=== PATIENT | male | born 1965 | race Caucasian/White ===

== ENCOUNTER 2019-09-13 11:39 | Emergency (ER) | payer OTHER, SELFPAY ==
[2019-09-13 11:44] VITALS: BP 109/92; PULSE 103; RESP 16; TEMP 37.1; O2SAT 100
--- NOTE | 2019-09-13 11:48 | ED.SKABFB ---
HPI - Skin/Abscess/Foreign Bdy General Chief complaint: Skin/Abscess/Foreign Body Stated complaint: spots on arms Time Seen by Provider: 09/13/19 11:52 Source: patient and RN notes reviewed History of Present Illness HPI narrative: Patient is a 53-year-old male who presents the urgent care with complaints of a open rash to bilateral arms, lower legs and groin. Patient states he also has a small area on the top of his head. Patient states is been ongoing for a couple weeks and last week he saw his primary care and was prescribed mupirocin and triamcinolone cream. Patient states he also took Keflex. Patient states that neither creams are improving the rash and he was referred to a nurse midwife/clinical instructor at [place]. Patient states that he is unable to get into dermatology until November. Denies of any known fevers, nausea, vomiting. Patient states that he has been using new wash rags, towels and washing his clothing daily. Patient is also been bleaching his shower. States that his was diagnosed with staph approximately 2 months ago prior to her hip surgery but never broke out in open wounds or rash. No other acute complaints. No acute distress noted. Patient read the plan of care. Related Data Home Medications Medication Instructions Recorded Confirmed gabapentin 600 mg PO BID 09/13/19 09/13/19 insulin glargine [Basaglar KwikPen 38 unit SUBCUT DAILY 09/13/19 09/13/19 U-100 Insulin] insulin lispro [Admelog SoloStar 6 unit SUBCUT DAILY 09/13/19 09/13/19 U-100 Insulin] metformin 500 mg PO BID 09/13/19 09/13/19 prednisone 10 mg PO DAILY 09/13/19 09/13/19 prednisone 20 mg PO DAILY 09/13/19 09/13/19 Allergies Allergy/AdvReac Type Severity Reaction Status Date / Time No Known Allergies Allergy Verified 09/13/19 11:57 Review of Systems Review of Systems: Narrative: CONSTITUTIONAL: Denies fever, chills, or sweats. EYES: Denies visual changes, redness, or discharge. ENT: Denies rhinorrhea, congestion, sore throat, or otalgia. CARDIOVASCULAR: Denies chest pain, palpitations, or edema. RESPIRATORY: Denies cough or dyspnea. GASTROINTESTINAL: Denies abdominal pain, nausea, vomiting, or diarrhea. GENITOURINARY: Denies dysuria or hematuria. SKIN: Reports of open painful rash to bilateral arms, lower legs, top of the head and groin MUSCULOSKELETAL: Denies back pain, joint pain, or myalgia. NEUROLOGIC: Denies headache, numbness, or weakness. All other systems reviewed are negative, except as documented in HPI. PMFSH Comments At the time of my signature, I reviewed and agree with the nursing past medical, surgical, social, and family history. There is no relevant family history pertinent to the patient complaint. Exam Narrative: Exam Narrative: GENERAL: This is a well-nourished, well-developed patient, in no apparent distress. HEAD: normocephalic, atraumatic. EYES: PERRL. Sclera clear/white. Vision is grossly intact. EARS: External ears normal NOSE: External nose normal with no obvious nasal discharge, nares without redness, no rhinorrhea. THROAT: Mucous membranes moist NECK: Neck supple SKIN: open sores ranging from 0.25 cm to 1 cm noted to bilateral arms, lower medial ankles and top of the head. Also noted one area to the right and left upper thigh; multiple areas are draining serosanguineous yellow fluid and other areas appear to have yellow crusted centers. NEURO: awake, alert, and oriented to person, place and time. There were no obvious focal neurologic abnormalities. EXTREMITIES: No clubbing, cyanosis, or edema. Course Vital Signs Vital signs: Vital Signs Temperature 98.7 F 09/13/19 11:44 Pulse Rate 103 H 09/13/19 11:44 Respiratory Rate 16 09/13/19 11:44 Blood Pressure 109/92 H 09/13/19 11:44 Pulse Oximetry 100 09/13/19 11:44 Temperature 98.7 F 09/13/19 11:44 Pulse Rate 103 H 09/13/19 11:44 Respiratory Rate 16 09/13/19 11:44 Blood Pressure 109/92 H 09/13/19 11:44 Pulse Oximetry 100 09/13/19 1
== END 2019-09-13 12:15 | disposition home or self-care (01) ==
PROVIDERS: Emergency Provider Nurse Practitioner Family; PCP Emergency Medicine
DX: S41.102A Unspecified open wound of left upper arm, initial encounter (principal); S41.101A Unspecified open wound of right upper arm, initial encounter; S91.002A Unspecified open wound, left ankle, initial encounter; S91.001A Unspecified open wound, right ankle, initial encounter; S01.00XA Unspecified open wound of scalp, initial encounter; S71.102A Unspecified open wound, left thigh, initial encounter; S71.101A Unspecified open wound, right thigh, initial encounter; X58.XXXA Exposure to other specified factors, initial encounter
CPT/HCPCS: 87070; 87205; 99213; G0463

== ENCOUNTER 2021-10-07 17:37 | Emergency (ER) | payer MEDICARE, SELFPAY ==
--- NOTE | ~2021-10-07 | XR_ITS ---
EXAM: XR finger 2nd RT min 2V DATE: 10/07/2021 18:06 HISTORY: ? GLASS IN DISTAL END OF RT 2ND DIGIT SINCE 10/01/21. . COMPARISON: None available. FINDINGS: Normal mineralization. No fracture or dislocation. No lytic or blastic lesion. Joint space s are maintained. No erosion or periosteal change. Soft tissue swelling of the distal finger. No radi opaque foreign body. IMPRESSION: Distal finger soft tissue swelling, without acute osseous finding or radiopaque foreign b ambrose. Reviewed, dictated and finalized at location [facility]. IMPRESSION: Distal finger soft tissue swelling, without acute osseous finding o r radiopaque foreign body.
[2021-10-07 17:44] VITALS: BP 137/75; PULSE 109; RESP 20; TEMP 37; O2SAT 97
--- NOTE | 2021-10-07 18:17 | ED.UPPEXIN ---
HPI - Extremity Injury (Upper) General Chief Complaint: Extremity Injury, Upper Stated Complaint: right finger glass/poison sumac Time Seen by Provider: 10/07/21 18:18 Source: patient, RN notes reviewed and old records reviewed Mode of arrival: ambulatory Limitations: no limitations History of Present Illness HPI narrative: 56-year-old male who presents to [facility] with complaints of injury to his right index finger palmar aspect where he was cut by a piece of glass when he was picking up trash last Thursday, he states that he doesn't know if there could be something in it still but is very painful. Patient right index finger parson area is swollen and bruised in appearance with some swelling around to radial aspect of nail bed. Patient reports that his finger is throbbing in pain rates it a 6/10. Patient also reports that he has poison sumac to the anterior aspect of his arms and also to his lower legs but is clearing up. MD complaint: injury to: right and finger (index, rash) Onset (ago): day(s) (6) Handedness: right Severity scale (1-10): 6 Treatments prior to arrival: NSAIDS and other (washing with soap and water) Related Data Home Medications Medication Instructions Recorded Confirmed insulin glargine 100 unit/mL (3 38 unit subcut DAILY 09/13/19 10/07/21 mL) subcutaneous pen (Basaglar KwikPen U-100 Insulin) insulin lispro 100 unit/mL 6 unit subcut DAILY 09/13/19 10/07/21 subcutaneous pen (Admelog SoloStar U-100 Insulin lispro) Allergies Allergy/AdvReac Type Severity Reaction Status Date / Time No Known Allergies Allergy Verified 10/07/21 18:24 Review of Systems Review of Systems: CONSTITUTIONAL: Denies fever, chills, or sweats. EYES: Denies visual changes, redness, or discharge. ENT: Denies rhinorrhea, congestion, sore throat, or otalgia. CARDIOVASCULAR: Denies chest pain, palpitations, or edema. RESPIRATORY: Denies cough or dyspnea. GASTROINTESTINAL: Denies abdominal pain, nausea, vomiting, or diarrhea. GENITOURINARY: Denies dysuria or hematuria. SKIN: Positive for rash or itching to anterior arm and anterior lower legs states he thinks is poison sumac also had it. Positive for swelling bruising and pain to right distal index finger from injury from piece of glass. MUSCULOSKELETAL: Denies back pain, positive for throbbing pain to right index finger, or myalgia. NEUROLOGIC: Denies headache, numbness, or weakness. PSYCHIATRIC: Denies anxiety or depression. All systems reviewed & are unremarkable except as noted in HPI and below PMFSH Past Medical History Medical History (Updated 10/08/21 @ 10:29 by Ileana Carrillo NP) Chronic inflammatory demyelinating polyradiculoneuropathy Diabetes Surgical History Surgical History (Updated 10/07/21 @ 18:42 by Ileana Carrillo NP) History of cataract surgery bilateral Social History Social History (Updated 10/08/21 @ 10:29 by Ileana Carrillo NP) Smoking packs per day: 1 Smoking cigarettes per day: 20.0 Smoking status: Current every day smoker Tobacco type: cigarettes Alcohol intake: current Alcohol use details: rare social Substance use type: does not use Living arrangements: with family Gender identity (if verbalized by the patient): Male Comments At time of signature, agree with nursing past medical, surgical, social and family history. There is no relevant family history pertinent to the presenting complaint Exam Narrative: GENERAL: Well-appearing, well-nourished, and in some acute distress. HEAD: Normocephalic, atraumatic. EYES: PERRLA and EOMI. ENT: Nares clear, no rhinorrhea or epistaxis. Mucous membranes moist.TM's normal with good light reflex, throat pink no lesions or tonsil swelling. NECK: Supple.no lymphadenopathy CHEST: Clear to auscultation. No respiratory distress.SAO2 97% on room air HEART: Regular rate and rhythm. No murmur heard. Normal peripheral pulses. ABDOMEN: Soft, nontender, nondistended, elena
[2021-10-07] MEDS: TETANUS,DIPHTHERIA,AC PERTUSSIS ADULT (0.5 ML) BOOSTRIX IM (18:38)
== END 2021-10-07 19:08 | disposition home or self-care (01) ==
PROVIDERS: Emergency Provider Registered Nurse
DX: L02.511 Cutaneous abscess of right hand (principal); L23.7 Allergic contact dermatitis due to plants, except food; Z23 Encounter for immunization; E11.9 Type 2 diabetes mellitus without complications; F17.210 Nicotine dependence, cigarettes, uncomplicated
CPT/HCPCS: 26010; 73140; 90471; 90715; 99213; G0463

== ENCOUNTER 2024-04-17 09:36 | Inpatient (IN) | payer MEDICARE, MEDICAID, SELFPAY ==
[2024-04-17] VITALS (12 sets, daily range): BP systolic 109–144; BP diastolic 57–84; PULSE 105–118; RESP 12–41; TEMP 36.4–37.6; O2SAT 88–100; BMI 18.7
--- NOTE | ~2024-04-17 | XR_ITS ---
CHEST RADIOGRAPH CLINICAL HISTORY: Influenza A, fatigue . COMPARISON: None available TECHNIQUE: Single portable view of the chest. FINDINGS The cardiomediastinal silhouette is unremarkable. Acute infiltrate within the right lower lobe. The remainder of the lungs are clear. IMPRESSION: Right lower lobe infiltrate, as detailed above. Reviewed, dictated and finalized at location A. ODICALS LIBRARY ASSISTANT
--- NOTE | ~2024-04-17 | CT_ITS ---
Clinical Indication: Pneumonia, tachycardia CT Scan of the Chest with Contrast: Technique: Contiguous sections were acquired throughout the chest after intravenous administration of 100 cc of Omnipaque 350. Dose reduction technique was used on this scan by utilizing automated expos ure control and iterative reconstruction technique. The dose-length product (DLP) was 208.54 mGy-cm. Findings: There is no evidence of any significant mediastinal, hilar or axillary lymphadenopathy. There is no f illing defect in the pulmonary arterial tree to suggest pulmonary embolus. There is no evidence of ao rtic dissection or aneurysm. No pericardial effusion. Small to moderate right pleural effusion present. Small left pleural effusion present. There is exten sive dense right lower lobe consolidation, compatible with lobar pneumonia. Left lung otherwise essen tially clear. Images through the upper abdomen reveal no abnormalities. Impression: No evidence of pulmonary embolus, aortic dissection, or aortic aneurysm. Right lower lobar pneumonia. [id number] pleural effusion and small left pleural effusion. Reviewed, dictated and finalized at [facility]. AGE REINSPECTOR Impression: No evidence of pulmonary embolus, aortic dissection, or aortic aneurysm. Right lower lobar pneumonia. [id number] pleural effusion and small left pleural effusion.
--- NOTE | ~2024-04-17 | XR_ITS ---
XR chest 1V portable 04/18/2024 08:43 Indication: Pneumonia Procedure: AP portable chest Comparison: 04/17/2024 Findings: There is improving right basilar airspace disease, compatible with pneumonia. No significan t effusion. Heart size normal. No pneumothorax. No acute osseous abnormality. Impression: 1: Improving right basilar pneumonia. Reviewed, dictated and finalized at location [] MECHANICS INSTRUCTOR Impression: 1: Improving right basilar pneumonia.
--- NOTE | ~2024-04-17 | XR_ITS ---
Portable chest x-ray Comparison: 04/19/2024 Clinical History: Leukocytosis Findings: There is extensive right basilar/perihilar consolidation, unchanged. Left lung clear. Prob able minimal right pleural effusion. Cardiomediastinal silhouette is stable. Bones and soft tissues are unremarkable. Impression: Stable extensive right lower lobe pneumonia. Minimal right pleural effusion. Reviewed, dictated and finalized at location . UCTION COST ESTIMATOR Impression: Stable extensive right lower lobe pneumonia. Minimal right pleural effusion.
--- NOTE | ~2024-04-17 | US_ITS ---
EXAMINATION: US thoracentesis DATE: 04/21/2024 14:54 INDICATION: Pneumonia and right pleural effusion with persistent fever TECHNIQUE: The procedure and its risks and benefits were discussed with the patient. Potential risks discussed included bleeding, infection, and pneumothorax. The patient understood the risks and agreed to proceed. The skin was prepped and draped in sterile fashion. 1% lidocaine was used for local anes thesia. Under ultrasound guidance, a 5 Fr catheter with trochar was advanced into the small right ple ural effusion. Fluid was aspirated. The catheter was removed, and a dressing was applied. There were no immediate complications. FINDINGS: Ultrasound images demonstrate a small pleural effusion and the catheter within the fluid. IMPRESSION: 1. Successful ultrasound-guided thoracentesis yielding 200 mL of cloudy straw-colored fluid. Reviewed, dictated and finalized at location A. OR MARKET RESEARCH ANALYST IMPRESSION: 1. Successful ultrasound-guided thoracentesis yielding 200 mL of cloudy straw- colored fluid.
--- NOTE | ~2024-04-17 | US_ITS ---
EXAMINATION:US venous doppler LE BI INDICATION:Fevers TECHNIQUE: Multiple grayscale, color flow and Doppler images of the right and left lower extremity de ep venous systems were obtained and reviewed. COMPARISON:No prior studies for comparison. FINDINGS: The common femoral, superficial femoral and popliteal veins demonstrate normal respiratory variation, augmentation and compressibility. Color flow is also seen within the posterior tibial, pe roneal, greater saphenous and profunda veins. IMPRESSION: 1: No lower extremity deep venous thrombosis. Reviewed, dictated and finalized at location L.
--- NOTE | ~2024-04-17 | XR_ITS ---
Portable chest x-ray Comparison: 04/18/2024 Clinical History: Right lower lobe pneumonia Findings: There is extensive hazy right basilar and right perihilar airspace disease. Left lung esse ntially clear. Cardiomediastinal silhouette is stable. Bones and soft tissues are unremarkable. Impression: Hazy right basilar and right perihilar airspace disease. Correlate for pneumonia. Reviewed, dictated and finalized at [facility]. UETTING MACHINE OPERATOR Impression: Hazy right basilar and right perihilar airspace disease. Correlate for pneumoni a.
--- NOTE | ~2024-04-17 | XR_ITS ---
EXAMINATION: [id number] DATE: 04/21/2024 15:15 INDICATION: Right pleural effusion status post thoracentesis. TECHNIQUE: A single frontal view of the chest was obtained. COMPARISON: Chest single view 04/20/2024, chest CT 04/20/2024 FINDINGS: There are airspace opacities in right mid and lower lung zones and left lower lung zone. Th ere is a small right pleural effusion. No pneumothorax. The heart size is normal. IMPRESSION: 1. Stable airspace opacities in right mid and lower lung zones and left lower lung zone, consistent w ith pneumonia. 2. Small right pleural effusion. Reviewed, dictated and finalized at location A. DESIGN ENGINEER IMPRESSION: 1. Stable airspace opacities in right mid and lower lung zones and left lower l ana zone, consistent with pneumonia. 2. Small right pleural effusion.
[2024-04-17 09:45] LABS: Glucose Point of Care > 500 mg/dl (65-105)
--- OUTSIDE RECORDS SUMMARY | 2024-04-17 09:45 | XMS_ITS | Referral Summary ---
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 1 kit 06/12/19 24 Active blood glucose diagnostic (glucose blood) strip Use as directed up to four times a day. 100 each 1 06/12/19 24 Active lancets misc Use as directed up to 4 times a day. 100 each 06/12/19 24 Active gabapentin (NEURONTIN) 300 mg capsuleIndications :Diabetic Peripheral Neuropathy Take 1 capsule (300 mg total) by mouth 2 (two) times a day with meals 180 capsule 3 06/18/19 24 Active ondansetron ODT (ZOFRAN-ODT) 8 mg disintegrating tabletIndications: Uncontrolled type 2 diabetes mellitus with hyperglycemia (HCC) Take 1 tablet (8 mg total) by mouth every 8 (eight) hours as needed for nausea or vomiting 90 tablet 3 06/18/19 24 Active MiniMed 780G Insulin Pump misc 1 Device continuously Medtronic 780G Insulin pump with Guardian 4 transmittor and Guardian 4 sensors with 7 day extend insertion set. E11.65 1 each 1 06/18/19 24 Active pen needle, diabetic 32 gauge x 5/32 needle Used to inject insulin 4 times daily. 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 Personally reviewed A1c -14.% Not at goal less than 7% Personally reviewed blood sugar 250, not at goal 80-180 Medication- increase tresiba 16 units daily in pm. Humalog 5 units prior to meals. Monitor blood sugar continuously with Performance Indicatorstyle jass 2 Obtain labs to assess for insulin defiency Encouraged annual eye exam. Eye exam is due. Monofilament foot exam completed, loss of protective senses. Treated with Gabapentin/Lyrica Urine microalbumin/creatinine ratio - at goal <30 on JARED. Personally reviewed labs: BUN, creatinine, GFR Kidney function- abnormal - dehydration noted B/P today- at goal, on lisinopril. Goal blood pressure is <140/90 and as close to 120/80 as possible. Personally reviewed LDL - 48 at goal on atorvastatin- not taking it at present. No history of macrovascular disease - CVA, CA. Assessment & Plan (07/25/2021 8:29 PM CDT): Condition is not at/near goal Personally reviewed A1c 14.8% goal A1c 6.9% or less, as close to <6.5% Lab Results Component Value Date HGBA1C 14.8 07/25/2021 HGBA1C 12.3 08/10/2020 Maintenance Diabetic (Monofilament) foot exam - today-07/25/2021loss of protective senses. Will refer to podiatry Annual dilated eye exams, due now. Eye exam form given Annual Urine microalbumin/creatinine ratio - done today-abnormal 30-300 No results found for: ALBCREATRATU Immunizations: PCV20 given today in office BP management B/P today- 124/76 good Patient is currently not on an JARED/ARB Goal blood pressure is <140/90, long-term blood pressure goal is to be as close to 120/80 as possible. Dyslipidemia management Personally reviewed most recent LDL as shown below. Patient is not on a statin cholesterol lowering medication Goal of less than 70 Lab Results Component Value Date LDLCALC 48 08/17/2020 Diabetes Complications History of macrovascular disease (CVA, CA, PVD) is not Present. Complications secondary to Diabetes - microalbuminuria Taking baby aspirin daily: No Smoking status: 1ppd x 26 yrs Medications begin Aspirin 81mg daily for heart protection Atorvastatin 10mg daily for cholesterol and heart protection Lisinopril 2.5mg daily for kidney protection Metformin 500mg once daily x 2 wks, then increase to twice daily (this may cause GI upset) lantus insulin 10 units at bedtime [id number] given today tdap will be given at next office visit Recommend Shingrix vaccination. Please check with insurance company to check for coverage and if they prefer you get it at our office or at a local pharmacy. Refer to Julita Sampson NP endocrinology appointment made 08/01/[address] Harmon podiatry Please have labs drawn a few days before appointment with endocrinology Discussed labs/ordered labs that have been ordered if applicable. Discussed eating a healthy low carb diet, include fresh fruits and vegetables daily. Diabetic education and nutritional counseling available if you have not had this before or annually. Encouraged to try moving at least a total of 30 minutes/day. Just move more. Instructed to wash, dry, lotion and check feet daily. Instructed to notify office if blood sugars are less than 80 or greater than 250 for 3 days Type 2 diabetes mellitus with polyneuropathy 12/2020 Assessment & Plan (06/18/2023 3:28 PM CDT): This is a chronic condition which is worsening Restart gabapentin Explained that the most important thing is to get his blood sugars down Verbalized understanding Assessment & Plan (08/01/2021 4:00 PM CDT): This is a chronic condition which is uncontrolled with hyperglycemia, not at goal. Personally reviewed A1c -14.% Not at goal less than 7% Personally reviewed blood sugar 250, not at goal 80-180 Medication- increase tresiba 16 units daily in pm. Humalog 5 units prior to meals. Monitor blood sugar continuously with Freestyle jass 2 Obtain labs to assess for insulin defiency Encouraged annual eye exam. Eye exam is due. Monofilament foot exam completed, loss of protective senses. Treated with Gabapentin/Lyrica Urine microalbumin/creatinine ratio - at goal <30 on JARED. Personally reviewed labs: BUN, creatinine, GFR Kidney function- abnormal - dehydration noted B/P today- at goal, on lisinopril. Goal blood pressure is <140/90 and as close to 120/80 as possible. Personally reviewed LDL - 48 at goal on atorvastatin- not taking it at present. No history of macrovascular disease - CVA, CA. Assessment & Plan (07/25/2021 8:29 PM CDT): Condition is not at/near goal Personally reviewed A1c 14.8% goal A1c 6.9% or less, as close to <6.5% Lab Results Component Value Date HGBA1C 14.8 07/25/2021 HGBA1C 12.3 08/10/2020 Maintenance Diabetic (Monofilament) foot exam - today-07/25/2021loss of protective senses. Will refer to podiatry Annual dilated eye exams, due now. Eye exam form given Annual Urine microalbumin/creatinine ratio - done today-abnormal 30-300 No results found for: ALBCREATRATU Immunizations: PCV20 given today in office BP management B/P today- 124/76 good Patient is currently not on an JARED/ARB Goal blood pressure is <140/90, long-term blood pressure goal is to be as close to 120/80 as possible. Dyslipidemia management Personally reviewed most recent LDL as shown below. Patient is not on a statin cholesterol lowering medication Goal of less than 70 Lab Results Component Value Date LDLCALC 48 08/17/2020 Diabetes Complications History of macrovascular disease (CVA, CA, PVD) is not Present. Complications secondary to Diabetes - microalbuminuria Taking baby aspirin daily: No Smoking status: 1ppd x 26 yrs Medications begin Aspirin 81mg daily for heart protection Atorvastatin 10mg daily for cholesterol and heart protection Lisinopril 2.5mg daily for kidney protection Metformin 500mg once daily x 2 wks, then increase to twice daily (this may cause GI upset) lantus insulin 10 units at bedtime [id number] given today tdap will be given at next office visit Recommend Shingrix vaccination. Please check with insurance company to check for coverage and if they prefer you get it at our office or at a local pharmacy. Refer to Julita Sampson NP endocrinology appointment made 08/01/[address] Harmon podiatry Please have labs drawn a few days before appointment with endocrinology Discussed labs/ordered labs that have been ordered if applicable. Discussed eating a healthy low carb diet, include fresh fruits and vegetables daily. Diabetic education and nutritional counseling available if you have not had this before or annually. Encouraged to try moving at least a total of 30 minutes/day. Just move more. Instructed to wash, dry, lotion and check feet daily. Instructed to notify office if blood sugars are less than 80 or greater than 250 for 3 days Assessment & Plan (08/10/2020 2:05 PM CDT): Condition is improving, but not at goal Discussed labs/ordered labs Personally reviewed A1c done today 12.3% was 13.1 % from [facility] on 11/03/2019 goal A1c 6.9% or less, as close to <6.5% Encouraged annual diabetic eye exam, done 03/16/2019, due now Urine for microalbumin done 11/03/2019 normal of less than 30 done at [facility], goal less than 30 BP today 128/70 , goal blood pressure is< 140/90 and is close to 120/80 is possible Personally reviewed lipid panel done 11/03/2019 from [facility], start patient on statin therapy-atorvastatin 10mg daily Patient not on JARED inhibitor or ARB Monofilament foot exam done today, 08/10/2020 Immunizations recommend , Shingrix and Tdap, recommend seasonal flu vaccinations Start taking baby aspirin 81mg daily: Smoking status: smoker (1ppd x 25 yrs) Will need to see endocrinology-will refer to Julita Sampson NP Has been off of meds x 3 mo Start back on lantus 30units at bedtime, humalog 8 units with meals, metformin 500mg twice daily Discussed eating a healthy low carb diet, include fresh fruits and vegetables daily. Encouraged to try moving at least a total of 30 minutes/day. Just move more. Instructed to wash, dry, lotion and check feet daily. Instructed to notify office if blood sugars are less than 80 or greater than 250 for 3 days Vitamin D deficiency 11/03/2019 Assessment & Plan (07/25/2021 12:28 AM CDT): HPI: Condition is unknown, no data to review at this time to make an evaluation A&P: Discussed/ordered labs, encouraged healthy, low carbohydrate lifestyle and at least 150min/week of exercise, Take over the counter vit d3 capsules 7650-7184 units daily-this will be a nursing home medication Assessment & Plan (08/10/2020 2:13 PM CDT): HPI: Condition is unknown, no data to review at this time to make an evaluation A&P: Discussed/ordered labs, encouraged healthy, low carbohydrate lifestyle and at least 150min/week of exercise, Take over the counter vit d3 capsules 8606-8287 units daily-this will be a nursing home medication Major depressive disorder, recurrent, mild 11/02 Assessment & Plan (07/25/2021 2:35 PM CDT): Pt having suicidal thoughts, but not any actively. No plan. Encouraged patient to see a counselor HPI: Condition worsen. Pt does not want to be on meds for this A&P: Discussed/ordered labs, encouraged healthy, low carbohydrate lifestyle and at least 150min/week of exercise We will give pt handout for [facility]. Assessment & Plan (08/10/2020 2:08 PM CDT): Patient reiterated no suicidal thoughts at this time; take medication as directed; contact 911 and go to the ER if becomes suicidal; discussed side effects of medication with patient; encouraged healthy diet and exericise; encouraged patient to see a counselor HPI: Condition is stable symptoms wax and wane. Pt does not want to be on meds for this. A&P: Discussed/ordered labs, encouraged healthy, low carbohydrate lifestyle and at least 150min/week of exercise. Uncontrolled type 2 diabetes mellitus with hyper glycemia 09/15/2018 Overview (08/10/2020): Last Assessment & Plan: Patient to continue current insulin regimen. Met with clinical pharmacist after our visit and she will follow with him more closely the next 2 weeks. He does only check his fingerstick glucoses once daily typically. Encouraged him to check if feeling ill. He verbalized checking one day when he felt poorly and measured a 61. Review eye exam with next visit. Otherwise up-to-date for routine diabetic health maintenance. Assessment & Plan (06/18/2023 3:26 PM CDT): This is a chronic condition which is uncontrolled, not at goal . Goal is less than 7%. Personally reviewed most recent A1c - Lab Results Component Value Date HGBA1C 16.9 (H) 06/09/2023 Personally reviewed POC blood sugar- not at goal of 80-180 Lab Results Component Value Date POCGLU 332 06/18/2023 Medication- Increase Lantus 30 unit daily, increase Humalog 10 units 15 minutes prior to meals. Call blood sugars on Thursday for further adjustments. . Hold mealtime insulin if blood sugar is less than 80. Will proceed with zandatronic 70 G insulin pump Monitor blood sugar 4 times a day. Continuously with cgm. Encouraged annual eye exam. Monofilament foot exam completed. Loss of protective senses Has been on gabapentin in the past. We will restart it Personally reviewed CMP eGFR->90 Kidney function-nor Urine microalbumin/creatinine ratio - needed. Goal is <30 not treated with JARED/ARB B/P today- at goal . Goal is <140/90. Personally reviewed lipid panel. Not at goal. Goal is less than 70. Not on statin therapy Assessment & Plan (08/01/2021 4:00 PM CDT): This is a chronic condition which is uncontrolled with hyperglycemia, not at goal. Personally reviewed A1c -14.% Not at goal less than 7% Personally reviewed blood sugar 250, not at goal 80-180 Medication- increase tresiba 16 units daily in pm. Humalog 5 units prior to meals. Monitor blood sugar continuously with Freestyle jass 2 Obtain labs to assess for insulin defiency Encouraged annual eye exam. Eye exam is due. Monofilament foot exam completed, loss of protective senses. Treated with Gabapentin/Lyrica Urine microalbumin/creatinine ratio - at goal <30 on JARED. Personally reviewed labs: BUN, creatinine, GFR Kidney function- abnormal - dehydration noted B/P today- at goal, on lisinopril. Goal blood pressure is <140/90 and as close to 120/80 as possible. Personally reviewed LDL - 48 at goal on atorvastatin- not taking it at present. No history of macrovascular disease - CVA, CA. Assessment & Plan (07/25/2021 8:30 PM CDT): Condition is not at/near goal Personally reviewed A1c 14.8% goal A1c 6.9% or less, as close to <6.5% Lab Results Component Value Date HGBA1C 14.8 07/25/2021 HGBA1C 12.3 08/10/2020 Maintenance Diabetic (Monofilament) foot exam - today-07/25/2021loss of protective senses. Will refer to podiatry Annual dilated eye exams, due now. Eye exam form given Annual Urine microalbumin/creatinine ratio - done today-abnormal 30-300 No results found for: ALBCREATRATU Immunizations: PCV20 given today in office BP management B/P today- 124/76 good Patient is currently not on an JARED/ARB Goal blood pressure is <140/90, long-term blood pressure goal is to be as close to 120/80 as possible. Dyslipidemia management Personally reviewed most recent LDL as shown below. Patient is not on a statin cholesterol lowering medication Goal of less than 70 Lab Results Component Value Date LDLCALC 48 08/17/2020 Diabetes Complications History of macrovascular disease (CVA, CA, PVD) is not Present. Complications secondary to Diabetes - microalbuminuria Taking baby aspirin daily: No Smoking status: 1ppd x 26 yrs Medications begin Aspirin 81mg daily for heart protection Atorvastatin 10mg daily for cholesterol and heart protection Lisinopril 2.5mg daily for kidney protection Metformin 500mg once daily x 2 wks, then increase to twice daily (this may cause GI upset) lantus insulin 10 units at bedtime [id number] given today tdap will be given at next office visit Recommend Shingrix vaccination. Please check with insurance company to check for coverage and if they prefer you get it at our office or at a local pharmacy. Refer to Julita Sampson NP endocrinology appointment made 08/01/[address] Harmon podiatry Please have labs drawn a few days before appointment with endocrinology Discussed labs/ordered labs that have been ordered if applicable. Discussed eating a healthy low carb diet, include fresh fruits and vegetables daily. Diabetic education and nutritional counseling available if you have not had this before or annually. Encouraged to try moving at least a total of 30 minutes/day. Just move more. Instructed to wash, dry, lotion and check feet daily. Instructed to notify office if blood sugars are less than 80 or greater than 250 for 3 days Assessment & Plan (08/17/2020 4:38 PM CDT): This is a chronic condition which is uncontrolled with hyperglycemia, not at goal. Personally reviewed A1c -12.3% Not at goal less than 7% Personally reviewed blood sugar 262 goal 80-180 Medication- Continue Lantus 30 units daily in pm. Humalog 8-12 units prior to meals. Monitor blood sugar 4 times a day. Encouraged annual eye exam. Eye exam is due. Monofilament foot exam completed, loss of protective senses. Treated with Gabapentin/Lyrica Urine microalbumin/creatinine ratio - currently 30 , at goal <30 Personally reviewed labs: (11/03/19 [facility]) BUN- 10, creatinine- 0.91 GFR- 109 Kidney function- abnormal B/P today- 110/60 , currently on JARED/ARB Goal blood pressure is <140/90 and as close to 120/80 as possible. Personally reviewed LDL - 104 (11/03/19), currently on atorvastatin. Not at goal of less than 70 No history of macrovascular disease - CVA, CA. Patient has been on 3 or more insulin injections over the last 6 months and has been testing blood sugars 4 times a day for the last 90 days. Patient has been adjusting insulin doses based on blood sugar. Assessment & Plan (08/10/2020 3:02 PM CDT): Condition is improving, but not at goal Discussed labs/ordered labs Personally reviewed A1c done today 12.3% was 13.1 % from [facility] on 11/03/2019 goal A1c 6.9% or less, as close to <6.5% Encouraged annual diabetic eye exam, done 03/16/2019, due now Urine for microalbumin done 11/03/2019 normal of less than 30 done at [facility], goal less than 30 BP today 128/70 , goal blood pressure is< 140/90 and is close to 120/80 is possible Personally reviewed lipid panel done 11/03/2019 from [facility], start patient on statin therapy-atorvastatin 10mg daily Patient not on JARED inhibitor or ARB Monofilament foot exam done today, 08/10/2020 Immunizations recommend [id number], Shingrix and Tdap, recommend seasonal flu vaccinations Start taking baby aspirin 81mg daily: Smoking status: smoker (1ppd x 25 yrs) Will need to see endocrinology-will refer to Jluita Sampson, AGRICULTURAL EQUIPMENT OPERATOR Has been off of meds x 3 mo Start back on lantus 30units at bedtime, humalog 8 units with meals, metformin 500mg twice daily Discussed eating a healthy low carb diet, include fresh fruits and vegetables daily. Encouraged to try moving at least a total of 30 minutes/day. Just move more. Instructed to wash, dry, lotion and check feet daily. Instructed to notify office if blood sugars are less than 80 or greater than 250 for 3 days Chronic inflammatory demyelinating polyradiculon europathy 10/16/2017 Overview (08/10/2020): Transitioned From: Idiopathic polyneuropathy; Description: Dr. Juan A Jensen, [facility] Neurology. Transitioned From: Sensorimotor neuropathy; Description: Dr. Juan A Jensen, [facility] Neurology. Last Assessment & Plan: Stable. Continues on infusions about every 3 to 4 weeks, with follow-up with neurology in 90 days. Assessment & Plan (07/25/2021 12:26 AM CDT): HPI: Condition is stable A&P: Discussed/ordered labs, encouraged healthy, low carbohydrate lifestyle and at least 150min/week of exercise, continue to see Dr. Juan A Jensen, [facility] neurology Currently at every 6 wks of Gamunex C Pt has epipen for when he receives Gamunex, has to take benadryl prior to infusions Assessment & Plan (08/10/2020 2:21 PM CDT): HPI: Condition is stable A&P: Discussed/ordered labs, encouraged healthy, low carbohydrate lifestyle and at least 150min/week of exercise, pt sees Dr. Juan A Jensen, [facility] neurology Currently at every 6 wk infusions of Gamunex C Continue current treatment plan Pt has epipen for when he receives Gamunex, has to take benadryl prior to infusions Generalized anxiety disorder 04/23/2017 Assessment & Plan (07/25/2021 2:35 PM CDT): Pt having suicidal thoughts, but not any actively. No plan. Encouraged patient to see a counselor HPI: Condition worsen. Pt does not want to be on meds for this A&P: Discussed/ordered labs, encouraged healthy, low carbohydrate lifestyle and at least 150min/week of exercise We will give pt handout for [facility]. Assessment & Plan (08/10/2020 2:08 PM CDT): Patient reiterated no suicidal thoughts at this time; take medication as directed; contact 911 and go to the ER if becomes suicidal; discussed side effects of medication with patient; encouraged healthy diet and exericise; encouraged patient to see a counselor HPI: Condition is stable symptoms wax and wane. Pt does not want to be on meds for this. A&P: Discussed/ordered labs, encouraged healthy, low carbohydrate lifestyle and at least 150min/week of exercise. Type 2 diabetes mellitus with hyperlipidemia Assessment & Plan (06/18/2023 3:27 PM CDT): This is a chronic condition which is not at goal . Goal is LDL less than 70 not on statin therapy Encouraged to eat healthy, include fresh fruits and vegetables daily and avoid eating fried foods more than once per week. Encouraged to take medications as prescribed. Assessment & Plan (07/25/2021 12:29 AM CDT): HPI: Condition is unknown, no data to review at this time to make an evaluation A&P: Discussed/ordered labs, encouraged healthy, low carbohydrate lifestyle and at least 150min/week of exercise, recommend starting back on atorvastatin 10mg daily Assessment & Plan (08/17/2020 4:32 PM CDT): This is a chronic condition which is not at goal. Goal is less than 70. Personally reviewed lipid panel. LDL - 104 (11/03/19), currently on atorvastatin. Encouraged to eat healthy, include fresh fruits and vegetables daily and avoid eating fried foods more than once per week. Please take medications as prescribed. Assessment & Plan (08/10/2020 2:14 PM CDT): HPI: Condition is stable A&P: Discussed/ordered labs, encouraged healthy, low carbohydrate lifestyle and at least 150min/week of exercise, start on atorvastatin 10mg daily, push water Tobacco abuse 10/21/2011 Overview (08/10/2020): Last Assessment & Plan: Pre-contemplative. 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 Assessment & Plan (07/25/2021 12:24 AM CDT): Patient aware of risks of tobacco use up to and including Patient does not have interest in quitting at this time Smokes 1ppd x 26 yrs Assessment & Plan (08/10/2020 2:07 PM CDT): Patient aware of risks of tobacco use up to and including Patient does not have interest in quitting at this time Smokes 1ppd x 25 yrs Resolved Problems Problem Noted Date Diagnosed Date Resolved Date Hyperosmolar hyperglycemic state (HHS) 06/09/2023 06/18/2023 Moderate protein-calorie mal nutrition ([facility]/HCC) 07/25/2021 07/25/2021 Assessment & Plan (07/25/2021 12:23 AM CDT): HPI: Condition is not at/near goal bmi 20-24 A&P: increase protein in diet. Examples: protein supplement shakes, protein bars, protein:ratio yogurt, increased meat intake Sixth nerve palsy of left eye 10/15/2018 07/25/2021 Overview (08/10/2020): Last Assessment & Plan: Patient's vision was assessed by eye technical healthcare consultant in [place], diagnosed with 6th cranial nerve palsy on the left. 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 Monitor at this time. Assessment & Plan (07/25/2021 12:28 AM CDT): HPI: Condition is Resolved A&P: this was thought to be a result of the demyelinating peripheral neuropathy and it is just being monitored. Assessment & Plan (08/10/2020 2:12 PM CDT): HPI: Condition is resolved x 9 mo. Likely a results of his demyelinating peripheral neuropathy A&P: Discussed/ordered labs, encouraged healthy, low carbohydrate lifestyle and at least 150min/week of exercise, continue on current infusion therapy Insomnia due to medical condition 06/30/2017 08/10/2020 Overview (08/10/2020): Last Assessment & Plan: Continues on zolpidem for sleep, with reasonable control of insomnia. [place] Prescription Monitoring Program website reviewed, no indication of misuse or abuse. Continue current treatment. Pes cavus 04/22/2017 08/10/2020 Immunizations Immunization Administration Dates Next Due Influenza, Quadrivalent, Spl it, Preservative Free, Intramuscular 01/05/2019 Influenza, Trivalent, Preser vative Free, Intramuscular 02/03/2013 Influenza, Unspecified 03/21/2019(Deferr ed: Patient Refused),03/02/2019(Deferred: Patient Refused),03/02/2019(Deferred: Patient Refused) Pfizer SARS-CoV-2 Monovalent Vaccination (12+ Yrs) PURPLE 07/06/2020,06/08/2020 Pneumococcal Conjugate Pcv20 07/25/2021 Social History Tobacco Use Types Packs/Day Years Used Date Smoking Tobacco: Every Day Smokeless Tobacco: Never Tobacco Cessation:Ready to Q uit: Not Asked; Counseling Given: Not Answered [facility] Utilities Answer Date Recorded In the past 12 months has [employer], gas, oil, or water [employer] threatened to shut off services in your home? Yes 06/11/2023 Social Connection and Isolation Panel [NHANES] A nswer Date Recorded In a typical week, how many times do you talk on the phone with family, friends, or neighbors? Never 06/11/2023 How often do you get together with friends or re latives? Once a week 06/11/2023 How often do you attend bahai or oriental orthodox serv ices? Never 06/11/2023 Do you belong to any clubs o r organizations such as bahai groups, unions, fraternal or athletic groups, or school groups? No 06/11/2023 How often do you attend meet ings of the clubs or organizations you belong to? Never 06/11/2023 Are you , , di vorced, , never , or living with a partner? 06/11/2023 AUDIT-C Answer Date Recorded Q1: How often do you have a drink containing alcohol? Never 06/09/2023 Q2: How many drinks containi ng alcohol do you have on a typical day when you are drinking? Patient does not drink Q3: How often do you have si x or more drinks on one occasion? Never 06/09/2023 Overall Financial Resource Strain (CARDIA) Answe r Date Recorded How hard is it for you to pa y for the very basics like food, housing, medical care, and heating? Very hard 06/12/2023 PHQ-2 Answer Date Recorded PHQ-2 Total Score (If total score is 3 or more points, staff should administer the PHQ-9) 2 08/10/2020 Hunger Vital Sign Answer Date Recorded Within the past 12 months, y ou worried that your food would run out before you got the money to buy more. Never true 06/11/19 24 Within the past 12 months, t he food you bought just didn't last and you didn't have money to get more. Never true 06/11/2023 PRAPARE - Transportation Answer Date Re corded In the past 12 months, has l ack of transportation kept you from medical appointments or from getting medications? Yes 05/31 In the past 12 months, has l ack of transportation kept you from meetings, work, or from getting things needed for daily living? Yes 06/11/2023 Housing Stability Vital Sign Answer Roe e Recorded In the last 12 months, was t here a time when you were not able to pay the mortgage or rent on time? No 06/11/2023 In the last 12 months, how many places have you lived? 1 06/11/2023 In the last 12 months, was t here a time when you did not have a steady place to sleep or slept in a senior care (including now)? No 06/11/2023 Personal Safety Answer Date Recorded Have you ever been in or are you currently in a harmful physical or emotional relationship or is someone making you feel afraid or unsafe? Denies 06/09/2023 Education Answer Date Recorded What is the highest level of school you have completed or the highest degree you have received? Associate degree: occupational, technical, or vocational program 06/11/2023 Sex and Gender Information Value Date Recorded Sex Assigned at Not on file Legal Sex Male 1:03 PM CDT Gender Identity Male 07/02/2023 11:58 AM CDT Sexual Orientation Straight 07/02/2023 11 :58 AM CDT Last Filed Vital Signs Vital Sign Reading Time Taken Comments Blood Pressure 140/84 06/12/2023 11:15 AM CDT Pulse 108 06/12/2023 11:15 AM CDT Temperature 36.7 C (98.1 F) 06/12/2023 11:15 AM CDT Respiratory Rate 20 06/12/2023 11:15 AM CDT Oxygen Saturation 99% 06/12/2023 11:15 AM CDT Inhaled Oxygen Concentration - - Weight 62.2 kg (137 lb 3.2 oz) 06/18/2023 1:19 P M CDT Height 177.8 cm (5' 10 ) 06/18/2023 1:19 PM CDT Body Mass Index 19.69 06/18/2023 1:19 PM CDT Plan of Treatment Not on file Procedures Procedure Name Priority Date/Time Associated Diagnosis Comments EGFR Routine 06/12/2023 2:30 AM CDT HEMOGLOBIN A1C Add-On 06/09/2023 5:49 PM CDT LIPID PANEL Routine 08/01/2021 4:13 PM CDT Uncontrolled type 2 diabetes mellitus with hyperglycemia (HCC) HEPATITIS C ANTIBODY Routine 08/17/2020 2:47 PM CDT Encounter for hepatitis C screening test for low risk patient PSA SCREEN Routine 08/17/2020 2:47 PM CDT Prostate cancer screening from Last 3 Months or Most Recently Relevant to Health Maintenance Results * eGFR (06/12/2023 2:30 AM CDT) eGFR >90 >=60 mL/min/1. 73 m2 Comment: Interpretive Data Reference Interval Normal >/= 90 mL/min/1.73m2 Mildly decreased* 60 - 89 mL/min/1.73m2 Mildly to moderately decreased 45 - 59 mL/min/1.73m2 Moderately to severely decreased 30 - 44 mL/min/1.73m2 Severely decreased 15 - 29 mL/min/1.73m2 Kidney Failure < 15 mL/min/1.73m2 *Relative to young adult level Estimated glomerular filtration rate is determined by the 2020 CKD-EPI equation recommended by the National Kidney Foundation (A Unifying Approach to GFR Estimation: Recommendations of the NKF-ASK Task Force on Reassessing the Inclusion of Race in Diagnosing Kidney Disease, JASN 2020). The CKD-EPI equation should not be used for patients with unstable renal function and has not been validated in children and those over 70. Current interpretive data was last reviewed 2020. Blood 06/12/2023 2:30 AM CDT 06/12/2023 3:01 AM CDT us Shawn Correia MD LAB BLOOD ORDERABLES Final Resu lt [facility] ([place]) 1 [facility] [place] [address] * (ABNORMAL) Hemoglobin A1c (06/09/2023 5:49 PM CDT) Hgb A1C 16.9(H) 4.0 - 5.6 % Estimated Average Glucose 438 mg/dL [facility] ([place]) Comment: The ADA recommends reporting an estimated Average Glucose (eAG) with all Hemoglobin A1c results using the equation derived from a study of 507 normal and diabetic adults. Minority populations were underrepresented and children were not included. (Diabetes Care 31:9512-1604, 2008). The eAG is not equivalent to a fasting glucose. Blood 06/09/2023 5:49 PM CDT 06/09/2023 5:52 PM CDT us Shawn Correia MD LAB BLOOD ORDERABLES Final Resu lt [facility] ([place]) 1 [facility] [place] [address] * Lipid panel (08/01/2021 4:13 PM CDT) Cholesterol 157 30 - 199 mg/dL [facility] ([place]) Comment: Interpretive Data Ages < or = 19 years Acceptable: <170 mg/dL Borderline high: 170-199 mg/dL High: >or= 200 mg/dL Ages > or = 20 years Desirable: <200 mg/dL Borderline high: 200-239 mg/dL High: >or= 240 mg/dL Literature References: 1. Expert Panel on Integrated Guidelines for Cardiovascular Health and Risk Reduction in Children and Adolescents. Pediatrics 2011;128:S213 2. NCEP Expert Panel. Circulation 2004;110:227 Current Interpretive Data was last revised on 2017. Triglycerides 61 <=149 mg/dL [facility] ([place]) Comment: Interpretive Data Ages < or = 9 years Acceptable: <75 mg/dL Borderline high: 75-99 mg/dL High: >or= 100 mg/dL Ages 10 to 20 years Acceptable: <90 mg/dL Borderline high: 90-129 mg/dL High: >or= 130 mg/dL Ages > or = 20 years Desirable: <150 mg/dL Borderline high: 150-199 mg/dL High: 200-499 mg/dL Very high: >or= 499 mg/dL Literature References: 1. Expert Panel on Integrated Guidelines for Cardiovascular Health and Risk Reduction in Children and Adolescents. Pediatrics 2011;128:S213 2. NCEP Expert Panel. Circulation 2004;110:227 Current Interpretive Data was last revised on 2017. HDL 42 >=40 mg/dL [facility] [place] ([place]) Comment: Interpretive Data Ages < or = 19 years Acceptable: >45 mg/dL Borderline low: 40-45 mg/dL Low: <40 mg/dL Ages > or = 20 years Desirable: >or= 60 mg/dL Low: <40 mg/dL Literature References: 1. Expert Panel on Integrated Guidelines for Cardiovascular Health and Risk Reduction in Children and Adolescents. Pediatrics 2011;128:S213 2. NCEP Expert Panel. Circulation 2004;110:227 Current Interpretive Data was last revised on 2017. LDL, calculated 103 <=129 mg/dL [facility] ([place]) Comment: Interpretive Data Ages < or = 19 years Acceptable: <110 mg/dL Borderline high: 110-129 mg/dL High: >or= 130 mg/dL Ages > or = 20 years Optimal: <100 mg/dL Near optimal: 100-129 mg/dL Borderline high: 130-159 mg/dL High: >160 mg/dL Literature References: 1. Expert Panel on Integrated Guidelines for Cardiovascular Health and Risk Reduction in Children and Adolescents. Pediatrics 2011;128:S213 2. NCEP Expert Panel. Circulation 2004;110:227 Current Interpretive Data was last revised on 2017. Non-HDL Cholesterol 115 mg/dL [facility] ([place]) Comment: Interpretive Data Ages < or = 19 years Acceptable: <120 mg/dL Borderline high: 120-144 mg/dL High: >145 mg/dL Ages > or = 20 years When triglycerides are >200 mg/dL, Non-HDL cholesterol is a secondary target of therapy with treatment goals that are 30 mg/dL greater than the LDL cholesterol target. Literature References: 1. Expert Panel on Integrated Guidelines for Cardiovascular Health and Risk Reduction in Children and Adolescents. Pediatrics 2011;128:S213 2. NCEP Expert Panel. Circulation 2004;110:227 Current Interpretive Data was last revised on 2017. Chol/HDL ratio 4 [facility] ([place]) Blood 08/01/2021 4:13 PM CDT 08/01/2021 4:51 PM CDT Narrative [facility] ([place]) - 08/01/2021 5:30 PM CDT These lab test should be done fasting. This means do not eat or drink for at least 12 hours prior to getting your blood drawn. us Julita Sampson AGRICULTURAL EQUIPMENT OPERATOR LAB BLOOD ORDERABLES Final Resu lt [facility] ([place]) 1 [facility] [employer] [address] * PSA screen (08/17/2020 2:47 PM CDT) PSA-Total 0.32 <=3.90 ng/mL [facility] ([place]) Comment: Interpretive Data AGE SEX REFERENCE INTERVAL 0 minutes-150 years Female None 0 minutes-49 years Male None 50-59 years Male 0-3.90 60-69 years Male 0-5.40 70-79 years Male 0-6.20 80-150 years Male 0-6.20 Current interpretive data last revised 2018. Testing performed by: [address] [address] Blood specimen (specimen) 08/17/2020 2:47 PM CDT 08/18/2020 1:50 PM CDT Jelena Aguilera AGRICULTURAL EQUIPMENT OPERATOR LAB BLOOD ORDERABLES Final Result [facility] ([place]) 1 [facility] [place] [address] * Hepatitis C antibody (08/17/2020 2:47 PM CDT) Hep C Ab Nonreactive Nonreactive [facility] ([place]) Comment: Interpretive Data Nonreactive: Antibodies to HCV not detected. Does NOT exclude the possibility of recent exposure to HCV. Equivocal: Equivocal for HCV antibodies. Supplemental molecular testing will be automatically performed to determine infection status in accordance with current CDC screening recommendations. Reactive: Positive for HCV antibodies. This may represent current or past HCV infection. Supplemental molecular testing will be automatically performed to determine current infection status in accordance with current CDC screening recommendations. Interpretive data was last revised on 2019. Testing performed by: [address] [address] Blood specimen (specimen) 08/17/2020 2:47 PM CDT 08/18/2020 1:48 PM CDT us Jelena Aguilera NP LAB MICROBIOLOGY - GENERAL ORDERABLES Final Result [facility] ([place]) 1 [facility] [place] [address] from Last 3 Months or Most Recently Relevant to Health Maintenance Insurance [employer] MEDICARE [employer] Advance Directives For more information, please contact: [phone] * Full Code (Latest Code Status on File) Date Activated Date Inactivated Comments 06/09/2023 3:51 PM 06/12/2023 5:24 PM Care Teams Rear Load Truck Driver Relationship Specialty Start Date End Date No, Physician PCP - General 06/12/23 Juan A Jensen MD Referring Physician Neurology 08/10/20 Julita Sampson, AGRICULTURAL EQUIPMENT OPERATOR Nurse Practitioner Endocrinology Diabetes & Metabolism 08/10/20
--- OUTSIDE RECORDS SUMMARY | 2024-04-17 09:45 | XMS_ITS | Continuity of Care Document ---
Author Name [facility] Organization [facility] Care Team Providers Care Sketcher Name Role Phone [facility] Unavailable Unavailable Problems Combined list of problems from [facility] and [facility] facilities. It does not include entries that were removed or entered in error. 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 [facility] Diabetes mellitus with neuropathy Active Condition [facility] Headaches * (ICD-9-CM 784.0) Active Condition [facility] Hyperlipidemia Active Condition [facility] Major depression Active Condition [facility] Personal History of Tobacco Use Active Condition [facility] Tobacco user Active Condition [facility] Encounters Combined list of: 1) Encounters [facility] facilities going backup to the last 18 months, not all [place] inpatient encounters are included; 2) Encounters from the [facility] facilities going backup to 280 months. Location Location Details Encounter Type Encounter Number Reason For Visit Attending Provider ADM Date DC Date Status Disposition Source [facility] Outpatient Encounter [id number] 08/23 [facility] Outpatient Encounter [id number] 01/06 [facility] Social History Combined list of available smoking, tobacco, and other social history from [facility] and [facility] facilities. Social History Type Response Date Comment Sourc e Tobacco smoking status NHIS VA-TOBACCO USER EVERY DAY 02/05/2021 [facility] History of tobacco use VA-TOBACCO USE WI 30 MIN OF WAKEUP 02/05/2021 [facility] History of tobacco use CURRENT TOBACCO USER 09/20/2010 [facility]
--- OUTSIDE RECORDS SUMMARY | 2024-04-17 09:45 | XMS_ITS | Encounter Summary ---
Author Organization [facility] Address [address] [place] [address] Phone Care Team Providers Care Acid Conditioner Name Role Phone Jelena Aguilera NP Primary Care Provi kristin Rashi Fonseca MD Unavailable Abraham Sahu DPM Unavailable [phone] Encounter Details Date Type Department Care Team (Late st Contact Info) Description 07/07/2022 Lab Requisition [facility] [address] [place] [address] [place] [address] [place] [address] Osteomyelitis, unspecified (HCC) Social History Tobacco Use Types Packs/Day Years Used Date Smoking Tobacco: Every Day Cigarettes Alcohol Use Standard Drinks/Week Comments Not Currently 0 (1 standard drink = 0.6 oz pur e alcohol) Sex and Gender Information Value Date Recorded Sex Assigned at Not on file Legal Sex Male 12:41 PM CDT Gender Identity Not on file Sexual Orientation Not on file COVID-19 Exposure Response Date Recorded In the last 10 days, have yo u been in contact with someone who was confirmed or suspected to have Coronavirus/COVID-19? No / Unsure 07/08/2022 2:14 PM CDT documented as of this encounter Plan of Treatment Not on file documented as of this encounter Procedures Procedure Name Priority Date/Time Associated Diagnosis Comments CBC WITH AUTO DIFFERENTIAL Routine 07/07/2022 10:00 AM CDT Osteomyelitis, unspecified (HCC) CMP (COMPREHENSIVE METABOLIC PANEL) Routine 07/07/2022 10:00 AM CDT Osteomyelitis, unspecified (HCC) COMPLETE BLOOD COUNT (CBC) WITH DIFF Routine 07/07/2022 10:00 AM CDT Osteomyelitis, unspecified (HCC) documented in this encounter Results * (ABNORMAL) CBC WITH AUTO DIFFERENTIAL (07/07/2022 10:00 AM CDT) WBC 4.31 4.00 - 12.00 10(3)/mcL 07/07/2022 12:12 PM CDT [facility] RBC 4.63 4.40 - 5.80 10(6)/mcL 07/07/2022 12:12 PM CDT [facility] HEMOGLOBIN (HGB) 12.7(L) 13.0 - 16.5 g/dL 07/07/2022 12:12 PM CDT [facility] HEMATOCRIT (HCT) 40.9 38.0 - 50.0 % 07/07/2022 12:12 PM CDT [facility] MCV 88.3 82.0 - 96.0 fL 07/07/2022 12:12 PM CDT [facility] MCH 27.4 26.0 - 32.0 pg 07/07/2022 12:12 PM CDT [facility] MCHC 31.1 31.0 - 36.0 g/dL 07/07/2022 12:12 PM CDT [facility] PLATELET COUNT 381 140 - 440 10(3)/mcL 07/07/2022 12:12 PM CDT [facility] RDW 16.3(H) 11.8 - 15.5 % 07/07/2022 12:12 PM CDT [facility] MPV 9.5 8.0 - 12.6 fL 07/07/2022 12:12 PM CDT [facility] NEUTROPHILS 58.6 40.0 - 68.0 % 07/07/2022 12:12 PM CDT [facility] LYMPHOCYTES 28.8 19.0 - 49.0 % 07/07/2022 12:12 PM CDT [facility] MONOCYTES 8.4 3.0 - 13.0 % 07/07/2022 12:12 PM CDT [facility] EOSINOPHILS 3.0 0.0 - 8.0 % 07/07/2022 12:12 PM CDT [facility] BASOPHILS 1.2(H) 0.0 - 1.0 % 07/07/2022 12:12 PM CDT [facility] ABSOLUTE NEUTROPHILS 2.53 1.40 - 5.30 10(3)/mcL 07/07/2022 12:12 PM CDT [facility] ABSOLUTE LYMPHOCYTES 1.24 0.90 - 3.30 10(3)/mcL 07/07/2022 12:12 PM CDT [facility] ABSOLUTE MONOCYTES 0.36 0.10 - 0.90 10(3)/[facility] 07/07/2022 12:12 PM CDT [facility] ABSOLUTE EOSINOPHIL 0.13 0.00 - 0.50 10(3)/[facility] 07/07/2022 12:12 PM CDT [facility] ABSOLUTE BASOPHILS 0.05 0.00 - 0.10 10(3)/[facility] 07/07/2022 12:12 PM CDT [facility] NRBC PER 100 WBC 0 07/08/19 23 12:12 PM CDT [facility] Blood No Phlebotomy Charged / Unknown 07/07/2022 10:00 AM CDT 07/07/2022 12:05 PM CDT us Kylee Nelson MD HEMATOLOGY ORDERABLES Fi nal Result [facility] [address] [place] [address] * (ABNORMAL) CMP (COMPREHENSIVE METABOLIC PANEL) (07/07/2022 10:00 AM CDT) SODIUM 134(L) 136 - 144 mmol/L 07/07/2022 12:59 PM CDT [facility] POTASSIUM 3.7 3.5 - 5.1 mmol/L 07/07/2022 12:59 PM CDT [facility] CHLORIDE 99(L) 100 - 110 mmol/L 07/07/2022 12:59 PM T [facility] CO2, VENOUS 29 22 - 32 mmol/L 07/07/2022 12:59 PM T [facility] ANION GAP 9.7 8.0 - 20.0 mmol/L 07/07/2022 12:59 PM T [facility] GLUCOSE 341(H) 70 - 99 mg/dL 07/07/2022 12:59 PM T [facility] BUN 12 6 - 20 mg/dL 07/07/2022 12:59 PM [facility] CREATININE, BLOOD 0.69(L) 0.80 - 1.30 mg/dL 07/07/2022 12:59 PM [facility] BUN/CREATININE RATIO 17 12 - 20 ratio 07/07/2022 12:59 PM [facility] TOTAL PROTEIN 7.1 6.0 - 8.3 g/dL 07/07/2022 12:59 PM [facility] ALBUMIN 3.8 3.5 - 5.2 g/dL 07/07/2022 12:59 PM [facility] Comment: The colormetric methods used for the determination of Albumin may lead to falsely elevated test results in patients suffering from renal failure or insufficiency due to interference with other proteins. A/G RATIO 1.2 1.0 - 2.0 07/07/2022 12:59 PM [facility] CALCIUM 9.3 8.9 - 10.3 mg/dL 07/07/2022 12:59 PM [facility] T BILI <0.3 <=1.2 mg/dL 07/07/2022 12:59 PM T [facility] SGOT (AST) 25 <=40 U/L 07/07/2022 12:59 PM CDT [facility] SGPT (ALT) 33 <=41 U/L 07/07/2022 12:59 PM CDT [facility] ALKALINE PHOSPHATASE 140(H) 40 - 130 U/L 07/07/2022 12:59 PM CDT [facility] GFR, ESTIMATED >60 >=60 07/07/2022 12:59 PM CDT [facility] Comment: Creatinine Clearance is the preferred criteria for selecting drug dose adjustments in renally impaired patients. The GFR is provided as additional pertinent clinical information. GFR is reported in mL/min/1.73 sq m. Calculation based on the Chronic Kidney Disease Epidemiology Collaboration (CKD- EPI) equation refit without adjustment for race. GFR, EST. >60 >=60 023 12:59 PM CDT [facility] GFR, EST. NONAFRICAN >60 >=60 07/07/2022 12:59 PM CDT [facility] Blood No Phlebotomy Charged / Unknown 07/07/2022 10:00 AM CDT 07/07/2022 12:05 PM CDT Kylee Nelson MD CHEMISTRY ORDERABLES Fin al Result [facility] [address] [place] [address] documented in this encounter Visit Diagnoses Diagnosis Osteomyelitis, unspecified (HCC) documented in this encounter Care Teams Acid Conditioner Relationship Specialty Start Date End Date Jelena Aguilera NP [address] [place] [address] PCP - General Advanced Practice Nurse 05/27/22 Rashi Fonseca MD [address] [place] [address] Consulting Physician Endocrinology 07/01/22 01/06/24 Abraham Sahu DPM [address] [place] [address] Consulting Physician Podiatry 06/04/22 documented as of this encounter
--- OUTSIDE RECORDS SUMMARY | 2024-04-17 09:45 | XMS_ITS | Clinical Summary ---
Author Organization [facility] Address [address] [place] [address] Care Team Providers Care Half Section Ironer Name Role Phone Yaya Cadleron MD Primary Care Provider [phone] Source Comments [facility] [employer],non-owned Affiliates and Associated Physician Practices is amultiple site organization consisting of ambulatory clinics and hospital sitesin [place], [place], [place] and [place]. This disclosure is being madepursuant to the Care Everywhere program and may not contain all information available regarding this patient. Last updated 17.Trover [facility] Allergies No known active allergies Medications * Be aware that medications may not be up to date on this document. Alwaysverify current medications with the patient. Medication Sig Dispensed Refills Start Date End Date Status metFORMIN (GLUCOPHAGE) 500 MG tablet Take 1 tablet by mouth 2 times daily with morning and evening meal 08/18/2017 Active Additional Information Patient not taking.Reported on 08/06/2021 TRUE METRIX BLOOD GLUCOSE TEST test strip 03/15/2018 Active TRUEPLUS LANCETS 33G MISC 03/15/2018 Active Blood Glucose Monitoring Suppl (TRUE METRIX METER) W/DEVICE KIT UTD 3 TIMES DAILY. 0 03/15/2018 Active BASAGLAR KWIKPEN (BASAGLAR) pen 28 Units once daily 03/17/2018 Active B-D ULTRAFINE III SHORT PEN 31G X 8 MM needle 03/18/2018 Active Insulin Lispro (ADMELOG SOLOSTAR) 100 UNIT/ML INJECT 4 UNITS UNDER THE SKIN TID BEFORE MEALS 2 09/16/2018 Active EPINEPHrine (EPIPEN) 0.3 MG/0.3ML auto-injector pen Use as directed 08/23/2018 Ac tive immune globulin, human, (GAMUNEX-C) infusion Inject 20 units a day 08/23/2018 Active mupirocin (BACTROBAN) 2 % ointment APPLY TO OPEN SORES ON BODY 3 TIMES A DAY 05/17/2020 Active ketoconazole (NIZORAL) 2 % cream APPLY CREAM TO RASH ON FEET TWICE A DAY 05/17/2020 Active Immune Globulin, Human, (IMMUNE GLOBULIN, GAMUNEX-C,) 06/18/2020 Active gabapentin (NEURONTIN) 100 MG capsule Take 5 (five) capsules by mouth 2 times daily 300 capsule 5 08/06/2021 Active Active Problems Problem Noted Date Diagnosed Date Encounter for screening for malignant neoplasm of respiratory organs 08/06/2021 Headache 08/06/2021 Major depression 08/06/2021 Personal history of tobacco use, presenting hazards to health 08/06/2021 Other cataract 08/06/2021 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 Major depressive disorder, recurrent, mild 11/02 Overview (08/06/2021): Last Assessment & Plan: Pt having suicidal thoughts, but not any actively. No plan. Encouraged patient to see a counselor HPI: Condition worsen. Pt does not want to be on meds for this A&P: Discussed/ordered labs, encouraged healthy, low carbohydrate lifestyle and at least 150min/week of exercise We will give pt handout for [facility]. Vitamin D deficiency 11/03/2019 Overview (08/06/2021): Last Assessment & Plan: HPI: Condition is unknown, no data to review at this time to make an evaluation A&P: Discussed/ordered labs, encouraged healthy, low carbohydrate lifestyle and at least 150min/week of exercise, Take over the counter vit d3 capsules 9279-0346 units daily-this will be a continuous churn buttermaker medication Sixth nerve palsy of left eye 10/15/2018 Overview (08/06/2021): Last Assessment & Plan: Patient's vision was assessed by eye lead care manager in [place], diagnosed with 6th cranial nerve palsy on the left. 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 Monitor at this time. Uncontrolled type 2 diabetes mellitus with hyper glycemia 09/15/2018 Overview (08/06/2021): Last Assessment & Plan: Patient to continue [...] Otherwise up-to-date for routine diabetic health maintenance. Last Assessment & Plan: Patient to continue [...] Otherwise up-to-date for routine diabetic health maintenance. Last Assessment & Plan: This is a chronic condition which is [...] No history of macrovascular disease - CVA, MS. Weakness 03/09/2018 CIDP (chronic inflammatory demyelinating polyneu ropathy) 10/29/2017 Numbness and tingling 09/30/2017 Insomnia due to medical condition 06/30/2017 Overview (08/06/2021): Last Assessment & Plan: Continues on zolpidem for sleep, with reasonable control of insomnia. [place] Prescription Monitoring Program website reviewed, no indication of misuse or abuse. Continue current treatment. Lesion of tonsil 04/28/2017 Abnormal findings on imaging test 04/22/2017 Pes cavus 04/22/2017 BMI 21.0-21.9, adult 02/15/2016 Overview (08/06/2021): Transitioned From: Body mass index (BMI) 23.0-23.9, adult Cigarette nicotine dependence without complicati on 10/21/2011 Overview (08/06/2021): Last Assessment & Plan: Pre-contemplative. 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 Pure hypercholesterolemia 10/21/2011 Immunizations Name Administration Dates Next Due FLU VACCINE TRI IIV3 SPLIT PF IM (FLUVIRIN) 06/2012 INFLUENZA VACCINE, QUADR. (F LUZONE; FLULAVAL; FLUARIX; AFLURIA QUADRIVALENT; 6MO+), 0.5 ML (IIV4) 01/05/2019 Family History Medical History Relation Name Comments Depression Neg Hx Seizures Neg Hx Relation Name Status Comments Father Mother Social History Tobacco Use Types Packs/Day Years Used Date Smoking Tobacco: Every Day Cigarettes Smokeless Tobacco: Current Comments:1 PPD Alcohol Use Standard Drinks/Week Comments No 0 (1 standard drink = 0.6 oz pur e alcohol) Sex and Gender Information Value Date Recorded Sex Assigned at Male 05/15/2020 9:27 PM CDT Gender Identity Male 05/15/2020 9:27 PM CDT Sexual Orientation Not on file Last Filed Vital Signs Vital Sign Reading Time Taken Comments Blood Pressure 130/77 08/06/2021 12:57 PM CDT Pulse 90 08/06/2021 12:57 PM CDT Temperature 36.2 C (97.1 F) 08/06/2021 12:57 PM CDT Respiratory Rate 18 07/28/2018 9:40 AM CDT Oxygen Saturation 96% 08/06/2021 12:57 PM CDT Inhaled Oxygen Concentration - - Weight 67.1 kg (148 lb) 08/06/2021 12:57 PM CDT Height 177.8 cm (5' 10 ) 08/06/2021 12:57 PM CDT Body Mass Index 21.24 08/06/2021 12:57 PM CDT Plan of Treatment Health Maintenance Due Date Last Done Comments COLOGUARD (AGES 45-75) - COLON CA SCREENING 1963 COLON MONITORING 1963 COLONOSCOPY - COLON CA SCREENING 1963 CT COLONOGRAPHY - COLON CA SCREENING 1963 Colorectal Cancer Screening 1963 FIT - COLON CA SCREENING 1963 FLEX SIG - COLON CA SCREENING 1963 DTAP/TDAP/TD VACCINES (1 - Tdap) 10/06/1982 PNEUMOCOCCAL VACCINE 50+ (1 of 2 - PCV) 10/06/1982 PNEUMOCOCCAL VACCINE (1 of 2 - PCV) 10/06/1982 DIABETES-STATIN 2003 ZOSTER VACCINE (1 of 2) 10/06/2013 DIABETES RETINOPATHY SCREENING 08/06/2021 03/16/2019, 05/31/2018 DIABETES-FOOT EXAM WITH MONOFILAMENT 08/06/2021 DIABETES-HGB A1C 02/10/2023 08/11/2022, , 07/25/2021, Additional history exists DIABETES-SERUM CREATININE 09/17/20232022, 09/16/2022, 09/08/2022, Additional history exists Respiratory Syncytial Virus (RSV) Vaccine Pt: or over 60 yrs (1 - Risk 60-74 years 1-dose series) 2023 COVID-19 VACCINE ( season) 2023 07/06/2020, 06/08/2020 INFLUENZA VACCINE (#1) 2023 01/05/2019, 2012 DEPRESSION SCREENING 03/02/2024 DIABETES - URINE PROTEIN SCREENING 03/02/2024 07/25/2021, 11/03/2019, 09/15/2018 HEPATITIS C SCREENING Completed 09/30/2017 HIV SCREENING Completed 09/30/2017 HEPATITIS B VACCINE Aged Out No longe r eligible based on patient's age to complete this topic HIB VACCINE Aged Out No longer eligi ble based on patient's age to complete this topic HPV VACCINE Aged Out No longer eligi ble based on patient's age to complete this topic MENINGOCOCCAL (Group B) VACCINE Aged Out No longer eligible based on patient's age to complete this topic MENINGOCOCCAL VACCINE Aged Out No yasemin haritha eligible based on patient's age to complete this topic Procedures Procedure Name Priority Date/Time Associated Diagnosis Comments EYE EXAM 03/16/2019 9:23 AM [facility] BASIC METABOLIC PANEL (CALCIUM TOTAL) STAT 03/11/2018 7:18 AM [facility] Urinary retention HEMOGLOBIN A1C Routine 10/01/2017 3:25 AM CDT HEPATITIS C AB SCREEN RFLX NAAT QUANT STAT 09/30/2017 6:52 PM CDT HIV-1 HIV-2 ANTIGEN/ANTIBODY STAT 09/30/2017 6:52 PM CDT from Last 3 Months or Most Recently Relevant to Health Maintenance Results * EYE EXAM (03/16/2019 9:23 AM [facility]) Anatomical Region Laterality Modality Other Narrative 03/16/2019 9:23 AM [facility] Ordered by an unspecified provider. Scanned Document SCANNING ONLY * (ABNORMAL) BASIC METABOLIC PANEL (CALCIUM TOTAL) (03/11/2018 7:18 AM [facility]) BUN 14 7 - 26 mg/dL 03/11/2018 7:43 AM [facility] Creatinine 0.7 0.6 - 1.2 mg/dL 03/11/2018 7:43 AM [facility] Sodium 133(L) 136 - 145 mmol/L 03/11/2018 7:43 AM [facility] Potassium 4.2 3.5 - 4.5 mmol/L 03/11/2018 7:43 AM [facility] Chloride 102 98 - 107 mmol/L 03/11/2018 7:43 AM [facility] CO2 25 22 - 29 mmol/L 03/11/2018 7:43 AM [facility] Glucose 316(H) 70 - 115 mg/dL 03/11/2018 7:43 AM [facility] Calcium 8.7 8.4 - 10.2 mg/dL 03/11/2018 7:43 AM [facility] Anion Gap 10 8 - 18 03/11/2018 7:43 AM [facility] BUN/Creatinine Ratio 20 7 - 23 03/11/2018 7:43 AM [facility] Osmolality Calculated 289 270 - 300 mOsm/kg 03/11/2018 7:43 AM [facility] eGFR >60 >60 mL/min/1.7 3 m2 03/11/2018 7:43 AM [facility] Blood BLOOD SPECIMEN / Unknown Venipuncture / Unknown 03/11/2018 7:18 AM [facility] 03/11/2018 7:21 AM [facility] Yuriy Romano MD LAB - CHEMISTRY JANES CHAVIR[facility] [address] [phone] * (ABNORMAL) HEMOGLOBIN A1C (10/01/2017 3:25 AM CDT) Hemoglobin A1c 7.0(H) 4.4 - 6.3 % 10/01/2017 9:29 AM CDT [facility] Estimated Average Glucose 154 mg/dL 10/01/2017 9:29 AM CDT [facility] Comment: HbA1c Interpretation: Treatment target values recommended by ADA and other clinical organizations should be used to evaluate metabolic control in patients. Treatment Target Values: Normal : < 5.7% Pre-diabetes: 5.7-6.4% Diabetes: Equal to or greater than 6.5% Reference: English Diabetes Association Standards of Care in Diabetes -2014 In patients 70 years and older consider HbA1c target range of 7.0-7.5% Reference: Diabetes Mellitus in Older People: Position Statement on behalf of the International Association of Gerontology and Geriatrics (IAGG), the Diabetes Working Republican for Older People (EDWPOP), and the International Task Force of Experts in Diabetes. Barber Ash, et al. J English Medical Directors Association. 2012 Test results diagnostic of diabetes should be repeated for confirmation. The Tosoh G8 assay for the measurement of HbA1c is a National Glycohemoglobin Standardization Program (NGSP)certified method. Results for patients with HbE disease should be interpreted with caution as this hemoglobinopathy has been shown to interfere with the Tosoh G8 assay. Whole Blood BLOOD SPECIMEN WITH EDTA / Unknown Lab Venipuncture / Unknown 10/01/2017 3:25 AM CDT 10/01/2017 3:29 AM CDT Yudi Tarango MD LAB - CHEMISTRY JANES CHAV[facility] Organization Address City/State/ZIP [place] [address], [facility] [phone] * HIV-1 HIV-2 ANTIGEN/ANTIBODY (09/30/2017 6:52 PM CDT) HIV Antigen/Antibod y 1 & 2 Non-reacti ve Non-react ranjan 09/30/2017 9:13 PM CDT [facility] Comment: Neither HIV-1 p24 Antigen nor HIV-1/HIV-2 Antibodies are detected. Blood BLOOD SPECIMEN / Unknown Venipuncture / Unknown 09/30/2017 6:52 PM CDT 09/30/2017 6:52 PM CDT Alex Connell MD LAB - HEMATOLOGY ORD LETY [address] [phone] * HEPATITIS C AB SCREEN RFLX PCR QUANT (09/30/2017 6:52 PM CDT) Hepatitis C Antibody Non-react ranjan Non-reac tive 09/30/2017 9:19 PM CDT [facility] Comment: Hepatitis C Antibody screen indicates no serologic evidence of past or current infection with Hepatitis C Virus. Patients with unexplained liver disease who are immunocompromised or suspected of having acute Hepatitis C infection may benefit from Nucleic Acid Test (DINA) for Hepatitis C Viral RNA to confirm Hepatitis C status. Blood BLOOD SPECIMEN / Unknown Venipuncture / Unknown 09/30/2017 6:52 PM CDT 09/30/2017 6:52 PM CDT Alex Connell MD LAB - CHEMISTRY JANES CHAVIRA Performing Organization Address [facility]/State/ZIP Co de Phone Number [address] [phone] from Last 3 Months or Most Recently Relevant to Health Maintenance Advance Directives * Full Code (Latest Code Status on File) Date Activated Date Inactivated Comments 03/09/2018 11:43 PM 03/11/2018 4:21 PM * Full Code Date Activated Date Inactivated Comments 09/30/2017 8:45 PM 10/05/2017 5:42 PM * Full Code Date Activated Date Inactivated Comments 09/30/2017 6:23 PM 09/30/2017 8:45 PM Care Teams Half Section Ironer Relationship Specialty Start Date End Date Yaya Calderon MD [address] [place] [address] PCP - General 07/01/17
--- OUTSIDE RECORDS SUMMARY | 2024-04-17 09:45 | XMS_ITS | Encounter Summary ---
Author Organization [facility] Address [address] [place] [address] Phone Care Team Providers Care Hat Trimmer Name Role Phone Jelena Aguilera NP Primary Care Provi kristin Rashi Fonseca MD Unavailable Abraham Sahu DPM Unavailable [phone] Encounter Details Date Type Department Care Team (Late st Contact Info) Description 06/24/2022 Lab [facility] [address] [place] [address] [place] [address] [place] [address] Osteomyelitis, unspecified (HCC) Social History Tobacco Use [...] suspected to have Coronavirus/COVID-19? No / Unsure 06/24/2022 8:54 AM CDT documented as of this encounter Plan of Treatment Not on file documented as of this encounter Procedures Procedure Name Priority Date/Time Associated Diagnosis Comments CBC WITH AUTO DIFFERENTIAL Routine 06/24/2022 10:00 AM CDT Osteomyelitis, unspecified (HCC) CMP (COMPREHENSIVE METABOLIC PANEL) Routine 06/24/2022 10:00 AM CDT Osteomyelitis, unspecified (HCC) COMPLETE BLOOD COUNT (CBC) WITH DIFF Routine 06/24/2022 10:00 AM CDT Osteomyelitis, unspecified (HCC) documented in this encounter Results * (ABNORMAL) CBC WITH AUTO DIFFERENTIAL (06/24/2022 10:00 AM CDT) WBC 5.50 4.00 - 12.00 10(3)/mcL 06/24/2022 11:11 AM CDT [facility] RBC 4.32(L) 4.40 - 5.80 10(6)/mcL 06/24/2022 11:11 AM CDT [facility] HEMOGLOBIN (HGB) 11.9(L) 13.0 - 16.5 g/dL 06/24/2022 11:11 AM CDT [facility] HEMATOCRIT (HCT) 38.0 38.0 - 50.0 % 06/24/2022 11:11 AM CDT [facility] MCV 88.0 82.0 - 96.0 fL 06/24/2022 11:11 AM CDT [facility] MCH 27.5 26.0 - 32.0 pg 06/24/2022 11:11 AM CDT [facility] MCHC 31.3 31.0 - 36.0 g/dL 06/24/2022 11:11 AM CDT [facility] PLATELET COUNT 354 140 - 440 10(3)/mcL 06/24/2022 11:11 AM CDT [facility] RDW 16.4(H) 11.8 - 15.5 % 06/24/2022 11:11 AM CDT [facility] MPV 9.5 8.0 - 12.6 fL 06/24/2022 11:11 AM CDT [facility] NEUTROPHILS 58.4 40.0 - 68.0 % 06/24/2022 11:11 AM CDT [facility] LYMPHOCYTES 27.3 19.0 - 49.0 % 06/24/2022 11:11 AM CDT [facility] MONOCYTES 8.2 3.0 - 13.0 % 06/24/2022 11:11 AM CDT [facility] EOSINOPHILS 4.5 0.0 - 8.0 % 06/24/2022 11:11 AM CDT [facility] BASOPHILS 1.6(H) 0.0 - 1.0 % 06/24/2022 11:11 AM CDT [facility] ABSOLUTE NEUTROPHILS 3.21 1.40 - 5.30 10(3)/[facility] 06/24/2022 11:11 AM CDT [facility] ABSOLUTE LYMPHOCYTES 1.50 0.90 - 3.30 10(3)/[facility] 06/24/2022 11:11 AM CDT [facility] ABSOLUTE MONOCYTES 0.45 0.10 - 0.90 10(3)/[facility] 06/24/2022 11:11 AM CDT [facility] ABSOLUTE EOSINOPHIL 0.25 0.00 - 0.50 10(3)/[facility] 06/24/2022 11:11 AM CDT [facility] ABSOLUTE BASOPHILS 0.09 0.00 - 0.10 10(3)/[facility] 06/24/2022 11:11 AM CDT [facility] NRBC PER 100 WBC 0 06/25/19 11:11 AM CDT [facility] Blood No Phlebotomy Charged / Unknown 06/24/2022 10:00 AM CDT 06/24/2022 11:07 AM CDT us Kylee Nelson MD HEMATOLOGY ORDERABLES Fi nal Result [facility] [address] [place] [address] * (ABNORMAL) CMP (COMPREHENSIVE METABOLIC PANEL) (06/24/2022 10:00 AM CDT) SODIUM 137 136 - 144 mmol/L 06/24/2022 11:35 AM [facility] POTASSIUM 4.1 3.5 - 5.1 mmol/L 06/24/2022 11:35 AM [facility] CHLORIDE 101 100 - 110 mmol/L 06/24/2022 11:35 AM [facility] CO2, VENOUS 27 22 - 32 mmol/L 06/24/2022 11:35 AM [facility] ANION GAP 13.1 8.0 - 20.0 mmol/L 06/24/2022 11:35 AM [facility] GLUCOSE 291(H) 70 - 99 mg/dL 06/24/2022 11:35 AM [facility] BUN 15 6 - 20 mg/dL 06/24/2022 11:35 AM [facility] CREATININE, BLOOD 0.72(L) 0.80 - 1.30 mg/dL 06/24/2022 11:35 AM [facility] BUN/CREATININE RATIO 21(H) 12 - 20 ratio 06/24/2022 11:35 AM [facility] TOTAL PROTEIN 7.3 6.0 - 8.3 g/dL 06/24/2022 11:35 AM [facility] ALBUMIN 4.1 3.5 - 5.2 g/dL 06/24/2022 11:35 AM [facility] Comment: The colormetric methods used for the determination of Albumin may lead to falsely elevated test results in patients suffering from renal failure or insufficiency due to interference with other proteins. A/G RATIO 1.3 1.0 - 2.0 06/24/2022 11:35 AM [facility] CALCIUM 9.4 8.9 - 10.3 mg/dL 06/24/2022 11:35 AM [facility] T BILI <0.3 <=1.2 mg/dL 06/24/2022 11:35 AM [facility] SGOT (AST) 17 <=40 U/L 06/24/2022 11:35 AM CDT [facility] SGPT (ALT) 21 <=41 U/L 06/24/2022 11:35 AM CDT [facility] ALKALINE PHOSPHATASE 131(H) 40 - 130 U/L 06/24/2022 11:35 AM CDT [facility] GFR, ESTIMATED >60 >=60 06/24/2022 11:35 AM CDT [facility] Comment: Creatinine Clearance is the preferred criteria for selecting drug dose adjustments in renally impaired patients. The GFR is provided as additional pertinent clinical information. GFR is reported in mL/min/1.73 sq m. Calculation based on the Chronic Kidney Disease Epidemiology Collaboration (CKD- EPI) equation refit without adjustment for race. GFR, EST. >60 >=60 023 11:35 AM CDT [facility] GFR, EST. NONAFRICAN >60 >=60 06/24/2022 11:35 AM CDT [facility] Blood No Phlebotomy Charged / Unknown 06/24/2022 10:00 AM CDT 06/24/2022 11:07 AM CDT Kylee Nelson MD CHEMISTRY ORDERABLES Fin al Result [facility] [address] [place] [address] documented in this encounter Visit Diagnoses Diagnosis Osteomyelitis, unspecified (HCC) documented in this encounter Care Teams Hat Trimmer Relationship Specialty Start Date End Date Jelena Aguilera NP [address] [place] [address] PCP - General Advanced Practice Nurse 05/27/22 Rashi Fonseca MD [address] [place] [address] Consulting Physician Endocrinology 07/01/22 01/06/24 Abraham Sahu DPM [address] [place] [address] Consulting Physician Podiatry 06/04/22 documented as of this encounter
--- OUTSIDE RECORDS SUMMARY | 2024-04-17 09:45 | XMS_ITS | Encounter Summary ---
Author Organization [facility] Address [address] [place] [address] Phone Care Team Providers Care Staff Antisubmarine Officer Name Role Phone Jelena Aguilera NP Primary Care Provi kristin Rashi Fonseca MD Unavailable Abraham Sahu DPM Unavailable [phone] Encounter Details Date Type Department Care Team (Late st Contact Info) Description 06/11/2022 Lab [facility] [address] [place] [address] [place] [address] [place] [address] Osteomyelitis, unspecified (HCC) Social History Tobacco Use [...] suspected to have Coronavirus/COVID-19? No / Unsure 06/10/2022 3:00 PM CDT documented as of this encounter Plan of Treatment Not on file documented as of this encounter Procedures Procedure Name Priority Date/Time Associated Diagnosis Comments CBC WITH AUTO DIFFERENTIAL Routine 06/11/2022 10:00 AM CDT Osteomyelitis, unspecified (HCC) CMP (COMPREHENSIVE METABOLIC PANEL) Routine 06/11/2022 10:00 AM CDT Osteomyelitis, unspecified (HCC) COMPLETE BLOOD COUNT (CBC) WITH DIFF Routine 06/11/2022 10:00 AM CDT Osteomyelitis, unspecified (HCC) documented in this encounter Results * (ABNORMAL) CBC WITH AUTO DIFFERENTIAL (06/11/2022 10:00 AM CDT) WBC 5.72 4.00 - 12.00 10(3)/mcL 06/11/2022 11:12 AM CDT [facility] RBC 3.67(L) 4.40 - 5.80 10(6)/mcL 06/11/2022 11:12 AM CDT [facility] HEMOGLOBIN (HGB) 10.1(L) 13.0 - 16.5 g/dL 06/11/2022 11:12 AM CDT [facility] HEMATOCRIT (HCT) 32.5(L) 38.0 - 50.0 % 06/11/2022 11:12 AM CDT [facility] MCV 88.6 82.0 - 96.0 fL 06/11/2022 11:12 AM CDT [facility] MCH 27.5 26.0 - 32.0 pg 06/11/2022 11:12 AM CDT [facility] MCHC 31.1 31.0 - 36.0 g/dL 06/11/2022 11:12 AM CDT [facility] PLATELET COUNT 425 140 - 440 10(3)/mcL 06/11/2022 11:12 AM CDT [facility] RDW 15.5 11.8 - 15.5 % 06/11/2022 11:12 AM CDT [facility] MPV 9.1 8.0 - 12.6 fL 06/11/2022 11:12 AM CDT [facility] NEUTROPHILS 53.2 40.0 - 68.0 % 06/11/2022 11:12 AM CDT [facility] LYMPHOCYTES 31.8 19.0 - 49.0 % 06/11/2022 11:12 AM CDT [facility] MONOCYTES 9.4 3.0 - 13.0 % 06/11/2022 11:12 AM CDT [facility] EOSINOPHILS 4.2 0.0 - 8.0 % 06/11/2022 11:12 AM CDT [facility] BASOPHILS 1.4(H) 0.0 - 1.0 % 06/11/2022 11:12 AM CDT [facility] ABSOLUTE NEUTROPHILS 3.04 1.40 - 5.30 10(3)/mcL 06/11/2022 11:12 AM CDT [facility] ABSOLUTE LYMPHOCYTES 1.82 0.90 - 3.30 10(3)/mcL 06/11/2022 11:12 AM CDT [facility] ABSOLUTE MONOCYTES 0.54 0.10 - 0.90 10(3)/[facility] 06/11/2022 11:12 AM CDT [facility] ABSOLUTE EOSINOPHIL 0.24 0.00 - 0.50 10(3)/[facility] 06/11/2022 11:12 AM CDT [facility] ABSOLUTE BASOPHILS 0.08 0.00 - 0.10 10(3)/[facility] 06/11/2022 11:12 AM CDT [facility] NRBC PER 100 WBC 0 06/12/19 23 11:12 AM CDT [facility] Blood No Phlebotomy Charged / Unknown 06/11/2022 10:00 AM CDT 06/11/2022 10:55 AM CDT us Kylee Nelson MD HEMATOLOGY ORDERABLES Fi nal Result [facility] #[address] [place] [address] * (ABNORMAL) CMP (COMPREHENSIVE METABOLIC PANEL) (06/11/2022 10:00 AM CDT) SODIUM 139 136 - 144 mmol/L 06/11/2022 11:22 AM [facility] POTASSIUM 3.9 3.5 - 5.1 mmol/L 06/11/2022 11:22 AM [facility] CHLORIDE 105 100 - 110 mmol/L 06/11/2022 11:22 AM [facility] CO2, VENOUS 29 22 - 32 mmol/L 06/11/2022 11:22 AM [facility] ANION GAP 8.9 8.0 - 20.0 mmol/L 06/11/2022 11:22 AM [facility] GLUCOSE 97 70 - 99 mg/dL 06/11/2022 11:22 AM [facility] BUN 9 6 - 20 mg/dL 06/11/2022 11:22 AM [facility] CREATININE, BLOOD 0.62(L) 0.80 - 1.30 mg/dL 06/11/2022 11:22 AM [facility] BUN/CREATININE RATIO 15 12 - 20 ratio 06/11/2022 11:22 AM [facility] TOTAL PROTEIN 6.2 6.0 - 8.3 g/dL 06/11/2022 11:22 AM [facility] ALBUMIN 3.3(L) 3.5 - 5.2 g/dL 06/11/2022 11:22 AM [facility] Comment: The colormetric methods used for the determination of Albumin may lead to falsely elevated test results in patients suffering from renal failure or insufficiency due to interference with other proteins. A/G RATIO 1.1 1.0 - 2.0 06/11/2022 11:22 AM [facility] CALCIUM 8.5(L) 8.9 - 10.3 mg/dL 06/11/2022 11:22 AM [facility] T BILI <0.3 <=1.2 mg/dL 06/11/2022 11:22 AM [facility] SGOT (AST) 12 <=40 U/L 06/11/2022 11:22 AM CDT [facility] SGPT (ALT) 10 <=41 U/L 06/11/2022 11:22 AM CDT [facility] ALKALINE PHOSPHATASE 96 40 - 130 U/L 06/11/2022 11:22 AM CDT [facility] GFR, ESTIMATED >60 >=60 06/11/2022 11:22 AM CDT [facility] Comment: Creatinine Clearance is the preferred criteria for selecting drug dose adjustments in renally impaired patients. The GFR is provided as additional pertinent clinical information. GFR is reported in mL/min/1.73 sq m. Calculation based on the Chronic Kidney Disease Epidemiology Collaboration (CKD- EPI) equation refit without adjustment for race. GFR, EST. >60 >=60 023 11:22 AM CDT [facility] GFR, EST. NONAFRICAN >60 >=60 06/11/2022 11:22 AM CDT [facility] Blood No Phlebotomy Charged / Unknown 06/11/2022 10:00 AM CDT 06/11/2022 10:55 AM CDT Kylee Nelson MD CHEMISTRY ORDERABLES Fin al Result [facility] [address] [place] [address] documented in this encounter Visit Diagnoses Diagnosis Osteomyelitis, unspecified (HCC) documented in this encounter Care Teams Staff Antisubmarine Officer Relationship Specialty Start Date End Date Jelena Aguilera NP [address] [place] [address] PCP - General Advanced Practice Nurse 05/27/22 Rashi Fonseca MD [address] [place] [address] Consulting Physician Endocrinology 07/01/22 01/06/24 Abraham Sahu DPM [address] [place] [phone] Consulting Physician Podiatry 06/04/22 documented as of this encounter
--- OUTSIDE RECORDS SUMMARY | 2024-04-17 09:45 | XMS_ITS | Encounter Summary ---
Author Organization [facility] Address [address] [place] [address] Phone Care Team Providers Care Sanitary Engineer Name Role Phone Jelena Aguilera NP Primary Care Provi kristin Rashi Fonseca MD Unavailable Abraham Sahu DPM Unavailable [phone] Encounter Details Date Type Department Care Team (Late st Contact Info) Description 06/16/2022 [facility] [address] [place] [address] [place] [address] [place] [address] Social History Tobacco Use Types Packs/Day Years [...] suspected to have Coronavirus/COVID-19? No / Unsure 06/18/2022 8:43 AM CDT documented as of this encounter Plan of Treatment Not on file documented as of this encounter Procedures Procedure Name Priority Date/Time Associated Diagnosis Comments CBC WITH AUTO DIFFERENTIAL Routine 06/16/2022 10:30 AM CDT CMP (COMPREHENSIVE METABOLIC PANEL) Routine 06/16/2022 10:30 AM CDT COMPLETE BLOOD COUNT (CBC) WITH DIFF Routine 06/16/2022 10:30 AM CDT documented in this encounter Results * (ABNORMAL) CBC WITH AUTO DIFFERENTIAL (06/16/2022 10:30 AM CDT) WBC 4.30 4.00 - 12.00 10(3)/mcL 06/16/2022 11:19 AM CDT [facility] RBC 2.65(L) 4.40 - 5.80 10(6)/mcL 06/16/2022 11:19 AM CDT [facility] HEMOGLOBIN (HGB) 7.4(L) 13.0 - 16.5 g/dL 06/16/2022 11:19 AM CDT [facility] HEMATOCRIT (HCT) 23.8(L) 38.0 - 50.0 % 06/16/2022 11:19 AM CDT [facility] MCV 89.8 82.0 - 96.0 fL 06/16/2022 11:19 AM CDT [facility] MCH 27.9 26.0 - 32.0 pg 06/16/2022 11:19 AM CDT [facility] MCHC 31.1 31.0 - 36.0 g/dL 06/16/2022 11:19 AM CDT [facility] PLATELET COUNT 221 140 - 440 10(3)/mcL 06/16/2022 11:19 AM CDT [facility] RDW 15.8(H) 11.8 - 15.5 % 06/16/2022 11:19 AM CDT [facility] MPV 9.2 8.0 - 12.6 fL 06/16/2022 11:19 AM CDT [facility] NEUTROPHILS 62.9 40.0 - 68.0 % 06/16/2022 11:19 AM CDT [facility] LYMPHOCYTES 24.0 19.0 - 49.0 % 06/16/2022 11:19 AM CDT [facility] MONOCYTES 7.9 3.0 - 13.0 % 06/16/2022 11:19 AM CDT [facility] EOSINOPHILS 4.0 0.0 - 8.0 % 06/16/2022 11:19 AM CDT [facility] BASOPHILS 1.2(H) 0.0 - 1.0 % 06/16/2022 11:19 AM CDT [facility] ABSOLUTE NEUTROPHILS 2.71 1.40 - 5.30 10(3)/[facility] 06/16/2022 11:19 AM CDT [facility] ABSOLUTE LYMPHOCYTES 1.03 0.90 - 3.30 10(3)/[facility] 06/16/2022 11:19 AM CDT [facility] ABSOLUTE MONOCYTES 0.34 0.10 - 0.90 10(3)/[facility] 06/16/2022 11:19 AM CDT [facility] ABSOLUTE EOSINOPHIL 0.17 0.00 - 0.50 10(3)/[facility] 06/16/2022 11:19 AM CDT [facility] ABSOLUTE BASOPHILS 0.05 0.00 - 0.10 10(3)/[facility] 06/16/2022 11:19 AM CDT [facility] NRBC PER 100 WBC 0 06/17/19 11:19 AM CDT [facility] Blood No Phlebotomy Charged / Unknown 06/16/2022 10:30 AM CDT 06/16/2022 11:17 AM CDT us Kylee Nelson MD HEMATOLOGY ORDERABLES Fi nal Result [facility] #[address] [place] [address] * (ABNORMAL) CMP (COMPREHENSIVE METABOLIC PANEL) (06/16/2022 10:30 AM CDT) SODIUM 135(L) 136 - 144 mmol/L 06/16/2022 11:[address] [facility] POTASSIUM 3.6 3.5 - 5.1 mmol/L 06/16/2022 11:[address] [facility] CHLORIDE 102 100 - 110 mmol/L 06/16/2022 11:[address] [facility] CO2, VENOUS 28 22 - 32 mmol/L 06/16/2022 11:[address] [facility] ANION GAP 8.6 8.0 - 20.0 mmol/L 06/16/2022 11:41 AM T [facility] GLUCOSE 91 70 - 99 mg/dL 06/16/2022 11:[address] [facility] BUN 11 6 - 20 mg/dL 06/16/2022 11:[address] [facility] CREATININE, BLOOD 0.73(L) 0.80 - 1.30 mg/dL 06/16/2022 11:[address] [facility] BUN/CREATININE RATIO 15 12 - 20 ratio 06/16/2022 11:[address] [facility] TOTAL PROTEIN 7.3 6.0 - 8.3 g/dL 06/16/2022 11:[address] [facility] ALBUMIN 3.9 3.5 - 5.2 g/dL 06/16/2022 11:[address] [facility] Comment: The colormetric methods used for the determination of Albumin may lead to falsely elevated test results in patients suffering from renal failure or insufficiency due to interference with other proteins. A/G RATIO 1.1 1.0 - 2.0 06/16/2022 11:[address] [facility] CALCIUM 9.1 8.9 - 10.3 mg/dL 06/16/2022 11:[address] [facility] T BILI <0.3 <=1.2 mg/dL 06/16/2022 11:[address] [facility] SGOT (AST) 13 <=40 U/L 06/16/2022 11:[address] [facility] SGPT (ALT) 15 <=41 U/L 06/16/2022 11:41 AM CDT [facility] ALKALINE PHOSPHATASE 107 40 - 130 U/L 06/16/2022 11:41 AM CDT [facility] GFR, ESTIMATED >60 >=60 06/16/2022 11:41 AM CDT [facility] Comment: Creatinine Clearance is the preferred criteria for selecting drug dose adjustments in renally impaired patients. The GFR is provided as additional pertinent clinical information. GFR is reported in mL/min/1.73 sq m. Calculation based on the Chronic Kidney Disease Epidemiology Collaboration (CKD- EPI) equation refit without adjustment for race. GFR, EST. >60 >=60 023 11:41 AM CDT [facility] GFR, EST. NONAFRICAN >60 >=60 06/16/2022 11:41 AM CDT [facility] Blood No Phlebotomy Charged / Unknown 06/16/2022 10:30 AM CDT 06/16/2022 11:17 AM CDT us Kylee Nelson MD CHEMISTRY ORDERABLES Fin al Result [facility] [address] [place] [address] documented in this encounter Visit Diagnoses Not on filedocumented in this encounter Care Teams Sanitary Engineer Relationship Specialty Start Date End Date Jelena Aguilera NP [address] [place] [address] PCP - General Advanced Practice Nurse 05/27/22 Rashi Fonseca MD #[address] [facility] [address] [place] [address] Consulting Physician Endocrinology 07/01/22 01/06/24 Abraham Sahu DPAlisha [address] [place] [address] Consulting Physician Podiatry 06/04/22 documented as of this encounter
--- OUTSIDE RECORDS SUMMARY | 2024-04-17 09:45 | XMS_ITS | Encounter Summary ---
Author Organization [facility] Address [address] [place] [address] Phone Care Team Providers Care Set Designer Name Role Phone Jelena Aguilera NP Primary Care Provi kristin Rashi Fonseca MD Unavailable Abraham Sahu DPM Unavailable [phone] Encounter Details Date Type Department Care Team (Late st Contact Info) Description 07/01/2022 [facility] [address] [place] [address] [place] [address] [place] [address] Osteomyelitis, unspecified (HCC) Social History Tobacco Use [...] Diagnosis Comments CBC WITH AUTO DIFFERENTIAL Routine 07/01/2022 9:15 AM CDT Osteomyelitis, unspecified (HCC) CMP (COMPREHENSIVE METABOLIC PANEL) Routine 07/01/2022 9:15 AM CDT Osteomyelitis, unspecified (HCC) COMPLETE BLOOD COUNT (CBC) WITH DIFF Routine 07/01/2022 9:15 AM CDT Osteomyelitis, unspecified (HCC) documented in this encounter Results * (ABNORMAL) CBC WITH AUTO DIFFERENTIAL (07/01/2022 9:15 AM CDT) WBC 6.37 4.00 - 12.00 10(3)/mcL 07/01/2022 10:11 AM CDT [facility] RBC 4.49 4.40 - 5.80 10(6)/mcL 07/01/2022 10:11 AM CDT [facility] HEMOGLOBIN (HGB) 12.5(L) 13.0 - 16.5 g/dL 07/01/2022 10:11 AM CDT [facility] HEMATOCRIT (HCT) 39.4 38.0 - 50.0 % 07/01/2022 10:11 AM CDT [facility] MCV 87.8 82.0 - 96.0 fL 07/01/2022 10:11 AM CDT [facility] MCH 27.8 26.0 - 32.0 pg 07/01/2022 10:11 AM CDT [facility] MCHC 31.7 31.0 - 36.0 g/dL 07/01/2022 10:11 AM CDT [facility] PLATELET COUNT 407 140 - 440 10(3)/mcL 07/01/2022 10:11 AM CDT [facility] RDW 16.4(H) 11.8 - 15.5 % 07/01/2022 10:11 AM CDT [facility] MPV 9.7 8.0 - 12.6 fL 07/01/2022 10:11 AM CDT [facility] NEUTROPHILS 67.8 40.0 - 68.0 % 07/01/2022 10:11 AM CDT [facility] LYMPHOCYTES 20.9 19.0 - 49.0 % 07/01/2022 10:11 AM CDT [facility] MONOCYTES 7.5 3.0 - 13.0 % 07/01/2022 10:11 AM CDT [facility] EOSINOPHILS 2.5 0.0 - 8.0 % 07/01/2022 10:11 AM CDT [facility] BASOPHILS 1.3(H) 0.0 - 1.0 % 07/01/2022 10:11 AM CDT [facility] ABSOLUTE NEUTROPHILS 4.32 1.40 - 5.30 10(3)/[facility] 07/01/2022 10:11 AM CDT [facility] ABSOLUTE LYMPHOCYTES 1.33 0.90 - 3.30 10(3)/[facility] 07/01/2022 10:11 AM CDT [facility] ABSOLUTE MONOCYTES 0.48 0.10 - 0.90 10(3)/[facility] 07/01/2022 10:11 AM CDT [facility] ABSOLUTE EOSINOPHIL 0.16 0.00 - 0.50 10(3)/[facility] 07/01/2022 10:11 AM CDT [facility] ABSOLUTE BASOPHILS 0.08 0.00 - 0.10 10(3)/[facility] 07/01/2022 10:11 AM CDT [facility] NRBC PER 100 WBC 0 07/02/19 23 10:11 AM CDT [facility] Blood No Phlebotomy Charged / Unknown 07/01/2022 9:15 AM CDT 07/01/2022 10:07 AM CDT us Kylee Nelson MD HEMATOLOGY ORDERABLES Fi nal Result [facility] [address] [place] [address] * (ABNORMAL) CMP (COMPREHENSIVE METABOLIC PANEL) (07/01/2022 9:15 AM CDT) SODIUM 135(L) 136 - 144 mmol/L 07/01/2022 10:29 AM [facility] POTASSIUM 4.0 3.5 - 5.1 mmol/L 07/01/2022 10:29 AM [facility] CHLORIDE 100 100 - 110 mmol/L 07/01/2022 10:29 AM [facility] CO2, VENOUS 26 22 - 32 mmol/L 07/01/2022 10:29 AM [facility] ANION GAP 13.0 8.0 - 20.0 mmol/L 07/01/2022 10:29 AM [facility] GLUCOSE 252(H) 70 - 99 mg/dL 07/01/2022 10:29 AM [facility] BUN 14 6 - 20 mg/dL 07/01/2022 10:29 AM [facility] CREATININE, BLOOD 0.79(L) 0.80 - 1.30 mg/dL 07/01/2022 10:29 AM [facility] BUN/CREATININE RATIO 18 12 - 20 ratio 07/01/2022 10:29 AM [facility] TOTAL PROTEIN 7.2 6.0 - 8.3 g/dL 07/01/2022 10:29 AM [facility] ALBUMIN 4.1 3.5 - 5.2 g/dL 07/01/2022 10:29 AM [facility] Comment: The colormetric methods used for the determination of Albumin may lead to falsely elevated test results in patients suffering from renal failure or insufficiency due to interference with other proteins. A/G RATIO 1.3 1.0 - 2.0 07/01/2022 10:29 AM [facility] CALCIUM 8.5(L) 8.9 - 10.3 mg/dL 07/01/2022 10:29 AM [facility] T BILI <0.3 <=1.2 mg/dL 07/01/2022 10:29 AM [facility] SGOT (AST) 20 <=40 U/L 07/01/2022 10:29 AM CDT [facility] SGPT (ALT) 26 <=41 U/L 07/01/2022 10:29 AM CDT [facility] ALKALINE PHOSPHATASE 127 40 - 130 U/L 07/01/2022 10:29 AM CDT [facility] GFR, ESTIMATED >60 >=60 07/01/2022 10:29 AM CDT [facility] Comment: Creatinine Clearance is the preferred criteria for selecting drug dose adjustments in renally impaired patients. The GFR is provided as additional pertinent clinical information. GFR is reported in mL/min/1.73 sq m. Calculation based on the Chronic Kidney Disease Epidemiology Collaboration (CKD- EPI) equation refit without adjustment for race. GFR, EST. >60 >=60 023 10:29 AM CDT [facility] GFR, EST. NONAFRICAN >60 >=60 07/01/2022 10:29 AM CDT [facility] Blood No Phlebotomy Charged / Unknown 07/01/2022 9:15 AM CDT 07/01/2022 10:07 AM CDT Kylee Nelson MD CHEMISTRY ORDERABLES Fin al Result [facility] [address] [place] [address] documented in this encounter Visit Diagnoses Diagnosis Osteomyelitis, unspecified (HCC) documented in this encounter Care Teams Set Designer Relationship Specialty Start Date End Date Jelena Aguilera NP [address] [facility] [address] [place] [address] PCP - General Advanced Practice Nurse 05/27/22 Rashi Fonseca MD [address] [place] [address] Consulting Physician Endocrinology 07/01/22 01/06/24 Abraham Sahu DPM [address] [place] [id number] Consulting Physician Podiatry 06/04/22 documented as of this encounter
--- OUTSIDE RECORDS SUMMARY | 2024-04-17 09:45 | XMS_ITS | Clinical Summary ---
Author Organization [facility] Address [address] [place] [address] Care Team Providers Care Heavy Threader Name Role Phone Juan A Jensen MD Unavailable Julita Sampson NP Unavailable [phone] No, Physician Primary Care Provider [phone] Allergies No known active allergies Medications insulin [...] to meals. Monitor blood sugar continuously with QuantHousestyle jass 2 Obtain labs to assess for [...] No history of macrovascular disease - CVA, [place]. Assessment & Plan (07/25/2021 8:29 PM CDT): [...] Diabetes Complications History of macrovascular disease (CVA, [place], PVD) is not Present. Complications secondary to [...] upset) lantus insulin 10 units at bedtime given today tdap will be given at [...] No history of macrovascular disease - CVA, [place]. Assessment & Plan (07/25/2021 8:29 PM CDT): [...] Diabetes Complications History of macrovascular disease (CVA, [place], PVD) is not Present. Complications secondary to [...] upset) lantus insulin 10 units at bedtime [id number] given today tdap will be given at [...] done today 12.3% was 13.1 % from [facility] on 11/03/2019 goal A1c 6.9% or less, as close to <6.5% Encouraged annual diabetic eye exam, done 03/16/2019, due now Urine for microalbumin done 11/03/2019 normal of less than 30 done at [facility], goal less than 30 BP today 128/70 , goal blood pressure is< 140/90 and is close to 120/80 is possible Personally reviewed lipid panel done 11/03/2019 from [facility], start patient on statin therapy-atorvastatin 10mg [...] Take over the counter vit d3 capsules 4831-9365 units daily-this will be a half-way medication Assessment & Plan (08/10/2020 2:13 PM CDT): HPI: Condition is unknown, no data to review at this time to make an evaluation A&P: Discussed/ordered labs, encouraged healthy, low carbohydrate lifestyle and at least 150min/week of exercise, Take over the counter vit d3 capsules 7325-2545 units daily-this will be a half-way medication Major depressive disorder, recurrent, mild 11/02 Assessment & Plan (07/25/2021 2:35 PM CDT): Pt having suicidal thoughts, but not any actively. No plan. Encouraged patient to see a counselor HPI: Condition worsen. Pt does not want to be on meds for this A&P: Discussed/ordered labs, encouraged healthy, low carbohydrate lifestyle and at least 150min/week of exercise We will give pt handout for [facility]. Assessment & Plan (08/10/2020 2:08 PM [...] is less than 80. Will proceed with Jazzdesktronic 70 G insulin pump Monitor blood sugar [...] No history of macrovascular disease - CVA, [place]. Assessment & Plan (07/25/2021 8:30 PM CDT): [...] Diabetes Complications History of macrovascular disease (CVA, [place], PVD) is not Present. Complications secondary to [...] upset) lantus insulin 10 units at bedtime [id number] given today tdap will be given at [...] No history of macrovascular disease - CVA, [place]. Patient has been on 3 or more [...] done today 12.3% was 13.1 % from [facility] on 11/03/2019 goal A1c 6.9% or less, as close to <6.5% Encouraged annual diabetic eye exam, done 03/16/2019, due now Urine for microalbumin done 11/03/2019 normal of less than 30 done at [facility], goal less than 30 BP today 128/70 , goal blood pressure is< 140/90 and is close to 120/80 is possible Personally reviewed lipid panel done 11/03/2019 from [facility], start patient on statin therapy-atorvastatin 10mg daily Patient not on JARED inhibitor or ARB Monofilament foot exam done today, 08/10/2020 Immunizations recommend [id number], Shingrix and Tdap, recommend seasonal flu vaccinations Start taking baby aspirin 81mg daily: Smoking status: smoker (1ppd x 25 yrs) Will need to see endocrinology-will refer to 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 Juan A Jensen, [facility] Neurology. Transitioned From: Sensorimotor neuropathy; Description: Dr. Juan A Jensen, [facility] Neurology. Last Assessment & Plan: Stable. Continues on infusions about every 3 to 4 weeks, with follow-up with neurology in 90 days. Assessment & Plan (07/25/2021 12:26 AM CDT): HPI: Condition is stable A&P: Discussed/ordered labs, encouraged healthy, low carbohydrate lifestyle and at least 150min/week of exercise, continue to see Dr. Juan A Jensen, [facility] neurology Currently at every 6 wks of Gamunex C Pt has epipen for when he receives Gamunex, has to take benadryl prior to infusions Assessment & Plan (08/10/2020 2:21 PM CDT): HPI: Condition is stable A&P: Discussed/ordered labs, encouraged healthy, low carbohydrate lifestyle and at least 150min/week of exercise, pt sees Dr. Juan A Jensen, [facility] neurology Currently at every 6 wk infusions [...] exercise We will give pt handout for [facility]. Assessment & Plan (08/10/2020 2:08 PM [...] (HHS) 06/09/2023 06/18/2023 Moderate protein-calorie mal nutrition ([facility]/HCC) 07/25/2021 07/25/2021 Assessment & Plan (07/25/2021 12:23 AM CDT): HPI: Condition is not at/near goal bmi 20-24 A&P: increase protein in diet. Examples: protein supplement shakes, protein bars, protein:ratio yogurt, increased meat intake Sixth nerve palsy of left eye 10/15/2018 07/25/2021 Overview (08/10/2020): Last Assessment & Plan: Patient's vision was assessed by eye child care counselor in [place], diagnosed with 6th cranial nerve palsy on [...] for sleep, with reasonable control of insomnia. [place] Prescription Monitoring Program website reviewed, no indication of misuse or abuse. Continue current treatment. Pes cavus 04/22/2017 08/10/2020 Immunizations Immunization Administration Dates Next Due Influenza, Quadrivalent, Spl it, Preservative Free, Intramuscular 01/05/2019 Influenza, Trivalent, Preser vative Free, Intramuscular 02/03/2013 Influenza, Unspecified 03/21/2019(Deferr ed: Patient Refused),03/02/2019(Deferred: Patient Refused),03/02/2019(Deferred: Patient Refused) Pfizer SARS-CoV-2 Monovalent Vaccination (12+ Yrs) PURPLE 07/06/2020,06/08/2020 Pneumococcal Conjugate Pcv20 07/25/2021 Medical History Medical History Date Comments Moderate protein-calorie malnutrition (CMS/HCC) (HCC) 07/25/2021 Hyperosmolar hyperglycemic state (HHS) ([facility]) Social History Tobacco Use Types Packs/Day Years Used Date Smoking Tobacco: Every Day Smokeless Tobacco: Never Tobacco Cessation:Ready to Q uit: Not Asked; Counseling Given: Not Answered [facility] Utilities Answer Date Recorded In the past 12 months has [facility] [employer], [employer] or [employer] threatened to shut off services in your home? Yes 06/11/2023 Social Connection and Isolation Panel [NHANES] A nswer Date Recorded In a typical week, how many times do you talk on the phone with family, friends, or neighbors? Never 06/11/2023 How often do you get together with friends or re latives? Once a week 06/11/2023 How often do you attend faith or jain serv ices? Never 06/11/2023 Do you belong to any clubs o r organizations such as faith groups, unions, fraternal or athletic groups, or [...] place to sleep or slept in a skilled nursing (including now)? No 06/11/2023 Personal Safety Answer [...] Orientation Straight 07/02/2023 11 :58 AM CDT Obstetrics History Last Filed Vital Signs Vital Sign Reading [...] 06/18/2023 1:19 PM CDT Plan of Treatment Health Maintenance Due Date Last Done Comments Albumin Creatinine Ratio, Urine 1963 Colon Cancer Screening-DNA Stool 1965 Dilated Eye Exam 1965 Hepatitis B Screening 10/06/1981 Regular Well Visit/Exam 18-64 10/06/1981 Zoster Vaccine (1 of 2) 10/06/2013 Depression Screening 08/10/2021 08/10/2020 Prostate Cancer Screening-PSA 08/17/2022 08/17/2020 Lipid Panel 05/29/2023 05/28/2022, 060 04/2021, 08/17/2020, Additional history exists Covid-19 Vaccine (2023-2 5 season) 2023 12/07/2020, 07/06/2020, 06/08/2020 Influenza Vaccine (#1) 2023 01/05/2019, 2012 Hemoglobin A1C 12/09/2023 06/09/2023, 07/01, 08/10/2020 eGFR 06/11/2024 06/12/2023, 05/31, 06/10/2023, Additional history exists Foot Exam 06/17/2024 06/18/2023, 0 04/2021, 07/25/2021, Additional history exists DTaP/Tdap/Td Vaccine (2 - Td or Tdap) 10/08/2031 2021 Hepatitis C Screening Completed 08/17/2020 Pneumococcal vaccine <65 Completed 07/25/2021 Procedures Procedure Name Priority Date/Time Associated Diagnosis [...] 2:30 AM CDT 06/12/2023 3:01 AM CDT Shawn Correia MD LAB BLOOD ORDERABLES Final Resu lt Performing Organization Address City/[facility] Co de Phone Number [facility] ([place]) [address] [place] [address] * (ABNORMAL) Hemoglobin A1c (06/09/2023 5:49 PM CDT) Hgb A1C 16.9(H) 4.0 - 5.6 % Estimated Average Glucose 438 mg/dL [facility] ([place]) Comment: The ADA recommends reporting an estimated Average Glucose (eAG) with all Hemoglobin A1c results using the equation derived from a study of 507 normal and diabetic adults. Minority populations were underrepresented and children were not included. (Diabetes Care 31:8238-7472, 2008). The eAG is not equivalent to a fasting glucose. Blood 06/09/2023 5:49 PM CDT 06/09/2023 5:52 PM CDT us Shawn Correia MD LAB BLOOD ORDERABLES Final Resu lt Performing Organization Address City/[facility]/ZIP Co de Phone Number [facility] ([place]) [address] [place] [address] * Lipid panel (08/01/2021 4:13 PM CDT) [...] revised on 2017. Chol/HDL ratio 4 REINA GOMEZ) Blood 08/01/2021 4:13 PM CDT 08/01/2021 4:51 PM CDT Narrative [facility] ([place]) - 08/01/2021 5:30 PM CDT These lab test should be done fasting. This means do not eat or drink for at least 12 hours prior to getting your blood drawn. us Julita Sampson NP LAB BLOOD ORDERABLES Final Resu lt [facility] ([place]) [address] [facility] [place] [address] * PSA screen (08/17/2020 2:47 PM CDT) PSA-Total 0.32 <=3.90 ng/mL [facility] ([place]) Comment: Interpretive Data AGE SEX REFERENCE INTERVAL 0 minutes-150 years Female None 0 minutes-49 years Male None 50-59 years Male 0-3.90 60-69 years Male 0-5.40 70-79 years Male 0-6.20 80-150 years Male 0-6.20 Current interpretive data last revised 2018. Testing performed by: [facility], [address] [place] [address]., [id number] Blood specimen (specimen) 08/17/2020 2:47 PM CDT 08/18/2020 1:50 PM CDT us Jelena Aguilera NP LAB BLOOD ORDERABLES Final Result [facility] ([place]) [address] [place] [address] * Hepatitis C antibody (08/17/2020 2:47 PM CDT) Hep C Ab Nonreactive Nonreactive [facility] ([place]) Comment: Interpretive Data Nonreactive: Antibodies to HCV [...] last revised on 2019. Testing performed by: [facility], [address] [place] [address]., [id number] Blood specimen (specimen) 08/17/2020 2:47 PM CDT 08/18/2020 1:48 PM CDT Jelena Aguilera NP LAB MICROBIOLOGY - GENERAL ORDERABLES Final Result Performing Organization Address City/[facility]/ZIP Co de Phone Number [facility] ([place]) [address] [place] [address] from Last 3 Months or Most Recently Relevant to Health Maintenance Insurance [facility] MEDICARE SOLUTIONS [facility] MEDICARE SOLUTIONS [employer] MEDICARE SOLUTIONS [facility] MEDICARE Address: [address] [address] [place] [address] Advance Directives For more information, please contact: [phone] * Full Code (Latest Code Status on File) Date Activated Date Inactivated Comments 06/09/2023 3:51 PM 06/12/2023 5:24 PM Care Teams Heavy Threader Relationship Specialty Start Date End Date No, Physician PCP - General 06/12/23 Juan A Jensen MD Referring Physician Neurology 08/10/20 Julita Sampson NP Nurse Practitioner Endocrinology Diabetes & Metabolism 08/10/20
--- OUTSIDE RECORDS SUMMARY | 2024-04-17 09:45 | XMS_ITS | Referral Summary ---
Author Organization [facility] Address [address] [place] [address] Care Team Providers Care Land Clearer Name Role Phone Yaya Calderon MD Primary Care Provider [phone] Source Comments [facility],non-owned Affiliates and Associated Physician Practices is amultiple site organization consisting of ambulatory clinics and hospital sitesin [place], [place], [place] and [place]. This disclosure is being madepursuant to the Care Everywhere program and may not contain all information available regarding this patient. Last updated 17.[facility] Allergies No known active allergies Medications * [...] No history of macrovascular disease - CVA, [place]. Major depressive disorder, recurrent, mild 11/02 Overview (08/06/2021): Last Assessment & Plan: Pt having suicidal thoughts, but not any actively. No plan. Encouraged patient to see a counselor HPI: Condition worsen. Pt does not want to be on meds for this A&P: Discussed/ordered labs, encouraged healthy, low carbohydrate lifestyle and at least 150min/week of exercise We will give pt handout for [facility]. 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 Weakness 03/09/2018 CIDP (chronic inflammatory demyelinating polyneu ropathy) 10/29/2017 Numbness and tingling 09/30/2017 Insomnia due to medical condition 06/30/2017 Overview (08/06/2021): Last Assessment & Plan: Continues on zolpidem for sleep, with reasonable control of insomnia. [place] Prescription Monitoring Program website reviewed, no indication [...] AFLURIA QUADRIVALENT; 6MO+), 0.5 ML (IIV4) 01/05/2019 Social History Tobacco Use Types Packs/Day Years [...] Mass Index 21.24 08/06/2021 12:57 PM CDT Functional Status Functional Status Response Date of Assess ment Is person deaf or have serious hearing difficult y? No 10/05/2017 Is person blind or have serious difficulty seein g? No 10/05/2017 Does person have serious dif ficulty walking/climbing stairs? Yes 10/05/2017 Does person have difficulty dressing/bathing? No 10/05/2017 Does person have difficulty doing errands alone? Yes 10/05/2017 Cognitive Status Response Date of Assessm ent Does person have difficulty concentrating/remembering/making decisions? 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 Scanned Document SCANNING ONLY * (ABNORMAL) BASIC METABOLIC PANEL (CALCIUM TOTAL) (03/11/2018 7:18 AM DEC[employer] AND HULL ASSEMBLER) BUN 14 7 - 26 mg/dL 03/11/2018 7:43 AM [facility] Creatinine 0.7 0.6 - 1.2 mg/dL 03/11/2018 7:43 AM [facility] Sodium 133(L) 136 - 145 mmol/L 03/11/2018 7:43 AM [facility] Potassium 4.2 3.5 - 4.5 mmol/L 03/11/2018 7:43 AM [facility] Chloride 102 98 - 107 mmol/L 03/11/2018 7:43 AM [facility] CO2 25 22 - 29 mmol/L 03/11/2018 7:43 AM [facility] Glucose 316(H) 70 - 115 mg/dL 03/11/2018 7:43 AM [facility] Calcium 8.7 8.4 - 10.2 mg/dL 03/11/2018 7:43 AM [facility] Anion Gap 10 8 - 18 03/11/2018 7:43 AM [facility] BUN/Creatinine Ratio 20 7 - 23 03/11/2018 7:43 AM [facility] Osmolality Calculated 289 270 - 300 mOsm/kg 03/11/2018 7:43 AM [facility] eGFR >60 >60 mL/min/1.7 3 m2 03/11/2018 7:43 AM [facility] Blood BLOOD SPECIMEN / Unknown Venipuncture / Unknown 03/11/2018 7:18 AM [employer] AND HULL ASSEMBLER 03/11/2018 7:21 AM [employer] ASSEMBLER Yuriy Romano MD LAB - CHEMISTRY JANES CHAVIRA [facility] Organization Address City/State/ZIP Co de Phone Number [facility] [address] [place] [address] * (ABNORMAL) HEMOGLOBIN A1C (10/01/2017 3:25 AM CDT) Hemoglobin A1c 7.0(H) 4.4 - 6.3 % 10/01/2017 9:29 AM CDT [facility] Estimated Average Glucose 154 mg/dL 10/01/2017 9:29 AM T [facility] Comment: HbA1c Interpretation: Treatment target values recommended by ADA and other clinical organizations should be used to evaluate metabolic control in patients. Treatment Target Values: Normal : < 5.7% Pre-diabetes: 5.7-6.4% Diabetes: Equal to or greater than 6.5% Reference: [place] [employer] Association Standards of Care in Diabetes -2014 In patients 70 years and older consider HbA1c target range of 7.0-7.5% Reference: Diabetes Mellitus in Older People: Position Statement on behalf of the International Association of Gerontology and Geriatrics (IAGG), the Diabetes Working Alliance Party for Older People (EDWPOP), and the International Task Force of Experts in Diabetes. Barber Ash, et al. J [employer]. 2012 Test results diagnostic [...] Tarango MD LAB - CHEMISTRY JANES CHAVIRA [address] [phone] * HIV-1 HIV-2 ANTIGEN/ANTIBODY (09/30/2017 6:52 PM CDT) HIV Antigen/Antibod y 1 & 2 Non-reacti ve Non-react ranjan 09/30/2017 9:13 PM CDT [facility] Comment: Neither HIV-1 p24 Antigen nor HIV-1/HIV-2 Antibodies are detected. Blood BLOOD SPECIMEN / Unknown Venipuncture / Unknown 09/30/2017 6:52 PM CDT 09/30/2017 6:52 PM CDT Alex Connell MD LAB - HEMATOLOGY JULIO DAVIDSON Performing Organization Address [facility]/ZIP Co de Phone Number [address] [phone] * HEPATITIS C AB SCREEN RFLX PCR QUANT (09/30/2017 6:52 PM CDT) Hepatitis C Antibody Non-react ranjan Non-reac tive 09/30/2017 9:19 PM CDT [facility] Comment: Hepatitis C Antibody screen indicates [...] Connell MD LAB - [place] [address], [facility] [phone] from Last 3 Months or Most Recently Relevant to Health Maintenance Advance Directives * Full Code (Latest Code Status on File) Date Activated Date Inactivated Comments 03/09/2018 11:43 PM 03/11/2018 4:21 PM * Full Code Date Activated Date Inactivated Comments 09/30/2017 8:45 PM 10/05/2017 5:42 PM * Full Code Date Activated Date Inactivated Comments 09/30/2017 6:23 PM 09/30/2017 8:45 PM Care Teams Land Clearer Relationship Specialty Start Date End Date Yaya Calderon MD [address] [place] [address] PCP - General 07/01/17
--- OUTSIDE RECORDS SUMMARY | 2024-04-17 09:46 | XMS_ITS | Encounter Summary ---
Author Organization [facility] Address [address] [place] [address] Phone Care Team Providers Care Payroll Accountant Name Role Phone Jelena Aguilera NP Primary Care Provi kristin Rashi Fonseca MD Unavailable Abraham Sahu DPM Unavailable [phone] Encounter Details Date Type Department Care Team (Late st Contact Info) Description 08/18/2022 [facility] [address] [place] [address] [place] [address] [place] [address] Osteomyelitis, unspecified (HCC) Social History Tobacco Use [...] suspected to have Coronavirus/COVID-19? No / Unsure 08/11/2022 1:03 AM CDT documented as of this encounter Plan of Treatment Not on file documented as of this encounter Procedures Procedure Name Priority Date/Time Associated Diagnosis Comments CBC WITH AUTO DIFFERENTIAL Routine 08/18/2022 12:30 PM CDT Osteomyelitis, unspecified (HCC) VANCOMYCIN TROUGH Routine 08/18/2022 12: 30 PM CDT Osteomyelitis, unspecified (HCC) CMP (COMPREHENSIVE METABOLIC PANEL) Routine 08/18/2022 12:30 PM CDT Osteomyelitis, unspecified (HCC) COMPLETE BLOOD COUNT (CBC) WITH DIFF Routine 08/18/2022 12:30 PM CDT Osteomyelitis, unspecified (HCC) documented in this encounter Results * (ABNORMAL) CBC WITH AUTO DIFFERENTIAL (08/18/2022 12:30 PM CDT) WBC 5.97 4.00 - 12.00 10(3)/mcL 08/18/2022 1:51 PM CDT [facility] RBC 4.80 4.40 - 5.80 10(6)/mcL 08/18/2022 1:51 PM CDT [facility] HEMOGLOBIN (HGB) 12.8(L) 13.0 - 16.5 g/dL 08/18/2022 1:51 PM CDT [facility] HEMATOCRIT (HCT) 41.1 38.0 - 50.0 % 08/18/2022 1:51 PM CDT [facility] MCV 85.6 82.0 - 96.0 fL 08/18/2022 1:51 PM CDT [facility] MCH 26.7 26.0 - 32.0 pg 08/18/2022 1:51 PM CDT [facility] MCHC 31.1 31.0 - 36.0 g/dL 08/18/2022 1:51 PM CDT [facility] PLATELET COUNT 380 140 - 440 10(3)/mcL 08/18/2022 1:51 PM CDT [facility] RDW 16.2(H) 11.8 - 15.5 % 08/18/2022 1:51 PM CDT [facility] MPV 10.0 8.0 - 12.6 fL 08/18/2022 1:51 PM CDT [facility] NEUTROPHILS 55.4 40.0 - 68.0 % 08/18/2022 1:51 PM CDT [facility] LYMPHOCYTES 31.7 19.0 - 49.0 % 08/18/2022 1:51 PM CDT [facility] MONOCYTES 7.9 3.0 - 13.0 % 08/18/2022 1:51 PM CDT [facility] EOSINOPHILS 3.7 0.0 - 8.0 % 08/18/2022 1:51 PM CDT [facility] BASOPHILS 1.3(H) 0.0 - 1.0 % 08/18/2022 1:51 PM CDT [facility] ABSOLUTE NEUTROPHILS 3.31 1.40 - 5.30 10(3)/[facility] 08/18/2022 1:51 PM CDT [facility] ABSOLUTE LYMPHOCYTES 1.89 0.90 - 3.30 10(3)/[facility] 08/18/2022 1:51 PM CDT [facility] ABSOLUTE MONOCYTES 0.47 0.10 - 0.90 10(3)/[facility] 08/18/2022 1:51 PM CDT [facility] ABSOLUTE EOSINOPHIL 0.22 0.00 - 0.50 10(3)/[facility] 08/18/2022 1:51 PM CDT [facility] ABSOLUTE BASOPHILS 0.08 0.00 - 0.10 10(3)/[facility] 08/18/2022 1:51 PM CDT [facility] NRBC PER 100 WBC 0 08/19/19 1:51 PM CDT [facility] Blood No Phlebotomy Charged / Unknown 08/18/2022 12:30 PM CDT 08/18/2022 1:48 PM CDT us Kylee Nelson MD HEMATOLOGY ORDERABLES Fi nal Result [facility] [address] [place] [address] * (ABNORMAL) VANCOMYCIN TROUGH (08/18/2022 12:30 PM CDT) VANCOMYCIN, TROUGH <=4(LL) 5 - 10 mcg/mL 08/18/2022 2:52 PM CDT [facility] Blood No Phlebotomy Charged / Unknown 08/18/2022 12:30 PM CDT 08/18/2022 1:48 PM CDT Kylee Nelson MD CHEMISTRY ORDERABLES Fin al Result [facility] [address] [place] [address] * (ABNORMAL) CMP (COMPREHENSIVE METABOLIC PANEL) (08/18/2022 12:30 PM CDT) Pathologist [facility] SODIUM 136 136 - 144 mmol/L 08/18/2022 2:14 PM CDT [facility] POTASSIUM 4.1 3.5 - 5.1 mmol/L 08/18/2022 2:14 PM CDT [facility] CHLORIDE 100 100 - 110 mmol/L 08/18/2022 2:14 PM CDT [facility] CO2, VENOUS 26 22 - 32 mmol/L 08/18/2022 2:14 PM CDT [facility] ANION GAP 14.1 8.0 - 20.0 mmol/L 08/18/2022 2:14 PM CDT [facility] GLUCOSE 257(H) 70 - 99 mg/dL 08/18/2022 2:14 PM CDT [facility] BUN 10 6 - 20 mg/dL 08/18/2022 2:14 PM CDT [facility] CREATININE, BLOOD 0.64(L) 0.80 - 1.30 mg/dL 08/18/2022 2:14 PM CDT [facility] BUN/CREATININE RATIO 16 12 - 20 ratio 08/18/2022 2:14 PM CDT [facility] TOTAL PROTEIN 7.5 6.0 - 8.3 g/dL 08/18/2022 2:14 PM CDT [facility] ALBUMIN 4.1 3.5 - 5.2 g/dL 08/18/2022 2:14 PM CDT [facility] Comment: The colormetric methods used for the determination of Albumin may lead to falsely elevated test results in patients suffering from renal failure or insufficiency due to interference with other proteins. A/G RATIO 1.2 1.0 - 2.0 08/18/2022 2:14 PM CDT [facility] CALCIUM 9.5 8.9 - 10.3 mg/dL 08/18/2022 2:14 PM CDT [facility] T BILI <0.3 <=1.2 mg/dL 08/18/2022 2:14 PM CDT [facility] SGOT (AST) 13 <=40 U/L 08/18/2022 2:14 PM CDT [facility] SGPT (ALT) 15 <=41 U/L 08/18/2022 2:14 PM CDT [facility] ALKALINE PHOSPHATASE 131(H) 40 - 130 U/L 08/18/2022 2:14 PM CDT [facility] GFR, ESTIMATED >60 >=60 08/18/2022 2:14 PM CDT [facility] Comment: Creatinine Clearance is the preferred criteria for selecting drug dose adjustments in renally impaired patients. The GFR is provided as additional pertinent clinical information. GFR is reported in mL/min/1.73 sq m. Calculation based on the Chronic Kidney Disease Epidemiology Collaboration (CKD- EPI) equation refit without adjustment for race. GFR, EST. >60 >=60 023 2:14 PM CDT [facility] GFR, EST. NONAFRICAN >60 >=60 08/18/2022 2:14 PM CDT [facility] Blood No Phlebotomy Charged / Unknown 08/18/2022 12:30 PM CDT 08/18/2022 1:48 PM CDT us Kylee Nelson MD CHEMISTRY ORDERABLES Fin al Result [facility] [address] [facility] [place] [address] documented in this encounter Visit Diagnoses Diagnosis Osteomyelitis, unspecified (HCC) documented in this encounter Care Teams Payroll Accountant Relationship Specialty Start Date End Date Jelena Aguilera NP 2 [facility] [address] [address] PCP - General Advanced Practice Nurse 05/27/22 Rashi Fonseca MD [facility] [phone] Consulting Physician Endocrinology 07/01/22 01/06/24 Abraham Sahu DPM #[address] [facility] [place] [phone] Consulting Physician Podiatry 06/04/22 documented as of this encounter
--- OUTSIDE RECORDS SUMMARY | 2024-04-17 09:46 | XMS_ITS | Patient Health Summary ---
Author Organization [facility] Address [address] [place] [address] Care Team Providers Care Nuclear Medicine Tech Name Role Phone Yaya Calderon MD Primary Care Provider [phone] Note from [facility],non-owned Affiliates and Associated Physician Practices is amultiple site organization consisting of ambulatory clinics and hospital sitesin [place], [place], [place] and [place]. This disclosure is being madepursuant to the Care Everywhere program and may not contain all information available regarding this patient. Last updated 17.[facility] Allergies No known active allergies Medications * Be aware that medications may not be up to date on this document. Alwaysverify current medications with the patient. * metFORMIN (GLUCOPHAGE) 500 MG tablet(Started 08/18/2017) Take 1 tablet by mouth 2 times daily with morning and evening meal * TRUE METRIX BLOOD GLUCOSE TEST test strip(Started 03/15/2018) * TRUEPLUS LANCETS 33G MISC(Started 03/15/2018) * Blood Glucose Monitoring Suppl (TRUE METRIX METER) W/DEVICE KIT(Started 03/15/2018) UTD 3 TIMES DAILY. * BASAGLAR KWIKPEN (BASAGLAR) pen(Started 03/17/2018) 28 Units once daily * B-D ULTRAFINE III SHORT PEN 31G X 8 MM needle(Started 03/18/2018) * Insulin Lispro (ADMELOG SOLOSTAR) 100 UNIT/ML(Started 09/16/2018) INJECT 4 UNITS UNDER THE SKIN TID BEFORE MEALS 2 refills left * EPINEPHrine (EPIPEN) 0.3 MG/0.3ML auto-injector pen(Started 08/23/2018) Use as directed * immune globulin, human, (GAMUNEX-C) infusion(Started 08/23/2018) Inject 20 units a day * mupirocin (BACTROBAN) 2 % ointment(Started 05/17/2020) APPLY TO OPEN SORES ON BODY 3 TIMES A DAY * ketoconazole (NIZORAL) 2 % cream(Started 05/17/2020) APPLY CREAM TO RASH ON FEET TWICE A DAY * Immune Globulin, Human, (IMMUNE GLOBULIN, GAMUNEX-C,)(Started 06/18/2020) * gabapentin (NEURONTIN) 100 MG capsule(Started 08/06/2021) Take 5 (five) capsules by mouth 2 times daily 5 refills by 08/06/2022 Active Problems Problem Noted Date Diagnosed Date Encounter for screening for malignant neoplasm of respiratory organs 08/06/2021 Headache 08/06/2021 Major depression 08/06/2021 Personal history of tobacco use, presenting hazards to health 08/06/2021 Other cataract 08/06/2021 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, with long-term current use of insulin 07/25/2021 Major depressive disorder, recurrent, mild 11/02 Vitamin D deficiency 11/03/2019 Sixth nerve palsy of left eye 10/15/2018 Uncontrolled type 2 diabetes mellitus with hyper glycemia 09/15/2018 Weakness 03/09/2018 CIDP (chronic inflammatory demyelinating polyneu ropathy) 10/29/2017 Numbness and tingling 09/30/2017 Insomnia due to medical condition 06/30/2017 Lesion of tonsil 04/28/2017 Abnormal findings on imaging test 04/22/2017 Pes cavus 04/22/2017 BMI 21.0-21.9, adult 02/15/2016 Cigarette nicotine dependence without complicati on 10/21/2011 Pure hypercholesterolemia 10/21/2011 Immunizations * FLU VACCINE TRI IIV3 SPLIT PF IM (FLUVIRIN)(Given 02/03/2013) * INFLUENZA VACCINE, QUADR. (FLUZONE; FLULAVAL; FLUARIX; AFLURIA QUADRIVALENT; 6MO+), 0.5 ML (IIV4)(Given 01/05/2019) Social History Tobacco Use Types Packs/Day Years [...] Mass Index 21.24 08/06/2021 12:57 PM CDT Procedures * EYE EXAM(Performed 03/16/2019) * LAB MISC TEST(Performed 03/24/2018) Performed for Chronic inflammatory demyelinating polyneuropathy (HCC) * PROTEIN ELECTROPHORESIS BLOOD(Performed 03/24/2018) Performed for Chronic inflammatory demyelinating polyneuropathy (HCC) * LAB MISC TEST(Performed 03/24/2018) Performed for Chronic inflammatory demyelinating polyneuropathy (HCC) * BASIC METABOLIC PANEL (CALCIUM TOTAL)(Performed 03/11/2018) Performed for Urinary retention * CBC W AUTO DIFFERENTIAL(Performed 03/11/2018) Performed for Urinary retention * GLUCOSE - POINT OF CARE(Performed 03/11/2018) * PT EVAL AND TREAT(Performed 03/11/2018) * OT EVAL AND TREAT(Performed 03/11/2018) * GLUCOSE - POINT OF CARE(Performed 03/11/2018) * GLUCOSE - POINT OF CARE(Performed 03/10/2018) * GLUCOSE - POINT OF CARE(Performed 03/10/2018) * CBC W AUTO DIFFERENTIAL(Performed 03/10/2018) * GLUCOSE - POINT OF CARE(Performed 03/10/2018) * GLUCOSE - POINT OF CARE(Performed 03/10/2018) * PT-INR [facility](Performed 03/10/2018) * URINALYSIS W/MICROSCOPIC NO CULTURE(Performed 03/10/2018) * COMPREHENSIVE METABOLIC PANEL(Performed 03/10/2018) * CBC W AUTO DIFFERENTIAL(Performed 03/10/2018) * GLUCOSE - POINT OF CARE(Performed 03/10/2018) * COMPREHENSIVE METABOLIC PANEL(Performed 03/09/2018) * XR CHEST 1VW PORTABLE(Performed 03/09/2018) Performed for Weakness * XR PELVIS 1 OR 2VW(Performed 03/09/2018) Performed for Weakness * C-REACTIVE PROTEIN(Performed 03/09/2018) * TROPONIN I(Performed 03/09/2018) * TSH(Performed 03/09/2018) * CK BLOOD(Performed 03/09/2018) * ERYTHROCYTE SEDIMENTATION RATE(Performed 03/09/2018) * CBC W AUTO DIFFERENTIAL(Performed 03/09/2018) * CULTURE URINE(Performed 03/09/2018) * URINALYSIS W/MICROSCOPIC NO CULTURE(Performed 03/09/2018) * CARDIAC PROCEDURE ORDER(Performed 01/15/2018) * CARDIAC EKG ORDER(Performed 01/13/2018) * CARDIAC EKG ORDER(Performed 10/09/2017) * GLUCOSE - POINT OF CARE(Performed 10/05/2017) * GLUCOSE - POINT OF CARE(Performed 10/05/2017) * GLUCOSE - POINT OF CARE(Performed 10/05/2017) * GLUCOSE - POINT OF CARE(Performed 10/04/2017) * GLUCOSE - POINT OF CARE(Performed 10/04/2017) * GLUCOSE - POINT OF CARE(Performed 10/04/2017) * GLUCOSE - POINT OF CARE(Performed 10/04/2017) * GLUCOSE - POINT OF CARE(Performed 10/04/2017) * GLUCOSE - POINT OF CARE(Performed 10/03/2017) * GLUCOSE - POINT OF CARE(Performed 10/03/2017) * GLUCOSE - POINT OF CARE(Performed 10/03/2017) * GLUCOSE - POINT OF CARE(Performed 10/03/2017) * GLUCOSE - POINT OF CARE(Performed 10/03/2017) * GLUCOSE - POINT OF CARE(Performed 10/02/2017) * GLUCOSE - POINT OF CARE(Performed 10/02/2017) * GLUCOSE - POINT OF CARE(Performed 10/02/2017) * GLUCOSE - POINT OF CARE(Performed 10/02/2017) * GLUCOSE - POINT OF CARE(Performed 10/02/2017) * MAGGIE URINE(Performed 10/02/2017) * PROTEIN ELECTROPHORESIS URINE RANDOM(Performed 10/02/2017) * LEAD BLOOD(Performed 10/02/2017) * ZINC BLOOD(Performed 10/02/2017) * COPPER BLOOD(Performed 10/02/2017) * PROTEIN ELECTROPHORESIS BLOOD(Performed 10/02/2017) * MERCURY BLOOD(Performed 10/02/2017) * IMMUNOFIXATION BLOOD(Performed 10/02/2017) * LAB MISC TEST (NOT BLOOD)(Performed 10/02/2017) * GLUCOSE - POINT OF CARE(Performed 10/02/2017) * GLUCOSE - POINT OF CARE(Performed 10/01/2017) * GRAM STAIN (LAB ORDERED)(Performed 10/01/2017) * CULTURE CSF+GRAM STAIN(Performed 10/01/2017) * CULTURE CSF+GRAM STAIN (BEAKER)(Performed 10/01/2017) * GLUCOSE - POINT OF CARE(Performed 10/01/2017) * PROTEIN CSF(Performed 10/01/2017) * GLUCOSE CSF(Performed 10/01/2017) * DIFFERENTIAL MANUAL FLUID(Performed 10/01/2017) * DIFFERENTIAL MANUAL FLUID(Performed 10/01/2017) * CELL COUNT W DIFFERENTIAL CSF(Performed 10/01/2017) * CELL COUNT W DIFFERENTIAL CSF(Performed 10/01/2017) * PTT [facility](Performed 10/01/2017) * PT-INR [facility](Performed 10/01/2017) * GLUCOSE - POINT OF CARE(Performed 10/01/2017) * COMPREHENSIVE METABOLIC PANEL(Performed 10/01/2017) * PARANEOPLASTIC ABS RFLX SCREEN(Performed 10/01/2017) * GLUCOSE - POINT OF CARE(Performed 10/01/2017) * PHOSPHORUS BLOOD(Performed 10/01/2017) * MAGNESIUM BLOOD(Performed 10/01/2017) * HEMOGLOBIN A1C(Performed 10/01/2017) * VITAMIN B12(Performed 10/01/2017) * METHYLMALONIC ACID BLOOD(Performed 10/01/2017) * FOLATE RBC(Performed 10/01/2017) * ERYTHROCYTE SEDIMENTATION RATE(Performed 10/01/2017) * RAYA BLOOD SCREEN W/REFLEX TITER(Performed 10/01/2017) * NEUTROPHIL CYTOPLASMIC ANTIBODY(Performed 10/01/2017) * IMMUNOFIXATION BLOOD(Performed 10/01/2017) * PROTEIN ELECTROPHORESIS BLOOD(Performed 10/01/2017) * MPO/IL 3 AUTOANTIBODIES PANEL(Performed 10/01/2017) * SS-A (SJOGREN'S) ANTIBODY(Performed 10/01/2017) * SS-B (SJOGREN'S) ANTIBODY(Performed 10/01/2017) * CT ANGIO BRAIN AND NECK(Performed 09/30/2017) Performed for Numbness and tingling * MRI CERVICAL SPINE WWO CONT(Performed 09/30/2017) Performed for Numbness and tingling * CREATININE BLOOD - POCT (IP) [facility](Performed 09/30/2017) Performed for Numbness and tingling * ALDOLASE(Performed 09/30/2017) * CK BLOOD(Performed 09/30/2017) * RPR(Performed 09/30/2017) * CBC W AUTO DIFFERENTIAL(Performed 09/30/2017) * TSH(Performed 09/30/2017) * HEMOGLOBIN A1C(Performed 09/30/2017) * HIV-1 HIV-2 ANTIGEN/ANTIBODY(Performed 09/30/2017) * HEPATITIS C AB SCREEN RFLX NAAT QUANT(Performed 09/30/2017) * CT HEAD WO CONTRAST(Performed 09/30/2017) Performed for Numbness and tingling * GLUCOSE - POINT OF CARE(Performed 09/30/2017) * EKG 12-LEAD(Performed 09/30/2017) Performed for Numbness and tingling * CARDIAC EKG ORDER(Performed 09/25/2017) * EKG 12-LEAD(Performed 09/24/2017) Performed for Dyspnea, unspecified type * XR CHEST 2VW(Performed 09/24/2017) Performed for Dyspnea, unspecified type * XR SHOULDER RIGHT 2VW OR MORE(Performed 09/24/2017) Performed for Right shoulder pain, unspecified chronicity Results * EYE EXAM (03/16/2019 9:23 AM PROJECT ACCOUNT MANAGER) Anatomical Region Laterality Modality Other Narrative 03/16/2019 9:23 AM PROJECT ACCOUNT MANAGER Ordered by an unspecified provider. Scanned Document SCANNING ONLY * LAB MISC TEST (03/24/2018 12:33 PM PROJECT ACCOUNT MANAGER) Only the most recent of2 resultswithin the time period is included. Blood BLOOD SPECIMEN / Unknown Lab Venipuncture / Unknown 03/24/2018 12:33 PM PROJECT ACCOUNT MANAGER 03/24/2018 12:52 PM PROJECT ACCOUNT MANAGER Marjorie Andino MD LAB SEND OUT [facility] REF LAB NON INTERF [address] * (ABNORMAL) PROTEIN ELECTROPHORESIS BLOOD (03/24/2018 9:24 AM PROJECT ACCOUNT MANAGER) Only the most recent of3 resultswithin the time period is included. Interpretation Serum PE Abnormal Pattern(A) Normal Pattern 03/26/2018 5:13 PM [facility] Comment: Serum capillary electrophoresis shows characteristic bands corresponding to albumin, alpha and beta globulins and polyclonal immunoglobulins. There is a band of restricted electrophoretic mobility in the gamma region previously identified as an IgG lambda monoclonal immunoglobulin. Nicky Ledesma, PhD *The electrophoresis pattern and the interpretation have been reviewed and verified by the teaching physician. Protein Total 6.9 6.0 - 8.3 g/dL 03/26/2018 5:13 PM [facility] Albumin 3.9 3.3 - 5.6 g/dL 03/26/2018 5:13 PM [facility] Alpha-1 Globulins 0.3 0.2 - 0.4 g/dL 03/26/2018 5:13 PM [facility] Alpha-2 Globulins 0.7 0.5 - 1.0 g/dL 03/26/2018 5:13 PM [facility] Beta Globulins 0.7 0.6 - 1.1 g/dL 03/26/2018 5:13 PM [facility] Gamma Globulins 1.3 0.6 - 1.6 g/dL 03/26/2018 5:13 PM [facility] Monoclonal Component(s) 0.2(H) None Detected g/dL 03/26/2018 5:13 PM [facility] Blood BLOOD SPECIMEN / Unknown Lab Venipuncture / Unknown 03/24/2018 9:24 AM PROJECT ACCOUNT MANAGER 03/24/2018 9:56 AM PROJECT ACCOUNT MANAGER Marjorie Andino MD LAB - CHEMISTRY [facility] [address] [phone] * (ABNORMAL) BASIC METABOLIC PANEL (CALCIUM TOTAL) (03/11/2018 7:18 AM PROJECT ACCOUNT MANAGER) BUN 14 7 - 26 mg/dL 03/11/2018 7:43 AM [facility] Creatinine 0.7 0.6 - 1.2 mg/dL 03/11/2018 7:43 AM [facility] Sodium 133(L) 136 - 145 mmol/L 03/11/2018 7:43 AM [facility] Potassium 4.2 3.5 - 4.5 mmol/L 03/11/2018 7:43 AM [facility] Chloride 102 98 - 107 mmol/L 03/11/2018 7:43 AM [facility] CO2 25 22 - 29 mmol/L 03/11/2018 7:43 AM [facility] Glucose 316(H) 70 - 115 mg/dL 03/11/2018 7:43 AM [facility] Calcium 8.7 8.4 - 10.2 mg/dL 03/11/2018 7:43 AM [facility] Anion Gap 10 8 - 18 03/11/2018 7:43 AM [facility] BUN/Creatinine Ratio 20 7 - 23 03/11/2018 7:43 AM [facility] Osmolality Calculated 289 270 - 300 mOsm/kg 03/11/2018 7:43 AM [facility] eGFR >60 >60 mL/min/1.7 3 m2 03/11/2018 7:43 AM [facility] Blood BLOOD SPECIMEN / Unknown Venipuncture / Unknown 03/11/2018 7:18 AM PROJECT ACCOUNT MANAGER 03/11/2018 7:21 AM [facility] Yuriy Romano MD LAB - CHEMISTRY JANES [facility] [address] [phone] * CBC W AUTO DIFFERENTIAL (03/11/2018 7:17 AM [facility]) Only the most recent of5 resultswithin the time period is included. WBC 7.1 3.5 - 10.5 10 3/uL 03/11/2018 7:24 AM [facility] RBC 4.64 4.30 - 5.70 10 6/uL 03/11/2018 7:24 AM [facility] Hemoglobin 14.3 13.5 - 17.5 g/dL 03/11/2018 7:24 AM [facility] Hematocrit 42.5 39.0 - 50.0 % 03/11/2018 7:24 AM [facility] MCV 91.6 81.0 - 97.0 fL 03/11/2018 7:24 AM [facility] MCH 30.8 28.0 - 34.0 pg 03/11/2018 7:24 AM [facility] MCHC 33.6 32.0 - 36.0 g/dL 03/11/2018 7:24 AM [facility] Platelet Count 280 150 - 400 10 3/uL 03/11/2018 7:24 AM [facility] RDW-SD 46.5 36.0 - 50.0 fL 03/11/2018 7:24 AM [facility] RDW-CV 13.8 11.2 - 14.8 % 03/11/2018 7:24 AM [facility] MPV 9.8 9.3 - 12.8 fL 03/11/2018 7:24 AM [facility] nRBC Absolute 0.00 0 10 3/uL 03/11/2018 7:24 AM [facility] nRBC Auto 0.0 0 /100 WBC 03/11/2018 7:24 AM [facility] Neutrophils % 62.9 35.0 - 70.0 % 03/11/2018 7:24 AM [facility] Lymphocytes % 29.1 19.7 - 55.1 % 03/11/2018 7:24 AM [facility] Monocytes % 6.2 3.0 - 15.0 % 03/11/2018 7:24 AM [facility] Eosinophils % 0.8 0.0 - 6.0 % 03/11/2018 7:24 AM [facility] Basophil % 0.7 0.0 - 1.5 % 03/11/2018 7:24 AM [facility] Neutrophils Absolute 4.4 1.6 - 7.0 10 3/uL 03/11/2018 7:24 AM [facility] Lymphocyte Absolute 2.1 0.8 - 2.9 10 3/uL 03/11/2018 7:24 AM [facility] Monocytes Absolute 0.44 0.14 - 0.66 10 3/uL 03/11/2018 7:24 AM [facility] Eosinophils Absolute 0.06 0.00 - 0.45 10 3/uL 03/11/2018 7:24 AM [facility] Basophils Absolute 0.05 0.00 - 0.06 10 3/uL 03/11/2018 7:24 AM [facility] Immature Granulocytes % 0.3 0.0 - 1.0 % 03/11/2018 7:24 AM [facility] Blood BLOOD SPECIMEN / Unknown Venipuncture / Unknown 03/11/2018 7:17 AM PROJECT ACCOUNT MANAGER 03/11/2018 7:21 AM PROJECT ACCOUNT MANAGER Yuriy Romano MD LAB - HEMATOLOGY ORD ERABLES Performing Organization Address [facility]/[place] [address], [facility] [phone] * (ABNORMAL) GLUCOSE - POINT OF CARE (03/11/2018 6:45 AM PROJECT ACCOUNT MANAGER) Only the most recent of31 resultswithin the time period is included. Glucose WB/POC 279(H) 70 - 115 mg/dL 03/11/2018 6:49 AM [facility] Specimen Type Arterial/C apillary 03/11/2018 6:49 AM [facility] Blood BLOOD SPECIMEN / Unknown 03/11/2018 6:45 AM PROJECT ACCOUNT MANAGER 03/11/2018 6:49 AM PROJECT ACCOUNT MANAGER Narrative [facility] - 03/11/2018 6:49 AM PROJECT ACCOUNT MANAGER Retail Sales Specialist: LEO MOURA Alexandrea Pierre MD LAB - POINT OF CARE ORDERABLES Performing Organization Address City/[facility]/[place] [address], [facility] [phone] * (ABNORMAL) PT-INR [facility] (03/10/2018 4:56 AM PROJECT ACCOUNT MANAGER) Only the most recent of2 resultswithin the time period is included. PT 12.0(L) 12.1 - 14.8 Seconds 03/10/2018 5:06 AM [facility] INR 0.9 See Comment 03/10/2018 5:06 AM [facility] Comment: The suggested therapeutic range for standard coumadin (warfarin) therapy is an INR of 2.0-3.0. For high-risk patients (Mechanical Mitral Valve Prosthesis, etc.), the suggested prophylactic therapeutic range is an INR of 2.5-3.5. Blood BLOOD SPECIMEN / Unknown 03/10/2018 4:56 AM PROJECT ACCOUNT MANAGER 03/10/2018 4:56 AM PROJECT ACCOUNT MANAGER Bre Hernandez MD LAB - COAGULATION OR DERABLES [facility] [address] [place] [address] * (ABNORMAL) URINALYSIS W/MICROSCOPIC NO CULTURE (03/10/2018 4:56 AM PROJECT ACCOUNT MANAGER) Only the most recent of2 resultswithin the time period is included. Color UA Yellow Straw, Yellow, Colorless 03/10/2018 5:05 AM [facility] Clarity UA Clear Clear, Slt Cloudy 03/10/2018 5:05 AM [facility] Specific [place] UA 1.032(H) 1.005 - 1.030 03/10/2018 5:05 AM [facility] pH UA 5.0 5.0 - 8.0 pH 03/10/2018 5:05 AM [facility] Protein UA Negative Negative mg/dL 03/10/2018 5:05 AM [facility] Glucose UA 3+(A) Negative mg/dL 03/10/2018 5:05 AM [facility] Ketone UA Negative Negative mg/dL 03/10/2018 5:05 AM [facility] Bilirubin UA Negative Negative mg/dL 03/10/2018 5:05 AM [facility] Blood UA Negative Negative 03/10/2018 5:05 AM [facility] Nitrite UA Negative Negative 03/10/2018 5:05 AM [facility] Leukocyte Esterase Negative Negative 03/10/2018 5:05 AM [facility] Urobilinogen UA Negative Negative mg/dL 03/10/2018 5:05 AM [facility] RBC UA 0-2 None Seen, 0-2, 3-5 /HPF 03/10/2018 5:05 AM [facility] WBC UA 0-5 None Seen, 0-5 /HPF 03/10/2018 5:05 AM [facility] Squamous Epithelial Cells UA None Seen None Seen, 0-2 /HPF 03/10/2018 5:05 AM [facility] Mucus UA 1+ None, 1+ /LPF 03/10/2018 5:05 AM [facility] Urine URINE SPECIMEN OBTAINED BY CLEAN CATCH PROCEDURE / Unknown 03/10/2018 4:56 AM PROJECT ACCOUNT MANAGER 03/10/2018 4:56 AM PROJECT ACCOUNT MANAGER Bre Hernandez MD LAB - URINALYSIS ORD ERABLES [address] [phone] * (ABNORMAL) COMPREHENSIVE METABOLIC PANEL (03/10/2018 4:56 AM PROJECT ACCOUNT MANAGER) Only the most recent of3 resultswithin the time period is included. BUN 17 7 - 26 mg/dL 03/10/2018 5:17 AM [facility] Creatinine 0.7 0.6 - 1.2 mg/dL 03/10/2018 5:17 AM [facility] Sodium 136 136 - 145 mmol/L 03/10/2018 5:17 AM [facility] Potassium 3.9 3.5 - 4.5 mmol/L 03/10/2018 5:17 AM [facility] Chloride 105 98 - 107 mmol/L 03/10/2018 5:17 AM [facility] CO2 22 22 - 29 mmol/L 03/10/2018 5:17 AM [facility] Glucose 271(H) 70 - 115 mg/dL 03/10/2018 5:17 AM [facility] Calcium 8.9 8.4 - 10.2 mg/dL 03/10/2018 5:17 AM [facility] Protein Total 7.4 6.0 - 8.3 g/dL 03/10/2018 5:17 AM [facility] Albumin 3.2(L) 3.4 - 5.0 g/dL 03/10/2018 5:17 AM [facility] Bilirubin Total 0.4 0.2 - 1.2 mg/dL 03/10/2018 5:17 AM [facility] Alkaline Phosphatase 87 40 - 150 Units/L 03/10/2018 5:17 AM [facility] ALT 9 0 - 55 Units/L 03/10/2018 5:17 AM [facility] AST 9 5 - 34 Units/L 03/10/2018 5:17 AM [facility] Anion Gap 13 8 - 18 03/10/2018 5:17 AM [facility] BUN/Creatinine Ratio 24(H) 7 - 23 03/10/2018 5:17 AM [facility] Osmolality Calculated 293 270 - 300 mOsm/kg 03/10/2018 5:17 AM [facility] Albumin/Globulin Ratio 0.8(L) 1.1 - 2.3 03/10/2018 5:17 AM [facility] eGFR >60 >60 mL/min/1.7 3 m2 03/10/2018 5:17 AM [facility] Blood BLOOD SPECIMEN / Unknown 03/10/2018 4:56 AM PROJECT ACCOUNT MANAGER 03/10/2018 4:56 AM PROJECT ACCOUNT MANAGER Bre Hernandez MD LAB - CHEMISTRY [facility] Organization Address City/State/ZIP Co de Phone Number [address] [phone] * XR CHEST 1VW PORTABLE (03/09/2018 9:03 PM PROJECT ACCOUNT MANAGER) Anatomical Region Laterality Modality Chest Radiographic Robyn ging 03/10/2018 7:00 AM PROJECT ACCOUNT MANAGER Impressions 03/10/2018 1:37 PM PROJECT ACCOUNT MANAGER IMPRESSION: No acute pulmonary process. Dictated by Rachael Fernandez MD (residential sales rep). This report was approved by Rachael Fernandez on 03/10/2018 9:48 AM . I, Dr. Dr. FRAN CALLEJAS MD have personally reviewed and interpreted this examination/study. This report was electronically signed by Dr. FRAN CALLEJAS MD on 03/10/2018 1:37 PM . Narrative 03/10/2018 1:37 PM PROJECT ACCOUNT MANAGER EXAMINATION: XR CHEST 1VW PORTABLE HISTORY: Shortness of breath COMPARISON: No prior study is available for comparison at the time of this dictation. FINDINGS: There is no focal consolidation, pleural effusion, or pneumothorax. The cardiomediastinal silhouette is normal. The visible bony thorax is intact. Procedure Note Fran Callejas MD - 03/10/2018 EXAMINATION: XR CHEST 1VW PORTABLE HISTORY: Shortness of breath COMPARISON: No prior study is available for comparison at the time ofthis dictation. FINDINGS: There is no focal consolidation, pleural effusion, or pneumothorax. The cardiomediastinal silhouette is normal. The visible bony thorax isintact. IMPRESSION: No acute pulmonary process. Dictated by Rachael Fernandez MD (residential sales rep). This report was approved by Rachael Fernandez on 03/10/2018 9:[address] FRAN Aragon MD have personally reviewed and interpretedthis examination/study. This report was electronically signed by Dr. FRAN CALLEJAS MD on03/10/2018 1:37 PM . Anna Sloan MD DIAGNOSTIC IMAGING ORDERABLES * XR PELVIS 1 OR 2VW (03/09/2018 9:03 PM PROJECT ACCOUNT MANAGER) Anatomical Region Laterality Modality Pelvis Radiographic Robyn ging 03/10/2018 7:02 AM PROJECT ACCOUNT MANAGER Impressions 03/10/2018 2:52 PM PROJECT ACCOUNT MANAGER IMPRESSION: No acute fracture identified. Dictated by Rachael Fernandez MD (residential sales rep). Dr. JO ANN Aragon have personally reviewed and interpreted this examination/study. This report was electronically signed by JO ANN MORSE on 03/10/2018 2:52 PM . Narrative 03/10/2018 2:52 PM PROJECT ACCOUNT MANAGER EXAMINATION: XR PELVIS 1 OR 2VW HISTORY: pelvic pain COMPARISON: No prior study is available for comparison at the time of this dictation. FINDINGS: No acute fracture is identified. The femoral heads appear well-seated within their respective acetabula. The hip joint spaces are preserved. The pubic symphysis is intact. The sacroiliac joints are normal. Bone density is normal. Procedure Note Jo Ann Morse MD - 03/10/2018 EXAMINATION: XR PELVIS 1 OR 2VW HISTORY: pelvic pain COMPARISON: No prior study is available for comparison at the time ofthis dictation. FINDINGS: No acute fracture is identified. The femoral heads appear well-seated within their respective acetabula. The hip joint spaces are preserved.The pubic symphysis is intact. The sacroiliac joints are normal. Bonedensity is normal. IMPRESSION: No acute fracture identified. Dictated by Rachael Fernandez MD (residential sales rep). I, Dr. JO ANN MORSE have personally reviewed and interpreted this examination/study. This report was electronically signed by JO ANN MORSE on 03/10/2018 2:52 PM . Anna Sloan MD DIAGNOSTIC IMAGING ORDERABLES * C-REACTIVE PROTEIN (03/09/2018 8:47 PM PROJECT ACCOUNT MANAGER) C-Reactive Protein <0.5 <=0.5 mg/dL 03/09/2018 9:08 PM PROJECT ACCOUNT MANAGER [facility] Blood BLOOD SPECIMEN / Unknown Venipuncture / Unknown 03/09/2018 8:47 PM PROJECT ACCOUNT MANAGER 03/09/2018 8:51 PM PROJECT ACCOUNT MANAGER Anna Sloan MD LAB - CHEMISTRY OR DERABLES Performing Organization Address City/[facility]/ZIP Co de Phone Number [address] [phone] * TROPONIN I (03/09/2018 8:45 PM PROJECT ACCOUNT MANAGER) Troponin I <0.010 <0.032 ng/mL 03/09/2018 9:21 PM PROJECT ACCOUNT MANAGER [facility] Blood BLOOD SPECIMEN / Unknown Venipuncture / Unknown 03/09/2018 8:45 PM PROJECT ACCOUNT MANAGER 03/09/2018 8:57 PM PROJECT ACCOUNT MANAGER Anna Sloan MD LAB - CHEMISTRY OR DERABLES Performing Organization Address [facility] Co de Phone Number [address] [phone] * (ABNORMAL) ERYTHROCYTE SEDIMENTATION RATE (03/09/2018 8:45 PM PROJECT ACCOUNT MANAGER) Only the most recent of2 resultswithin the time period is included. Erythrocyte Sedimentation Rate Westergren 21(H) 0 - 20 MM/HR 03/09/2018 9:08 PM PROJECT ACCOUNT MANAGER [facility] Blood BLOOD SPECIMEN / Unknown Venipuncture / Unknown 03/09/2018 8:45 PM PROJECT ACCOUNT MANAGER 03/09/2018 8:57 PM PROJECT ACCOUNT MANAGER Anna Sloan MD LAB - HEMATOLOGY O RDERABLES [address] [phone] * CK BLOOD (03/09/2018 8:45 PM PROJECT ACCOUNT MANAGER) Only the most recent of2 resultswithin the time period is included. CK Total 58 30 - 200 Units/L 03/09/2018 9:15 PM PROJECT ACCOUNT MANAGER [facility] Blood BLOOD SPECIMEN / Unknown Venipuncture / Unknown 03/09/2018 8:45 PM PROJECT ACCOUNT MANAGER 03/09/2018 8:57 PM PROJECT ACCOUNT MANAGER Anna Sloan MD LAB - CHEMISTRY OR DERABLES Performing Organization Address [facility] Co de Phone Number [address] [phone] * TSH (03/09/2018 8:45 PM PROJECT ACCOUNT MANAGER) Only the most recent of2 resultswithin the time period is included. TSH 1.164 0.350 - 4.940 uIU/mL 03/09/2018 9:36 PM PROJECT ACCOUNT MANAGER [facility] Blood BLOOD SPECIMEN / Unknown Venipuncture / Unknown 03/09/2018 8:45 PM PROJECT ACCOUNT MANAGER 03/09/2018 8:57 PM PROJECT ACCOUNT MANAGER Anna Sloan MD LAB - CHEMISTRY OR DERABLES Performing Organization Address City/[facility]/ZIP Co de Phone Number [address] [phone] * CULTURE URINE (03/09/2018 8:43 PM PROJECT ACCOUNT MANAGER) Culture Urine No growth (<100 CFU/mL) KALEB 03/11/2018 9:18 AM PROJECT ACCOUNT MANAGER [facility] MICROBIOLOGY Urine URINE SPECIMEN OBTAINED BY CLEAN CATCH PROCEDURE / Unknown Collection / Unknown 03/09/2018 8:43 PM PROJECT ACCOUNT MANAGER 03/09/2018 8:47 PM PROJECT ACCOUNT MANAGER Anna Sloan MD LAB - MICROBIOLOGY ORDERABLES [facility] MICROBIOLOGY [address] [place] [address], [facility] [phone] * CARDIAC PROCEDURE ORDER (01/15/2018 8:49 AM PROJECT ACCOUNT MANAGER) Narrative 01/15/2018 8:49 AM PROJECT ACCOUNT MANAGER Ordered by an unspecified provider. Scanned Document CARDIAC SERVICES ORD ERABLES * CARDIAC EKG ORDER (01/13/2018 8:31 AM PROJECT ACCOUNT MANAGER) Only the most recent of3 resultswithin the time period is included. Narrative 01/13/2018 8:31 AM PROJECT ACCOUNT MANAGER Ordered by an unspecified provider. Scanned Document CARDIAC SERVICES ORD ERABLES * PROTEIN ELECTROPHORESIS URINE RANDOM (10/02/2017 4:58 AM CDT) Pathologist [facility] Interpretation Urine PE Normal Pattern Normal Pattern 10/05/2017 7:42 AM [facility] Comment: Urine protein electrophoresis shows a prominent band corresponding to albumin with small amounts of transferrin and trace quantities of other nonspecific proteinuria. No definitive monoclonal immunoglobulins detected on urine protein electrophoresis, However, there is a band of restricted mobility identified on urine immunofixation. This could be due to increased sensitivity of the immunofixation method. Non-secretory myeloma (NSM) cannot be excluded on the basis of this result. Measurements of serum free kappa and lambda immunoglobulin light chains can identify up to 70% of patients with NSM. Leonela Wallace MD *The electrophoresis pattern and the interpretation have been reviewed and verified by the teaching physician. Protein Urine 8 Not Established mg/dL 10/05/2017 7:42 AM [facility] Urine PE Albumin 100.0 Not Applicable % 10/05/2017 7:42 AM CDT [facility] Urine PE Globulins 0.0 Not Applicabl e % 10/05/2017 7:42 AM CDT [facility] Urine URINE SPECIMEN OBTAINED BY CLEAN CATCH PROCEDURE / Unknown Collection / Unknown 10/02/2017 4:58 AM CDT 10/02/2017 5:10 AM CDT Shukri Chaudhry MD LAB - URINE CHEMISTR Y ORDERABLES Performing Organization Address [facility] Co de Phone Number [address] [phone] * (ABNORMAL) MAGGIE URINE (10/02/2017 4:58 AM CDT) Immunofixation Urine Abnormal Pattern(A) Normal Pattern 10/05/2017 7:40 AM CDT [facility] Comment: Serum immunofixation electrophoresis shows polyclonal IgG, IgA and IgM immunoglobulins. Serum immunofixation electrophoresis identifies an IgG lambda monoclonal immunoglobulin. Leonela Wallace MD *The electrophoresis pattern and the interpretation have been reviewed and verified by the teaching physician. Urine URINE SPECIMEN COLLECTION, 24 HOURS / Unknown Timed Urine Volume Measurement / Unknown 10/02/2017 4:58 AM CDT 10/02/2017 5:10 AM CDT Shukri Chaudhry MD LAB - URINE CHEMISTR Y ORDERABLES Performing Organization Address [facility] Co de Phone Number [address] [phone] * LAB MISC TEST (NOT BLOOD) (10/02/2017 3:24 AM CDT) Test Name 10/13/2017 8:54 AM CDT [facility] REF LAB NON INTERF Test Result 10/13/2017 8:54 AM CDT [facility] REF LAB NON INTERF Comment Ref Lab 8 8:54 AM CDT [facility] REF LAB NON INTERF Other CEREBROSPINAL FLUID SPECIMEN / Unknown Collection / Unknown 10/02/2017 3:24 AM CDT 10/02/2017 5:30 AM CDT Antonio Kingsley MD LAB - BODY FLUID ORDERABLES Performing Organization Address [facility]/ZIP Co de Phone Number [facility] REF LAB NON INTERF [address] [place] [address] * (ABNORMAL) IMMUNOFIXATION (10/02/2017 3:24 AM CDT) Only the most recent of2 resultswithin the time period is included. Immunofixation Serum Abnormal Pattern(A) Normal Pattern 10/05/2017 7:38 AM CDT [facility] Comment: Serum immunofixation electrophoresis shows polyclonal IgG, IgA, and IgM immunoglobulins. Serum immunofixation electrophoresis identifies an IgG-lambda monoclonal immunoglobulin. Adrián Malik DO *The electrophoresis pattern and the interpretation have been reviewed and verified by the teaching physician. Blood BLOOD SPECIMEN / Unknown 10/02/2017 3:24 AM CDT 10/02/2017 4:45 AM CDT Shukri Chaudhry MD LAB - CHEMISTRY JANES CHAVIRA Performing Organization Address [facility] Co de Phone Number [facility] LABORATORY [address] [phone] * ZINC BLOOD (10/02/2017 3:24 AM CDT) [facility] Zinc, Plasma or Serum 88 56 - 134 ug/dL 10/06/2017 5:15 AM CDT [facility] ([facility]) Comment:Detection Limit = 5 Blood BLOOD SPECIMEN / Unknown 10/02/2017 3:24 AM CDT 10/02/2017 4:14 AM CDT Narrative [facility] ([facility]) - 10/06/2017 5:15 AM CDT Performed at: [facility] Lab[address] [id number] At Risk Specialist: Angel Luis Villalpando MD, Phone: [phone] Yudi Tarango MD LAB - CHEMISTRY JANES CHAVIRA Performing Organization Address City/[facility]/ZIP Co de Phone Number [facility] ([facility]) [address] [place] [address] * MERCURY BLOOD (10/02/2017 3:24 AM CDT) [facility] Mercury None Detected 0.0 - 14.9 ug/L 10/06/2017 10:16 AM CDT [facility]) Comment: Environmental Exposure: <15.0 Occupational Exposure: IBRAHIMA - Inorganic Mercury: 15.0 Detection Limit = 1.0 Blood BLOOD SPECIMEN / Unknown 10/02/2017 3:24 AM CDT 10/02/2017 4:14 AM CDT Narrative [facility] ([facility]) - 10/06/2017 10:16 AM CDT Performed at: [address] [place] [id number] At Risk Specialist: Angel Luis Villalpando MD, Phone: [phone] Yudi Tarango MD LAB - CHEMISTRY JANES CHAVIRA [facility] Organization Address City/State/ZIP Co de Phone Number [facility] ([facility]) [address] [place] [address] * LEAD BLOOD (10/02/2017 3:24 AM CDT) [facility] Lead Blood 1 0 - 19 ug/dL 10/06/2017 3:11 AM CDT [facility] ([facility]) Comment: Analysis by inductively coupled plasma/mass spectrometry (ICP/MS) Environmental Exposure: WHO Recommendation <20 Occupational Exposure: OSHA Lead Std 40 IBRAHIMA 30 Detection Limit = 1 Please note reference interval change This test was developed and its performance characteristics determined by [employer]. It has not been cleared or approved by the Food and Drug Administration. Blood BLOOD SPECIMEN / Unknown 10/02/2017 3:24 AM CDT 10/02/2017 4:14 AM CDT Narrative [facility] ([facility]) - 10/06/2017 3:11 AM CDT Performed at: [address] [place] [address] [address] [place], [place] [id number] At Risk Specialist: Tera Gaytan PhD, Phone: [phone] Yudi Tarango MD LAB - CHEMISTRY JANES CHAVIRA Performing Organization Address City/[facility]/ZIP Co de Phone Number [facility] ([facility]) [address] [place] [address] * COPPER BLOOD (10/02/2017 3:24 AM CDT) Copper 76 72 - 166 ug/dL 10/06/2017 5:15 AM CDT [facility] ([facility]) Comment:Detection Limit = 5 Blood BLOOD SPECIMEN / Unknown 10/02/2017 3:24 AM CDT 10/02/2017 4:14 AM CDT Narrative [facility]) - 10/06/2017 5:15 AM CDT Performed at: [address] [place] [id number] At Risk Specialist: Angel Luis Villalpando MD, Phone: [phone] Yudi Tarango MD LAB - CHEMISTRY JANES CHAVIRA Performing Organization Address [facility]/ZIP Co de Phone Number [facility] ([facility]) [address] [place] [address], [facility] * GRAM STAIN (LAB ORDERED) (10/01/2017 6:02 PM CDT) Pathologist [facility] Gram Stain No organisms seen 10/01/2017 11:40 PM CDT [facility] Microbiology Collection / Unknown 10/01/2017 6:02 PM CDT 10/01/2017 6:02 PM CDT Antonio Kingsley MD LAB - MICROBIOLOG Y ORDERABLES Performing Organization Address City/[facility]/ZIP Co de Phone Number [facility] [address] [phone] * CULTURE CSF+GRAM STAIN (10/01/2017 6:02 PM CDT) Pathologist [facility] Culture No growth KALEB 2017 2:07 PM CDT [facility] MICROBIOLOGY Gram Stain No organisms seen 2017 2:07 PM CDT [facility] MICROBIOLOGY Cerebral spinal fluid CEREBROSPINAL FLUID SPECIMEN / Unknown Collection / Unknown 10/01/2017 6:02 PM CDT 10/01/2017 6:02 PM CDT Narrative Authorizing Provider Result Rodri Kingsley MD LAB - MICROBIOLOG Y ORDERABLES [facility] MICROBIOLOGY [address] [place] [address], [facility] [phone] * (ABNORMAL) PROTEIN CSF (10/01/2017 5:56 PM CDT) Protein CSF 400(H) 15 - 45 mg/dL 10/01/2017 6:41 PM CDT [facility] Comment: Result obtained by dilution. Cerebral spinal fluid CEREBROSPINAL FLUID SPECIMEN / Unknown Collection / Unknown 10/01/2017 5:56 PM CDT 10/01/2017 5:56 PM CDT Narrative Authorizing Provider Result Rodri Kingsley MD LAB - BODY FLUID ORDERABLES Performing Organization Address City/[facility]/[place] [address], [facility] [phone] * (ABNORMAL) GLUCOSE CSF (10/01/2017 5:56 PM CDT) Glucose CSF 102(H) 40 - 70 mg/dL 10/01/2017 6:41 PM CDT [facility] Cerebral spinal fluid CEREBROSPINAL FLUID SPECIMEN / Unknown Collection / Unknown 10/01/2017 5:56 PM CDT 10/01/2017 5:56 PM CDT Narrative Authorizing Provider Result Rodri Kingsley MD LAB - BODY FLUID ORDERABLES Performing Organization Address City/[facility]/[place] [address], [facility] [phone] * DIFFERENTIAL MANUAL FLUID (10/01/2017 5:52 PM CDT) Only the most recent of2 resultswithin the time period is included. Segs % Fluid 1 % 10/01/2017 6:26 PM CDT [facility] Lymphocytes % Fluid 54 % 10/01/2017 6:26 PM CDT [facility] Monocytes % Fluid 45 % 10/01/2017 6:26 PM CDT [facility] Cerebral spinal fluid CEREBROSPINAL FLUID SPECIMEN / Unknown Collection / Unknown 10/01/2017 5:52 PM CDT 10/01/2017 5:52 PM CDT Narrative [facility] - 10/01/2017 6:26 PM CDT WBC too low to perform full differential. 84 total cells counted. Antonio Kingsley MD LAB - BODY FLUID ORDERABLES Performing Organization Address City/[facility]/ZIP Co de Phone Number [address] [phone] * CELL COUNT W DIFFERENTIAL CSF (10/01/2017 5:52 PM CDT) Only the most recent of2 resultswithin the time period is included. Color Fluid Colorless Colorless, Straw 10/01/2017 6:20 PM CDT [facility] Clarity Fluid Clear Clear 10/01/2017 6:20 PM CDT [facility] Volume Fluid 1.0 mL 10/01/2017 6:20 PM CDT [facility] WBC Calculation Fluid 1 /uL 10/01/2017 6:20 PM CDT [facility] RBC Calculation 69 /uL 8 6:20 PM CDT [facility] Xanthochromia Fluid Negative Negative 10/01/2017 6:20 PM CDT [facility] Differential Manual Differential to follow. 10/01/2017 6:20 PM CDT [facility] Cerebral spinal fluid CEREBROSPINAL FLUID SPECIMEN / Unknown Collection / Unknown 10/01/2017 5:52 PM CDT 10/01/2017 5:52 PM CDT Narrative [facility] - 10/01/2017 6:20 PM CDT Tube # 4. Antonio Kingsley MD LAB - BODY FLUID ORDERABLES Performing Organization Address City/[facility]/[place] [address], [facility] [phone] * PTT [facility] (10/01/2017 2:33 PM CDT) Pathologist [facility] APTT 29.6 23.0 - 38.4 Seconds 10/01/2017 2:59 PM CDT [facility] Comment: Suggested therapeutic range for full dose I.V. heparin therapy for venous thromboembolism is 66.0-91.0 seconds. Blood BLOOD SPECIMEN / Unknown Lab Venipuncture / Unknown 10/01/2017 2:33 PM CDT 10/01/2017 2:39 PM CDT Antonio Kingsley MD LAB - COAGULATION ORDERABLES [address] [phone] * PARANEOPLASTIC ABS RFLX SCREEN (10/01/2017 8:15 AM CDT) [facility] Purkinje/Neuronal Nuclear Antibody IgG None Detected None Detected 2017 4:23 PM CDT [facility] ([facility]) Comment: LOBO-1, LOBO-2 or METAL FRAMER-1 antibodies not detected, confirmatory testing for Hu (LOBO-1), Ri (LOBO-2) or Yo (METAL FRAMER-1) IgG antibodies will not be performed. INTERPRETIVE INFORMATION: Purkinje Cell/Neuronal Nuclear IgG Scrn Test developed and characteristics determined by [employer] [facility]. See Compliance Statement D: [facility] Performed by [facility], [address] [place] [address] [email or web address], Barney Juan MD, Lab. Director Blood BLOOD SPECIMEN / Unknown Venipuncture / Unknown 10/01/2017 8:15 AM CDT 10/01/2017 8:18 AM CDT Yudi Tarango MD LAB - CHEMISTRY JANES CHAVIRA [facility]) [address] [place] [address] * RAYA BLOOD SCREEN W/REFLEX TITER (10/01/2017 3:25 AM CDT) [facility] RAYA Negative 10/02/2017 5:12 PM CDT [facility] ([facility]) Comment: Negative <1:80 Borderline 1:80 Positive >1:80 Blood BLOOD SPECIMEN / Unknown Lab Venipuncture / Unknown 10/01/2017 3:25 AM CDT 10/01/2017 3:29 AM CDT Narrative [facility] ([facility]) - 10/02/2017 5:12 PM CDT Performed at: [address] [place] [address] [address] [place], [place] [id number] At Risk Specialist: Tera Gaytan PhD, Phone: [phone] Alex Connell MD LAB - CHEMISTRY JANES CHAVIRA Performing Organization Address [facility] Co de Phone Number [facility] ([facility]) [address] [place] [address] * METHYLMALONIC ACID BLOOD (10/01/2017 3:25 AM CDT) Pathologist [facility] Methylmalonic Acid 145 0 - 378 nmol/L 10/03/2017 5:07 PM CDT [facility] ([facility]) Disclaimer Comment 10/03/2017 5:07 PM CDT [facility] ([facility]) Comment: This test was developed and its performance characteristics determined by [facility]. It has not been cleared or approved by the Food and Drug Administration. Blood BLOOD SPECIMEN / Unknown Lab Venipuncture / Unknown 10/01/2017 3:25 AM CDT 10/01/2017 3:29 AM CDT [facility] ([facility]) - 10/03/2017 5:07 PM CDT Performed at: [address] [place] [id number] At Risk Specialist: Angel Luis Villalpando MD, Phone: [phone] Alex Connell MD LAB - CHEMISTRY JANES CHAVIRA Performing Organization Address [facility]/ZIP Co de Phone Number [facility] ([facility]) [address] [place] [address], [facility] * (ABNORMAL) HEMOGLOBIN A1C (10/01/2017 3:25 AM CDT) Only the most recent of2 resultswithin the time period is included. Hemoglobin A1c 7.0(H) 4.4 - 6.3 % 10/01/2017 9:29 AM CDT [facility] Estimated Average Glucose 154 mg/dL 10/01/2017 9:29 AM CDT [facility] Comment: HbA1c Interpretation: Treatment target values recommended by ADA and other clinical organizations should be used to evaluate metabolic control in patients. Treatment Target Values: Normal : < 5.7% Pre-diabetes: 5.7-6.4% Diabetes: Equal to or greater than 6.5% Reference: [place] [employer] Standards of Care in Diabetes -2014 In patients 70 years and older consider HbA1c target range of 7.0-7.5% Reference: Diabetes Mellitus in Older People: Position Statement on behalf of the International Association of Gerontology and Geriatrics (IAGG), the Diabetes Working [employer] Party for Older People (EDWPOP), and the International Task Force of Experts in Diabetes. Barber Ash, et al. J [place] [employer]. 2012 Test results diagnostic [...] Tarango MD LAB - CHEMISTRY JANES CHAVIRA [facility] [address] [place] [address] * NEUTROPHIL CYTOPLASMIC ANTIBODY (10/01/2017 3:25 AM CDT) [facility] Cytoplasmic (C-ANCA) <1:20 Neg:<1:20 titer 10/02/2017 4:20 PM CDT [facility] ([facility]) p-ANCA Titer <1:20 Neg:<1:20 titer 10/02/2017 4:20 PM CDT [facility] ([facility]) Comment: The presence of positive fluorescence exhibiting P-ANCA or C-ANCA patterns alone is not specific for the diagnosis of Key's Granulomatosis (WG) or microscopic polyangiitis. Decisions about treatment should not be based solely on ANCA IFA results. The International ANCA Group Consensus recommends follow up testing of positive sera with both IL-3 and MPO-ANCA enzyme immunoassays. As many as 5% serum samples are positive only by EIA. Ref. AM J Clin Pathol 1999;111:507-513. Atypical p-ANCA Titer <1:20 Neg:<1:20 titer 10/02/2017 4:20 PM CDT [facility] ([facility]) Comment: The atypical pANCA pattern has been observed in a significant percentage of patients with ulcerative colitis, primary sclerosing cholangitis and autoimmune hepatitis. Blood BLOOD SPECIMEN / Unknown Lab Venipuncture / Unknown 10/01/2017 3:25 AM CDT 10/01/2017 3:30 AM CDT Narrative [facility] ([facility]) - 10/02/2017 4:20 PM CDT Performed at: [address] [place] [address] [address] [place], [place] [id number] At Risk Specialist: Tera Gaytan PhD, Phone: [phone] Alex Connell MD LAB - CHEMISTRY JANES CHAVIRA [facility] Organization Address City/State/ZIP Co de Phone Number [facility] ([facility]) [address] [place] [address], [facility] * FOLATE RBC (10/01/2017 3:25 AM CDT) Folate Hemolysate 532.2 Not Estab. ng/mL 10/02/2017 3:19 PM CDT [facility] ([facility]) Hematocrit 50.6 37.5 - 51.0 % 10/02/2017 3:19 PM CDT [facility] ([facility]) Folate RBC 1052 >498 ng/mL 10/02/2017 3:19 PM CDT [facility] ([facility]) Blood BLOOD SPECIMEN / Unknown Lab Venipuncture / Unknown 10/01/2017 3:25 AM CDT 10/01/2017 3:30 AM CDT Narrative [facility] ([facility]) - 10/02/2017 3:19 PM CDT Performed at: - [facility] [address] [place], [place] [id number] At Risk Specialist: Tera Gaytan PhD, Phone: [phone] Alex Connell MD LAB - CHEMISTRY JANES CHAVIRA Performing Organization Address City/[facility]/ZIP Co de Phone Number [facility]) [address] [place] [address] * SS-B (SJOGRENS'S) ANTIBODY (10/01/2017 3:25 AM CDT) SS-B LA Antibody 3.3 0.0 - 19.9 Units 10/02/2017 9:58 AM CDT [facility] Comment: BIJAL Antibody Numeric Result Interpretation: <20.0 Units: Negative 20.0 - 39.0 Units: Weakly Positive >39.0 Units: Positive Blood BLOOD SPECIMEN / Unknown Lab Venipuncture / Unknown 10/01/2017 3:25 AM CDT 10/01/2017 3:29 AM CDT Alex Connell MD LAB - CHEMISTRY JANES CHAVIRA Performing Organization Address City/[facility]/ZIP Co de Phone Number [address] [phone] * SS-A (SJOGREN'S) ANTIBODY (10/01/2017 3:25 AM CDT) SS-A (Ro) Antibody 1.3 0.0 - 19.9 Units 10/02/2017 9:58 AM CDT [facility] Comment: BIJAL Antibody Numeric Result Interpretation: <20.0 Units: Negative 20.0 - 39.0 Units: Weakly Positive >39.0 Units: Positive Blood BLOOD SPECIMEN / Unknown Lab Venipuncture / Unknown 10/01/2017 3:25 AM CDT 10/01/2017 3:29 AM CDT Alex Connell MD LAB - CHEMISTRY JANES CHAVIRA [address] [phone] * MPO/IL 3 AUTOANTIBODIES PANEL (10/01/2017 3:25 AM CDT) [facility] Anti-myeloperox idase (MPO) Antibody <9.0 0.0 - 9.0 U/mL 10/05/2017 4:24 PM CDT [facility] ([facility]) Anti-proteinase 3 (IL-3) Abs <3.5 0.0 - 3.5 U/mL 10/05/2017 4:24 PM CDT [facility] ([facility]) Blood BLOOD SPECIMEN / Unknown Lab Venipuncture / Unknown 10/01/2017 3:25 AM CDT 10/01/2017 3:30 AM CDT Narrative [facility] ([facility]) - 10/05/2017 4:24 PM CDT Performed at: [address] [place] [id number] At Risk Specialist: Angel Luis Villalpando MD, Phone: [phone] Alex Connell MD LAB - CHEMISTRY JANES CHAVIRA Performing Organization Address City/[facility]/ZIP Co de Phone Number [facility]) [address] * PHOSPHORUS BLOOD (10/01/2017 3:25 AM CDT) [facility] Phosphorus 3.8 2.3 - 4.7 mg/dL 10/01/2017 7:37 AM CDT [facility] Blood BLOOD SPECIMEN / Unknown Lab Venipuncture / Unknown 10/01/2017 3:25 AM CDT 10/01/2017 7:22 AM CDT Yudi Tarango MD LAB - CHEMISTRY JANES CHAVIRA [address] [phone] * MAGNESIUM BLOOD (10/01/2017 3:25 AM CDT) Magnesium 2.0 1.6 - 2.6 mg/dL 10/01/2017 7:37 AM CDT [facility] Blood BLOOD SPECIMEN / Unknown Lab Venipuncture / Unknown 10/01/2017 3:25 AM CDT 10/01/2017 7:22 AM CDT Yudi Tarango MD LAB - CHEMISTRY JANES CHAVIRA [address] [phone] * VITAMIN B12 (10/01/2017 3:25 AM CDT) Vitamin B12 577 213 - 816 pg/mL 10/01/2017 4:32 AM CDT [facility] Blood BLOOD SPECIMEN / Unknown Lab Venipuncture / Unknown 10/01/2017 3:25 AM CDT 10/01/2017 3:30 AM CDT Alex Connell MD LAB - CHEMISTRY JANES CHAVIRA Performing Organization Address [facility] Co de Phone Number [address] [phone] * CT ANGIO BRAIN AND NECK (09/30/2017 11:38 PM CDT) Anatomical Region Laterality Modality Head Computed Tomogra phy 10/01/2017 7:58 AM CDT Impressions 10/01/2017 8:07 AM CDT IMPRESSION: No acute intracranial CT abnormality. CTA of the head demonstrates no significant stenosis or occlusion of the larger intracranial arteries. CTA of the neck demonstrates no significant carotid or vertebral stenosis. This report was electronically signed by BIJAN BRYSON on 10/01/2017 8:07 AM . Narrative 10/01/2017 8:07 AM CDT EXAMINATION: 1. CT of the head without contrast 2. CT angiography of the head and neck with contrast HISTORY: dysarthria, progressive weakness and number TECHNIQUE: CT of the head was performed without contrast according to standard protocol. Then CT angiography of the head and neck was obtained after the uneventful administration of 75 mL Isovue intravenous contrast. Three dimensional postprocessing was performed by the technologist and sent to the workstation for review. COMPARISON: Noncontrast head CT 09/30/2017, 3:10 PM FINDINGS: Noncontrast CT head: No intracranial hemorrhage or extra-axial fluid collection. Aldana-white matter differentiation is preserved. No mass, mass effect, or midline shift. The ventricles are normal in size, shape, and configuration. The bony calvarium appears intact. Redemonstrated bony expansion with heterogeneously sclerotic marrow signal involving the frontal bone eccentric to left side. Mucous retention cyst in left maxillary antrum. CTA HEAD: In the anterior circulation, the intracranial ICAs, the MCAs, and the ACAs appear unremarkable. In the posterior circulation, the intracranial vertebrals appear unremarkable; normal variant nondominant right vertebral terminates as the PICA. The basilar artery, and the coremaker experimental appear unremarkable. CTA NECK: Imaged aortic arch has minimal calcified plaque otherwise appears unremarkable. Proximal great vessels appear unremarkable. In the right anterior circulation, common carotid, carotid bifurcation, cervical internal carotid appear unremarkable. No measurable stenosis using NASCET calculation. In the left anterior circulation, common carotid, carotid bifurcation, cervical internal carotid appear unremarkable. No measurable stenosis using NASCET calculation. In the posterior circulation, the extracranial vertebrals appear unremarkable. Normal variant dominant left vertebral. Procedure Note Bijan Bryson MD - 10/01/2017 EXAMINATION: 1. CT of the head without contrast 2. CT angiography of the head and neck with contrast HISTORY: dysarthria, progressive weakness and number TECHNIQUE: CT of the head was performed without contrast according to standard protocol. Then CT angiography of the head and neck was obtained after the uneventful administration of 75 mL Isovue intravenouscontrast. Three dimensional postprocessing was performed by the technologist and sent to the workstation for review. COMPARISON: Noncontrast head CT 09/30/2017, 3:10 PM FINDINGS: Noncontrast CT head: No intracranial hemorrhage or extra-axial fluid collection. Aldana-white matter differentiation is preserved. No mass, mass effect, or midline shift. The ventricles are normal insize, shape, and configuration. The bony calvarium appears intact. Redemonstrated bony expansion with heterogeneously sclerotic marrow signal involving the frontal bone eccentric to left side. Mucous retention cyst in left maxillary antrum. CTA HEAD: In the anterior circulation, the intracranial ICAs, the MCAs, and theACAs appear unremarkable. In the posterior circulation, the intracranial vertebrals appear unremarkable; normal variant nondominant right vertebral terminates asthe PICA. The basilar artery, and the coremaker experimental appear unremarkable. CTA NECK: Imaged aortic arch has minimal calcified plaque otherwise appears unremarkable. Proximal great vessels appear unremarkable. In the right anterior circulation, common carotid, carotid bifurcation, cervical internal carotid appear unremarkable. No measurable stenosis using NASCET calculation. In the left anterior circulation, common carotid, carotid bifurcation, cervical internal carotid appear unremarkable. No measurable stenosis using NASCET calculation. In the posterior circulation, the extracranial vertebrals appear unremarkable. Normal variant dominant left vertebral. IMPRESSION: No acute intracranial CT abnormality. CTA of the head demonstrates no significant stenosis or occlusion of the larger intracranial arteries. CTA of the neck demonstrates no significant carotid or vertebralstenosis. This report was electronically signed by BIJAN BRYSON on 10/01/2017 8:07AM . Alex Connell MD CT ORDERABLES * MRI CERVICAL SPINE WWO CONT (09/30/2017 10:31 PM CDT) Anatomical Region Laterality Modality Spine Magnetic Resonan ce 10/01/2017 7:38 AM CDT Impressions 10/01/2017 10:08 AM CDT IMPRESSION: 1. Degenerative disc disease at C5-6 and C6-7 with posterior osteophyte disc complexes causing mild to moderate central canal stenosis. No abnormal signal intensity is seen in the cervical cord. 2. Filling defect in the left internal jugular vein is compatible with thrombus. Dictated by Bhavik Morales (Qual Research Manager) This report was approved by Bhavik Morales M.D. on 10/01/2017 9:48 AM . I, Dr. BIJAN BRYSON have personally reviewed and interpreted this examination/study. This report was electronically signed by BIJAN BRYSON on 10/01/2017 10:08 AM . Narrative 10/01/2017 10:08 AM CDT EXAMINATION: Magnetic resonance imaging (MRI) of the cervical spine without and with contrast HISTORY: progressive weakness of lower/upper extremities TECHNIQUE: MRI of the cervical spine was performed prior to and following the uneventful administration of 6 mL of Gadavist intravenous gadolinium contrast according to standard protocol. FINDINGS: Comparison is made to a CT angiogram of the head and neck dated September 30, 2017. The alignment is normal. Vertebral bodies are normal in height without evidence of compression fractures. Marrow signal intensity is normal. The craniocervical junction and visualized portions of the posterior fossa appear normal. The spinal cord appears normal. No abnormal enhancement is identified. There is desiccation of the C3-4 and C6-7 intervertebral disc with mild loss of height at C6-7. There is a filling defect in the left internal jugular vein, compatible with a thrombus. The right internal jugular vein is patent. Normal flow voids are identified in the vertebral arteries. C2-3: There is no disc bulge. There is no central canal stenosis. There is no facet osteoarthritis. There is no uncovertebral joint osteoarthritis. There is no neural foraminal stenosis. C3-4: There is no disc bulge. There is no central canal stenosis. There is no facet osteoarthritis. There is no uncovertebral joint osteoarthritis. There is no neural foraminal stenosis. C4-5: There is no disc bulge. There is no central canal stenosis. There is no facet osteoarthritis. There is no uncovertebral joint osteoarthritis. There is no neural foraminal stenosis. C5-6: There is broad-based disc osteophyte complex. There is mild to moderate central canal stenosis. There is no facet osteoarthritis. There is mild uncovertebral joint osteoarthritis. There is mild left and moderate right neural foraminal stenosis. C6-7: There is broad-based disc osteophyte complex . There is no central canal stenosis. There is no facet osteoarthritis. There is bulky right-sided uncovertebral joint osteoarthritis. There is mild right neural foraminal stenosis. C7-T1: There is no disc bulge. There is no central canal stenosis. There is no facet osteoarthritis. There is no uncovertebral joint osteoarthritis. There is no neural foraminal stenosis. Procedure Note Bijan Bryson MD - 10/01/2017 EXAMINATION: Magnetic resonance imaging (MRI) of the cervical spine without and with contrast HISTORY: progressive weakness of lower/upper extremities TECHNIQUE: MRI of the cervical spine was performed prior to andfollowing the uneventful administration of 6 mL of Gadavist intravenous gadolinium contrast according to standard protocol. FINDINGS: Comparison is made to a CT angiogram of the head and neckdated September 30, 2017. The alignment is normal. Vertebral bodies are normal in height without evidence of compression fractures. Marrow signal intensity is normal.The craniocervical junction and visualized portions of the posterior fossa appear normal. The spinal cord appears normal. No abnormal enhancementis identified. There is desiccation of the C3-4 and C6-7 intervertebraldisc with mild loss of height at C6-7. There is a filling defect in the left internal jugular vein, compatible with a thrombus. The right internal jugular vein is patent. Normal flow voids are identified in thevertebral arteries. C2-3: There is no disc bulge. There is no central canal stenosis. Thereis no facet osteoarthritis. There is no uncovertebral joint osteoarthritis. There is no neural foraminal stenosis. C3-4: There is no disc bulge. There is no central canal stenosis. Thereis no facet osteoarthritis. There is no uncovertebral joint osteoarthritis. There is no neural foraminal stenosis. C4-5: There is no disc bulge. There is no central canal stenosis. Thereis no facet osteoarthritis. There is no uncovertebral joint osteoarthritis. There is no neural foraminal stenosis. C5-6: There is broad-based disc osteophyte complex. There is mild to moderate central canal stenosis. There is no facet osteoarthritis. There is mild uncovertebral joint osteoarthritis. There is mild left and moderate right neural foraminal stenosis. C6-7: There is broad-based disc osteophyte complex . There is no central canal stenosis. There is no facet osteoarthritis. There is bulky right-sided uncovertebral joint osteoarthritis. There is mild rightneural foraminal stenosis. C7-T1: There is no disc bulge. There is no central canal stenosis. There is no facet osteoarthritis. There is no uncovertebral joint osteoarthritis. There is no neural foraminal stenosis. IMPRESSION: 1. Degenerative disc disease at C5-6 and C6-7 with posterior osteophyte disc complexes causing mild to moderate central canal stenosis. No abnormal signal intensity is seen in the cervical cord. 2. Filling defect in the left internal jugular vein is compatible with thrombus. Dictated by Bhavik Morales (Qual Research Manager) This report was approved by Bhavik Morales M.D. on 10/01/2017 9:48 AM. I, Dr. BIJAN BRYSON have personally reviewed and interpreted this examination/study. This report was electronically signed by BIJAN BRYSON on 10/01/2017 10:08 AM . Antonio Kingsley MD MR ORDERABLES * CREATININE BLOOD - POCT (IP) [facility] (09/30/2017 10:19 PM CDT) Creatinine POCT 0.87 0.3 - 1.3 mg/dL [facility] POCT TESTING eGFR POCT 60 60 ml/min [facility] POCT TESTING Blood BLOOD SPECIMEN / Unknown 09/30/2017 10:19 PM CDT Alden Salas MD LAB - POINT OF CARE ORDERABLES [facility] POCT TESTING [address] [place] [address] * HIV-1 HIV-2 ANTIGEN/ANTIBODY (09/30/2017 6:52 PM CDT) [facility] HIV Antigen/Antibod y 1 & 2 Non-reacti ve Non-react ranjan 09/30/2017 9:13 PM CDT [facility] LABORATORY [facility] Comment: Neither HIV-1 p24 Antigen nor HIV-1/HIV-2 Antibodies are detected. Blood BLOOD SPECIMEN / Unknown Venipuncture / Unknown 09/30/2017 6:52 PM CDT 09/30/2017 6:52 PM CDT Alex Connell MD LAB - HEMATOLOGY ORD ERABLES [address] [phone] * HEPATITIS C AB SCREEN RFLX PCR QUANT (09/30/2017 6:52 PM CDT) Pathologist [facility] Hepatitis C Antibody Non-react ranjan Non-reac tive 09/30/2017 9:19 PM CDT [facility] Comment: Hepatitis C Antibody screen indicates no [...] Connell MD LAB - CHEMISTRY JANES CHAVIRA [address] [phone] * RPR (09/30/2017 6:52 PM CDT) RPR Non-reacti ve Non-reacti ve 10/01/2017 12:59 PM CDT [facility] Blood BLOOD SPECIMEN / Unknown Venipuncture / Unknown 09/30/2017 6:52 PM CDT 09/30/2017 6:52 PM CDT Alex Connell MD LAB - CHEMISTRY JANES CHAVIRA Performing Organization Address [facility] Co de Phone Number [address] [phone] * ALDOLASE (09/30/2017 6:52 PM CDT) Aldolase 8.8 3.3 - 10.3 U/L 10/02/2017 4:20 PM CDT [facility] ([facility]) Comment:Specimen was hemolyz ed. Result may be adversely affected. Blood BLOOD SPECIMEN / Unknown Venipuncture / Unknown 09/30/2017 6:52 PM CDT 09/30/2017 6:52 PM CDT Narrative [facility] ([facility]) - 10/02/2017 4:20 PM CDT Performed at: [facility] [address] [place], [place] [id number] At Risk Specialist: Tera Gaytan PhD, Phone: [phone] Alex Connell MD LAB - CHEMISTRY JANES CHAVIRA Performing Organization Address City/[facility]/ZIP Co de Phone Number [facility] ([facility]) [address] [place] [address], [facility] * CT HEAD WO CONTRAST (09/30/2017 3:17 PM CDT) Anatomical Region Laterality Modality Head Computed Tomogra phy 09/30/2017 3:22 PM CDT Impressions 09/30/2017 4:34 PM CDT IMPRESSION: 1. No acute intracranial process. This report was approved by Martir Romero M.D. on 09/30/2017 3:23 PM . I, Dr. MADDIE LONG have personally reviewed and interpreted this examination/study. This report was electronically signed by MADDIE LONG on 09/30/2017 4:34 PM . Narrative 09/30/2017 4:34 PM CDT EXAMINATION: Computed tomography (CT) of the head without contrast HISTORY: Right facial tingling TECHNIQUE: CT of the head was performed without contrast according to standard protocol. FINDINGS: No prior study is available for comparison at the time of this dictation. No acute intra- or extra-axial hemorrhage or fluid collections are identified. The ventricles are of normal size, shape, and morphology. The basilar cisterns are patent. No mass effect or midline shift is seen. The aldana-white matter differentiation is normal. Other than a mucous retention cyst in the left maxillary sinus, the visualized portions of the orbits, paranasal sinuses, and mastoids appear normal. No acute fracture is identified. Procedure Note Maddie Long MD - 09/30/2017 EXAMINATION: Computed tomography (CT) of the head without contrast HISTORY: Right facial tingling TECHNIQUE: CT of the head was performed without contrast according to standard protocol. FINDINGS: No prior study is available for comparison at the time of this dictation. No acute intra- or extra-axial hemorrhage or fluid collections are identified. The ventricles are of normal size, shape, and morphology.The basilar cisterns are patent. No mass effect or midline shift is seen.The aldana-white matter differentiation is normal. Other than a mucousretention cyst in the left maxillary sinus, the visualized portions of the orbits, paranasal sinuses, and mastoids appear normal. No acute fracture is identified. IMPRESSION: 1. No acute intracranial process. This report was approved by Martir Romero M.D. on 09/30/2017 3:[address] MADDIE Aragon have personally reviewed and interpreted this examination/study. This report was electronically signed by MADDIE LONG on 09/30/2017 4:34PM . Lizeth Rojas PA-C CT ORDERABLES * EKG 12-LEAD (09/30/2017 2:27 PM CDT) Only the most recent of2 resultswithin the time period is included. Ventricular Rate 87 BPM [facility] Atrial Rate 87 BPM [facility] P-R Interval 134 ms [facility] QRS Duration ms 74 ms [facility] Q-T Interval ms 334 ms [facility] QTC Calculation (Bezet) 401 ms [facility] Calculated P Plato 64 degrees [facility] Calculated R Plato 38 degrees [facility] Calculated T Plato 46 degrees [facility] Interpretation EKG NORMAL SINUS RHYTHM POSSIBLE LEFT ATRIAL ENLARGEMENT BORDERLINE ECG WHEN COMPARED WITH ECG OF 24-SEP-2017 11:47, NO SIGNIFICANT CHANGE WAS FOUND Confirmed by Malcolm YOUNG, MATIAS ([id number]), news video editor Rubén Rodriguez ([id number]) on 10/05/2017 10:07:48 PM [facility] MUSE 09/30/2017 2:27 PM CDT 10/05/2017 10:07 PM CDT Mona Hall MD ECG ORDERABLES [facility] MUSE * XR CHEST 2VW (09/24/2017 11:46 AM CDT) Anatomical Region Laterality Modality Chest Radiographic Robyn ging 09/24/2017 11:4 6 AM CDT Impressions 09/24/2017 1:04 PM CDT IMPRESSION: No acute pulmonary process. Dictated by Bhavik Kurtz MD (residential sales rep). Dr. LOIS Aragon M.D. have personally reviewed and interpreted this examination/study. This report was electronically signed by LOIS SY M.D. on 09/24/2017 1:04 PM . Narrative 09/24/2017 1:04 PM CDT EXAMINATION: XR CHEST 2VW HISTORY: Dyspnea on exertion COMPARISON: No prior study is available for comparison. FINDINGS: There is no focal consolidation, pleural effusion, or pneumothorax. The cardiomediastinal silhouette is normal. The visible bony thorax is intact. Procedure Note Lois Sy MD - 09/24/2017 EXAMINATION: XR CHEST 2VW HISTORY: Dyspnea on exertion COMPARISON: No prior study is available for comparison. FINDINGS: There is no focal consolidation, pleural effusion, or pneumothorax. The cardiomediastinal silhouette is normal. The visible bony thorax isintact. IMPRESSION: No acute pulmonary process. Dictated by Bhavik Kurtz MD (residential sales rep). Dr. LOIS Aragon M.D. have personally reviewed and interpreted this examination/study. This report was electronically signed by LOIS SY M.D. on 09/24/2017 1:04 PM . José Miguel Rivera MD DIAGNOSTIC IMAG ING ORDERABLES * XR SHOULDER RIGHT 2VW OR MORE (09/24/2017 11:46 AM CDT) Anatomical Region Laterality Modality Upper Extremity Radiographic Robyn ging 09/24/2017 11:5 8 AM CDT Impressions 09/24/2017 1:06 PM CDT IMPRESSION: 1.No acute fracture or dislocation identified. 2.Mild acromioclavicular joint osteoarthritis. Dictated by Bhavik Kurtz MD (residential sales rep). Dr. LOIS Aragon M.D. have personally reviewed and interpreted this examination/study. This report was electronically signed by LOIS SY M.D. on 09/24/2017 1:06 PM . Narrative 09/24/2017 1:06 PM CDT EXAMINATION: XR SHOULDER RIGHT 2VW OR MORE HISTORY: Shoulder pain COMPARISON: No prior study is available for comparison. FINDINGS: The osseous structures are intact without acute fracture. The glenohumeral and acromioclavicular joints are in anatomic alignment. Mild acromioclavicular joint osteoarthritis is present. Bone density and texture are normal. Procedure Note Lois Sy MD - 09/24/2017 EXAMINATION: XR SHOULDER RIGHT 2VW OR MORE HISTORY: Shoulder pain COMPARISON: No prior study is available for comparison. FINDINGS: The osseous structures are intact without acute fracture. Theglenohumeral and acromioclavicular joints are in anatomic alignment. Mild acromioclavicular joint osteoarthritis is present. Bone density and texture are normal. IMPRESSION: 1.No acute fracture or dislocation identified. 2.Mild acromioclavicular joint osteoarthritis. Dictated by Bhavik Kurtz MD (residential sales rep). I, Dr. LOIS SY M.D. have personally reviewed and interpreted this examination/study. This report was electronically signed by LOIS SY M.D. on 09/24/2017 1:06 PM . José Miguel Rivera MD DIAGNOSTIC IMAG ING ORDERABLES Care Teams Nuclear Medicine Tech Relationship Specialty Start Date End Date Yaya Calderon MD [address] [facility] [place] [id number] PCP - General 07/01/17
--- OUTSIDE RECORDS SUMMARY | 2024-04-17 09:46 | XMS_ITS | Encounter Summary ---
Author Organization [facility] Address [address] [place] [address] Phone Care Team Providers Care Compound Coating Machine Offbearer Name Role Phone Jelena Aguilera NP Primary Care Provi kristin Rashi Fonseca MD Unavailable Abraham Sahu DPM Unavailable [phone] Encounter Details Date Type Department Care Team (Late st Contact Info) Description 09/16/2022 [facility] [place] [address] [place] [address] [place] [address] Osteomyelitis, unspecified (HCC) Social History Tobacco Use [...] suspected to have Coronavirus/COVID-19? No / Unsure 09/16/2022 9:06 AM CDT documented as of this encounter Plan of Treatment Not on file documented as of this encounter Procedures Procedure Name Priority Date/Time Associated Diagnosis Comments CBC WITH AUTO DIFFERENTIAL Routine 09/16/2022 9:45 AM CDT Osteomyelitis, unspecified (HCC) VANCOMYCIN TROUGH Routine 09/16/2022 9:4 5 AM CDT Osteomyelitis, unspecified (HCC) CMP (COMPREHENSIVE METABOLIC PANEL) Routine 09/16/2022 9:45 AM CDT Osteomyelitis, unspecified (HCC) COMPLETE BLOOD COUNT (CBC) WITH DIFF Routine 09/16/2022 9:45 AM CDT Osteomyelitis, unspecified (HCC) documented in this encounter Results * (ABNORMAL) CBC WITH AUTO DIFFERENTIAL (09/16/2022 9:45 AM CDT) WBC 6.31 4.00 - 12.00 10(3)/mcL 09/16/2022 10:37 AM CDT [facility] RBC 4.53 4.40 - 5.80 10(6)/[facility] 09/16/2022 10:37 AM CDT [facility] HEMOGLOBIN (HGB) 12.5(L) 13.0 - 16.5 g/dL 09/16/2022 10:37 AM CDT [facility] HEMATOCRIT (HCT) 38.9 38.0 - 50.0 % 09/16/2022 10:37 AM CDT [facility] MCV 85.9 82.0 - 96.0 fL 09/16/2022 10:37 AM CDT [facility] MCH 27.6 26.0 - 32.0 pg 09/16/2022 10:37 AM CDT [facility] MCHC 32.1 31.0 - 36.0 g/dL 09/16/2022 10:37 AM CDT [facility] PLATELET COUNT 327 140 - 440 10(3)/[facility] 09/16/2022 10:37 AM CDT [facility] RDW 15.4 11.8 - 15.5 % 09/16/2022 10:37 AM CDT [facility] MPV 10.2 8.0 - 12.6 fL 09/16/2022 10:37 AM CDT [facility] NEUTROPHILS 69.6(H) 40.0 - 68.0 % 09/16/2022 10:37 AM CDT [facility] LYMPHOCYTES 18.2(L) 19.0 - 49.0 % 09/16/2022 10:37 AM CDT [facility] MONOCYTES 8.4 3.0 - 13.0 % 09/16/2022 10:37 AM CDT [facility] EOSINOPHILS 2.7 0.0 - 8.0 % 09/16/2022 10:37 AM CDT [facility] BASOPHILS 1.1(H) 0.0 - 1.0 % 09/16/2022 10:37 AM CDT [facility] ABSOLUTE NEUTROPHILS 4.39 1.40 - 5.30 10(3)/[facility] 09/16/2022 10:37 AM CDT [facility] ABSOLUTE LYMPHOCYTES 1.15 0.90 - 3.30 10(3)/[facility] 09/16/2022 10:37 AM CDT [facility] ABSOLUTE MONOCYTES 0.53 0.10 - 0.90 10(3)/[facility] 09/16/2022 10:37 AM CDT [facility] ABSOLUTE EOSINOPHIL 0.17 0.00 - 0.50 10(3)/[facility] 09/16/2022 10:37 AM CDT [facility] ABSOLUTE BASOPHILS 0.07 0.00 - 0.10 10(3)/[facility] 09/16/2022 10:37 AM CDT [facility] NRBC PER 100 WBC 0 09/17/19 10:37 AM CDT [facility] Blood No Phlebotomy Charged / Unknown 09/16/2022 9:45 AM CDT 09/16/2022 10:32 AM CDT us Kylee Nelson MD HEMATOLOGY ORDERABLES Fi nal Result [facility] #1 [place] [address] * (ABNORMAL) VANCOMYCIN TROUGH (09/16/2022 9:45 AM CDT) VANCOMYCIN, TROUGH 22(H) 5 - 10 mcg/mL 09/16/2022 11:03 AM CDT [facility] Blood No Phlebotomy Charged / Unknown 09/16/2022 9:45 AM CDT 09/16/2022 10:32 AM CDT us Kylee Nelson MD CHEMISTRY ORDERABLES Fin al Result [facility] #[address] [place] [address] * (ABNORMAL) CMP (COMPREHENSIVE METABOLIC PANEL) (09/16/2022 9:45 AM CDT) [facility] SODIUM 132(L) 136 - 144 mmol/L 09/16/2022 11:31 AM CDT [facility] POTASSIUM 4.3 3.5 - 5.1 mmol/L 09/16/2022 11:31 AM CDT [facility] CHLORIDE 96(L) 100 - 110 mmol/L 09/16/2022 11:31 AM CDT [facility] CO2, VENOUS 26 22 - 32 mmol/L 09/16/2022 11:31 AM CDT [facility] ANION GAP 14.3 8.0 - 20.0 mmol/L 09/16/2022 11:31 AM CDT [facility] GLUCOSE 398(H) 70 - 99 mg/dL 09/16/2022 11:31 AM CDT [facility] BUN 17 6 - 20 mg/dL 09/16/2022 11:31 AM CDT [facility] CREATININE, BLOOD 1.55(H) 0.80 - 1.30 mg/dL 09/16/2022 11:31 AM CDT [facility] BUN/CREATININE RATIO 11(L) 12 - 20 ratio 09/16/2022 11:31 AM [facility] TOTAL PROTEIN 7.0 6.0 - 8.3 g/dL 09/16/2022 11:31 AM [facility] ALBUMIN 3.8 3.5 - 5.0 g/dL 09/16/2022 11:31 AM [facility] Comment: The colormetric methods used for the determination of Albumin may lead to falsely elevated test results in patients suffering from renal failure or insufficiency due to interference with other proteins. A/G RATIO 1.2 1.0 - 2.0 09/16/2022 11:31 AM [facility] CALCIUM 9.2 8.7 - 10.5 mg/dL 09/16/2022 11:31 AM [facility] T BILI 0.3 0.2 - 1.2 mg/dL 09/16/2022 11:31 AM [facility] SGOT (AST) 11 <=40 U/L 09/16/2022 11:31 AM [facility] SGPT (ALT) 11 <=41 U/L 09/16/2022 11:31 AM [facility] ALKALINE PHOSPHATASE 123 40 - 130 U/L 09/16/2022 11:31 AM [facility] GFR, ESTIMATED 52(L) >=60 09/16/2022 11:31 AM [facility] Comment: Creatinine Clearance is the preferred criteria for selecting drug dose adjustments in renally impaired patients. The GFR is provided as additional pertinent clinical information. GFR is reported in mL/min/1.73 sq m. Calculation based on the Chronic Kidney Disease Epidemiology Collaboration (CKD- EPI) equation refit without adjustment for race. GFR, EST. 56(L) >=60 023 11:31 AM [facility] GFR, EST. NONAFRICAN 46(L) >=60 09/16/2022 11:31 AM [facility] Blood No Phlebotomy Charged / Unknown 09/16/2022 9:45 AM CDT 09/16/2022 10:32 AM CDT Kylee Nelson MD CHEMISTRY ORDERABLES Fin al Result [facility] [place] [address] documented in this encounter Visit Diagnoses Diagnosis Osteomyelitis, unspecified (HCC) documented in this encounter Care Teams Compound Coating Machine Offbearer Relationship Specialty Start Date End Date Jelena Aguilera NP [address] [facility] [address] [address] PCP - General Advanced Practice Nurse 05/27/22 Rashi Fonseca MD #[address] [phone] Consulting Physician Endocrinology 07/01/22 01/06/24 Abraham Sahu DPM #2 [place] [phone] Consulting Physician Podiatry 06/04/22 documented as of this encounter
--- OUTSIDE RECORDS SUMMARY | 2024-04-17 09:46 | XMS_ITS | Encounter Summary ---
Author Organization [facility] Address [address] [place] [address] Phone Care Team Providers Care Supervising Editor Trailer Name Role Phone Jelena Aguilera NP Primary Care Provi kristin Rashi Fonseca MD Unavailable Abraham Sahu DPM Unavailable [phone] Encounter Details Date Type Department Care Team (Late st Contact Info) Description 09/03/2022 [facility] 1 [place] [address] [place] [address] [place] [address] Osteomyelitis, unspecified (HCC) Social History Tobacco Use [...] suspected to have Coronavirus/COVID-19? No / Unsure 09/03/2022 9:15 AM CDT documented as of this encounter Plan of Treatment Not on file documented as of this encounter Procedures Procedure Name Priority Date/Time Associated Diagnosis Comments CBC WITH AUTO DIFFERENTIAL Routine 09/03/2022 9:45 AM CDT Osteomyelitis, unspecified (HCC) VANCOMYCIN TROUGH Routine 09/03/2022 9:4 5 AM CDT Osteomyelitis, unspecified (HCC) CMP (COMPREHENSIVE METABOLIC PANEL) Routine 09/03/2022 9:45 AM CDT Osteomyelitis, unspecified (HCC) COMPLETE BLOOD COUNT (CBC) WITH DIFF Routine 09/03/2022 9:45 AM CDT Osteomyelitis, unspecified (HCC) documented in this encounter Results * (ABNORMAL) CBC WITH AUTO DIFFERENTIAL (09/03/2022 9:45 AM CDT) WBC 6.51 4.00 - 12.00 10(3)/[facility] 09/03/2022 10:26 AM CDT [facility] RBC 4.49 4.40 - 5.80 10(6)/[facility] 09/03/2022 10:26 AM CDT [facility] HEMOGLOBIN (HGB) 12.4(L) 13.0 - 16.5 g/dL 09/03/2022 10:26 AM CDT [facility] HEMATOCRIT (HCT) 39.0 38.0 - 50.0 % 09/03/2022 10:26 AM CDT [facility] MCV 86.9 82.0 - 96.0 fL 09/03/2022 10:26 AM CDT [facility] MCH 27.6 26.0 - 32.0 pg 09/03/2022 10:26 AM CDT [facility] MCHC 31.8 31.0 - 36.0 g/dL 09/03/2022 10:26 AM CDT [facility] PLATELET COUNT 312 140 - 440 10(3)/[facility] 09/03/2022 10:26 AM CDT [facility] RDW 16.0(H) 11.8 - 15.5 % 09/03/2022 10:26 AM CDT [facility] MPV 10.1 8.0 - 12.6 fL 09/03/2022 10:26 AM CDT [facility] NEUTROPHILS 66.8 40.0 - 68.0 % 09/03/2022 10:26 AM CDT [facility] LYMPHOCYTES 20.4 19.0 - 49.0 % 09/03/2022 10:26 AM CDT [facility] MONOCYTES 7.8 3.0 - 13.0 % 09/03/2022 10:26 AM CDT [facility] EOSINOPHILS 3.8 0.0 - 8.0 % 09/03/2022 10:26 AM CDT [facility] BASOPHILS 1.2(H) 0.0 - 1.0 % 09/03/2022 10:26 AM CDT [facility] ABSOLUTE NEUTROPHILS 4.34 1.40 - 5.30 10(3)/[facility] 09/03/2022 10:26 AM CDT [facility] ABSOLUTE LYMPHOCYTES 1.33 0.90 - 3.30 10(3)/[facility] 09/03/2022 10:26 AM CDT [facility] ABSOLUTE MONOCYTES 0.51 0.10 - 0.90 10(3)/[facility] 09/03/2022 10:26 AM CDT [facility] ABSOLUTE EOSINOPHIL 0.25 0.00 - 0.50 10(3)/[facility] 09/03/2022 10:26 AM CDT [facility] ABSOLUTE BASOPHILS 0.08 0.00 - 0.10 10(3)/[facility] 09/03/2022 10:26 AM CDT [facility] NRBC PER 100 WBC 0 09/04/19 10:26 AM CDT [facility] Blood No Phlebotomy Charged / Unknown 09/03/2022 9:45 AM CDT 09/03/2022 10:23 AM CDT us Kylee Nelson MD HEMATOLOGY ORDERABLES Fi nal Result [facility] #1 [place] [address] * (ABNORMAL) VANCOMYCIN TROUGH (09/03/2022 9:45 AM CDT) VANCOMYCIN, TROUGH 13(H) 5 - 10 mcg/mL 09/03/2022 10:49 AM CDT [facility] Blood No Phlebotomy Charged / Unknown 09/03/2022 9:45 AM CDT 09/03/2022 10:23 AM CDT Kylee Nelson MD CHEMISTRY ORDERABLES Fin al Result [facility] #[address] [place] [address] * (ABNORMAL) CMP (COMPREHENSIVE METABOLIC PANEL) (09/03/2022 9:45 AM CDT) Pathologist [facility] SODIUM 134(L) 136 - 144 mmol/L 09/03/2022 10:54 AM CDT [facility] POTASSIUM 4.0 3.5 - 5.1 mmol/L 09/03/2022 10:54 AM CDT [facility] CHLORIDE 100 100 - 110 mmol/L 09/03/2022 10:54 AM CDT [facility] CO2, VENOUS 25 22 - 32 mmol/L 09/03/2022 10:54 AM CDT [facility] ANION GAP 13.0 8.0 - 20.0 mmol/L 09/03/2022 10:54 AM CDT [facility] GLUCOSE 324(H) 70 - 99 mg/dL 09/03/2022 10:54 AM CDT [facility] BUN 23(H) 6 - 20 mg/dL 09/03/2022 10:54 AM CDT [facility] CREATININE, BLOOD 0.89 0.80 - 1.30 mg/dL 09/03/2022 10:54 AM CDT [facility] BUN/CREATININE RATIO 26(H) 12 - 20 ratio 09/03/2022 10:54 AM CDT [facility] TOTAL PROTEIN 6.5 6.0 - 8.3 g/dL 09/03/2022 10:54 AM [facility] ALBUMIN 3.6 3.5 - 5.2 g/dL 09/03/2022 10:54 AM [facility] Comment: The colormetric methods used for the determination of Albumin may lead to falsely elevated test results in patients suffering from renal failure or insufficiency due to interference with other proteins. A/G RATIO 1.2 1.0 - 2.0 09/03/2022 10:54 AM [facility] CALCIUM 8.8(L) 8.9 - 10.3 mg/dL 09/03/2022 10:54 AM T [facility] T BILI <0.3 <=1.2 mg/dL 09/03/2022 10:54 AM [facility] SGOT (AST) 16 <=40 U/L 09/03/2022 10:54 AM [facility] SGPT (ALT) 14 <=41 U/L 09/03/2022 10:54 AM [facility] ALKALINE PHOSPHATASE 132(H) 40 - 130 U/L 09/03/2022 10:54 AM [facility] GFR, ESTIMATED >60 >=60 09/03/2022 10:54 AM [facility] Comment: Creatinine Clearance is the preferred criteria for selecting drug dose adjustments in renally impaired patients. The GFR is provided as additional pertinent clinical information. GFR is reported in mL/min/1.73 sq m. Calculation based on the Chronic Kidney Disease Epidemiology Collaboration (CKD- EPI) equation refit without adjustment for race. GFR, EST. >60 >=60 023 10:54 AM [facility] GFR, EST. NONAFRICAN >60 >=60 09/03/2022 10:54 AM [facility] Blood No Phlebotomy Charged / Unknown 09/03/2022 9:45 AM CDT 09/03/2022 10:23 AM CDT us Kylee Nelson MD CHEMISTRY ORDERABLES Fin al Result [facility]1 [place] [address] documented in this encounter Visit Diagnoses Diagnosis Osteomyelitis, unspecified (HCC) documented in this encounter Care Teams Supervising Editor Trailer Relationship Specialty Start Date End Date Jelena Aguilera NP [address] [address] PCP - General Advanced Practice Nurse 05/27/22 Rashi Fonseca MD #[address] [phone] Consulting Physician Endocrinology 07/01/22 01/06/24 Abraham Sahu DPM #2 [place] [phone] Consulting Physician Podiatry 06/04/22 documented as of this encounter
--- OUTSIDE RECORDS SUMMARY | 2024-04-17 09:46 | XMS_ITS | Encounter Summary ---
Author Organization [facility] Address [address] [place] [address] Phone Care Team Providers Care Distributor Of Directories Name Role Phone Jelena Aguilera NP Primary Care Provi kristin Rashi Fonseca MD Unavailable Abraham Sahu DPM Unavailable [phone] Encounter Details Date Type Department Care Team (Late st Contact Info) Description 08/21/2022 [facility] 1 [place] [address] [place] [address] [place] [address] Osteomyelitis, unspecified (HCC) Social History Tobacco Use [...] Procedure Name Priority Date/Time Associated Diagnosis Comments VANCOMYCIN TROUGH Routine 08/21/2022 9:5 0 AM CDT Osteomyelitis, unspecified (HCC) documented in this encounter Results * (ABNORMAL) VANCOMYCIN TROUGH (08/21/2022 9:50 AM CDT) VANCOMYCIN, TROUGH 11(H) 5 - 10 mcg/mL 08/21/2022 11:07 AM CDT [facility] Blood No Phlebotomy Charged / Unknown 08/21/2022 9:50 AM CDT 08/21/2022 10:31 AM CDT us Kylee Nelson MD CHEMISTRY ORDERABLES Fin al Result [facility] #1 [place] [address] documented in this encounter Visit Diagnoses Diagnosis Osteomyelitis, unspecified (HCC) documented in this encounter Care Teams Distributor Of Directories Relationship Specialty Start Date End Date Jelena Aguilera NP 2 [facility] [address] [address] PCP - General Advanced Practice Nurse 05/27/22 Rashi Fonseca MD #[address] [phone] Consulting Physician Endocrinology 07/01/22 01/06/24 Abraham Sahu DPM #2 [place] [phone] Consulting Physician Podiatry 06/04/22 documented as of this encounter
--- OUTSIDE RECORDS SUMMARY | 2024-04-17 09:46 | XMS_ITS | Encounter Summary ---
Author Organization [facility] Address [address] [place] [address] Phone Care Team Providers Care Administrative Accountant Name Role Phone Jelena Aguilera NP Primary Care Provi kristin Rashi Fonseca MD Unavailable Abraham Sahu DPM Unavailable [phone] Encounter Details Date Type Department Care Team (Late st Contact Info) Description 08/26/2022 [facility] 1 [place] [address] [place] [address] [place] [address] Osteomyelitis, unspecified (HCC) Social History Tobacco Use [...] suspected to have Coronavirus/COVID-19? No / Unsure 08/25/2022 9:32 AM CDT documented as of this encounter Plan of Treatment Not on file documented as of this encounter Procedures Procedure Name Priority Date/Time Associated Diagnosis Comments CBC WITH AUTO DIFFERENTIAL Routine 08/26/2022 9:30 AM CDT Osteomyelitis, unspecified (HCC) VANCOMYCIN TROUGH Routine 08/26/2022 9:3 0 AM CDT Osteomyelitis, unspecified (HCC) CMP (COMPREHENSIVE METABOLIC PANEL) Routine 08/26/2022 9:30 AM CDT Osteomyelitis, unspecified (HCC) COMPLETE BLOOD COUNT (CBC) WITH DIFF Routine 08/26/2022 9:30 AM CDT Osteomyelitis, unspecified (HCC) documented in this encounter Results * (ABNORMAL) CBC WITH AUTO DIFFERENTIAL (08/26/2022 9:30 AM CDT) WBC 5.29 4.00 - 12.00 10(3)/mcL 08/26/2022 11:19 AM CDT [facility] RBC 4.68 4.40 - 5.80 10(6)/mcL 08/26/2022 11:19 AM CDT [facility] HEMOGLOBIN (HGB) 12.6(L) 13.0 - 16.5 g/dL 08/26/2022 11:19 AM CDT [facility] HEMATOCRIT (HCT) 39.9 38.0 - 50.0 % 08/26/2022 11:19 AM CDT [facility] MCV 85.3 82.0 - 96.0 fL 08/26/2022 11:19 AM CDT [facility] MCH 26.9 26.0 - 32.0 pg 08/26/2022 11:19 AM CDT [facility] MCHC 31.6 31.0 - 36.0 g/dL 08/26/2022 11:19 AM CDT [facility] PLATELET COUNT 329 140 - 440 10(3)/[facility] 08/26/2022 11:19 AM CDT [facility] RDW 16.2(H) 11.8 - 15.5 % 08/26/2022 11:19 AM CDT [facility] MPV 10.0 8.0 - 12.6 fL 08/26/2022 11:19 AM CDT [facility] NEUTROPHILS 54.1 40.0 - 68.0 % 08/26/2022 11:19 AM CDT [facility] LYMPHOCYTES 30.2 19.0 - 49.0 % 08/26/2022 11:19 AM CDT [facility] MONOCYTES 8.5 3.0 - 13.0 % 08/26/2022 11:19 AM CDT [facility] EOSINOPHILS 5.3 0.0 - 8.0 % 08/26/2022 11:19 AM CDT [facility] BASOPHILS 1.9(H) 0.0 - 1.0 % 08/26/2022 11:19 AM CDT [facility] ABSOLUTE NEUTROPHILS 2.86 1.40 - 5.30 10(3)/[facility] 08/26/2022 11:19 AM CDT [facility] ABSOLUTE LYMPHOCYTES 1.60 0.90 - 3.30 10(3)/[facility] 08/26/2022 11:19 AM CDT [facility] ABSOLUTE MONOCYTES 0.45 0.10 - 0.90 10(3)/[facility] 08/26/2022 11:19 AM CDT [facility] ABSOLUTE EOSINOPHIL 0.28 0.00 - 0.50 10(3)/[facility] 08/26/2022 11:19 AM CDT [facility] ABSOLUTE BASOPHILS 0.10 0.00 - 0.10 10(3)/[facility] 08/26/2022 11:19 AM CDT [facility] NRBC PER 100 WBC 0 08/27/19 11:19 AM CDT [facility] Blood No Phlebotomy Charged / Unknown 08/26/2022 9:30 AM CDT 08/26/2022 11:15 AM CDT us Kylee Nelson MD HEMATOLOGY ORDERABLES Fi nal Result [facility] #[address] [place] [address] * (ABNORMAL) VANCOMYCIN TROUGH (08/26/2022 9:30 AM CDT) VANCOMYCIN, TROUGH 13(H) 5 - 10 mcg/mL 08/26/2022 11:42 AM CDT [facility] Blood No Phlebotomy Charged / Unknown 08/26/2022 9:30 AM CDT 08/26/2022 11:15 AM CDT Kylee Nelson MD CHEMISTRY ORDERABLES Fin al Result [facility] #[address] [place] [address] * (ABNORMAL) CMP (COMPREHENSIVE METABOLIC PANEL) (08/26/2022 9:30 AM CDT) Pathologist [facility] SODIUM 136 136 - 144 mmol/L 08/26/2022 11:43 AM CDT [facility] POTASSIUM 4.3 3.5 - 5.1 mmol/L 08/26/2022 11:43 AM CDT [facility] CHLORIDE 100 100 - 110 mmol/L 08/26/2022 11:43 AM CDT [facility] CO2, VENOUS 27 22 - 32 mmol/L 08/26/2022 11:43 AM CDT [facility] ANION GAP 13.3 8.0 - 20.0 mmol/L 08/26/2022 11:43 AM CDT [facility] GLUCOSE 249(H) 70 - 99 mg/dL 08/26/2022 11:43 AM CDT [facility] BUN 18 6 - 20 mg/dL 08/26/2022 11:43 AM CDT [facility] CREATININE, BLOOD 0.72(L) 0.80 - 1.30 mg/dL 08/26/2022 11:43 AM CDT [facility] BUN/CREATININE RATIO 25(H) 12 - 20 ratio 08/26/2022 11:43 AM CDT [facility] TOTAL PROTEIN 6.9 6.0 - 8.3 g/dL 08/26/2022 11:43 AM [facility] ALBUMIN 3.9 3.5 - 5.2 g/dL 08/26/2022 11:43 AM [facility] Comment: The colormetric methods used for the determination of Albumin may lead to falsely elevated test results in patients suffering from renal failure or insufficiency due to interference with other proteins. A/G RATIO 1.3 1.0 - 2.0 08/26/2022 11:43 AM [facility] CALCIUM 8.8(L) 8.9 - 10.3 mg/dL 08/26/2022 11:43 AM [facility] T BILI <0.3 <=1.2 mg/dL 08/26/2022 11:43 AM [facility] SGOT (AST) 14 <=40 U/L 08/26/2022 11:43 AM [facility] SGPT (ALT) 14 <=41 U/L 08/26/2022 11:43 AM [facility] ALKALINE PHOSPHATASE 110 40 - 130 U/L 08/26/2022 11:43 AM [facility] GFR, ESTIMATED >60 >=60 08/26/2022 11:43 AM [facility] Comment: Creatinine Clearance is the preferred criteria for selecting drug dose adjustments in renally impaired patients. The GFR is provided as additional pertinent clinical information. GFR is reported in mL/min/1.73 sq m. Calculation based on the Chronic Kidney Disease Epidemiology Collaboration (CKD- EPI) equation refit without adjustment for race. GFR, EST. >60 >=60 023 11:43 AM [facility] GFR, EST. NONAFRICAN >60 >=60 08/26/2022 11:43 AM [facility] Blood No Phlebotomy Charged / Unknown 08/26/2022 9:30 AM T 08/26/2022 11:15 AM CDT Kylee Nelson MD CHEMISTRY ORDERABLES Fin al Result [facility] [place] [address] documented in this encounter Visit Diagnoses Diagnosis Osteomyelitis, unspecified (HCC) documented in this encounter Care Teams Administrative Accountant Relationship Specialty Start Date End Date Jelena Aguilera NP [address] [facility] [address] [id number] PCP - General Advanced Practice Nurse 05/27/22 Rashi Fonseca MD #[address] [phone] Consulting Physician Endocrinology 07/01/22 01/06/24 Abraham Sahu DPM #[address] [place] [phone] Consulting Physician Podiatry 06/04/22 documented as of this encounter
--- OUTSIDE RECORDS SUMMARY | 2024-04-17 09:46 | XMS_ITS | Clinical Summary ---
Author Organization [facility] Address [address] [place] [address] Phone Care Team Providers Care Hydraulic Rockbreaker Operator Name Role Phone Jelena Aguilera NP Primary Care Provi kristin Abraham Sahu DPM Unavailable [phone] Allergies No known active allergies Medications Blood Glucose Monitoring Suppl Device Diagnosis: Diabetes type 2 Blood testing frequency: 3 times a day 1 Each 3 Active Lancets Misc Use as directed 200 Lancet 1 3 Active Glucose Blood Strip Diagnosis: Diabetes type 2 Blood testing frequency: 3 times a day 200 Strip 1 3 Active Insulin Syringe-Needle U-100 30G X 1/2 0.5 ML Misc TID AC + HS 100 Each 3 3 Active ondansetron (ZOFRAN-ODT) 4 MG TABLET DISPERSIBLEIndi cations:Nausea and Vomiting Take 1 Tablet by mouth every 6 hours as needed for Nausea - 1st line. 90 Tablet 3 Active senna (SENOKOT) 8.6 MG TabletIndicatio ns:Constipation Take 1 Tablet by mouth 2 times daily as needed for Constipation - 1st line. 30 Tablet 3 Active traMADol (ULTRAM) 50 MG TabletIndicatio ns:Pain Take 1 Tablet by mouth every 6 hours as needed for Moderate or more severe pain. 20 Tablet 3 Active insulin lispro (HumaLOG) 100 UNIT/ML Solution by Subcutaneous route 3 times daily (before meals). 1-10 Units by Subcutaneous route 3 times daily (before meals) for 90 days. UNDER 70 TREAT LOW, USE RULE OF 15 71 - 140 +0 UNIT 141 - 170 +1 UNIT 171 - 200 +2 UNITS 201 - 230 +3 UNITS 231 - 260 +4 UNITS 261 - 290 +5 UNITS 291 - 320 +6 UNITS 321 - 350 +7 UNITS 351 - 380 +8 UNITS 381 - 400 +9 UNITS ABOVE 400 +10 UNITS Active INSULIN LISPRO SC 18 Units by Subcutaneous route 3 times daily (before meals). Active insulin glargine (LANTUS) 100 UNIT/ML Solution 30 Units by Subcutaneous route nightly. Active Active Problems Problem Noted Date Diagnosed Date Diabetic neuropathy 08/13/2022 Osteomyelitis of second toe of left foot 023 Diabetes mellitus 05/26/2022 CIDP (chronic inflammatory demyelinating polyneu ropathy) 05/26/2022 Osteomyelitis of great toe of left foot 05/27/19 Osteomyelitis of great toe of left foot 05/27/19 Overview (08/11/2022): left great toe Resolved Problems Problem Noted Date Diagnosed Date Resolved Date Sepsis 05/26/2022 06/03/2022 Social History Tobacco Use Types Packs/Day Years Used Date Smoking Tobacco: Every Day Cigarettes Tobacco Cessation:Ready to Q uit: No; Counseling Given: Not Answered Alcohol Use Standard Drinks/Week Comments Not Currently 0 (1 standard drink = 0.6 oz pur e alcohol) Sex and Gender Information Value Date Recorded Sex Assigned at Not on file Legal Sex Male 12:41 PM CDT Gender Identity Not on file Sexual Orientation Not on file Last Filed Vital Signs Vital Sign Reading Time Taken Comments Blood Pressure 136/78 09/16/2022 9:55 AM CDT Pulse 82 09/16/2022 9:55 AM CDT Temperature 36.2 C (97.1 F) 09/16/2022 9:55 AM CDT Respiratory Rate 18 09/16/2022 9:55 AM CDT Oxygen Saturation 97% 09/16/2022 9:55 AM CDT Inhaled Oxygen Concentration - - Weight 63.5 kg (140 lb) 09/01/2022 10:00 AM CDT Height 180.3 cm (5' 11 ) 09/01/2022 10:00 AM CDT Body Mass Index 19.53 09/01/2022 10:00 AM CDT Plan of Treatment Health Maintenance Due Date Last Done Comments Diabetes: Eye Exam 1965 Hepatitis C Virus (HCV) Screening 1965 Colonoscopy 10/06/2008 Colorectal Cancer Screening 10/06/2008 Cologuard 10/06/2013 Immunochemical Fecal Occult Blood 10/06/2013 Zoster Immunization (1 of 2) 10/06/2013 PSA Discussion 10/06/2018 Diabetes: Hemoglobin A1c 02/10/2023 023, 05/26/2022, 07/25/2021 Diabetes: Foot Exam 08/12/2023 08/11/2022, 3 Diabetes: Nephropathy Screening 09/17/2023 09/16/2022, 09/08/2022, 09/03/2022, Additional history exists Respiratory Syncytial Virus (RSV) Immunization (Adult) (1 - Risk 60-74 years 1-dose series) 2023 Influenza Immunization (#1) 2023 01/05/2019, 1 04/06/2012 SARS-COV-2 Immunization ( season) 2023 12/07/2020, 07/06/2020, 06/08/2020 Pneumococcal Immunization (50+ years) Completed 07/25/2021 Pneumococcal Immunization Combined Discontinued 07/25/2021 DTaP/Tdap/Td Immunization Discontinued 2021 TdaP Immunization Completed 2021 Hepatitis B Immunization Aged Out No longer eligible based on patient's age to complete this topic Meningococcal Immunization (ACWY) Aged Out No longer eligible based on patient's age to complete this topic Rotavirus Immunization Aged Out No lo nger eligible based on patient's age to complete this topic Procedures Procedure Name Priority Date/Time Associated Diagnosis Comments CMP (COMPREHENSIVE METABOLIC PANEL) Routine 09/16/2022 9:45 AM CDT Osteomyelitis, unspecified (HCC) HEMOGLOBIN A1C W/ ESTIMATED GLUCOSE Routine 08/11/2022 1:59 AM CDT from Last 3 Months or Most Recently Relevant to Health Maintenance Results * (ABNORMAL) CMP (COMPREHENSIVE METABOLIC PANEL) (09/16/2022 9:45 AM CDT) SODIUM 132(L) 136 - 144 mmol/L 09/16/2022 11:31 AM [facility] POTASSIUM 4.3 3.5 - 5.1 mmol/L 09/16/2022 11:31 AM [facility] CHLORIDE 96(L) 100 - 110 mmol/L 09/16/2022 11:31 AM [facility] CO2, VENOUS 26 22 - 32 mmol/L 09/16/2022 11:31 AM [facility] ANION GAP 14.3 8.0 - 20.0 mmol/L 09/16/2022 11:31 AM [facility] GLUCOSE 398(H) 70 - 99 mg/dL 09/16/2022 11:31 AM [facility] BUN 17 6 - 20 mg/dL 09/16/2022 11:31 AM [facility] CREATININE, BLOOD 1.55(H) 0.80 - 1.30 mg/dL 09/16/2022 11:31 AM [facility] BUN/CREATININE RATIO 11(L) 12 - 20 ratio 09/16/2022 11:31 AM [facility] TOTAL PROTEIN 7.0 6.0 - 8.3 g/dL 09/16/2022 11:31 AM [facility] ALBUMIN 3.8 3.5 - 5.0 g/dL 09/16/2022 11:31 AM [facility] Comment: The colormetric methods used for the determination of Albumin may lead to falsely elevated test results in patients suffering from renal failure or insufficiency due to interference with other proteins. A/G RATIO 1.2 1.0 - 2.0 09/16/2022 11:31 AM [facility] CALCIUM 9.2 8.7 - 10.5 mg/dL 09/16/2022 11:31 AM [facility] T BILI 0.3 0.2 - 1.2 mg/dL 09/16/2022 11:31 AM [facility] SGOT (AST) 11 <=40 U/L 09/16/2022 11:31 AM CDT [facility] SGPT (ALT) 11 <=41 U/L 09/16/2022 11:31 AM CDT [facility] ALKALINE PHOSPHATASE 123 40 - 130 U/L 09/16/2022 11:31 AM CDT [facility] GFR, ESTIMATED 52(L) >=60 09/16/2022 11:31 AM CDT [facility] Comment: Creatinine Clearance is the preferred criteria for selecting drug dose adjustments in renally impaired patients. The GFR is provided as additional pertinent clinical information. GFR is reported in mL/min/1.73 sq m. Calculation based on the Chronic Kidney Disease Epidemiology Collaboration (CKD- EPI) equation refit without adjustment for race. GFR, EST. 56(L) >=60 023 11:31 AM CDT [facility] GFR, EST. NONAFRICAN 46(L) >=60 09/16/2022 11:31 AM CDT [facility] Blood No Phlebotomy Charged / Unknown 09/16/2022 9:45 AM CDT 09/16/2022 10:32 AM CDT Kylee Nelson MD CHEMISTRY ORDERABLES Fin al Result [facility] [address] [place] [address] * (ABNORMAL) Hemoglobin A1C (if indicated) (08/11/2022 1:59 AM CDT) HGB-A1C 11.8(H) 4.0 - 6.0 % 08/11/2022 6:11 AM CDT [facility] Est Average Glucose 292.0 mg/dL 08/11/2022 6:11 AM CDT [facility] Blood Venipuncture / Unknown 08/11/2022 1:59 AM CDT 08/11/2022 5:56 AM CDT Narrative [facility] - 08/11/2022 6:11 AM CDT HEMOGLOBIN A1C: DIABETIC PATIENTS: WELL-CONTROLLED: 6.2 - 7.0 INTERMEDIATE WELL-CONTROLLED: 7.0 - 9.0 POORLY-CONTROLLED: >9.0 us Tony Dailey [employer], RESEARCHER CHEMISTRY ORDERABLES Fi nal Result [facility] [address] [place] [address] from Last 3 Months or Most Recently Relevant to Health Maintenance [facility] Advance Directives * Full Code (Latest Code Status on File) Date Activated Date Inactivated Comments 08/26/2022 10:52 AM 09/01/2022 9:52 AM * Full Code Date Activated Date Inactivated Comments 08/11/2022 5:23 AM 08/13/2022 7:25 PM CPR-Full Javier atment: FULL ARREST: Attempt Resuscitation/CPR wit intubation and mechanical ventilation. PRE-ARREST: Use entire range of life support measures to stabilize the patient. * Full Code Date Activated Date Inactivated Comments 06/17/2022 12:59 PM 08/11/2022 12:51 AM * Full Code Date Activated Date Inactivated Comments 05/26/2022 4:42 PM 06/03/2022 1:39 PM CPR-Full Sally tment: FULL ARREST: Attempt Resuscitation/CPR wit intubation and mechanical ventilation. PRE-ARREST: Use entire range of life support measures to stabilize the patient. Care Teams Hydraulic Rockbreaker Operator Relationship Specialty Start Date End Date Jelena Aguilera NP [address] [address] PCP - General Advanced Practice Nurse 05/27/22 Abraham Sahu DPM [address] [place] [address] Consulting Physician Podiatry 06/04/22
--- OUTSIDE RECORDS SUMMARY | 2024-04-17 09:46 | XMS_ITS | Encounter Summary ---
Author Organization [facility] Address [address] [place] [address] Phone Care Team Providers Care Automatic Developer Name Role Phone Jelena Aguilera NP Primary Care Provi kristin Rashi Fonseca MD Unavailable Abraham Sahu DPM Unavailable [phone] Encounter Details Date Type Department Care Team (Late st Contact Info) Description 09/08/2022 Lab Requisition [facility] [address] [place] [address] [place] [address] [place] [address] Osteomyelitis, unspecified (HCC) Social History Tobacco Use [...] Diagnosis Comments CBC WITH AUTO DIFFERENTIAL Routine 09/08/2022 9:45 AM CDT Osteomyelitis, unspecified (HCC) VANCOMYCIN TROUGH Routine 09/08/2022 9:4 5 AM CDT Osteomyelitis, unspecified (HCC) CMP (COMPREHENSIVE METABOLIC PANEL) Routine 09/08/2022 9:45 AM CDT Osteomyelitis, unspecified (HCC) COMPLETE BLOOD COUNT (CBC) WITH DIFF Routine 09/08/2022 9:45 AM CDT Osteomyelitis, unspecified (HCC) documented in this encounter Results * (ABNORMAL) CBC WITH AUTO DIFFERENTIAL (09/08/2022 9:45 AM CDT) WBC 6.19 4.00 - 12.00 10(3)/[facility] 09/08/2022 11:22 AM CDT [facility] RBC 4.54 4.40 - 5.80 10(6)/[facility] 09/08/2022 11:22 AM CDT [facility] HEMOGLOBIN (HGB) 12.6(L) 13.0 - 16.5 g/dL 09/08/2022 11:22 AM CDT [facility] HEMATOCRIT (HCT) 39.3 38.0 - 50.0 % 09/08/2022 11:22 AM CDT [facility] MCV 86.6 82.0 - 96.0 fL 09/08/2022 11:22 AM CDT [facility] MCH 27.8 26.0 - 32.0 pg 09/08/2022 11:22 AM CDT [facility] MCHC 32.1 31.0 - 36.0 g/dL 09/08/2022 11:22 AM CDT [facility] PLATELET COUNT 324 140 - 440 10(3)/[facility] 09/08/2022 11:22 AM CDT [facility] RDW 15.9(H) 11.8 - 15.5 % 09/08/2022 11:22 AM CDT [facility] MPV 10.3 8.0 - 12.6 fL 09/08/2022 11:22 AM CDT [facility] NEUTROPHILS 66.3 40.0 - 68.0 % 09/08/2022 11:22 AM CDT [facility] LYMPHOCYTES 20.8 19.0 - 49.0 % 09/08/2022 11:22 AM CDT [facility] MONOCYTES 8.1 3.0 - 13.0 % 09/08/2022 11:22 AM CDT [facility] EOSINOPHILS 3.7 0.0 - 8.0 % 09/08/2022 11:22 AM CDT [facility] BASOPHILS 1.1(H) 0.0 - 1.0 % 09/08/2022 11:22 AM CDT [facility] ABSOLUTE NEUTROPHILS 4.10 1.40 - 5.30 10(3)/mcL 09/08/2022 11:22 AM CDT [facility] ABSOLUTE LYMPHOCYTES 1.29 0.90 - 3.30 10(3)/[facility] 09/08/2022 11:22 AM CDT [facility] ABSOLUTE MONOCYTES 0.50 0.10 - 0.90 10(3)/[facility] 09/08/2022 11:22 AM CDT [facility] ABSOLUTE EOSINOPHIL 0.23 0.00 - 0.50 10(3)/[facility] 09/08/2022 11:22 AM CDT [facility] ABSOLUTE BASOPHILS 0.07 0.00 - 0.10 10(3)/[facility] 09/08/2022 11:22 AM CDT [facility] NRBC PER 100 WBC 0 09/09/19 11:22 AM CDT [facility] Blood No Phlebotomy Charged / Unknown 09/08/2022 9:45 AM CDT 09/08/2022 11:20 AM CDT us Kylee Nelson MD HEMATOLOGY ORDERABLES Fi nal Result [facility] [address] [place] [address] * (ABNORMAL) VANCOMYCIN TROUGH (09/08/2022 9:45 AM CDT) VANCOMYCIN, TROUGH 16(H) 5 - 10 mcg/mL 09/08/2022 2:08 PM CDT [facility] Blood No Phlebotomy Charged / Unknown 09/08/2022 9:45 AM CDT 09/08/2022 12:42 PM CDT Kylee Nelson MD CHEMISTRY ORDERABLES Fin al Result [facility] [address] [place] [address] * (ABNORMAL) CMP (COMPREHENSIVE METABOLIC PANEL) (09/08/2022 9:45 AM CDT) Pathologist [facility] SODIUM 136 136 - 144 mmol/L 09/08/2022 12:24 PM CDT [facility] POTASSIUM 4.1 3.5 - 5.1 mmol/L 09/08/2022 12:24 PM CDT [facility] CHLORIDE 101 100 - 110 mmol/L 09/08/2022 12:24 PM CDT [facility] CO2, VENOUS 25 22 - 32 mmol/L 09/08/2022 12:24 PM CDT [facility] ANION GAP 14.1 8.0 - 20.0 mmol/L 09/08/2022 12:24 PM CDT [facility] GLUCOSE 342(H) 70 - 99 mg/dL 09/08/2022 12:24 PM CDT [facility] BUN 22(H) 6 - 20 mg/dL 09/08/2022 12:24 PM CDT [facility] CREATININE, BLOOD 0.85 0.80 - 1.30 mg/dL 09/08/2022 12:24 PM CDT [facility] BUN/CREATININE RATIO 26(H) 12 - 20 ratio 09/08/2022 12:24 PM CDT [facility] TOTAL PROTEIN 7.0 6.0 - 8.3 g/dL 09/08/2022 12:24 PM [facility] ALBUMIN 3.9 3.5 - 5.2 g/dL 09/08/2022 12:24 PM [facility] Comment: The colormetric methods used for the determination of Albumin may lead to falsely elevated test results in patients suffering from renal failure or insufficiency due to interference with other proteins. A/G RATIO 1.3 1.0 - 2.0 09/08/2022 12:24 PM CDT [facility] CALCIUM 9.2 8.9 - 10.3 mg/dL 09/08/2022 12:24 PM T [facility] T BILI <0.3 <=1.2 mg/dL 09/08/2022 12:24 PM [facility] SGOT (AST) 14 <=40 U/L 09/08/2022 12:24 PM [facility] SGPT (ALT) 14 <=41 U/L 09/08/2022 12:24 PM T [facility] ALKALINE PHOSPHATASE 140(H) 40 - 130 U/L 09/08/2022 12:24 PM [facility] GFR, ESTIMATED >60 >=60 09/08/2022 12:24 PM [facility] Comment: Creatinine Clearance is the preferred criteria for selecting drug dose adjustments in renally impaired patients. The GFR is provided as additional pertinent clinical information. GFR is reported in mL/min/1.73 sq m. Calculation based on the Chronic Kidney Disease Epidemiology Collaboration (CKD- EPI) equation refit without adjustment for race. GFR, EST. >60 >=60 023 12:24 PM T [facility] GFR, EST. NONAFRICAN >60 >=60 09/08/2022 12:24 PM [facility] Blood No Phlebotomy Charged / Unknown 09/08/2022 9:45 AM CDT 09/08/2022 11:21 AM CDT Kylee Nelson MD CHEMISTRY ORDERABLES Fin al Result [facility] [address] [place] [address] documented in this encounter Visit Diagnoses Diagnosis Osteomyelitis, unspecified (HCC) documented in this encounter Care Teams Automatic Developer Relationship Specialty Start Date End Date Jelena Aguilera NP 2 [facility] [address] [address] PCP - General Advanced Practice Nurse 05/27/22 Rashi Fonseca MD [address] [id number] Consulting Physician Endocrinology 07/01/22 01/06/24 Abraham Sahu DPM [address] [place] [phone] Consulting Physician Podiatry 06/04/22 documented as of this encounter
[2024-04-17 09:55] LABS: Basophils Absolute Auto 0.1 K/mm3 (0.0-0.1); Basophils Percent Auto 0.8 % (0.2-1.2); Eosinophils Absolute Auto 0.3 K/mm3 (0-0.3); Eosinophils Percent Auto 2.1 % (0-4.4); Hematocrit 40.7 % (42.0-52.0); Hemoglobin 12.9 g/dL (14.0-18.0); Immature Granulocyte Absolute 0.38 K/mm3 (0.00-0.031); Immature Granulocyte Percent A 2.5 % (0-0.5); Lymphocytes Absolute Auto 0.34 K/mm3 (0.9-3.2); Lymphocytes Percent Auto 2.2 % (18.3-44.2); Mean Corpuscular HGB Conc 31.7 g/dl (32-36); Mean Corpuscular Hemoglobin 28.4 pg (26-34); Mean Corpuscular Volume 89.5 fl (80-100); Mean Platelet Volume 11.3 fl (7.4-10.4); Monocytes Absolute Auto 0.6 K/mm3 (0.1-0.6); Monocytes Percent Auto 3.8 % (2.6-8.5); Neutrophils Absolute Auto 13.5 K/mm3 (1.3-6.7); Neutrophils Percent Auto 88.6 % (45.5-73.1); Nucleated Red Blood Cells Perc 0.1 % (0.0-0.2); Platelet Count Result 274 k/mm3 (150-375); Red Blood Count 4.55 M/mm3 (4.6-6.20); Red Cell Distribution Width 14.7 % (11.5-14.5); White Blood Count 15.2 K/mm3 (4.5-10.0)
[2024-04-17 10:03] LABS: Alveolar/Arterial O2 Gradient 46.9 mmHg; Base Excess ABG -21.1 mEq/l (+/-2.0); Carboxyhemoglobin 0.7 % THb (0-2.0); Fractional Inspired Oxygen 21 %; HCO3 ABG 5.5 mEq/l (22.0-26.0); Methemoglobin ABG 0.2 %THb (0-1.5); Oxygen Content ABG 17.8 %vol (16.0-22.0); Oxygen Saturation ABG 93.4 % (95.0-100.0); Oxyhemoglobin 92.9 % THb (90.0-100.0); PO2 ABG 83.3 mmHg (80.0-100.0); PO2 FiO2 Ratio Arterial Blood 3.97 %; Reduced Hemoglobin 6.2 %THb (0-5.0); Total Hemoglobin 13.6 g/dL (12.0-18.0)
[2024-04-17 10:05] LABS: pH ABG 7.149 (7.350-7.450)
[2024-04-17 10:06] LABS: Device ROOM AIR; Modified Allen's Test Pass; PCO2 ABG 16.3 mmHg (35.0-45.0); Site Drawn RIGHT RADIAL
[2024-04-17 10:26] LABS: Alanine Aminotransferase 26 U/L (6-50); Albumin Level 3.6 g/dL (3.5-5.1); Alkaline Phosphatase 187 U/L (38-126); Aspartate Amino Transferase 26 U/L (17-59); Bilirubin,Total 0.5 mg/dL (0.2-1.3); Blood Urea Nitrogen 62 mg/dL (9-20); Calcium 9.7 mg/dL (8.4-10.2); Carbon Dioxide < 5 mmol/L (22-30); Chloride 90 mmol/L (98-107); Estimated CRCL calculation 26 ml/min; Estimated Glomerular Filt Rate 27; Glucose 656 mg/dL (65-110); Magnesium 2.8 mg/dL (1.6-2.3); Phosphorus 6.2 mg/dL (2.5-4.5); Potassium 4.5 mmol/L (3.4-5.0); Sodium 129 mmol/L (137-145)
[2024-04-17 10:43] LABS: Add Urine Microscopic? YES; Appearance Urine Clear (Clear); Bacteria Urine None Seen /hpf; Bilirubin Urine Negative (Negative); Blood Urine 1+ (Negative); Color Urine Yellow (Yellow); Glucose Urine UA 3+ mg/dL (Negative); Ketones Urine 4+ mg/dL (Negative); Leukocyte Esterase Ur Negative LEU/UL (Negative); Nitrate Urine Negative (Negative); Protein Urine 1+ mg/dL (Negative); RBC Urine 0-2 /hpf (0-2); Specific Grav Ur 1.022 (1.001-1.035); Squamous Epithelial Cell Urine None Seen /hpf (Few); Urobilinogen Urine 0.2 mg/dL (<2.0); WBC Urine 0-5 /hpf (0-3)
[2024-04-17 10:56] LABS: Influenza A QL RT-PCR Positive (Negative); Influenza B QL RT-PCR Negative (Negative); RSV RNA, RT-PCR Negative (Negative); SARS-CoV-2 RNA PCR Negative (Negative)
--- NOTE | 2024-04-17 11:02 | ED_ITS ---
HPI - General Adult General Chief complaint: Nausea/Vomiting/Diarrhea Stated complaint: N/V Time Seen by Provider: 04/17/24 09:41 History of Present Illness HPI narrative: Patient is a 58-year-old male with history of diabetes who presents the ER with nausea vomiting. Ongoing for 2 days. Associated with cough. Non compliant with insulin for the last 4 days. Patient is fatigued and not feeling well is poorly communicative. Denies cough or fever chest pain. Related Data Home Medications ?Medication ?Instructions ?Recorded ?Confirmed ?Last Taken ?Type insulin glargine 100 unit/mL (3 38 unit subcut DAILY 09/13/19 10/07/21 Unknown History mL) subcutaneous pen (Basaglar KwikPen U-100 Insulin) insulin lispro 100 unit/mL 6 unit subcut DAILY 09/13/19 10/07/21 Unknown History subcutaneous pen (Admelog SoloStar U-100 Insulin lispro) Allergies Allergy/AdvReac Type Severity Reaction Status Date / Time No Known Allergies Allergy Verified 10/07/21 18:24 Review of Systems 2 Review of Systems: All systems reviewed & are unremarkable except as noted in HPI and below Constitutional: Constitutional: Reports no additional constitutional complaints Cardiovascular: Cardiovascular: Reports no additional cardiovascular complaints Respiratory: Respiratory: Reports no additional respiratory complaints Gastrointestinal: Gastrointestinal: Reports no additional gastrointestinal complaints Genitourinary: Genitourinary: Reports no additional male genitourinary complaints [facility] Past Medical History Medical History (Updated 04/17/24 @ 11:07 by Aníbal Nava MD) Diabetes Chronic inflammatory demyelinating polyradiculoneuropathy Surgical History Surgical History (Updated 10/07/21 @ 18:42 by Ileana Carrillo NP) History of cataract surgery bilateral Social History Social History (Updated 10/08/21 @ 10:29 by Ileana Carrillo NP) Smoking packs per day: 1 Smoking cigarettes per day: 20.0 Smoking status: Current every day smoker Tobacco type: cigarettes Alcohol intake: current Alcohol use details: rare social Substance use type: does not use Living arrangements: with family Gender identity (if verbalized by the patient): Male Exam 2 Narrative: GENERAL: ill-appearing, thin, smells like ketones, and in mild distress. HEAD: Normocephalic, atraumatic. EYES: PERRL and EOMI. ENT: Mucous membranes moist. CHEST: Clear to auscultation. No respiratory distress. HEART: Tachycardic and regular. Normal peripheral pulses. ABDOMEN: Soft, nontender, nondistended. EXTREMITIES: Normal range of motion. No edema. SKIN: Warm, dry, no rash. NEURO: Alert and oriented x3. PSYCH: Normal mood and affect. Course Course Emergency Course: 1104: Patient is critically ill with DKA. He also has influenza. Patient received 2 L IV fluid and is being started on a insulin drip. Patient does not wish to stay in the hospital. He reports that he is adamant about leaving. I have discussed that he is critically ill and that him leaving the emergency department could result in his or permanent disability and that this is a terrible idea. He would like us to contact his to come pick him up. We are going to call her and ask her to come up and have a conversation with him in effort to have him stay. 1108: Patient's 's phone number in the chart is not a working number. He does not know her phone number thus he will be staying in the hospital because he is too weak to leave under his own power. 1230: is at bedside. She wants patient to stay. Patient is too weak to leave on his own. 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 Vital Signs Vital signs: Vital Signs Temperature 97.7 F 04/17/24 09:33 Pulse Rate 112 H 04/17/24 09:33 Respiratory Rate 22 H 04/17/24 09:33 Blood Pressure 140/84 04/17/24 09:33 Pulse Oximetry 98 04/17/24 09:33 Temperature 97.6 F 04/17/24 11:30 Pulse Rate 108 H 04/17/24 11:30 Respiratory Rate 32 H 04/17/24 11:30 Blood Pressure 144/57 H 04/17/24 11:30 Pulse Oximetry 98 04/17/24 11:30 Medical Decision Making Vital Signs Vital Signs: Vital Signs Temperature 97.7 F 04/17/24 09:33 Pulse Rate 112 H 04/17/24 09:33 Respiratory Rate 22 H 04/17/24 09:33 Blood Pressure 140/84 04/17/24 09:33 Pulse Oximetry 98 04/17/24 09:33 Temperature 97.6 F 04/17/24 11:30 Pulse Rate 108 H 04/17/24 11:30 Respiratory Rate 32 H 04/17/24 11:30 Blood Pressure 144/57 H 04/17/24 11:30 Pulse Oximetry 98 04/17/24 11:30 Lab Data 04/17/24 09:48 04/17/24 09:48 Labs: Lab Results 04/17/24 04/17/24 04/17/24 Range/Units 09:40 09:48 09:55 WBC 15.2 H (4.5-10.0) K/mm3 RBC 4.55 L (4.6-6.20) M/mm3 Hgb 12.9 L (14.0-18.0) g/dL Hct 40.7 L (42.0-52.0) % MCV 89.5 (80-100) fl MCH 28.4 (26-34) pg MCHC 31.7 L (32-36) g/dl RDW 14.7 H (11.5-14.5) % Plt Count 274 (150-375) k/mm3 MPV 11.3 H (7.4-10.4) fl Immature Gran % (Auto) 2.5 H (0-0.5) % Neut % (Auto) 88.6 H (45.5-73.1) % Lymph % (Auto) 2.2 L (18.3-44.2) % [place] % (Auto) 3.8 (2.6-8.5) % Eos % (Auto) 2.1 (0-4.4) % Baso % (Auto) 0.8 (0.2-1.2) % Lymph # (Auto) 0.34 L (0.9-3.2) K/mm3 [place] # (Auto) 0.6 (0.1-0.6) K/mm3 Eos # (Auto) 0.3 (0-0.3) K/mm3 Baso # (Auto) 0.1 (0.0-0.1) K/mm3 Abs Immat Gran (auto) 0.38 H (0.00-0.031) K/mm3 Absolute Neuts (auto) 13.5 H (1.3-6.7) K/mm3 Absolute Nucleated RBC 0.020 H (0.0-0.012) K/mm3 Nucleated RBC % 0.1 (0.0-0.2) % Methemoglobin 0.2 (0-1.5) %THb Sodium 129 L (137-145) mmol/L Potassium 4.5 (3.4-5.0) mmol/L Chloride 90 L (98-107) mmol/L Carbon Dioxide < 5 L (22-30) mmol/L Anion Gap (4-12) mmol/L BUN 62 H (9-20) mg/dL Creatinine 2.46 H (0.7-1.3) mg/dL Estim Creat Clear Calc 26 ml/min Estimated GFR 27 L (59 - ) Glucose 656 H* (65-110) mg/dL POC Capillary Glucose > 500 H* (65-105) mg/dl Calcium 9.7 (8.4-10.2) mg/dL Phosphorus 6.2 H (2.5-4.5) mg/dL Magnesium 2.8 H (1.6-2.3) mg/dL Total Bilirubin 0.5 (0.2-1.3) mg/dL AST 26 (17-59) U/L ALT 26 (6-50) U/L Alkaline Phosphatase 187 H (38-126) U/L Total Protein 7.0 (6.3-8.2) g/dL Albumin 3.6 (3.5-5.1) g/dL Beta-Hydroxybutyrate/Acetoacetate 12.80 H (0.02-0.27) mmol/L Urine Color (Yellow) Urine Appearance (Clear) Urine pH (5.0-9.0) Ur Specific [place] (1.001-1.035) Urine Protein (Negative) mg/dL Urine Glucose (UA) (Negative) mg/dL Urine Ketones (Negative) mg/dL Ur Blood (Man) (Negative) Urine Nitrate (Negative) Urine Bilirubin (Negative) Urine Urobilinogen (<2.0) mg/dL Leukocyte Esterase Rfl (Negative) CECE/UL Urine RBC (0-2) /hpf Urine WBC (0-3) /hpf Ur Squamous Epith Cells (Few) /hpf Urine Bacteria /hpf Urine Casts Influenza A (RT-PCR) Positive A (Negative) Influenza B (RT-PCR) Negative (Negative) RSV (RT-PCR) Negative (Negative) SARS-CoV-2 RNA (RT-PCR) Negative (Negative) 04/17/24 Range/Units 10:31 WBC (4.5-10.0) K/mm3 RBC (4.6-6.20) M/mm3 Hgb (14.0-18.0) g/dL Hct (42.0-52.0) % MCV (80-100) fl MCH (26-34) pg MCHC (32-36) g/dl RDW (11.5-14.5) % Plt Count (150-375) k/mm3 MPV (7.4-10.4) fl Immature Gran % (Auto) (0-0.5) % Neut % (Auto) (45.5-73.1) % Lymph % (Auto) (18.3-44.2) % [place] % (Auto) (2.6-8.5) % Eos % (Auto) (0-4.4) % Baso % (Auto) (0.2-1.2) % Lymph # (Auto) (0.9-3.2) K/mm3 [place] # (Auto) (0.1-0.6) K/mm3 Eos # (Auto) (0-0.3) K/mm3 Baso # (Auto) (0.0-0.1) K/mm3 Abs Immat Gran (auto) (0.00-0.031) K/mm3 Absolute Neuts (auto) (1.3-6.7) K/mm3 Absolute Nucleated RBC (0.0-0.012) K/mm3 Nucleated RBC % (0.0-0.2) % Methemoglobin (0-1.5) %THb Sodium (137-145) mmol/L Potassium (3.4-5.0) mmol/L Chloride (98-107) mmol/L Carbon Dioxide (22-30) mmol/L Anion Gap (4-12) mmol/L BUN (9-20) mg/dL Creatinine (0.7-1.3) mg/dL Estim Creat Clear Calc ml/min Estimated GFR (59 - ) Glucose (65-110) mg/dL POC Capillary Glucose (65-105) mg/dl Calcium (8.4-10.2) mg/dL Phosphorus (2.5-4.5) mg/dL Magnesium (1.6-2.3) mg/dL Total Bilirubin (0.2-1.3) mg/dL AST (17-59) U/L ALT (6-50) U/L Alkaline Phosphatase (38-126) U/L Total Protein (6.3-8.2) g/dL Albumin (3.5-5.1) g/dL Beta-Hydroxybutyrate/Acetoacetate (0.02-0.27) mmol/L Urine Color Yellow (Yellow) Urine Appearance Clear (Clear) Urine pH 5.0 (5.0-9.0) Ur Specific [place] 1.022 (1.001-1.035) Urine Protein 1+ H (Negative) mg/dL Urine Glucose (UA) 3+ H (Negative) mg/dL Urine Ketones 4+ H (Negative) mg/dL Ur Blood (Man) 1+ H (Negative) Urine Nitrate Negative (Negative) Urine Bilirubin Negative (Negative) Urine Urobilinogen 0.2 (<2.0) mg/dL Leukocyte Esterase Rfl Negative (Negative) CECE/UL Urine RBC 0-2 (0-2) /hpf Urine WBC 0-5 (0-3) /hpf Ur Squamous Epith Cells None seen (Few) /hpf Urine Bacteria None seen /hpf Urine Casts 3-5 Influenza A (RT-PCR) (Negative) Influenza B (RT-PCR) (Negative) RSV (RT-PCR) (Negative) SARS-CoV-2 RNA (RT-PCR) (Negative) ABG Data ABG results: 04/17/24 09:55 Puncture Site Right radial ABG pH 7.149 L* ABG pCO2 16.3 L* ABG pO2 83.3 ABG PO2/FiO2 Ratio 3.97 ABG HCO3 5.5 L ABG O2 Saturation 93.4 L ABG O2 Content 17.8 ABG Base Excess -21.1 A-a Gradient 46.9 Oxyhemoglobin 92.9 Carboxyhemoglobin 0.7 Reduced Hemoglobin 6.2 H Total Hemoglobin 13.6 O2 Delivery Device Room air O2 Liters/Min Not Reportable FiO2 21 Critical Care Time Critical Care Time Critical Care Time: Yes Total Critical Care Time: 45 Discharge Plan Discharge Clinical Impression: DKA (diabetic ketoacidosis), Influenza A, Renal failure Patient Disposition: Still a Patient Condition: Serious
[2024-04-17] MEDS: INSULIN HUMAN REGULAR (*BKC) 100 UNITS/ML 10 UNITS IV PUSH (11:09)
[2024-04-17] MEDS: SODIUM CHLORIDE 0.9% IV 1,000 ML 999 ML IV CONT ×2 (11:09→11:47)
[2024-04-17] MEDS: INSULIN HUMAN REGULAR (*BKC) 100 UNITS in SODIUM CHLORIDE 0.9% IV 99 ML 6.5 UNITS IV CONT (11:15)
[2024-04-17 12:14] LABS: Glucose Point of Care > 500 mg/dl (65-105)
--- NOTE | 2024-04-17 13:15 | P.HP_ITS ---
H&P: HPI History of Present Illness Date/Time: 04/17/24 13:15 Chief Complaint: N/V, Hyperglycemia Narrative: 58 y/o M presents here nausea, vomiting, and hyperglycemia with PMH of type 2 diabetes, CKD stage 1, and chronic inflammatory demyelinating polyradiculoneuropathy (currently thought to be in remission). The patient presents here from home for further evaluation of nausea, vomiting, and hyperglycemia. HPI obtained through chart review and patient's . He reports the nausea and vomiting that has been ongoing since this morning, believes he may have had nausea the day before. He reports he has been noncompliant with his insulin for the past year, has taken insulin only here and there . Patient also also feeling fatigued, poor PO intake, nonproductive cough, congestion/rhinorrhea, and fever. reports he has been sleeping for the majority of the day with only half hour increments of wakefulness for the past 4 days. Follows with Adrián OSBORNE at [facility] for his DM meds, he has not seen her since he was last admitted around 1-1.5 years ago (admitted for toe amputation). Initial VS at presentation: And 97.7? F, HR 112, RR 22, 140/84, and 98% on RA. ED workup showed: WBC 15.2, hemoglobin 12.9, ABG showed pH of 7.149/CO2 16.3/HC03 5.5/O2 saturation 93.4 on room air, sodium 129, unable to calculate anion gap, creatinine 2.46 and GFR 27, glucose 656, Mag 2.8, phos 6.2, beta hydroxy 12.8, UA showed 1+ protein, 3+ glucose, 4+ ketones, 1+ blood otherwise unremarkable, and patient tested positive for Influenza A. Review of Systems Review of Systems: All systems reviewed & are unremarkable except as noted in HPI and below [facility] Past Medical History Medical History (Updated 04/17/24 @ 15:17 by Frieda Amato APRN) CKD (chronic kidney disease) stage 1, GFR 90 ml/min or greater Diabetes Chronic inflammatory demyelinating polyradiculoneuropathy Surgical History Surgical History History of cataract surgery bilateral Social History Social History Smoking packs per day: 1 Smoking cigarettes per day: 20.0 Smoking status: Current every day smoker Tobacco type: cigarettes Alcohol intake: current Alcohol use details: rare social Substance use type: does not use Living arrangements: with family Gender identity (if verbalized by the patient): Male Meds Home Medications and Allergies Home Medications ?Medication ?Instructions ?Recorded ?Confirmed ?Type insulin glargine 100 unit/mL (3 38 unit subcut DAILY 09/13/19 10/07/21 History mL) subcutaneous pen (Basaglar KwikPen U-100 Insulin) insulin lispro 100 unit/mL 6 unit subcut DAILY 09/13/19 10/07/21 History subcutaneous pen (Admelog SoloStar U-100 Insulin lispro) cephalexin 500 mg capsule 500 mg PO Q8H #30 caps 10/07/21 Rx mupirocin 2 % topical ointment 1 applic topical BID #22 grams 10/07/21 Rx triamcinolone acetonide 0.1 % 1 applic topical BID #80 grams 10/07/21 Rx topical ointment Allergies Allergy/AdvReac Type Severity Reaction Status Date / Time No Known Allergies Allergy Verified 10/07/21 18:24 Vital Signs Vital Signs - 24 hr 04/17/24 09:33 04/17/24 11:30 04/17/24 12:30 Temperature 97.7 F 97.6 F 98.2 F Pulse Rate 112 H 108 H 108 H Respiratory Rate 22 H 32 H 12 Blood Pressure 140/84 144/57 H 131/79 Pulse Oximetry 98 98 100 Exam Const: General: comfortable and no acute distress Other: , male, ill appearing. HENMT: Face/Nose/Sinus: Normal nares present Mouth: Yes dry mucous membranes Eyes: General: appearance normal, both eyes and all related structures Sclera: sclerae normal Pupils: Equal, round and reactive pupils present EOM: EOMs intact bilaterally Resp: Other: Mild work of breathing, + tachypnea. Bibasilar crackles, right worse than left. No wheezing. Cardio: Rate: regular rate Rhythm: regular rhythm Other: S1-S2 present without murmur, rub, ectopy GI: Other: Abdomen soft, nondistended, nontender. Skin: General skin exam: normal color and no rashes or lesions noted Woun ds: wounds noted (Small healing wound to right hand, no signs of infection) Neuro: Other: patient minimally interactive, somnolent. A&O x3. Moving all extremities Extrem: General: normal to inspection Psych: Other: Unable to assess due to somnolence. No overt issues. H&P: Results Labs Labs: Short CBC 04/17/24 Range/Units 09:48 WBC 15.2 H (4.5-10.0) K/mm3 Hgb 12.9 L (14.0-18.0) g/dL Hct 40.7 L (42.0-52.0) % Plt Count 274 (150-375) k/mm3 BMP 04/17/24 09:48 Sodium 129 L Potassium 4.5 Chloride 90 L Carbon Dioxide < 5 L BUN 62 H Creatinine 2.46 H Glucose 656 H* Calcium 9.7 Liver Function 04/17/24 Range/Units 09:48 Total Bilirubin 0.5 (0.2-1.3) mg/dL AST 26 (17-59) U/L ALT 26 (6-50) U/L Alkaline Phosphatase 187 H (38-126) U/L Albumin 3.6 (3.5-5.1) g/dL Urine 04/17/24 Range/Units 10:31 Urine Color Yellow (Yellow) Urine Appearance Clear (Clear) Urine pH 5.0 (5.0-9.0) Ur Specific [place] 1.022 (1.001-1.035) Urine Protein 1+ H (Negative) mg/dL Urine Glucose (UA) 3+ H (Negative) mg/dL Assessment and Plan Assessment and plan (1) DKA (diabetic ketoacidosis): Qualifiers: Diabetes mellitus complication detail: without coma Diabetes mellitus type: type 2 Qualified Code(s): E11.10 - Type 2 diabetes mellitus with ketoacidosis without coma Code(s): E11.10 - Type 2 diabetes mellitus with ketoacidosis without coma Status: Acute Assessment and Plan: - history of type 2 diabetes - initial glucose 656 - labs, initial: WBC 15.2, beta hydroxy 12.8, unable to calculate gap, K 4.5, phosphorus 6.2, Mag 2.8 ABG, initial: pH 7.149, pCO2 16.3, pO2 83.3, HCO3 5.5, O2 sat 93.4 % - trend BMP Q4H - repeat Mag, Phos, ABG - DKA protocol initiated - IV fluids: given 3L in ED, will transition to DKA protocol IV fluids - insulin gtt, currently running at 9 u/hr - NPO - hold home medications - transfer car operator drier consulted and patient admitted to the ICU - clam treader consulted - job hand consulted (2) Sepsis: Qualifiers: Sepsis type: sepsis due to unspecified organism Sepsis acute organ dysfunction status: with acute organ dysfunction Severe sepsis acute organ dysfunction type: acute respiratory failure Acute respiratory failure type: with hypoxia Severe sepsis shock status: without septic shock Qualified Code(s): A41.9 - Sepsis, unspecified organism; R65.20 - Severe sepsis without septic shock; J96.01 - Acute respiratory failure with hypoxia Code(s): A41.9 - Sepsis, unspecified organism Status: Acute Assessment and Plan: - meets SIRS criteria: HR, RR, WBC. +hypoxia, -hypoTN. - given 3L bolus - patient has already received fluids, will add procalcitonin - suspected source: PNA - started on ceftriaxone and azithromycin on 04/17 - blood cultures drawn on 04/17 - UA: 1+ protein, 3+ glucose, 4+ ketones, 1+ blood - monitor hemodynamic stability (3) Pneumonia: Qualifiers: Pneumonia type: due to influenza A virus Qualified Code(s): J10.00 - Influenza due to other identified influenza virus with unspecified type of pneumonia Code(s): J18.9 - Pneumonia, unspecified organism Status: Acute Assessment and Plan: - CXR: Right lower lobe infiltrate, as detailed above. - risk factors and complicating factors: DKA - complicating factors: - started on CAP tx: Ceftriaxone and azithromycin - MRSA PCR and sputum culture - currently requiring Airvo. Maintain O2 saturation greater than 92%, wean as tolerated. (4) Influenza A: Code(s): J10.1 - Influenza due to other identified influenza virus with other respiratory manifestations Status: Acute Assessment and Plan: - tested positive for influenza A on 04/17 - CXR ordered - Tamiflu 75 mg BID - supportive care: Tylenol p.r.n. Mucinex liam Tessalon Perles p.r.n. Lozenge p.r.n. DuoNeb p.r.n. - monitor WBC/CBC - no current O2 requirement (5) Renal failure: Qualifiers: Acute renal failure type: unspecified Renal failure chronicity: acute Qualified Code(s): N17.9 - Acute kidney failure, unspecified Code(s): N19 - Unspecified kidney failure Status: Acute Assessment and Plan: - creatinine 2.46 and GFR 27, no previous available for comparison - per , has history of CKD stage 1 - IV fluids: 3L bolus -> DKA protocol IV fluids - if no improvement with IV fluids over the next 24 hours, consider Nephrology consultation. 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 Code(s): E11.9 - Type 2 diabetes mellitus without complications Status: Chronic Assessment and Plan: - history of type 2 - currently in DKA, see above Plan Diet: NPO GI Prophylaxis: Pantoprazole IV DVT Prophylaxis: Lovenox 30 Lines: Peripheral Code Status: Full code Quality VTE Prophylaxis VTE prophylaxis: pharmacologic ordered Critical Care Time: I personally spent 35 minutes of direct patient care including (but not limited to) the physical examination, decision-making, bedside evaluation, review of medical records, review of labs and imaging, discussion with nursing staff and other providers for collaborative, critical care management of this patient. Hospitalist [facility] Advance Care Plan I have confirmed that the patient's Advanced Care Plan is present, code status is documented, or surrogate decision maker is listed in patient medical record.: Yes Medication Reconciliation I have utilized all available resources to obtain, update and review the patients current medications (includes all prescriptions, OTC, herbals, cannabis, and nutritional supplements).: Yes
--- NOTE | 2024-04-17 13:30 | ADMGEN ---
This patient, Adrián Navarrete, was admitted to Intensive Care Unit-6. Patient/family oriented to hospital policies and general routines including ID bracelet, bed and alarms, visiting hours, pain management, procedures, bathroom and other care routines, personal items, smoking policy, room service/diet, and visiting hours. Information on how to activate the Rapid Response Team has been discussed. Patient/Family are encouraged to report perceived risks to care and to ask questions if they do not understand what they are told or what they should do. Report received from JORDAN Villarreal at 1255, patient arrived via stretcher at 1310 without issue.
[2024-04-17] MEDS: LACTATED RINGERS 1,000 ML 999 ML IV CONT (13:38)
[2024-04-17] MEDS: OSELTAMIVIR PHOSPHATE 30 MG CAPSULE PO (13:38)
--- NOTE | 2024-04-17 13:49 | WPDCNINT ---
Assessment and Plan Assessment and plan (1) DKA (diabetic ketoacidosis): Qualifiers: Diabetes mellitus complication detail: without coma Code(s): E11.10 - Type 2 diabetes mellitus with ketoacidosis without coma Status: Acute Assessment and Plan: 04/17: Patient presented with nausea, vomiting x2 days. Not taking his insulin for the last 3-4 days -presented the ED with elevated blood sugars, generalized weakness -patient given 2 L IV fluid bolus in the ER, started on insulin infusion per DKA protocol with maintenance IV fluids -patient remains tachycardic upon arrival to the ICU, we will give additional IV fluid bolus -will transition to long-acting and sliding scale insulin once patient anion gap closes and CO2 improves -will give additional 1000 mL IV fluid bolus now - NPO except ice chips -check hemoglobin A1c with next blood draw - ems educator and dietitian to evaluate the patient (2) Renal failure: Qualifiers: Acute renal failure type: unspecified Renal failure chronicity: acute Qualified Code(s): N17.9 - Acute kidney failure, unspecified Code(s): N19 - Unspecified kidney failure Status: Acute Assessment and Plan: - creatinine 2.46 and GFR 27, baseline creatinine unknown - IV fluids: 3L bolus -> DKA protocol IV fluids - if no improvement with IV fluids over the next 24 hours, consider Nephrology consultation. -continue to monitor renal function, electrolytes and urine output (3) Influenza A: Code(s): J10.1 - Influenza due to other identified influenza virus with other respiratory manifestations Status: Acute Assessment and Plan: Patient complained of sore throat, congestion, cough with generalized weakness, denies any fevers, chest pain on admission -04/17: influenza A positive -started on Tamiflu -04/17: Chest x-ray showed right lower lobe infiltrate - Tamiflu 75 mg BID -continue Mucinex, Tessalon Perles, lozenges -started on ceftriaxone and azithromycin -not requiring any supplemental oxygen Plan DVT prophylaxis: Lovenox Stress ulcer prophylaxis: Protonix Nutrition: Ice chips only Code Status: Full code Critical Care Time Spent: 49 minutes Due to a high probability of clinically significant, life threatening deterioration, the patient required my highest level of preparedness to intervene emergently and I personally spent this critical care time directly and personally managing the patient. This critical care time included obtaining a history; examining the patient; pulse oximetry; ordering and review of studies; arranging urgent treatment with development of a management plan; evaluation of patient's response to treatment; frequent reassessment; and discussions with other providers. It was exclusive of separately billable procedures and treating other patients and teaching time. Please see Assessment and Plan section and the rest of the note for further information on patient assessment and treatment Group Leader [employer] Consult Note Consult date: 04/17/24 Reason for consult: Diabetic ketoacidosis, influenza A, dehydration, nausea, vomiting HPI: Adrián Navarrete is a 58 year old male with past medical history of diabetes, chronic inflammatory demyelinating polyradiculoneuropathy presented the ED on 02/14/2025 with complains of abdominal pain nausea, vomiting for 2 days. He has been noncompliant with his insulin for the last 4 days prior to admission patient also complains of fatigue, cough, sore throat and nasal congestion. Denies any shortness of breath, chest pain, fevers. In the ED patient was tachycardic, blood pressure is stable, on room air with good O2 sats. WBC count 15.2, hemoglobin 12.9 0 platelets 274. Blood sugars were 656 on admission, sodium 129, potassium 4.5, chloride 90, CO2 < 5, BUN 62, creatinine 2.46. Baseline creatinine unknown. UA was positive for 3+ glucose and 4+ ketones, negative for urine nitrates and leukocyte esterase. ABG showed a pH of 7.14, pCO2 of 16, PO2 of 83, HC03 5.5, O2 sats 93% on room air. Significantly elevated beta hydroxybutyrate. LFTs within normal limits. COVID and RSV were negative. Positive for influenza A. Received 2 L of IV fluid bolus in the ER started on insulin infusion per DKA protocol and transferred to the ICU for further management. Patient seen and examined the ICU on arrival, patient is lying in bed, opens her eyes, does answer a few questions appropriately, follows simple commands. States he is thirsty but denies any chest pain, shortness of breath, nausea, vomiting, abdominal pain at this time. States he feels weak his legs. Patient states he smokes a pack of cigarettes a day for many years. Denies any illicit drug use, denies any alcohol use. Review of Systems Review of Systems: All systems reviewed & are unremarkable except as noted in HPI and below PMFSH Past Medical History Medical History Diabetes Chronic inflammatory demyelinating polyradiculoneuropathy Surgical History Surgical History History of cataract surgery bilateral Social History Social History Smoking packs per day: 1 Smoking cigarettes per day: 20.0 Smoking status: Current every day smoker Tobacco type: cigarettes Alcohol intake: current Alcohol use details: rare social Substance use type: does not use Living arrangements: with family Gender identity (if verbalized by the patient): Male Meds Home Medications and Allergies Home Medications ?Medication ?Instructions ?Recorded ?Confirmed ?Type insulin glargine 100 unit/mL (3 38 unit subcut DAILY 09/13/19 10/07/21 History mL) subcutaneous pen (Basaglar KwikPen U-100 Insulin) insulin lispro 100 unit/mL 6 unit subcut DAILY 09/13/19 10/07/21 History subcutaneous pen (Admelog SoloStar U-100 Insulin lispro) cephalexin 500 mg capsule 500 mg PO Q8H #30 caps 10/07/21 Rx mupirocin 2 % topical ointment 1 applic topical BID #22 grams 10/07/21 Rx triamcinolone acetonide 0.1 % 1 applic topical BID #80 grams 10/07/21 Rx topical ointment Allergies Allergy/AdvReac Type Severity Reaction Status Date / Time No Known Allergies Allergy Verified 10/07/21 18:24 Vital Signs Vital Signs - 24 hr 04/17/24 09:33 04/17/24 11:30 04/17/24 12:30 Temperature 97.7 F 97.6 F 98.2 F Pulse Rate 112 H 108 H 108 H Respiratory Rate 22 H 32 H 12 Blood Pressure 140/84 144/57 H 131/79 Pulse Oximetry 98 98 100 Exam Narrative: GENERAL: ill-appearing, thin, appearing HEENT: Pupils equally reactive, sclerae is clear, dry oral mucosa CHEST: Coarse breath sounds right lower lobe, no wheezing, adequate air entry HEART: S1-S2 is normal, tachycardia. ABDOMEN: Soft, nontender, nondistended. Normoactive bowel sounds EXTREMITIES: No edema, palpable pedal pulses, moves all extremities spontaneously. SKIN: Warm, dry, no rash. NEURO: Patient is awake, alert, answers questions appropriately and follows simple commands in all extremities PSYCH: Normal mentation, depressed affect. Results Labs 04/17/24 09:48 04/17/24 09:48 Labs: Short CBC 04/17/24 Range/Units 09:48 WBC 15.2 H (4.5-10.0) K/mm3 Hgb 12.9 L (14.0-18.0) g/dL Hct 40.7 L (42.0-52.0) % Plt Count 274 (150-375) k/mm3 BMP 04/17/24 09:48 Sodium 129 L Potassium 4.5 Chloride 90 L Carbon Dioxide < 5 L BUN 62 H Creatinine 2.46 H Glucose 656 H* Calcium 9.7 Liver Function 04/17/24 Range/Units 09:48 Total Bilirubin 0.5 (0.2-1.3) mg/dL AST 26 (17-59) U/L ALT 26 (6-50) U/L Alkaline Phosphatase 187 H (38-126) U/L Albumin 3.6 (3.5-5.1) g/dL Urine 04/17/24 Range/Units 10:31 Urine Color Yellow (Yellow) Urine Appearance Clear (Clear) Urine pH 5.0 (5.0-9.0) Ur Specific [place] 1.022 (1.001-1.035) Urine Protein 1+ H (Negative) mg/dL Urine Glucose (UA) 3+ H (Negative) mg/dL Quality VTE Prophylaxis VTE prophylaxis: pharmacologic ordered Hospitalist [facility] Advance Care Plan I have confirmed that the patient's Advanced Care Plan is present, code status is documented, or surrogate decision maker is listed in patient medical record.: Yes Medication Reconciliation I have utilized all available resources to obtain, update and review the patients current medications (includes all prescriptions, OTC, herbals, cannabis, and nutritional supplements).: Yes
[2024-04-17] MEDS: cefTRIAXone 2 GM/NS 100 ML 2 GM/100 ML BAG IVPB (15:16)
[2024-04-17] MEDS: AZITHROMYCIN 500 MG/NS 250 ML 500 MG/250 ML BAG 250 MG IVPB (15:16)
[2024-04-17 15:17] LABS: Hemoglobin A1C > 14.0 % (<5.7)
[2024-04-17 15:53] LABS: Anion Gap 21 mmol/L (4-12); Blood Urea Nitrogen 58 mg/dL (9-20); Calcium 8.9 mg/dL (8.4-10.2); Carbon Dioxide 14 mmol/L (22-30); Chloride 100 mmol/L (98-107); Estimated CRCL calculation 36 ml/min; Estimated Glomerular Filt Rate 43; Glucose 268 mg/dL (65-110); Potassium 3.7 mmol/L (3.4-5.0); Sodium 135 mmol/L (137-145)
[2024-04-17 17:02] LABS: MRSA (PCR) DETECTED (NOT DETECTE)
[2024-04-17 17:09] LABS: Glucose Point of Care 400 mg/dl (65-105)
[2024-04-17 17:09] LABS: Glucose Point of Care 265 mg/dl (65-105)
[2024-04-17 17:09] LABS: Glucose Point of Care 315 mg/dl (65-105)
[2024-04-17 17:09] LABS: Glucose Point of Care 473 mg/dl (65-105)
[2024-04-17] MEDS: KCL 20 MEQ/D5/0.45% SOD CHL 1,000 ML 150 ML IV CONT (17:13)
[2024-04-17 17:19] LABS: Glucose Point of Care 183 mg/dl (65-105)
[2024-04-17] MEDS: DEXTROSE 5%/0.45% SOD CHL 1,000 ML 150 ML IV CONT (18:12)
[2024-04-17 18:24] LABS: Alveolar/Arterial O2 Gradient 433.4 mmHg; Base Excess ABG -3.1 mEq/l (+/-2.0); Fractional Inspired Oxygen 80 %; HCO3 ABG 20.5 mEq/l (22.0-26.0); Oxygen Saturation ABG 97.9 % (95.0-100.0); Oxyhemoglobin 97.4 % THb (90.0-100.0); PO2 ABG 103.4 mmHg (80.0-100.0); PO2 FiO2 Ratio Arterial Blood 1.29 %; Total Hemoglobin 12.3 g/dL (12.0-18.0); pH ABG 7.424 (7.350-7.450)
[2024-04-17 18:26] LABS: Device HIGH FLOW THERAPY; Site Drawn LEFT BRACHIAL
[2024-04-17] MEDS: POTASSIUM CHLORIDE INJ 40 MEQ in SODIUM CHLORIDE 0.9% IV 500 ML 130 MEQ IVPB (18:33)
[2024-04-17 19:50] LABS: Anion Gap 11 mmol/L (4-12); Blood Urea Nitrogen 54 mg/dL (9-20); Carbon Dioxide 21 mmol/L (22-30); Chloride 101 mmol/L (98-107); Estimated CRCL calculation 45 ml/min; Estimated Glomerular Filt Rate 55; Glucose 143 mg/dL (65-110); Potassium 3.8 mmol/L (3.4-5.0); Sodium 133 mmol/L (137-145)
[2024-04-17] MEDS: MUPIROCIN 2% OINT 22 GM TUBE 1 APPLIC EACH NARE (20:11)
[2024-04-17] MEDS: VANCOMYCIN 1,500 MG/NS 500 ML 1,500 MG/500 ML BAG 250 MG IVPB (20:11)
[2024-04-17] MEDS: guaiFENesin 12 HR 600 MG TABCR PO (20:11)
[2024-04-17 21:30] LABS: Glucose Point of Care 144 mg/dl (65-105)
[2024-04-17 21:30] LABS: Glucose Point of Care 146 mg/dl (65-105)
[2024-04-17 21:30] LABS: Glucose Point of Care 156 mg/dl (65-105)
[2024-04-17 21:30] LABS: Glucose Point of Care 172 mg/dl (65-105)
[2024-04-17] MEDS: INSULIN GLARGINE (*BKC) 100 UNITS/ML 30 UNITS SUB-Q (22:40)
[2024-04-17 22:48] LABS: Glucose Point of Care 200 mg/dl (65-105)
--- NOTE | 2024-04-17 22:54 | PC.NURSE ---
1011 04/17/24 Faizan Randall called to make aware that per 1930 labs the patients GAP was 11 and his CO2 was 21. Order received for 30 units Lantus, AC/HS fingersticks with high-dose sliding scale, and diabetic diet. Discontinue DKA insulin drip and fluids 2 hours after Lantus given.
[2024-04-17 23:39] LABS: Glucose Point of Care 214 mg/dl (65-105)
[2024-04-18] VITALS (18 sets, daily range): BP systolic 106–139; BP diastolic 59–95; PULSE 106–117; RESP 20–38; TEMP 36.6–37.3; O2SAT 92–100; BMI 20.4
[2024-04-18 00:40] LABS: Glucose Point of Care 217 mg/dl (65-105)
[2024-04-18 06:31] LABS: Hematocrit 35.8 % (42.0-52.0); Hemoglobin 12.1 g/dL (14.0-18.0); Mean Corpuscular HGB Conc 33.8 g/dl (32-36); Mean Corpuscular Hemoglobin 27.8 pg (26-34); Mean Corpuscular Volume 82.3 fl (80-100); Mean Platelet Volume 10.7 fl (7.4-10.4); Platelet Count Result 204 k/mm3 (150-375); Red Blood Count 4.35 M/mm3 (4.6-6.20); Red Cell Distribution Width 14.1 % (11.5-14.5); White Blood Count 6.7 K/mm3 (4.5-10.0)
[2024-04-18 06:45] LABS: Alanine Aminotransferase 20 U/L (6-50); Albumin Level 2.3 g/dL (3.5-5.1); Alkaline Phosphatase 92 U/L (38-126); Anion Gap 11 mmol/L (4-12); Aspartate Amino Transferase 31 U/L (17-59); Bilirubin,Total 0.4 mg/dL (0.2-1.3); Blood Urea Nitrogen 39 mg/dL (9-20); Calcium 7.8 mg/dL (8.4-10.2); Carbon Dioxide 19 mmol/L (22-30); Chloride 103 mmol/L (98-107); Estimated CRCL calculation 54 ml/min; Estimated Glomerular Filt Rate > 60; Glucose 249 mg/dL (65-110); Magnesium 1.8 mg/dL (1.6-2.3); Phosphorus 1.9 mg/dL (2.5-4.5); Potassium 3.7 mmol/L (3.4-5.0); Sodium 133 mmol/L (137-145)
[2024-04-18 07:30] LABS: Glucose Point of Care 224 mg/dl (65-105)
[2024-04-18 08:49] LABS: Total Cells Counted 100
[2024-04-18 08:50] LABS: Anisocytosis 1+; Band Neutrophils Percent 7 % (0-6); Burr Cells 2+; Lymphocytes Percent Manual 9 % (18-44); Monocytes Absolute Manual 0.13 K/mm3 (0.1-0.90); Monocytes Percent Manual 2 % (3-9); Neutrophils Absolute Manual 5.96 K/mm3 (1.3-6.7); Neutrophils Percent Manual 82 % (46-73); Platelet Estimate Adequate (Adequate); Schistocytes None Seen
[2024-04-18] MEDS: ENOXAPARIN 40 MG/0.4 ML SYRINGE SUB-Q (09:02)
[2024-04-18] MEDS: PANTOPRAZOLE SODIUM IV 40 MG VIAL IV PUSH (09:04)
[2024-04-18] MEDS: MUPIROCIN 2% OINT 22 GM TUBE 1 APPLIC EACH NARE ×2 (09:05→20:22)
[2024-04-18] MEDS: guaiFENesin 12 HR 600 MG TABCR PO ×2 (09:05→20:21)
[2024-04-18] MEDS: INSULIN ASPART (*BKC) 100 UNITS/ML SUB-Q ×2 (09:07→12:20)
[2024-04-18] MEDS: INSULIN GLARGINE (*BKC) 100 UNITS/ML 10 UNITS SUB-Q (09:09)
[2024-04-18] MEDS: LACTATED RINGERS 1,000 ML 75 ML IV CONT (09:10)
[2024-04-18 11:18] LABS: Glucose Point of Care 251 mg/dl (65-105)
[2024-04-18] MEDS: OSELTAMIVIR PHOSPHATE 30 MG CAPSULE PO (12:20)
--- NOTE | 2024-04-18 12:25 | P.PNINT_ITS ---
Progress Note: A&P Assessment and Plan (1) DKA (diabetic ketoacidosis): Qualifiers: Diabetes mellitus complication detail: without coma Diabetes mellitus type: type 2 Qualified Code(s): E11.10 - Type 2 diabetes mellitus with ketoacidosis without coma Code(s): E11.10 - Type 2 diabetes mellitus with ketoacidosis without coma Status: Acute Assessment and Plan: 04/17: Patient presented with nausea, vomiting x2 days. According the spouse patient has not taken his insulin for many months -presented the ED with elevated blood sugars, generalized weakness -patient given 2 L IV fluid bolus in the ER, started on insulin infusion per DKA protocol with maintenance IV fluids -patient remains tachycardic upon arrival to the ICU, we will give additional IV fluid bolus -transitioned to long-acting and sliding scale insulin -started on diabetic diet -hemoglobin A1c > 14.0 this admission - staff educator and dietitian to evaluate the patient (2) Renal failure: Qualifiers: Acute renal failure type: unspecified Renal failure chronicity: acute Qualified Code(s): N17.9 - Acute kidney failure, unspecified Code(s): N19 - Unspecified kidney failure Status: Acute Assessment and Plan: - creatinine 2.46 and GFR 27, baseline creatinine unknown - IV fluids: 3L bolus -> DKA protocol IV fluids -patient has had adequate urine output, creatinine has normalized to 1.09 -continue to monitor renal function, electrolytes and urine output (3) Pneumonia: Qualifiers: Pneumonia type: due to influenza A virus Qualified Code(s): J10.00 - Influenza due to other identified influenza virus with unspecified type of pneumonia Code(s): J18.9 - Pneumonia, unspecified organism Status: Acute Assessment and Plan: Right lower lobe pneumonia on chest x-ray -continue ceftriaxone, azithromycin and vancomycin () -currently on high-flow therapy, 40 L flow rate and 50% FiO2. Wean FiO2 to maintain O2 sats > 92% -04/18: chest x-ray this morning: Shows improving right basilar pneumonia (4) Influenza A: Code(s): J10.1 - Influenza due to other identified influenza virus with other respiratory manifestations Status: Acute Assessment and Plan: Patient complained of sore throat, congestion, cough with generalized weakness, denies any fevers, chest pain on admission -04/17: influenza A positive -started on Tamiflu -04/17: Chest x-ray showed right lower lobe infiltrate - Tamiflu 75 mg BID -continue Mucinex, Tessalon Perles, lozenges Plan DVT prophylaxis: Lovenox Stress ulcer prophylaxis: Protonix Nutrition: Diabetic diet Code Status: Full code Critical Care Time Spent: 32 minutes Patient may transfer out of the ICU, to intermediate Unit Discussed patient and his spouse at bedside and updated them with patient's condition and plan of care. Due to a high probability of clinically significant, life threatening deterioration, the patient required my highest level of preparedness to intervene emergently and I personally spent this critical care time directly and personally managing the patient. This critical care time included obtaining a history; examining the patient; pulse oximetry; ordering and review of studies; arranging urgent treatment with development of a management plan; evaluation of patient's response to treatment; frequent reassessment; and discussions with other providers. It was exclusive of separately billable procedures and treating other patients and teaching time. Please see Assessment and Plan section and the rest of the note for further information on patient assessment and treatment Subjective Date/time seen: 04/18/24 12:25 Interval history: Reason for consult: Diabetic ketoacidosis, influenza A nausea, vomiting, right lower lobe pneumonia 04/18/2024: Patient seen and examined the ICU, is awake, alert, oriented, follows simple commands and answers to questions appropriately , denies any chest pain, abdominal pain, nausea vomiting at this time states his breathing is better. Remains 40 L flow rate and 50% FiO2 with adequate O2 sats. Patient has had adequate urine output, afebrile, hemodynamically stable. Has been transition to long-acting insulin and sliding scale insulin Review of Systems Review of Systems: All systems reviewed & are unremarkable except as noted in HPI and below Exam Narrative: GENERAL: Ill-appearing, in no acute distress at this time HEENT: Pupils equally reactive, sclerae is clear, dry oral mucosa CHEST: Coarse breath sounds right lower lobe, no wheezing, adequate air entry HEART: S1-S2 is normal, tachycardia. ABDOMEN: Soft, nontender, nondistended. Normoactive bowel sounds EXTREMITIES: No edema, palpable pedal pulses, moves all extremities spontaneously. SKIN: Warm, dry, no rash. NEURO: Patient is awake, alert, answers questions appropriately and follows simple commands in all extremities PSYCH: Normal mentation, depressed affect. Objective Data Vital Signs Vital Signs: Vital Signs - 24 hr 04/17/24 12:30 04/17/24 14:00 04/17/24 14:00 Temperature 98.2 F 98.2 F Pulse Rate 108 H 105 H 111 H Respiratory Rate 12 29 H Blood Pressure 131/79 109/67 Pulse Oximetry 100 88 L Oxygen Delivery Oxygen Flow Rate Fraction of Inspired Oxygen 04/17/24 15:00 04/17/24 16:00 04/17/24 16:00 Temperature 99.7 F H Pulse Rate 114 H 114 H Respiratory Rate 36 H Blood Pressure 133/73 Pulse Oximetry 94 98 Oxygen Delivery High Flow Therapy with Na Oxygen Flow Rate 60 Fraction of Inspired Oxygen 80 04/17/24 16:00 04/17/24 18:00 04/17/24 18:00 Temperature Pulse Rate 110 H 118 H 118 H Respiratory Rate 34 H 32 H Blood Pressure 121/66 Pulse Oximetry 99 99 Oxygen Delivery High Flow Therapy with Na Oxygen Flow Rate 60 Fraction of Inspired Oxygen 80 04/17/24 18:32 04/17/24 18:41 04/17/24 20:00 Temperature 99.1 F Pulse Rate 116 H Respiratory Rate 41 H Blood Pressure 124/67 Pulse Oximetry 99 96 97 Oxygen Delivery High Flow Therapy with Na High Flow Therapy with Na Oxygen Flow Rate 60 60 Fraction of Inspired Oxygen 80 70 04/17/24 20:00 04/17/24 20:00 04/17/24 20:30 Temperature Pulse Rate 116 H 116 H 117 H Respiratory Rate 41 H Blood Pressure Pulse Oximetry 97 98 Oxygen Delivery High Flow Therapy with Na High Flow Therapy with Na Oxygen Flow Rate 60 60 Fraction of Inspired Oxygen 70 70 04/17/24 22:00 04/17/24 22:00 04/18/24 00:00 Temperature Pulse Rate 112 H 112 H 107 H Respiratory Rate 36 H 31 H Blood Pressure 119/71 Pulse Oximetry 97 100 Oxygen Delivery High Flow Therapy with Na Oxygen Flow Rate 60 Fraction of Inspired Oxygen 70 04/18/24 00:00 04/18/24 00:00 04/18/24 01:45 Temperature 98.9 F Pulse Rate 107 H 107 H Respiratory Rate 31 H Blood Pressure 108/62 Pulse Oximetry 100 100 Oxygen Delivery High Flow Therapy with Na Oxygen Flow Rate 60 Fraction of Inspired Oxygen 70 04/18/24 02:00 04/18/24 02:00 04/18/24 03:03 Temperature Pulse Rate 111 H 111 H Respiratory Rate 38 H Blood Pressure 110/59 L Pulse Oximetry 92 97 Oxygen Delivery High Flow Therapy with Na Oxygen Flow Rate 50 Fraction of Inspired Oxygen 60 04/18/24 04:00 04/18/24 04:00 04/18/24 04:00 Temperature 99.1 F Pulse Rate 115 H 113 H 115 H Respiratory Rate 30 H 30 H Blood Pressure 133/69 Pulse Oximetry 100 100 Oxygen Delivery High Flow Therapy with Na Oxygen Flow Rate 50 Fraction of Inspired Oxygen 60 04/18/24 06:00 04/18/24 06:00 04/18/24 08:00 Temperature 98.2 F Pulse Rate 114 H 114 H 117 H Respiratory Rate 27 H 25 H Blood Pressure 129/75 139/95 H Pulse Oximetry 100 100 Oxygen Delivery Oxygen Flow Rate Fraction of Inspired Oxygen 04/18/24 08:00 04/18/24 08:00 04/18/24 09:00 Temperature Pulse Rate 117 H 113 H Respiratory Rate 25 H Blood Pressure Pulse Oximetry 100 100 Oxygen Delivery High Flow Therapy with Na High Flow Therapy with Na Oxygen Flow Rate 40 50 Fraction of Inspired Oxygen 50 60 04/18/24 10:00 04/18/24 10:00 Temperature 97.9 F Pulse Rate 111 H 112 H Respiratory Rate 26 H Blood Pressure 117/65 Pulse Oximetry 99 Oxygen Delivery Oxygen Flow Rate Fraction of Inspired Oxygen Intake/Output Intake/Output: Intake & Output 04/15/24 04/16/24 04/17/24 04/18/24 23:59 23:59 23:59 23:59 Intake Total 4279.0 2091.0 Output Total 1550 475 Balance 2729.0 1616.0 Meds/Results Medications: Active Medications Generic Name Dose Route Start Last Admin Trade Name Freq PRN Reason Stop Dose Admin Acetaminophen 650 mg 04/17/24 13:32 Acetaminophen 325 Mg Tablet PO Q4H PRN Mild Pain (1-3) or Fever Albuterol/Ipratropium 3 ml 04/17/24 15:15 Ipratropium 0.5 Mg/Albuterol Sulfate 2.5 Mg Ampul.Neb 3 Ml INHALATION Q6HRT PRN Shortness Of Breath Or Wheezing Benzocaine 1 lozenge 04/17/24 13:32 Benzocaine/Menthol (*Bkc) 18 Ea Lozenge PO PRN PRN Sore Throat Benzonatate 100 mg 04/17/24 13:32 Benzonatate 100 Mg Capsule PO TID PRN Cough Dextrose 12.5 gm 04/17/24 17:17 Dextrose 50% 25 Gm/50 Ml Syringe IV PUSH PRN PRN Hypoglycemia Protocol Enoxaparin Sodium 40 mg 04/18/24 09:00 04/18/24 09:02 Enoxaparin 40 Mg/0.4 Ml Syringe SUB-Q 40 mg DAILY MARYCHUY Administration Glucagon 1 mg 04/17/24 17:17 Glucagon For Inj 1 Mg Vial IM PRN PRN Hypoglycemia Protocol Glucose 15 gm 04/17/24 17:17 Glucose Oral Gel 15 Gm Of Glucse In 37.5 Gm Tube PO PRN PRN Hypoglycemia Protocol Guaifenesin 600 mg 04/17/24 21:00 04/18/24 09:05 Guaifenesin 12 Hr 600 Mg Tabcr PO 600 mg Q12HR MARYCHUY Administration Ceftriaxone Sodium 2 gm in 100 mls @ 200 mls/hr 04/17/24 15:00 04/17/24 16:08 Rocephin 2 Gm/Ns 100 Ml IVPB Infused Q24H MARYCHUY Infusion Azithromycin 500 mg in 250 mls @ 250 mls/hr 04/17/24 16:00 04/17/24 16:49 Zithromax IVPB Infused Q24H MARYCHUY Infusion Dextrose 1,000 mls @ 100 mls/hr 04/17/24 17:17 Dextrose 5% 1,000 Ml IVPB PRN PRN Hypoglycemia Protocol Vancomycin HCl 1,250 mg in 250 mls @ 166.667 mls/hr 04/18/24 20:00 Vancomycin 1,250 Mg/Ns 250 Ml IVPB Q24H MARYCHUY Insulin Aspart 4 - 8 units 04/18/24 08:00 04/18/24 12:20 Insulin Aspart (*Bkc) 100 Units/Ml SUB-Q 5 units TIDWM MARYCHUY Administration Protocol Insulin Aspart 2 - 4 units 04/18/24 21:00 Insulin Aspart (*Bkc) 100 Units/Ml SUB-Q HS MARYCHUY Protocol Insulin Glargine 40 units 04/18/24 21:00 Insulin Glargine (*Bkc) 100 Units/Ml SUB-Q HS MARYCHUY Mupirocin 1 applic 04/17/24 21:00 04/18/24 09:05 Mupirocin 2% Oint 22 Gm Tube EACH NARE 04/22/24 09:01 1 applic Q12HR MARYCHUY Administration Ondansetron HCl 4 mg 04/17/24 12:03 Ondansetron Inj 4 Mg/2 Ml Vial IV PUSH Q4H PRN Nausea Oseltamivir Phosphate 30 mg 04/17/24 12:00 04/18/24 12:20 Oseltamivir Phosphate 30 Mg Capsule PO 04/22/24 11:59 30 mg Q24H MARYCHUY Administration Pantoprazole Sodium 40 mg 04/18/24 09:00 04/18/24 09:04 Pantoprazole Sodium Iv 40 Mg Vial IV PUSH 40 mg QAM MARYCHUY Administration Radiology Results: ITS Impressions Chest X-Ray 04/18/24 08:49 Impression: 1: Improving right basilar pneumonia. Labs Labs: Laboratory Results - last 24 hr 04/17/24 04/17/24 04/17/24 09:47 13:24 14:17 WBC RBC Hgb Hct MCV MCH MCHC RDW Plt Count MPV Immature Gran % (Auto) Neut % (Auto) Lymph % (Auto) [place] % (Auto) Eos % (Auto) Baso % (Auto) Lymph # (Auto) [place] # (Auto) Eos # (Auto) Baso # (Auto) Abs Immat Gran (auto) Absolute Neuts (auto) Absolute Nucleated RBC Total Counted Neutrophils % (Manual) Band Neutrophils % Lymphocytes % (Manual) Monocytes % (Manual) Nucleated RBC % Abs Neuts (Manual) Abs Lymphs (Manual) Abs Monocytes (Manual) Platelet Estimate Anisocytosis Jace Cells Schistocytes Puncture Site ABG pH ABG pCO2 ABG pO2 ABG PO2/FiO2 Ratio ABG HCO3 ABG O2 Saturation ABG O2 Content ABG Base Excess A-a Gradient Oxyhemoglobin Total Hemoglobin O2 Delivery Device O2 Liters/Min FiO2 Sodium Potassium Chloride Carbon Dioxide Anion Gap BUN Creatinine Estim Creat Clear Calc Estimated GFR Glucose POC Capillary Glucose 473 H 400 H Hemoglobin A1c > 14.0 H Calcium Phosphorus Magnesium Total Bilirubin AST ALT Alkaline Phosphatase Total Protein Albumin Procalcitonin Nasal MRSA (PCR) 04/17/24 04/17/24 04/17/24 15:13 15:33 15:40 WBC RBC Hgb Hct MCV MCH MCHC RDW Plt Count MPV Immature Gran % (Auto) Neut % (Auto) Lymph % (Auto) [place] % (Auto) Eos % (Auto) Baso % (Auto) Lymph # (Auto) [place] # (Auto) Eos # (Auto) Baso # (Auto) Abs Immat Gran (auto) Absolute Neuts (auto) Absolute Nucleated RBC Total Counted Neutrophils % (Manual) Band Neutrophils % Lymphocytes % (Manual) Monocytes % (Manual) Nucleated RBC % Abs Neuts (Manual) Abs Lymphs (Manual) Abs Monocytes (Manual) Platelet Estimate Anisocytosis [place] Cells Schistocytes Puncture Site ABG pH ABG pCO2 ABG pO2 ABG PO2/FiO2 Ratio ABG HCO3 ABG O2 Saturation ABG O2 Content ABG Base Excess A-a Gradient Oxyhemoglobin Total Hemoglobin O2 Delivery Device O2 Liters/Min FiO2 Sodium 135 L Potassium 3.7 Chloride 100 Carbon Dioxide 14 L Anion Gap 21 H BUN 58 H Creatinine 1.63 H Estim Creat Clear Calc 36 Estimated GFR 43 L Glucose 268 H POC Capillary Glucose 315 H Hemoglobin A1c Calcium 8.9 Phosphorus Magnesium Total Bilirubin AST ALT Alkaline Phosphatase Total Protein Albumin Procalcitonin 142.0 Nasal MRSA (PCR) Detected A* 04/17/24 04/17/24 04/17/24 16:04 17:12 18:06 WBC RBC Hgb Hct MCV MCH MCHC RDW Plt Count MPV Immature Gran % (Auto) Neut % (Auto) Lymph % (Auto) [place] % (Auto) Eos % (Auto) Baso % (Auto) Lymph # (Auto) [place] # (Auto) Eos # (Auto) Baso # (Auto) Abs Immat Gran (auto) Absolute Neuts (auto) Absolute Nucleated RBC Total Counted Neutrophils % (Manual) Band Neutrophils % Lymphocytes % (Manual) Monocytes % (Manual) Nucleated RBC % Abs Neuts (Manual) Abs Lymphs (Manual) Abs Monocytes (Manual) Platelet Estimate Anisocytosis [place] Cells Schistocytes Puncture Site ABG pH ABG pCO2 ABG pO2 ABG PO2/FiO2 Ratio ABG HCO3 ABG O2 Saturation ABG O2 Content ABG Base Excess A-a Gradient Oxyhemoglobin Total Hemoglobin O2 Delivery Device O2 Liters/Min FiO2 Sodium Potassium Chloride Carbon Dioxide Anion Gap BUN Creatinine Estim Creat Clear Calc Estimated GFR Glucose POC Capillary Glucose 265 H 183 H 146 H Hemoglobin A1c Calcium Phosphorus Magnesium Total Bilirubin AST ALT Alkaline Phosphatase Total Protein Albumin Procalcitonin Nasal MRSA (PCR) 04/17/24 04/17/24 04/17/24 18:20 18:58 19:28 WBC RBC Hgb Hct MCV MCH MCHC RDW Plt Count MPV Immature Gran % (Auto) Neut % (Auto) Lymph % (Auto) [place] % (Auto) Eos % (Auto) Baso % (Auto) Lymph # (Auto) [place] # (Auto) Eos # (Auto) Baso # (Auto) Abs Immat Gran (auto) Absolute Neuts (auto) Absolute Nucleated RBC Total Counted Neutrophils % (Manual) Band Neutrophils % Lymphocytes % (Manual) Monocytes % (Manual) Nucleated RBC % Abs Neuts (Manual) Abs Lymphs (Manual) Abs Monocytes (Manual) Platelet Estimate Anisocytosis Jace Cells Schistocytes Puncture Site Left brachial ABG pH 7.424 ABG pCO2 32.0 L ABG pO2 103.4 H ABG PO2/FiO2 Ratio 1.29 ABG HCO3 20.5 L ABG O2 Saturation 97.9 ABG O2 Content 17.0 ABG Base Excess -3.1 A-a Gradient 433.4 Oxyhemoglobin 97.4 Total Hemoglobin 12.3 O2 Delivery Device High flow therapy O2 Liters/Min 60.0 FiO2 80 Sodium 133 L Potassium 3.8 Chloride 101 Carbon Dioxide 21 L Anion Gap 11 BUN 54 H Creatinine 1.32 H Estim Creat Clear Calc 45 Estimated GFR 55 L Glucose 143 H POC Capillary Glucose 144 H Hemoglobin A1c Calcium 8.0 L Phosphorus Magnesium Total Bilirubin AST ALT Alkaline Phosphatase Total Protein Albumin Procalcitonin Nasal MRSA (PCR) 04/17/24 04/17/24 04/17/24 19:30 20:08 21:22 WBC RBC Hgb Hct MCV MCH MCHC RDW Plt Count MPV Immature Gran % (Auto) Neut % (Auto) Lymph % (Auto) [place] % (Auto) Eos % (Auto) Baso % (Auto) Lymph # (Auto) [place] # (Auto) Eos # (Auto) Baso # (Auto) Abs Immat Gran (auto) Absolute Neuts (auto) Absolute Nucleated RBC Total Counted Neutrophils % (Manual) Band Neutrophils % Lymphocytes % (Manual) Monocytes % (Manual) Nucleated RBC % Abs Neuts (Manual) Abs Lymphs (Manual) Abs Monocytes (Manual) Platelet Estimate Anisocytosis [place] Cells Schistocytes Puncture Site ABG pH ABG pCO2 ABG pO2 ABG PO2/FiO2 Ratio ABG HCO3 ABG O2 Saturation ABG O2 Content ABG Base Excess A-a Gradient Oxyhemoglobin Total Hemoglobin O2 Delivery Device O2 Liters/Min FiO2 Sodium Cancelled Potassium Cancelled Chloride Cancelled Carbon Dioxide Cancelled Anion Gap Cancelled BUN Cancelled Creatinine Cancelled Estim Creat Clear Calc Cancelled Estimated GFR Cancelled Glucose Cancelled POC Capillary Glucose 156 H 172 H Hemoglobin A1c Calcium Cancelled Phosphorus Magnesium Total Bilirubin AST ALT Alkaline Phosphatase Total Protein Albumin Procalcitonin Nasal MRSA (PCR) 04/17/24 04/17/24 04/18/24 22:38 23:35 00:34 WBC RBC Hgb Hct MCV MCH MCHC RDW Plt Count MPV Immature Gran % (Auto) Neut % (Auto) Lymph % (Auto) [place] % (Auto) Eos % (Auto) Baso % (Auto) Lymph # (Auto) [place] # (Auto) Eos # (Auto) Baso # (Auto) Abs Immat Gran (auto) Absolute Neuts (auto) Absolute Nucleated RBC Total Counted Neutrophils % (Manual) Band Neutrophils % Lymphocytes % (Manual) Monocytes % (Manual) Nucleated RBC % Abs Neuts (Manual) Abs Lymphs (Manual) Abs Monocytes (Manual) Platelet Estimate Anisocytosis [place] Cells Schistocytes Puncture Site ABG pH ABG pCO2 ABG pO2 ABG PO2/FiO2 Ratio ABG HCO3 ABG O2 Saturation ABG O2 Content ABG Base Excess A-a Gradient Oxyhemoglobin Total Hemoglobin O2 Delivery Device O2 Liters/Min FiO2 Sodium Potassium Chloride Carbon Dioxide Anion Gap BUN Creatinine Estim Creat Clear Calc Estimated GFR Glucose POC Capillary Glucose 200 H 214 H 217 H Hemoglobin A1c Calcium Phosphorus Magnesium Total Bilirubin AST ALT Alkaline Phosphatase Total Protein Albumin Procalcitonin Nasal MRSA (PCR) 04/18/24 04/18/24 04/18/24 06:19 07:27 11:15 WBC 6.7 RBC 4.35 L Hgb 12.1 L Hct 35.8 L MCV 82.3 D MCH 27.8 MCHC 33.8 RDW 14.1 Plt Count 204 MPV 10.7 H Immature Gran % (Auto) Not Reportable Neut % (Auto) Not Reportable Lymph % (Auto) Not Reportable [place] % (Auto) Not Reportable Eos % (Auto) Not Reportable Baso % (Auto) Not Reportable Lymph # (Auto) Not Reportable [place] # (Auto) Not Reportable Eos # (Auto) Not Reportable Baso # (Auto) Not Reportable Abs Immat Gran (auto) Not Reportable Absolute Neuts (auto) Not Reportable Absolute Nucleated RBC Not Reportable Total Counted 100 Neutrophils % (Manual) 82 H Band Neutrophils % 7 H Lymphocytes % (Manual) 9 L Monocytes % (Manual) 2 L Nucleated RBC % Not Reportable Abs Neuts (Manual) 5.96 Abs Lymphs (Manual) 0.60 L Abs Monocytes (Manual) 0.13 Platelet Estimate Adequate Anisocytosis 1+ [place] Cells 2+ Schistocytes None seen Puncture Site ABG pH ABG pCO2 ABG pO2 ABG PO2/FiO2 Ratio ABG HCO3 ABG O2 Saturation ABG O2 Content ABG Base Excess A-a Gradient Oxyhemoglobin Total Hemoglobin O2 Delivery Device O2 Liters/Min FiO2 Sodium 133 L Potassium 3.7 Chloride 103 Carbon Dioxide 19 L Anion Gap 11 BUN 39 H D Creatinine 1.09 Estim Creat Clear Calc 54 Estimated GFR > 60 Glucose 249 H POC Capillary Glucose 224 H 251 H Hemoglobin A1c Calcium 7.8 L Phosphorus 1.9 L Magnesium 1.8 Total Bilirubin 0.4 AST 31 ALT 20 Alkaline Phosphatase 92 Total Protein 5.0 L Albumin 2.3 L Procalcitonin Nasal MRSA (PCR) Quality VTE Prophylaxis VTE prophylaxis: pharmacologic ordered
--- NOTE | 2024-04-18 13:08 | PCFNICU ---
ICU Rounding Note: Pt current nutrition is DBCC. Last recorded weight is 64.6 kg. Bowel Motility:+BM reported 04/17 Labs Reviewed:Glu 249, BUN 39, Na 133, Alb 2.3, HbA1c > 14% Meds Noted: Lantus, NovoLog,Lovenox. Skin: WNL Additional Notes:Nursing reported patient is tolerating DBCC diet. On Airvo. Flu A and MRAS positive. Patient Instruction attached on DBCC diet. Agree with diet orders at this time. Following daily in ICU rounds.
[2024-04-18] MEDS: cefTRIAXone 2 GM/NS 100 ML 2 GM/100 ML BAG IVPB (15:22)
[2024-04-18] MEDS: AZITHROMYCIN 500 MG/NS 250 ML 500 MG/250 ML BAG 250 MG IVPB (15:22)
[2024-04-18 16:26] LABS: Glucose Point of Care 174 mg/dl (65-105)
[2024-04-18] MEDS: VANCOMYCIN 1,250 MG/NS 250 ML 1,250 MG/250 ML BAG 166.67 MG IVPB (20:21)
[2024-04-18] MEDS: INSULIN GLARGINE (*BKC) 100 UNITS/ML 40 UNITS SUB-Q (20:22)
[2024-04-18 21:00] LABS: Glucose Point of Care 142 mg/dl (65-105)
[2024-04-19] VITALS (18 sets, daily range): BP systolic 119–145; BP diastolic 60–79; PULSE 90–125; RESP 20–42; TEMP 36.6–38.7; O2SAT 93–98
[2024-04-19 05:38] LABS: Hematocrit 33.9 % (42.0-52.0); Hemoglobin 11.6 g/dL (14.0-18.0); Mean Corpuscular HGB Conc 34.2 g/dl (32-36); Mean Corpuscular Hemoglobin 27.8 pg (26-34); Mean Corpuscular Volume 81.3 fl (80-100); Mean Platelet Volume 11.4 fl (7.4-10.4); Platelet Count Result 224 k/mm3 (150-375); Red Blood Count 4.17 M/mm3 (4.6-6.20); Red Cell Distribution Width 14.6 % (11.5-14.5)
[2024-04-19 05:56] LABS: Alanine Aminotransferase 17 U/L (6-50); Albumin Level 2.4 g/dL (3.5-5.1); Alkaline Phosphatase 132 U/L (38-126); Anion Gap 10 mmol/L (4-12); Aspartate Amino Transferase 29 U/L (17-59); Bilirubin,Total 0.5 mg/dL (0.2-1.3); Blood Urea Nitrogen 25 mg/dL (9-20); Calcium 8.1 mg/dL (8.4-10.2); Carbon Dioxide 20 mmol/L (22-30); Chloride 102 mmol/L (98-107); Estimated CRCL calculation 64 ml/min; Estimated Glomerular Filt Rate > 60; Glucose 69 mg/dL (65-110); Phosphorus 1.6 mg/dL (2.5-4.5); Potassium 2.9 mmol/L (3.4-5.0); Sodium 132 mmol/L (137-145)
[2024-04-19 06:54] LABS: Anisocytosis 1+; Band Neutrophils Percent 15 % (0-6); Crenated RBC 2+; Lymphocytes Absolute Manual 1.08 K/mm3 (1.1-4.5); Lymphocytes Percent Manual 9 % (18-44); Monocytes Absolute Manual 0.72 K/mm3 (0.1-0.90); Monocytes Percent Manual 6 % (3-9); Neutrophils Percent Manual 70 % (46-73); Nucleated Red Blood Cells 1 %; Platelet Estimate Adequate (Adequate); Schistocytes None Seen; Total Cells Counted 100
[2024-04-19 07:25] LABS: Glucose Point of Care 83 mg/dl (65-105)
[2024-04-19] MEDS: ENOXAPARIN 40 MG/0.4 ML SYRINGE SUB-Q (08:10)
[2024-04-19] MEDS: MUPIROCIN 2% OINT 22 GM TUBE 1 APPLIC EACH NARE ×2 (08:11→20:53)
[2024-04-19] MEDS: PANTOPRAZOLE SODIUM IV 40 MG VIAL IV PUSH (08:11)
[2024-04-19] MEDS: guaiFENesin 12 HR 600 MG TABCR PO ×2 (08:11→20:50)
[2024-04-19] MEDS: POTASSIUM PHOS,M-BASIC-D-BASIC 40 MMOL in SODIUM CHLORIDE 0.9% IV 250 ML 43.89 MMOL IVPB (10:02)
[2024-04-19] MEDS: POTASSIUM BICARBONATE 25 MEQ TABEF 50 MEQ PO (10:02)
--- NOTE | 2024-04-19 11:10 | PM.IMPN ---
Progress Note: A&P Assessment and Plan (1) DKA (diabetic ketoacidosis): Qualifiers: Diabetes mellitus complication detail: without coma Diabetes mellitus type: type 2 Qualified Code(s): E11.10 - Type 2 diabetes mellitus with ketoacidosis without coma Code(s): E11.10 - Type 2 diabetes mellitus with ketoacidosis without coma Status: Acute Assessment and Plan: 04/17: Patient presented with nausea, vomiting x2 days. According the spouse patient has not taken his insulin for many months -presented the ED with elevated blood sugars, generalized weakness and was diagnosed with DKA -patient given 2 L IV fluid bolus in the ER, started on insulin infusion per DKA protocol with maintenance IV fluids Anion gap is closed and patient is not tolerating p.o. diet he has been transition to subcutaneous long-acting and sliding scale insulin Currently on diabetic diet -hemoglobin A1c > 14.0 this admission - clinical document improvement educator and dietitian consult (2) Renal failure: Qualifiers: Acute renal failure type: unspecified Renal failure chronicity: acute Qualified Code(s): N17.9 - Acute kidney failure, unspecified Code(s): N19 - Unspecified kidney failure Status: Acute Assessment and Plan: - creatinine 2.46 and GFR 27, baseline creatinine unknown - IV fluids: 3L bolus -> DKA protocol IV fluids -patient has had adequate urine output, creatinine has normalized t -continue to monitor renal function, electrolytes and urine output (3) Pneumonia: Qualifiers: Pneumonia type: due to influenza A virus Qualified Code(s): J10.00 - Influenza due to other identified influenza virus with unspecified type of pneumonia Code(s): J18.9 - Pneumonia, unspecified organism Status: Acute Assessment and Plan: Right lower lobe pneumonia on chest x-ray -continue ceftriaxone, azithromycin and vancomycin () -currently on high-flow therapy, 30 L flow rate and 40% FiO2. Wean FiO2 to maintain O2 sats > 92% Cultures pending Add incentive spirometry MRSA screen positive (4) Influenza A: Code(s): J10.1 - Influenza due to other identified influenza virus with other respiratory manifestations Status: Acute Assessment and Plan: Patient complained of sore throat, congestion, cough with generalized weakness, denies any fevers, chest pain on admission -04/17: influenza A positive Continue Tamiflu (5) Electrolyte abnormality: Code(s): E87.8 - Other disorders of electrolyte and fluid balance, not elsewhere classified Status: Acute Assessment and Plan: Replace low potassium and phosphorous Plan DVT prophylaxis: Lovenox Stress ulcer prophylaxis: Protonix Nutrition: Diabetic diet Code Status: Full code Subjective Date/time seen: 04/19/24 Overnight events reviewed. Afebrile Continues to be on Airvo at 30 L and 40% FiO2 Off all infusions. Good urine output. Tolerating p.o. diet. Other Vitals acceptable States he feels better and denies any new complaints. He continues to have cough which is productive. Denies any shortness a breath chest pain nausea vomiting abdominal pain. All other systems were reviewed and were negative Interval history: Reason for consult: Diabetic ketoacidosis, influenza A nausea, vomiting, right lower lobe pneumonia Review of Systems Review of Systems: All systems reviewed & are unremarkable except as noted in HPI and below Exam Narrative: GENERAL: Ill-appearing, in no acute distress at this time HEENT: Pupils equally reactive, sclerae is clear, dry oral mucosa CHEST: Coarse breath sounds right lower lobe, no wheezing, adequate air entry HEART: S1-S2 is normal, tachycardia. ABDOMEN: Soft, nontender, nondistended. Normoactive bowel sounds EXTREMITIES: No edema, palpable pedal pulses, moves all extremities spontaneously. SKIN: Warm, dry, no rash. NEURO: Patient is awake, alert, answers questions appropriately and follows simple commands in all extremities PSYCH: Normal mentation, depressed affect. Objective Data Vital Signs Vital Signs: Vital Signs - 24 hr 04/18/24 12:00 04/18/24 12:00 04/18/24 12:00 Temperature 36.8 C Pulse Rate 112 H 109 H 112 H Respiratory Rate 29 H 29 H Blood Pressure 106/62 Pulse Oximetry 100 100 Oxygen Delivery High Flow Therapy with Na Oxygen Flow Rate 40 Fraction of Inspired Oxygen 50 04/18/24 14:00 04/18/24 14:50 04/18/24 15:13 Temperature Pulse Rate 113 H Respiratory Rate Blood Pressure Pulse Oximetry 98 96 Oxygen Delivery High Flow Therapy with Na High Flow Therapy with Na Oxygen Flow Rate 40 35 Fraction of Inspired Oxygen 50 40 04/18/24 16:00 04/18/24 16:00 04/18/24 16:00 Temperature 36.9 C Pulse Rate 113 H 112 H 106 H Respiratory Rate 27 H 22 H Blood Pressure 116/68 Pulse Oximetry 96 96 Oxygen Delivery High Flow Therapy with Na Oxygen Flow Rate 35 Fraction of Inspired Oxygen 40 04/18/24 17:00 04/18/24 18:00 04/18/24 20:00 Temperature Pulse Rate 110 H Respiratory Rate 22 H Blood Pressure Pulse Oximetry 96 95 Oxygen Delivery High Flow Therapy with Na High Flow Therapy with Na Oxygen Flow Rate 35 35 Fraction of Inspired Oxygen 40 40 04/18/24 20:00 04/18/24 20:00 04/18/24 21:23 Temperature 36.6 C Pulse Rate 113 H 113 H Respiratory Rate 20 Blood Pressure 122/66 Pulse Oximetry 96 96 Oxygen Delivery High Flow Therapy with Na Oxygen Flow Rate 35 Fraction of Inspired Oxygen 40 04/19/24 00:00 04/19/24 00:00 04/19/24 00:00 Temperature Pulse Rate 116 H 116 H Respiratory Rate 21 H 30 H Blood Pressure 119/60 Pulse Oximetry 95 95 Oxygen Delivery High Flow Therapy with Na Oxygen Flow Rate 35 Fraction of Inspired Oxygen 40 04/19/24 04:00 04/19/24 04:00 04/19/24 04:00 Temperature 36.9 C Pulse Rate 115 H 115 H 116 H Respiratory Rate 27 H 27 H Blood Pressure 133/68 Pulse Oximetry 93 93 Oxygen Delivery High Flow Therapy with Na Oxygen Flow Rate 35 Fraction of Inspired Oxygen 40 04/19/24 08:00 Temperature 37.1 C Pulse Rate 110 H Respiratory Rate 30 H Blood Pressure 132/75 Pulse Oximetry 96 Oxygen Delivery Oxygen Flow Rate Fraction of Inspired Oxygen Intake/Output Intake/Output: Intake & Output 04/16/24 04/17/24 04/18/24 04/19/24 23:59 23:59 23:59 23:59 Intake Total 4279.0 4171.0 240 Output Total 3277 609 4126 Balance 2729.0 3696.0 -760 Meds/Results Medications: Active Medications Generic Name Dose Route Start Last Admin Trade Name Freq PRN Reason Stop Dose Admin Acetaminophen 650 mg 04/17/24 13:32 Acetaminophen 325 Mg Tablet PO Q4H PRN Mild Pain (1-3) or Fever Albuterol/Ipratropium 3 ml 04/17/24 15:15 Ipratropium 0.5 Mg/Albuterol Sulfate 2.5 Mg Ampul.Neb 3 Ml INHALATION Q6HRT PRN Shortness Of Breath Or Wheezing Benzocaine 1 lozenge 04/17/24 13:32 Benzocaine/Menthol (*Bkc) 18 Ea Lozenge PO PRN PRN Sore Throat Benzonatate 100 mg 04/17/24 13:32 Benzonatate 100 Mg Capsule PO TID PRN Cough Dextrose 12.5 gm 04/17/24 17:17 Dextrose 50% 25 Gm/50 Ml Syringe IV PUSH PRN PRN Hypoglycemia Protocol Enoxaparin Sodium 40 mg 04/18/24 09:00 04/19/24 08:10 Enoxaparin 40 Mg/0.4 Ml Syringe SUB-Q 40 mg DAILY MARYCHUY Administration Glucagon 1 mg 04/17/24 17:17 Glucagon For Inj 1 Mg Vial IM PRN PRN Hypoglycemia Protocol Glucose 15 gm 04/17/24 17:17 Glucose Oral Gel 15 Gm Of Glucse In 37.5 Gm Tube PO PRN PRN Hypoglycemia Protocol Guaifenesin 600 mg 04/17/24 21:00 04/19/24 08:11 Guaifenesin 12 Hr 600 Mg Tabcr PO 600 mg Q12HR MARYCHUY Administration Ceftriaxone Sodium 2 gm in 100 mls @ 200 mls/hr 04/17/24 15:00 04/18/24 16:00 Rocephin 2 Gm/Ns 100 Ml IVPB Infused Q24H MARYCHUY Infusion Azithromycin 500 mg in 250 mls @ 250 mls/hr 04/17/24 16:00 04/18/24 19:45 Zithromax IVPB Infused Q24H MARYCHUY Infusion Dextrose 1,000 mls @ 100 mls/hr 04/17/24 17:17 Dextrose 5% 1,000 Ml IVPB PRN PRN Hypoglycemia Protocol Vancomycin HCl 1,250 mg in 250 mls @ 166.667 mls/hr 04/18/24 20:00 04/18/24 21:57 Vancomycin 1,250 Mg/Ns 250 Ml IVPB Infused Q24H MARYCHUY Infusion Potassium Phosphate 40 mmol/ 263.3333 mls @ 43.889 mls/hr 04/19/24 09:20 04/19/24 10:02 Sodium Chloride IVPB 04/19/24 15:19 43.89 mls/hr ONCE ONE Administration Insulin Aspart 4 - 8 units 04/18/24 08:00 04/19/24 08:05 Insulin Aspart (*Bkc) 100 Units/Ml SUB-Q Not Given TIDWM [facility] Protocol Insulin Aspart 2 - 4 units 04/18/24 21:00 04/18/24 20:35 Insulin Aspart (*Bkc) 100 Units/Ml SUB-Q Not Given HS [facility] Protocol Insulin Glargine 40 units 04/18/24 21:00 04/18/24 20:22 Insulin Glargine (*Bkc) 100 Units/Ml SUB-Q 40 units HS MARYCHUY Administration Mupirocin 1 applic 04/17/24 21:00 04/19/24 08:11 Mupirocin 2% Oint 22 Gm Tube EACH NARE 04/22/24 09:01 1 applic Q12HR MARYCHUY Administration Ondansetron HCl 4 mg 04/17/24 12:03 Ondansetron Inj 4 Mg/2 Ml Vial IV PUSH Q4H PRN Nausea Oseltamivir Phosphate 30 mg 04/17/24 12:00 04/18/24 12:20 Oseltamivir Phosphate 30 Mg Capsule PO 04/22/24 11:59 30 mg Q24H MARYCHUY Administration Pantoprazole Sodium 40 mg 04/18/24 09:00 04/19/24 08:11 Pantoprazole Sodium Iv 40 Mg Vial IV PUSH 40 mg QAM MARYCHUY Administration Radiology Results: ITS Impressions Chest X-Ray 04/19/24 06:32 Impression: Hazy right basilar and right perihilar airspace disease. Correlate for pneumonia. Labs Labs: Laboratory Results - last 24 hr 04/18/24 04/18/24 04/18/24 11:15 16:19 20:31 WBC RBC Hgb Hct MCV MCH MCHC RDW Plt Count MPV Immature Gran % (Auto) Neut % (Auto) Lymph % (Auto) [place] % (Auto) Eos % (Auto) Baso % (Auto) Lymph # (Auto) [place] # (Auto) Eos # (Auto) Baso # (Auto) Abs Immat Gran (auto) Absolute Neuts (auto) Absolute Nucleated RBC Total Counted Neutrophils % (Manual) Band Neutrophils % Lymphocytes % (Manual) Monocytes % (Manual) Nucleated RBC % Abs Neuts (Manual) Abs Lymphs (Manual) Abs Monocytes (Manual) Nucleated RBCs Platelet Estimate Anisocytosis Crenated Cell Schistocytes Sodium Potassium Chloride Carbon Dioxide Anion Gap BUN Creatinine Estim Creat Clear Calc Estimated GFR Glucose POC Capillary Glucose 251 H 174 H 142 H Calcium Phosphorus Magnesium Total Bilirubin AST ALT Alkaline Phosphatase Total Protein Albumin 04/19/24 04/19/24 05:18 07:22 WBC 12.0 H RBC 4.17 L Hgb 11.6 L Hct 33.9 L MCV 81.3 MCH 27.8 MCHC 34.2 RDW 14.6 H Plt Count 224 MPV 11.4 H Immature Gran % (Auto) Not Reportable Neut % (Auto) Not Reportable Lymph % (Auto) Not Reportable Pitt % (Auto) Not Reportable Eos % (Auto) Not Reportable Baso % (Auto) Not Reportable Lymph # (Auto) Not Reportable Pitt # (Auto) Not Reportable Eos # (Auto) Not Reportable Baso # (Auto) Not Reportable Abs Immat Gran (auto) Not Reportable Absolute Neuts (auto) Not Reportable Absolute Nucleated RBC Not Reportable Total Counted 100 Neutrophils % (Manual) 70 Band Neutrophils % 15 H Lymphocytes % (Manual) 9 L Monocytes % (Manual) 6 Nucleated RBC % Not Reportable Abs Neuts (Manual) 10.20 H Abs Lymphs (Manual) 1.08 L Abs Monocytes (Manual) 0.72 Nucleated RBCs 1 Platelet Estimate Adequate Anisocytosis 1+ Crenated Cell 2+ Schistocytes None seen Sodium 132 L Potassium 2.9 L Chloride 102 Carbon Dioxide 20 L Anion Gap 10 BUN 25 H D Creatinine 0.97 Estim Creat Clear Calc 64 Estimated GFR > 60 Glucose 69 POC Capillary Glucose 83 Calcium 8.1 L Phosphorus 1.6 L Magnesium 2.0 Total Bilirubin 0.5 AST 29 ALT 17 Alkaline Phosphatase 132 H Total Protein 6.0 L Albumin 2.4 L Quality VTE Prophylaxis VTE prophylaxis: pharmacologic ordered
[2024-04-19 11:25] LABS: Glucose Point of Care 67 mg/dl (65-105)
[2024-04-19 11:36] LABS: Glucose Point of Care 87 mg/dl (65-105)
--- NOTE | 2024-04-19 11:47 | PC.NURSE ---
Noon bedside blood glucose of 67. Patient alert and oriented still following commands. Complex and simple carbohydrates given and had PCT recheck POC glucose in 15 minutes. Corrected POC read 87. Will reassess within 30 minutes to ensure hypoglycemia does not occur again.
[2024-04-19 12:17] LABS: Glucose Point of Care 88 mg/dl (65-105)
[2024-04-19] MEDS: OSELTAMIVIR PHOSPHATE 30 MG CAPSULE PO (12:33)
[2024-04-19] MEDS: cefTRIAXone 2 GM/NS 100 ML 2 GM/100 ML BAG IVPB (15:56)
[2024-04-19 16:10] LABS: Glucose Point of Care 94 mg/dl (65-105)
[2024-04-19] MEDS: AZITHROMYCIN 500 MG/NS 250 ML 500 MG/250 ML BAG 250 MG IVPB (16:30)
[2024-04-19 20:38] LABS: Glucose Point of Care 96 mg/dl (65-105)
[2024-04-19] MEDS: VANCOMYCIN 1,250 MG/NS 250 ML 1,250 MG/250 ML BAG 166.67 MG IVPB (20:49)
[2024-04-19] MEDS: INSULIN GLARGINE (*BKC) 100 UNITS/ML 25 UNITS SUB-Q (20:50)
--- NOTE | 2024-04-19 22:38 | ECG_ITS ---
Test Date: 2024-04-19 22:51:57 Measurements Intervals [place] Rate: 122 P: 58 FL: 133 QRS: 18 QRSD: 105 T: 60 QT: 285 QTc: 407 Interpretive Statements SINUS TACHYCARDIA ABNORMAL ECG No previous ECG available for comparison Electronically Signed On 04-20-2024 07:09:40 WATCH ELECTRICIAN by Colt Unger D.O.
--- NOTE | 2024-04-19 22:41 | PM.EVENT ---
Event Note Event Note Event Note: 04/19/2024 23:10 Nursing staff called in as she me to come evaluate patient. Patient was having increased tachycardia and tachypnea. However he was not having any increased oxygen requirement. His respiratory rate was ranging between 28 and 35. A stat ABG was obtained which demonstrated stable respiratory alkalosis with hypoxemia with patient's pulse ox correlating to 90-92% the patient would have moments of her rapid breathing after he with cough and then his respiratory weight would improved. He had some faint crackles at the bases. His skin was hot to touch. A stat electrolyte panel was ordered to evaluate patient's anion gap and serum bicarb which were normal and stable. The patient's glucoses were within normal range. BMP did demonstrate a persistent hypokalemia. Potassium phosphate rider was ordered. On exam the patient's abdomen was distended in his bladder felt quite full. The patient stated that he thought he may be able to urinate. A bladder scan demonstrated greater than 600 mL in his bladder. Subsequently an order for Manning catheter was placed at which time the patient had immediate return of 900 mL of urine. The catheter was placed was a temperature probe Manning. The demonstrated that the patient's temperature which had been normal on oral thermometer was actually elevated to 101.6. Stat blood cultures were obtained and a UA with reflex was obtained Acute hypoxic respiratory failure Sepsis Respiratory alkalosis Hypokalemia Plan as discussed above 35 minute spent in critical care activities. Due to a high probability of clinically significant, life threatening deterioration, the patient required my highest level of preparedness to intervene emergently and I personally spent this critical care time directly and personally managing the patient. This critical care time included obtaining a history; examining the patient; pulse oximetry; ordering and review of studies; arranging urgent treatment with development of a management plan; evaluation of patient's response to treatment; frequent reassessment; and discussions with other providers. It was exclusive of separately billable procedures and treating other patients and teaching time. Please see Assessment and Plan section and the rest of the note for further information on patient assessment and treatment.
[2024-04-19 22:53] LABS: Alveolar/Arterial O2 Gradient 203.4 mmHg; Base Excess ABG 0.7 mEq/l (+/-2.0); Carboxyhemoglobin 0.5 % THb (0-2.0); Fractional Inspired Oxygen 42 %; HCO3 ABG 23.2 mEq/l (22.0-26.0); Methemoglobin ABG 0.3 %THb (0-1.5); Oxygen Content ABG 15.9 %vol (16.0-22.0); Oxygen Saturation ABG 93.6 % (95.0-100.0); Oxyhemoglobin 93.3 % THb (90.0-100.0); PCO2 ABG 30.6 mmHg (35.0-45.0); PO2 FiO2 Ratio Arterial Blood 1.45 %; Reduced Hemoglobin 5.9 %THb (0-5.0); Total Hemoglobin 12.1 g/dL (12.0-18.0); pH ABG 7.498 (7.350-7.450)
[2024-04-19 22:55] LABS: Modified Allen's Test Pass; Site Drawn RIGHT RADIAL
[2024-04-19 22:56] LABS: Device HIGH FLOW THERAPY
--- NOTE | 2024-04-19 23:06 | PC.NURSE ---
MULUGETA Ferreira notified of decline in patient condition: RR 35-45 breaths/minute, HR 120s-130s, and lethargy. Orders received for STAT EKG, Labs, and ABG. EKG obtained and Dr. Saxena at bedside to evaluate patient. Patient currently AO x 4 and wishes to be intubated if condition continues to decline. ABG obtained showing hyperventilation and Labs obtained. Patient bladder scanned and results showed > 667 mL in bladder. Received orders from Dr. Saxena for urinary catheter placement. Will continue to monitor.
[2024-04-19] MEDS: IPRATROPIUM BR 0.02% INH SOLN 0.5 MG/2.5 ML VIAL INHALATION (23:11)
[2024-04-19 23:21] LABS: Anion Gap 8 mmol/L (4-12); Blood Urea Nitrogen 20 mg/dL (9-20); Calcium 7.9 mg/dL (8.4-10.2); Carbon Dioxide 23 mmol/L (22-30); Chloride 100 mmol/L (98-107); Estimated CRCL calculation 67 ml/min; Estimated Glomerular Filt Rate > 60; Glucose 75 mg/dL (65-110); Potassium 3.2 mmol/L (3.4-5.0); Sodium 131 mmol/L (137-145)
[2024-04-19] MEDS: LIDOCAINE 2% GEL UROJET 10 ML PKG MUCOUS MEM (23:23)
[2024-04-19 23:30] LABS: NT Pro B Type Natriuretic Pept 1350 pg/mL (19.9-100)
[2024-04-19] MEDS: ACETAMINOPHEN 325 MG TABLET 650 MG PO (23:41)
[2024-04-20] VITALS (26 sets, daily range): BP systolic 108–147; BP diastolic 64–82; PULSE 100–124; RESP 16–33; TEMP 37.6–38.7; O2SAT 95–99; BMI 20.4
--- NOTE | 2024-04-20 | ECHO_ITS ---
Patient Info Name: Adrián Navarrete Age: 58 years : 1965 Gender: Male Ht: 70 in Wt: 142 lbs BSA: 1.78 m2 HR: 120 bpm BP: 132 / 72 mmHg Heart Rhythm: Tachycardia, Sinus Rhythm Technical Quality: Fair Exam Date: 04/20/2024 11:21 AM Exam Location: Echo Lab Patient Status: Inpatient Admit Date: 04/18/2024 Staff Ordering Physician: Leonardo Barajas MD Furniture And Bedding Inspector: Roxi Lacy RDCS Attending Provider: Eliecer Roberts MD Exam Type: CA echo doppler color flow Study Info Indications - Resp Failure Complete two-dimensional, color flow and Doppler transthoracic echocardiogram is performed. Summary 1. Technically difficult study with limited views. 2. Left ventricular chamber dimension is normal. 3. Left ventricular systolic function is moderately reduced, estimated at 35-40%. 4. The left ventricular diastolic function is grade I diastolic dysfunction. 5. Right ventricular systolic function is normal. 6. There is mild tricuspid valve regurgitation. 7. Normal inferior vena cava with >50% collapse upon inspiration consistent with normal right atrial pressure, 3 mmHg. Left Ventricle Left ventricular chamber dimension is normal. Left ventricular systolic function is moderately reduced, estimated at 35-40%. There is no increased left ventricular wall thickness. The left ventricular diastolic function is grade I diastolic dysfunction. Right Ventricle Right ventricular chamber dimension is normal. Right ventricular systolic function is normal. Left Atria Left atrial chamber dimension is normal. Right Atria Right atrial chamber dimension is normal. Atrial Septum Intact interatrial septum visualized by color flow imaging. Aortic Valve The aortic valve is not well visualized. There is no aortic valve stenosis. There is no aortic valve regurgitation. Pulmonic Valve The pulmonic valve is not well visualized. Mitral Valve There is trace mitral valve regurgitation. Tricuspid Valve There is mild tricuspid valve regurgitation. Pericardium/Pleural There is no pericardial effusion. Inferior Vena Cava Normal inferior vena cava with >50% collapse upon inspiration consistent with normal right atrial pressure, 3 mmHg. Aorta The aortic root size at the sinus of Valsalva is normal. Left Ventricular Outflow Tract Name Value Normal LVOT 2D LVOT Diameter 2.0 cm LVOT Doppler LVOT Peak Gradient 3 mmHg LVOT Mean Gradient 2 mmHg LVOT VTI 14 cm LVOT VTI/AV VTI Ratio 0.8 LVOT Stroke Volume 42 ml LVOT CO 4.2 l/min LVOT CI 2.4 l/min/m2 Pulmonic Valve Name Value Normal RVOT Doppler RVOT Peak Gradient 2 mmHg PV Doppler PV Peak Gradient 5 mmHg Mitral Valve Name Value Normal MV Doppler MV Decel [place] 639 cm/s2 MV PHT 32 ms MV Area (PHT) 6.8 cm2 4.0-5.0 MV Diastolic Function MV E Peak Velocity 71 cm/s MV A Peak Velocity 83 cm/s MV E/A 0.9 MV Decel Time 112 ms MV Annular TDI MV E/e' (Septal) 5.4 <=8.0 MV E/e' (Lateral) 5.9 <=8.0 MV E/e' (Average) 5.7 Tricuspid Valve Name Value Normal TV Regurgitation Doppler TR Peak Velocity 263 cm/s TR Peak Gradient 28 mmHg Estimated PAP/RSVP RA Pressure 3 mmHg <=5 PA Systolic Pressure 31 mmHg <36 RV Systolic Pressure 31 mmHg <36 Aorta Name Value Normal Ascending Aorta Ao Root Diameter (MM) 3.6 cm Ao Root Diam Index (MM) 2.0 cm/m2 Aortic Valve Name Value Normal AV Doppler AV Peak Velocity 117 cm/s AV Peak Gradient 6 mmHg AV Mean Gradient 3 mmHg AV VTI 16 cm AV Area (Cont Eq VTI) 2.6 cm2 >=3.0 AV Area (Cont Eq Enzo) 2.4 cm2 AV Regurgitation 2D LVOT Area 3.1 cm2 Ventricles Name Value Normal LV Dimensions 2D/MM IVS Diastolic Thickness (2D) 0.9 cm 0.6-1.0 LVID Diastole (2D) 5.1 cm 4.2-5.8 LVIW Diastolic Thickness (2D) 0.8 cm 0.6-1.0 LVID Systole (2D) 3.4 cm 2.5-4.0 LVOT Diameter 2.0 cm LV Mass (2D Cubed) 152.63 g 88.00-224.00 LV Mass Index (2D Cubed) 86 g/m2 49-115 Relative Wall Thickness (2D) 0.32 LV Fractional Shortening/Ejection Fraction 2D/MM LV Fractional Shortening (2D) 33 % 25-43 LV EF (2D Teichcelinez) 62 % 52-72 LV Diastolic Volume (4C MOD) 80 ml LV EF (4C MOD) 62 % LV Diastolic Volume (2C MOD) 93 ml LV EF (2C MOD) 38 % LV Diastolic Volume (BP MOD) 91 ml 62-150 LV Diastolic Volume Index (BP MOD) 51 ml/m2 34-74 LV Systolic Volume (BP MOD) 45 ml 21-61 LV Systolic Volume Index (BP MOD) 25 ml/m2 11-31 LV EF (BP MOD) 51 % 52-72 LV Diastolic Length (4C) 7.6 cm LV Systolic Length (4C) 6.2 cm LV Stroke Volume (4C MOD) 50 ml Atria Name Value Normal LA Dimensions LA Dimension (MM) 3.2 cm 3.0-4.1 LA Volume (4C A-L) 36 ml LA Volume (BP A-L) 40 ml RA Dimensions RA Area (4C) 15.8 cm2 <=18.0 Report Signatures
[2024-04-20] MEDS: DEXTROSE 5% 1,000 ML 1,000 ML 50 ML IV CONT (00:27)
[2024-04-20] MEDS: POTASSIUM PHOS,M-BASIC-D-BASIC 40 MMOL in SODIUM CHLORIDE 0.9% IV 250 ML 43.89 MMOL IVPB (00:36)
[2024-04-20 00:59] LABS: Add Urine Microscopic? YES; Appearance Urine Cloudy (Clear); Bacteria Urine None Seen /hpf; Bilirubin Urine Negative (Negative); Blood Urine 1+ (Negative); Color Urine Yellow (Yellow); Glucose Urine UA Trace mg/dL (Negative); Ketones Urine Negative (Negative); Leukocyte Esterase Ur Negative LEU/UL (Negative); Nitrate Urine Negative (Negative); Non Pathogenic Casts 0-2; Protein Urine 2+ mg/dL (Negative); RBC Urine 0-2 /hpf (0-2); Specific Grav Ur 1.017 (1.001-1.035); Squamous Epithelial Cell Urine Occasional /hpf (Few); Urobilinogen Urine 0.2 mg/dL (<2.0); WBC Urine 0-5 /hpf (0-3); pH Urine 5.5 (5.0-9.0)
[2024-04-20] MEDS: IPRATROPIUM BR 0.02% INH SOLN 0.5 MG/2.5 ML VIAL INHALATION ×2 (02:31→08:12)
[2024-04-20] MEDS: LEVALBUTEROL NEB 1.25 MG/3 ML INHALATION ×2 (02:31→08:12)
[2024-04-20 03:13] LABS: Glucose Point of Care 108 mg/dl (65-105)
[2024-04-20] MEDS: ACETAMINOPHEN 325 MG TABLET 650 MG PO ×2 (06:43→20:45)
[2024-04-20 07:11] LABS: Basophils Percent Auto 0.1 % (0.2-1.2); Hematocrit 34.6 % (42.0-52.0); Hemoglobin 11.7 g/dL (14.0-18.0); Immature Granulocyte Absolute 1.46 K/mm3 (0.00-0.031); Immature Granulocyte Percent A 8.5 % (0-0.5); Lymphocytes Absolute Auto 0.35 K/mm3 (0.9-3.2); Mean Corpuscular HGB Conc 33.8 g/dl (32-36); Mean Corpuscular Hemoglobin 28.4 pg (26-34); Mean Platelet Volume 10.6 fl (7.4-10.4); Monocytes Absolute Auto 0.2 K/mm3 (0.1-0.6); Monocytes Percent Auto 0.9 % (2.6-8.5); Neutrophils Absolute Auto 15.2 K/mm3 (1.3-6.7); Neutrophils Percent Auto 88.5 % (45.5-73.1); Platelet Count Result 239 k/mm3 (150-375); Red Blood Count 4.12 M/mm3 (4.6-6.20); Red Cell Distribution Width 15.3 % (11.5-14.5); White Blood Count 17.2 K/mm3 (4.5-10.0)
[2024-04-20 07:25] LABS: Magnesium 1.9 mg/dL (1.6-2.3)
[2024-04-20 07:26] LABS: Alanine Aminotransferase 18 U/L (6-50); Albumin Level 2.4 g/dL (3.5-5.1); Alkaline Phosphatase 214 U/L (38-126); Anion Gap 7 mmol/L (4-12); Aspartate Amino Transferase 39 U/L (17-59); Bilirubin,Total 0.6 mg/dL (0.2-1.3); Blood Urea Nitrogen 20 mg/dL (9-20); Calcium 7.6 mg/dL (8.4-10.2); Carbon Dioxide 26 mmol/L (22-30); Chloride 99 mmol/L (98-107); Estimated CRCL calculation 65 ml/min; Estimated Glomerular Filt Rate > 60; Glucose 83 mg/dL (65-110); Phosphorus 4.6 mg/dL (2.5-4.5); Potassium 3.5 mmol/L (3.4-5.0); Sodium 132 mmol/L (137-145)
[2024-04-20] MEDS: POTASSIUM BICARBONATE 25 MEQ TABEF 50 MEQ PO (09:17)
[2024-04-20] MEDS: CALCIUM GLUC 2,000 MG/NS 100ML 2,000 MG/100 ML BAG 100 MG IVPB (09:17)
[2024-04-20] MEDS: guaiFENesin 12 HR 600 MG TABCR PO ×2 (09:17→20:45)
[2024-04-20] MEDS: ENOXAPARIN 40 MG/0.4 ML SYRINGE SUB-Q (09:17)
[2024-04-20] MEDS: MUPIROCIN 2% OINT 22 GM TUBE 1 APPLIC EACH NARE ×2 (09:18→20:46)
[2024-04-20] MEDS: PANTOPRAZOLE SODIUM IV 40 MG VIAL IV PUSH (09:18)
[2024-04-20 09:44] LABS: Thyroid Stimulating Hormone Reflex 0.224 uIU/mL (0.465-4.68)
[2024-04-20 09:46] LABS: Glucose Point of Care 150 mg/dl (65-105)
[2024-04-20 10:12] LABS: Free T4 Free Thyroxine Reflex 1.43 ng/dL (0.78-2.19)
--- NOTE | 2024-04-20 10:17 | PM.IMPN ---
Progress Note: A&P Assessment and Plan (1) DKA (diabetic ketoacidosis): Qualifiers: Diabetes mellitus complication detail: without coma Diabetes mellitus type: type 2 Qualified Code(s): E11.10 - Type 2 diabetes mellitus with ketoacidosis without coma Code(s): E11.10 - Type 2 diabetes mellitus with ketoacidosis without coma Status: Acute Assessment and Plan: He presented with DKA and was treated with IV insulin and IV fluids. His DKA has resolved and he has been transition to subcutaneous insulin Currently on diabetic diet -hemoglobin A1c > 14.0 this admission - precision lens generator and dietitian consult (2) Renal failure: Qualifiers: Acute renal failure type: unspecified Renal failure chronicity: acute Qualified Code(s): N17.9 - Acute kidney failure, unspecified Code(s): N19 - Unspecified kidney failure Status: Acute Assessment and Plan: He presented with creatinine 2.46 and GFR 27, baseline creatinine unknown Improved with IV fluids creatinine is normal at continue to monitor renal function, electrolytes and urine output (3) Pneumonia: Qualifiers: Pneumonia type: due to influenza A virus Qualified Code(s): J10.00 - Influenza due to other identified influenza virus with unspecified type of pneumonia Code(s): J18.9 - Pneumonia, unspecified organism Status: Acute Assessment and Plan: Right lower lobe pneumonia on chest x-ray -continue ceftriaxone, azithromycin and vancomycin () -currently on high-flow therapy, 30 L flow rate and 40% FiO2. I have switched him to a regular cannula and he is maintaining his saturation. Cultures negative till now Continue incentive spirometry MRSA screen positive (4) Influenza A: Code(s): J10.1 - Influenza due to other identified influenza virus with other respiratory manifestations Status: Acute Assessment and Plan: Patient complained of sore throat, congestion, cough with generalized weakness, denies any fevers, chest pain on admission -04/17: influenza A positive Continue Tamiflu (5) Electrolyte abnormality: Code(s): E87.8 - Other disorders of electrolyte and fluid balance, not elsewhere classified Status: Acute Assessment and Plan: Replace low potassium and phosphorous (6) Hypoglycemia: Code(s): E16.2 - Hypoglycemia, unspecified Status: Acute Assessment and Plan: Hold Lantus Wean off D5 (7) Sinus tachycardia: Code(s): R00.0 - Tachycardia, unspecified Status: Acute Assessment and Plan: Likely secondary to combination of sepsis and scheduled bronchodilators Change bronchodilators to p.r.n. as patient does not have any significant wheezing on exam Treatment of fever Check CTA to rule out any PE (8) Sepsis: Qualifiers: Sepsis type: sepsis due to unspecified organism Sepsis acute organ dysfunction status: with acute organ dysfunction Severe sepsis acute organ dysfunction type: acute respiratory failure Acute respiratory failure type: with hypoxia Severe sepsis shock status: without septic shock Qualified Code(s): A41.9 - Sepsis, unspecified organism; R65.20 - Severe sepsis without septic shock; J96.01 - Acute respiratory failure with hypoxia Code(s): A41.9 - Sepsis, unspecified organism Status: Acute Assessment and Plan: Patient has been on broad-spectrum antibiotics with vancomycin Rocephin and azithromycin He has increase in white count and had fevers overnight UA was unremarkable. Repeat blood culture sent I will check CT chest to further evaluate to make sure patient does not have any empyema or necrotic area in the lung Plan DVT prophylaxis: Lovenox Stress ulcer prophylaxis: Protonix Nutrition: Diabetic diet Code Status: Full code Subjective Date/time seen: 04/20/24 He was febrile overnight and repeat blood cultures were sent. A repeat UA was also sent. He remains tachycardic although he has been receiving scheduled bronchodilators. He himself states that he feels better. His appetite is poor but it is improving as per the patient. He continues to have cough. He denies any chest pain but states his breathing is getting better. No nausea vomiting abdominal pain. All other systems were reviewed and were negative. He has good urine output. His blood sugars were low and he was started on D5 Interval history: Reason for consult: Diabetic ketoacidosis, influenza A nausea, vomiting, right lower lobe pneumonia Review of Systems Review of Systems: All systems reviewed & are unremarkable except as noted in HPI and below Exam Narrative: GENERAL: Ill-appearing, in no acute distress at this time HEENT: Pupils equally reactive, sclerae is clear, dry oral mucosa CHEST: Coarse breath sounds right lower lobe, no wheezing, adequate air entry HEART: S1-S2 is normal, tachycardia. ABDOMEN: Soft, nontender, nondistended. Normoactive bowel sounds EXTREMITIES: No edema, palpable pedal pulses, moves all extremities spontaneously. SKIN: Warm, dry, no rash. NEURO: Patient is awake, alert, answers questions appropriately and follows simple commands in all extremities PSYCH: Normal mentation, depressed affect. Objective Data Vital Signs Vital Signs: Vital Signs - 24 hr 04/19/24 12:00 04/19/24 12:00 04/19/24 12:00 Temperature Pulse Rate 114 H 90 115 H Respiratory Rate 27 H 30 H Blood Pressure 132/70 Pulse Oximetry 98 94 Oxygen Delivery High Flow Therapy with Na Oxygen Flow Rate 35 Fraction of Inspired Oxygen 40 04/19/24 12:00 04/19/24 12:26 04/19/24 14:00 Temperature 37.0 C Pulse Rate 113 H 116 H Respiratory Rate 20 Blood Pressure Pulse Oximetry 97 Oxygen Delivery High Flow Therapy with Na Oxygen Flow Rate 35 Fraction of Inspired Oxygen 40 04/19/24 16:00 04/19/24 16:00 04/19/24 16:00 Temperature 36.7 C Pulse Rate 113 H 112 H 114 H Respiratory Rate 24 H 26 H Blood Pressure 125/75 Pulse Oximetry 96 98 Oxygen Delivery High Flow Therapy with Na Oxygen Flow Rate 35 Fraction of Inspired Oxygen 40 04/19/24 18:00 04/19/24 20:00 04/19/24 20:00 Temperature 36.6 C Pulse Rate 116 H 116 H 119 H Respiratory Rate 28 H Blood Pressure 141/77 H Pulse Oximetry 96 Oxygen Delivery Oxygen Flow Rate Fraction of Inspired Oxygen 04/19/24 20:15 04/19/24 20:18 04/19/24 22:00 Temperature Pulse Rate 114 H 123 H Respiratory Rate 32 H Blood Pressure Pulse Oximetry 98 96 Oxygen Delivery High Flow Therapy with Na High Flow Therapy with Na Oxygen Flow Rate 35 35 Fraction of Inspired Oxygen 40 41 04/19/24 22:36 04/19/24 23:16 04/19/24 23:22 Temperature Pulse Rate 124 H 120 H 125 H Respiratory Rate 42 H 25 H 28 H Blood Pressure 145/79 H Pulse Oximetry 97 Oxygen Delivery Oxygen Flow Rate Fraction of Inspired Oxygen 04/19/24 23:41 04/19/24 23:46 04/20/24 00:00 Temperature 38.7 C H 38.7 C H Pulse Rate 119 H 115 H Respiratory Rate 32 H 30 H Blood Pressure 147/82 H Pulse Oximetry 95 96 Oxygen Delivery High Flow Therapy with Na Oxygen Flow Rate 35 Fraction of Inspired Oxygen 42 04/20/24 00:00 04/20/24 00:41 04/20/24 02:00 Temperature 38.4 C H Pulse Rate 117 H 102 H Respiratory Rate Blood Pressure Pulse Oximetry Oxygen Delivery Oxygen Flow Rate Fraction of Inspired Oxygen 04/20/24 02:13 04/20/24 02:31 04/20/24 02:50 Temperature 37.6 C Pulse Rate 104 H 102 H 107 H Respiratory Rate 29 H 20 21 H Blood Pressure 108/64 Pulse Oximetry 95 Oxygen Delivery Oxygen Flow Rate Fraction of Inspired Oxygen 04/20/24 03:40 04/20/24 04:00 04/20/24 04:00 Temperature 37.8 C H Pulse Rate 110 H 112 H 112 H Respiratory Rate 32 H 28 H Blood Pressure 132/72 Pulse Oximetry 97 98 Oxygen Delivery High Flow Therapy with Na Oxygen Flow Rate 35 Fraction of Inspired Oxygen 42 04/20/24 06:00 04/20/24 06:43 04/20/24 07:30 Temperature 38.7 C H 38.0 C H Pulse Rate 121 H Respiratory Rate Blood Pressure Pulse Oximetry Oxygen Delivery Oxygen Flow Rate Fraction of Inspired Oxygen 04/20/24 08:15 04/20/24 08:15 04/20/24 08:40 Temperature Pulse Rate 120 H 120 H Respiratory Rate 20 20 Blood Pressure Pulse Oximetry 95 Oxygen Delivery High Flow Therapy with Na Oxygen Flow Rate 40 Fraction of Inspired Oxygen 39 04/20/24 09:01 Temperature Pulse Rate 116 H Respiratory Rate 20 Blood Pressure Pulse Oximetry 95 Oxygen Delivery High Flow Nasal Cannula Oxygen Flow Rate 8 Fraction of Inspired Oxygen Intake/Output Intake/Output: Intake & Output 04/17/24 04/18/24 04/19/24 04/20/24 23:59 23:59 23:59 23:59 Intake Total 4279.0 4171.0 4746 870.5944 Output Total 2047 740 3587 1400 Balance 2729.0 3696.0 -60 -536.6667 Meds/Results Medications: Active Medications Generic Name Dose Route Start Last Admin Trade Name Freq PRN Reason Stop Dose Admin Acetaminophen 650 mg 04/17/24 13:32 04/20/24 06:43 Acetaminophen 325 Mg Tablet PO 650 mg Q4H PRN Administration Mild Pain (1-3) or Fever Benzocaine 1 lozenge 04/17/24 13:32 Benzocaine/Menthol (*Bkc) 18 Ea Lozenge PO PRN PRN Sore Throat Benzonatate 100 mg 04/17/24 13:32 Benzonatate 100 Mg Capsule PO TID PRN Cough Dextrose 12.5 gm 04/17/24 17:17 Dextrose 50% 25 Gm/50 Ml Syringe IV PUSH PRN PRN Hypoglycemia Protocol Enoxaparin Sodium 40 mg 04/18/24 09:00 04/20/24 09:17 Enoxaparin 40 Mg/0.4 Ml Syringe SUB-Q 40 mg DAILY MARYCHUY Administration Glucagon 1 mg 04/17/24 17:17 Glucagon For Inj 1 Mg Vial IM PRN PRN Hypoglycemia Protocol Glucose 15 gm 04/17/24 17:17 Glucose Oral Gel 15 Gm Of Glucse In 37.5 Gm Tube PO PRN PRN Hypoglycemia Protocol Guaifenesin 600 mg 04/17/24 21:00 04/20/24 09:17 Guaifenesin 12 Hr 600 Mg Tabcr PO 600 mg Q12HR MARYCHUY Administration Ceftriaxone Sodium 2 gm in 100 mls @ 200 mls/hr 04/17/24 15:00 04/19/24 15:56 Rocephin 2 Gm/Ns 100 Ml IVPB 200 mls/hr Q24H MARYCHUY Administration Azithromycin 500 mg in 250 mls @ 250 mls/hr 04/17/24 16:00 04/19/24 16:30 Zithromax IVPB 04/22/24 15:59 250 mls/hr Q24H MARYCHUY Administration Dextrose 1,000 mls @ 100 mls/hr 04/17/24 17:17 Dextrose 5% 1,000 Ml IVPB PRN PRN Hypoglycemia Protocol Vancomycin HCl 1,250 mg in 250 mls @ 166.667 mls/hr 04/18/24 20:00 04/19/24 22:20 Vancomycin 1,250 Mg/Ns 250 Ml IVPB Infused Q24H MARYCHUY Infusion Dextrose 1,000 mls @ 50 mls/hr 04/20/24 00:15 04/20/24 00:27 Dextrose 5% 1,000 Ml IV CONT 50 mls/hr .Q20H MARYCHUY Administration Insulin Aspart 4 - 8 units 04/18/24 08:00 04/20/24 09:21 Insulin Aspart (*Bkc) 100 Units/Ml SUB-Q Not Given TIDWM MARYCHUY Protocol Insulin Aspart 2 - 4 units 04/18/24 21:00 04/19/24 20:40 Insulin Aspart (*Bkc) 100 Units/Ml SUB-Q Not Given HS [facility] Protocol Ipratropium [place] 0.5 mg 04/20/24 08:46 Ipratropium Br 0.02% Inh Soln 0.5 Mg/2.5 Ml Vial INHALATION Q6HRT PRN Wheezing Levalbuterol HCl 1.25 mg 04/20/24 08:46 Levalbuterol Neb 1.25 Mg/3 Ml INHALATION Q6HRT PRN Wheezing Mupirocin 1 applic 04/17/24 21:00 04/20/24 09:18 Mupirocin 2% Oint 22 Gm Tube EACH NARE 04/22/24 09:01 1 applic Q12HR MARYCHUY Administration Ondansetron HCl 4 mg 04/17/24 12:03 Ondansetron Inj 4 Mg/2 Ml Vial IV PUSH Q4H PRN Nausea Oseltamivir Phosphate 30 mg 04/17/24 12:00 04/19/24 12:33 Oseltamivir Phosphate 30 Mg Capsule PO 04/22/24 11:59 30 mg Q24H MARYCHUY Administration Pantoprazole Sodium 40 mg 04/18/24 09:00 04/20/24 09:18 Pantoprazole Sodium Iv 40 Mg Vial IV PUSH 40 mg QAM MARYCHUY Administration Perflutren Lipid Microsphere 0 ml 04/20/24 08:42 Perflutren Lipid Microspheres 1.5 Ml Vial Diluted To 10 Ml Total Volume IV PUSH 04/23/24 08:42 ONCE PRN adequate visualization Protocol Radiology Results: ITS Impressions Chest X-Ray 04/20/24 08:14 Impression: Stable extensive right lower lobe pneumonia. Minimal right pleural effusion. Labs Labs: Laboratory Results - last 24 hr 04/19/24 04/19/24 04/19/24 11:06 11:31 12:14 WBC RBC Hgb Hct MCV MCH MCHC RDW Plt Count MPV Immature Gran % (Auto) Neut % (Auto) Lymph % (Auto) [place] % (Auto) Eos % (Auto) Baso % (Auto) Lymph # (Auto) [place] # (Auto) Eos # (Auto) Baso # (Auto) Abs Immat Gran (auto) Absolute Neuts (auto) Absolute Nucleated RBC Nucleated RBC % Puncture Site ABG pH ABG pCO2 ABG pO2 ABG PO2/FiO2 Ratio ABG HCO3 ABG O2 Saturation ABG O2 Content ABG Base Excess A-a Gradient Oxyhemoglobin Carboxyhemoglobin Methemoglobin Reduced Hemoglobin Total Hemoglobin O2 Delivery Device O2 Liters/Min FiO2 Sodium Potassium Chloride Carbon Dioxide Anion Gap BUN Creatinine Estim Creat Clear Calc Estimated GFR Glucose POC Capillary Glucose 67 87 88 Calcium Phosphorus Magnesium Total Bilirubin AST ALT Alkaline Phosphatase NT-Pro-B Natriuret Pep Total Protein Albumin TSH (Reflex) Free T4 Urine Color Urine Appearance Urine pH Ur Specific [place] Urine Protein Urine Glucose (UA) Urine Ketones Ur Blood (Man) Urine Nitrate Urine Bilirubin Urine Urobilinogen Leukocyte Esterase Rfl Urine RBC Urine WBC Ur Squamous Epith Cells Urine Bacteria Urine Casts 04/19/24 04/19/24 04/19/24 16:06 20:34 22:44 WBC RBC Hgb Hct MCV MCH MCHC RDW Plt Count MPV Immature Gran % (Auto) Neut % (Auto) Lymph % (Auto) [place] % (Auto) Eos % (Auto) Baso % (Auto) Lymph # (Auto) [place] # (Auto) Eos # (Auto) Baso # (Auto) Abs Immat Gran (auto) Absolute Neuts (auto) Absolute Nucleated RBC Nucleated RBC % Puncture Site Right radial ABG pH 7.498 H ABG pCO2 30.6 L ABG pO2 61.0 L ABG PO2/FiO2 Ratio 1.45 ABG HCO3 23.2 ABG O2 Saturation 93.6 L ABG O2 Content 15.9 L ABG Base Excess 0.7 A-a Gradient 203.4 Oxyhemoglobin 93.3 Carboxyhemoglobin 0.5 Methemoglobin 0.3 Reduced Hemoglobin 5.9 H Total Hemoglobin 12.1 O2 Delivery Device High flow therapy O2 Liters/Min 35.0 FiO2 42 Sodium Potassium Chloride Carbon Dioxide Anion Gap BUN Creatinine Estim Creat Clear Calc Estimated GFR Glucose POC Capillary Glucose 94 96 Calcium Phosphorus Magnesium Total Bilirubin AST ALT Alkaline Phosphatase NT-Pro-B Natriuret Pep Total Protein Albumin TSH (Reflex) Free T4 Urine Color Urine Appearance Urine pH Ur Specific [place] Urine Protein Urine Glucose (UA) Urine Ketones Ur Blood (Man) Urine Nitrate Urine Bilirubin Urine Urobilinogen Leukocyte Esterase Rfl Urine RBC Urine WBC Ur Squamous Epith Cells Urine Bacteria Urine Casts 04/19/24 04/20/24 04/20/24 22:58 00:47 03:11 WBC RBC Hgb Hct MCV MCH MCHC RDW Plt Count MPV Immature Gran % (Auto) Neut % (Auto) Lymph % (Auto) [place] % (Auto) Eos % (Auto) Baso % (Auto) Lymph # (Auto) [place] # (Auto) Eos # (Auto) Baso # (Auto) Abs Immat Gran (auto) Absolute Neuts (auto) Absolute Nucleated RBC Nucleated RBC % Puncture Site ABG pH ABG pCO2 ABG pO2 ABG PO2/FiO2 Ratio ABG HCO3 ABG O2 Saturation ABG O2 Content ABG Base Excess A-a Gradient Oxyhemoglobin Carboxyhemoglobin Methemoglobin Reduced Hemoglobin Total Hemoglobin O2 Delivery Device O2 Liters/Min FiO2 Sodium 131 L Potassium 3.2 L Chloride 100 Carbon Dioxide 23 Anion Gap 8 BUN 20 Creatinine 0.93 Estim Creat Clear Calc 67 Estimated GFR > 60 Glucose 75 POC Capillary Glucose 108 H Calcium 7.9 L Phosphorus Magnesium Total Bilirubin AST ALT Alkaline Phosphatase NT-Pro-B Natriuret Pep 1350 H Total Protein Albumin TSH (Reflex) Free T4 Urine Color Yellow Urine Appearance Cloudy H Urine pH 5.5 Ur Specific [place] 1.017 Urine Protein 2+ H Urine Glucose (UA) Trace H Urine Ketones Negative Ur Blood (Man) 1+ H Urine Nitrate Negative Urine Bilirubin Negative Urine Urobilinogen 0.2 Leukocyte Esterase Rfl Negative Urine RBC 0-2 Urine WBC 0-5 Ur Squamous Epith Cells Occasional Urine Bacteria None seen Urine Casts 0-2 04/20/24 04/20/24 07:03 09:21 WBC 17.2 H RBC 4.12 L Hgb 11.7 L Hct 34.6 L MCV 84.0 MCH 28.4 MCHC 33.8 RDW 15.3 H Plt Count 239 MPV 10.6 H Immature Gran % (Auto) 8.5 H Neut % (Auto) 88.5 H Lymph % (Auto) 2.0 L [place] % (Auto) 0.9 L Eos % (Auto) 0.0 Baso % (Auto) 0.1 L Lymph # (Auto) 0.35 L [place] # (Auto) 0.2 Eos # (Auto) 0.0 Baso # (Auto) 0.0 Abs Immat Gran (auto) 1.46 H Absolute Neuts (auto) 15.2 H Absolute Nucleated RBC 0.000 Nucleated RBC % 0.0 Puncture Site ABG pH ABG pCO2 ABG pO2 ABG PO2/FiO2 Ratio ABG HCO3 ABG O2 Saturation ABG O2 Content ABG Base Excess A-a Gradient Oxyhemoglobin Carboxyhemoglobin Methemoglobin Reduced Hemoglobin Total Hemoglobin O2 Delivery Device O2 Liters/Min FiO2 Sodium 132 L Potassium 3.5 Chloride 99 Carbon Dioxide 26 Anion Gap 7 BUN 20 Creatinine 0.97 Estim Creat Clear Calc 65 Estimated GFR > 60 Glucose 83 POC Capillary Glucose 150 H Calcium 7.6 L Phosphorus 4.6 H Magnesium 1.9 Total Bilirubin 0.6 AST 39 ALT 18 Alkaline Phosphatase 214 H NT-Pro-B Natriuret Pep Total Protein 6.0 L Albumin 2.4 L TSH (Reflex) 0.224 L Free T4 1.43 Urine Color Urine Appearance Urine pH Ur Specific [place] Urine Protein Urine Glucose (UA) Urine Ketones Ur Blood (Man) Urine Nitrate Urine Bilirubin Urine Urobilinogen Leukocyte Esterase Rfl Urine RBC Urine WBC Ur Squamous Epith Cells Urine Bacteria Urine Casts Quality VTE Prophylaxis VTE prophylaxis: pharmacologic ordered
[2024-04-20 11:07] LABS: Total Triiodothyronine (T3) 0.55 NG/ML (0.97-1.69)
[2024-04-20] MEDS: OSELTAMIVIR PHOSPHATE 30 MG CAPSULE PO (12:14)
[2024-04-20 12:20] LABS: Glucose Point of Care 156 mg/dl (65-105)
[2024-04-20] MEDS: cefTRIAXone 2 GM/NS 100 ML 2 GM/100 ML BAG IVPB (16:08)
[2024-04-20] MEDS: AZITHROMYCIN 500 MG/NS 250 ML 500 MG/250 ML BAG 250 MG IVPB (16:08)
[2024-04-20 16:19] LABS: Glucose Point of Care 133 mg/dl (65-105)
[2024-04-20] MEDS: ONDANSETRON INJ 4 MG/2 ML VIAL IV PUSH (17:16)
[2024-04-20 20:17] LABS: Glucose Point of Care 151 mg/dl (65-105)
[2024-04-20] MEDS: BENZONATATE 100 MG CAPSULE PO (20:46)
[2024-04-20 21:01] LABS: Vancomycin Trough 6.8 ug/mL (10.0-20.0)
[2024-04-20] MEDS: VANCOMYCIN 1,250 MG/NS 250 ML 1,250 MG/250 ML BAG 166.67 MG IVPB (21:54)
[2024-04-21] VITALS (19 sets, daily range): BP systolic 123–142; BP diastolic 71–83; PULSE 99–120; RESP 18–33; TEMP 37.4–38.8; O2SAT 90–98
--- NOTE | 2024-04-21 02:31 | ECG_ITS ---
Test Date: 2024-04-21 02:41:16 Measurements Intervals [place] Rate: 101 P: -2 HI: 123 QRS: 29 QRSD: 105 T: -5 QT: 337 QTc: 439 Interpretive Statements SINUS TACHYCARDIA POSSIBLE LEFT ATRIAL ENLARGEMENT INCOMPLETE RIGHT BUNDLE BRANCH BLOCK DELAYED PRECORDIAL R/S TRANSITION BORDERLINE T WAVE ABNORMALITY- INFERIOR LEADS BORDERLINE ECG Compared to ECG 04/19/2024 22:51:57 HEART RATE HAS DECREASED Electronically Signed On 04-21-2024 06:04:30 [employer]PER[employer] by Colt Unger D.O.
[2024-04-21] MEDS: MORPHINE SULFATE (*CRX) 4 MG/ML INJ IV PUSH (02:46)
[2024-04-21 03:03] LABS: Hematocrit 34.9 % (42.0-52.0); Hemoglobin 11.7 g/dL (14.0-18.0); Mean Corpuscular HGB Conc 33.5 g/dl (32-36); Mean Corpuscular Hemoglobin 27.8 pg (26-34); Mean Corpuscular Volume 82.9 fl (80-100); Mean Platelet Volume 10.3 fl (7.4-10.4); Platelet Count Result 251 k/mm3 (150-375); Red Blood Count 4.21 M/mm3 (4.6-6.20); White Blood Count 13.9 K/mm3 (4.5-10.0)
[2024-04-21 03:14] LABS: Alanine Aminotransferase 18 U/L (6-50); Albumin Level 2.3 g/dL (3.5-5.1); Alkaline Phosphatase 248 U/L (38-126); Anion Gap 6 mmol/L (4-12); Aspartate Amino Transferase 32 U/L (17-59); Bilirubin,Total 0.5 mg/dL (0.2-1.3); Blood Urea Nitrogen 17 mg/dL (9-20); Calcium 7.9 mg/dL (8.4-10.2); Carbon Dioxide 26 mmol/L (22-30); Chloride 98 mmol/L (98-107); Estimated CRCL calculation 72 ml/min; Estimated Glomerular Filt Rate > 60; Glucose 185 mg/dL (65-110); Magnesium 1.8 mg/dL (1.6-2.3); Potassium 3.6 mmol/L (3.4-5.0); Sodium 130 mmol/L (137-145)
[2024-04-21 03:24] LABS: Troponin I < 0.012 ng/mL (0.000-0.034)
[2024-04-21 08:17] LABS: Glucose Point of Care 161 mg/dl (65-105)
--- NOTE | 2024-04-21 09:24 | P.PNIM_ITS ---
Progress Note: A&P Assessment and Plan (1) DKA (diabetic ketoacidosis): Qualifiers: Diabetes mellitus complication detail: without coma Diabetes mellitus type: type 2 Qualified Code(s): E11.10 - Type 2 diabetes mellitus with ketoacidosis without coma Code(s): E11.10 - Type 2 diabetes mellitus with ketoacidosis without coma Status: Acute Assessment and Plan: Resolved He presented with DKA and was treated with IV insulin and IV fluids. 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 admission workers compensation attorney and dietitian consult (2) Renal failure: Qualifiers: Acute renal failure type: unspecified Renal failure chronicity: acute Qualified Code(s): N17.9 - Acute kidney failure, unspecified Code(s): N19 - Unspecified kidney failure Status: Acute Assessment and Plan: He presented with creatinine 2.46 and GFR 27, baseline creatinine unknown Improved with IV fluids creatinine is normal at continue to monitor renal function, electrolytes and urine output (3) Pneumonia: Qualifiers: Pneumonia type: due to influenza A virus Qualified Code(s): J10.00 - Influenza due to other identified influenza virus with unspecified type of pneumonia Code(s): J18.9 - Pneumonia, unspecified organism Status: Acute Assessment and Plan: Right lower lobe pneumonia on chest x-ray Pt has been on ceftriaxone, azithromycin and vancomycin (02/14) On 6 L NC Cultures negative till now Continue incentive spirometry MRSA screen positive 04/21 He continues to be febrile. CT shows R pleural effusion. Will request IR for diagnostic thoracentesis Chnage Rocephin to Cefepime (4) Influenza A: Code(s): J10.1 - Influenza due to other identified influenza virus with other respiratory manifestations Status: Acute Assessment and Plan: Patient complained of sore throat, congestion, cough with generalized weakness, denies any fevers, chest pain on admission -04/17: influenza A positive Continue Tamiflu (5) Electrolyte abnormality: Code(s): E87.8 - Other disorders of electrolyte and fluid balance, not elsewhere classified Status: Acute Assessment and Plan: Replace low potassium and Calcium (6) Hypoglycemia: Code(s): E16.2 - Hypoglycemia, unspecified Status: Acute Assessment and Plan: Resolved. Off D5 (7) Sinus tachycardia: Code(s): R00.0 - Tachycardia, unspecified Status: Acute Assessment and Plan: Likely secondary to combination of sepsis and scheduled bronchodilators Change bronchodilators to p.r.n. as patient does not have any significant wheezing on exam Treatment of fever and PNA CTA negative for PE (8) Sepsis: Qualifiers: Acute respiratory failure type: with hypoxia Sepsis acute organ dysfunction status: with acute organ dysfunction Sepsis type: sepsis due to unspecified organism Severe sepsis acute organ dysfunction type: acute respiratory failure Severe sepsis shock status: without septic shock Qualified Code(s): A41.9 - Sepsis, unspecified organism; R65.20 - Severe sepsis without septic shock; J96.01 - Acute respiratory failure with hypoxia Code(s): A41.9 - Sepsis, unspecified organism Status: Acute Assessment and Plan: Patient has been on broad-spectrum antibiotics with vancomycin Rocephin and azithromycin He has increase in white count and had fevers overnight UA was unremarkable. Repeat blood culture sent CT chest reviewed Plan for diagnostic thoracentesis Plan DVT prophylaxis: Lovenox Stress ulcer prophylaxis: Protonix Nutrition: Diabetic diet Code Status: Full code Subjective Date/time seen: 04/21/24 He was febrile again overnight but states that he feels better overall. He continues to have cough which is productive. He denies any sense of fever. He states he does have chest pain on deep breathing and coughing. He does not feel short of breath. He states his appetite has improved and he is eating more. He denies any abdominal pain he. He has had an chair yesterday and is now using incentive spirometry. All other systems were reviewed and were negative. He is on 6 L nasal cannula. He has good urine output. His blood sugar improved and he was weaned off of dextrose infusion yesterday. Interval history: Reason for consult: Diabetic ketoacidosis, influenza A nausea, vomiting, right lower lobe pneumonia Review of Systems Review of Systems: All systems reviewed & are unremarkable except as noted in HPI and below Exam Narrative: GENERAL: Ill-appearing, in no acute distress at this time HEENT: Pupils equally reactive, sclerae is clear, dry oral mucosa CHEST: Coarse breath sounds right lower lobe, no wheezing, adequate air entry HEART: S1-S2 is normal, tachycardia. ABDOMEN: Soft, nontender, nondistended. Normoactive bowel sounds EXTREMITIES: No edema, palpable pedal pulses, moves all extremities spontaneously. SKIN: Warm, dry, no rash. NEURO: Patient is awake, alert, answers questions appropriately and follows simple commands in all extremities PSYCH: Normal mentation, depressed affect. Objective Data Vital Signs Vital Signs: Vital Signs - 24 hr 04/20/24 10:00 04/20/24 12:00 04/20/24 12:00 Temperature Pulse Rate 103 H 108 H 110 H Respiratory Rate 26 H Blood Pressure Pulse Oximetry 95 Oxygen Delivery High Flow Nasal Cannula Oxygen Flow Rate 6 04/20/24 12:00 04/20/24 14:00 04/20/24 16:00 Temperature 37.9 C H Pulse Rate 110 H 114 H 122 H Respiratory Rate 30 H Blood Pressure 135/79 Pulse Oximetry 99 Oxygen Delivery Oxygen Flow Rate 04/20/24 16:00 04/20/24 16:00 04/20/24 18:00 Temperature 37.8 C H Pulse Rate 122 H 111 H 105 H Respiratory Rate 32 H 24 H Blood Pressure 146/78 H Pulse Oximetry 96 96 Oxygen Delivery High Flow Nasal Cannula Oxygen Flow Rate 6 04/20/24 19:40 04/20/24 20:00 04/20/24 20:00 Temperature 38.5 C H Pulse Rate 118 H 116 H 118 H Respiratory Rate 24 H 16 Blood Pressure 137/79 Pulse Oximetry 97 97 Oxygen Delivery High Flow Nasal Cannula Oxygen Flow Rate 6 04/20/24 20:45 04/20/24 21:45 04/20/24 22:00 Temperature 38.4 C H 38.5 C H Pulse Rate 115 H Respiratory Rate Blood Pressure Pulse Oximetry Oxygen Delivery Oxygen Flow Rate 04/20/24 23:35 04/21/24 00:00 04/21/24 00:00 Temperature 37.4 C Pulse Rate 100 100 99 Respiratory Rate 33 H 33 H Blood Pressure 139/80 Pulse Oximetry 95 95 Oxygen Delivery High Flow Nasal Cannula Oxygen Flow Rate 6 04/21/24 02:00 04/21/24 03:30 04/21/24 04:00 Temperature Pulse Rate 105 H 111 H 111 H Respiratory Rate 30 H Blood Pressure Pulse Oximetry 90 Oxygen Delivery High Flow Nasal Cannula Oxygen Flow Rate 6 04/21/24 04:00 04/21/24 06:00 Temperature 37.8 C H Pulse Rate 107 H 115 H Respiratory Rate 18 Blood Pressure 142/83 H Pulse Oximetry 96 Oxygen Delivery Oxygen Flow Rate Intake/Output Intake/Output: Intake & Output 02/17/25 02/18/25 02/19/25 02/20/25 23:59 23:59 23:59 23:59 Intake Total 4171.0 1989 2189.9333 200 Output Total 475 1700 2690 1600 Balance 3696.0 290 -500.0667 -1400 Meds/Results Medications: Active Medications Generic Name Dose Route Start Last Admin Trade Name Freq PRN Reason Stop Dose Admin Acetaminophen 650 mg 04/17/24 13:32 04/20/24 20:45 Acetaminophen 325 Mg Tablet PO 650 mg Q4H PRN Administration Mild Pain (1-3) or Fever Benzocaine 1 lozenge 04/17/24 13:32 Benzocaine/Menthol (*Bkc) 18 Ea Lozenge PO PRN PRN Sore Throat Benzonatate 100 mg 04/17/24 13:32 04/20/24 20:46 Benzonatate 100 Mg Capsule PO 100 mg TID PRN Administration Cough Dextrose 12.5 gm 04/17/24 17:17 Dextrose 50% 25 Gm/50 Ml Syringe IV PUSH PRN PRN Hypoglycemia Protocol Enoxaparin Sodium 40 mg 04/18/24 09:00 04/20/24 09:17 Enoxaparin 40 Mg/0.4 Ml Syringe SUB-Q 40 mg DAILY MARYCHUY Administration Glucagon 1 mg 04/17/24 17:17 Glucagon For Inj 1 Mg Vial IM PRN PRN Hypoglycemia Protocol Glucose 15 gm 04/17/24 17:17 Glucose Oral Gel 15 Gm Of Glucse In 37.5 Gm Tube PO PRN PRN Hypoglycemia Protocol Guaifenesin 600 mg 04/17/24 21:00 04/20/24 20:45 Guaifenesin 12 Hr 600 Mg Tabcr PO 600 mg Q12HR MARYCHUY Administration Ceftriaxone Sodium 2 gm in 100 mls @ 200 mls/hr 04/17/24 15:00 04/20/24 16:38 Rocephin 2 Gm/Ns 100 Ml IVPB Infused Q24H MARYCHUY Infusion Azithromycin 500 mg in 250 mls @ 250 mls/hr 04/17/24 16:00 04/20/24 17:08 Zithromax IVPB 04/22/24 15:59 Infused Q24H MARYCHUY Infusion Dextrose 1,000 mls @ 100 mls/hr 04/17/24 17:17 Dextrose 5% 1,000 Ml IVPB PRN PRN Hypoglycemia Protocol Vancomycin HCl 1,250 mg in 250 mls @ 166.667 mls/hr 04/20/24 21:00 04/20/24 23:33 Vancomycin 1,250 Mg/Ns 250 Ml IVPB Infused Q12H MARYCHUY Infusion Magnesium Sulfate 2 gm in 50 mls @ 25 mls/hr 04/21/24 08:02 Magnesium Sulf 2 Gm/Water 50ml IVPB 04/21/24 10:01 ONCE ONE Insulin Aspart 4 - 8 units 04/18/24 08:00 04/21/24 09:03 Insulin Aspart (*Bkc) 100 Units/Ml SUB-Q Not Given TIDWM MARYCHUY Protocol Insulin Aspart 2 - 4 units 04/18/24 21:00 04/20/24 20:10 Insulin Aspart (*Bkc) 100 Units/Ml SUB-Q Not Given HS MARYCHUY Protocol Ipratropium [place] 0.5 mg 04/20/24 08:46 Ipratropium Br 0.02% Inh Soln 0.5 Mg/2.5 Ml Vial INHALATION Q6HRT PRN Wheezing Levalbuterol HCl 1.25 mg 04/20/24 08:46 Levalbuterol Neb 1.25 Mg/3 Ml INHALATION Q6HRT PRN Wheezing Mupirocin 1 applic 04/17/24 21:00 04/20/24 20:46 Mupirocin 2% Oint 22 Gm Tube EACH NARE 04/22/24 09:01 1 applic Q12HR MARYCHUY Administration Ondansetron HCl 4 mg 04/17/24 12:03 04/20/24 17:16 Ondansetron Inj 4 Mg/2 Ml Vial IV PUSH 4 mg Q4H PRN Administration Nausea Oseltamivir Phosphate 30 mg 04/17/24 12:00 04/20/24 12:14 Oseltamivir Phosphate 30 Mg Capsule PO 04/22/24 11:59 30 mg Q24H MARYCHUY Administration Pantoprazole Sodium 40 mg 04/18/24 09:00 04/20/24 09:18 Pantoprazole Sodium Iv 40 Mg Vial IV PUSH 40 mg QAM MARYCHUY Administration Perflutren Lipid Microsphere 0 ml 04/20/24 08:42 Perflutren Lipid Microspheres 1.5 Ml Vial Diluted To 10 Ml Total Volume IV PUSH 04/23/24 08:42 ONCE PRN adequate visualization Protocol Radiology Results: ITS Impressions Chest X-Ray 04/20/24 08:14 Impression: Stable extensive right lower lobe pneumonia. Minimal right pleural effusion. Chest CTA 04/20/24 13:44 Impression: No evidence of pulmonary embolus, aortic dissection, or aortic aneurysm. Right lower lobar pneumonia. [id number] pleural effusion and small left pleural effusion. Labs Labs: Laboratory Results - last 24 hr 04/20/24 04/20/24 04/20/24 07:03 09:21 12:12 WBC RBC Hgb Hct MCV MCH MCHC RDW Plt Count MPV Sodium Potassium Chloride Carbon Dioxide Anion Gap BUN Creatinine Estim Creat Clear Calc Estimated GFR Glucose POC Capillary Glucose 150 H 156 H Calcium Magnesium Total Bilirubin AST ALT Alkaline Phosphatase Troponin I Total Protein Albumin TSH (Reflex) 0.224 L Free T4 1.43 Total T3 0.55 L Vancomycin Trough 04/20/24 04/20/24 04/20/24 16:05 20:02 20:03 WBC RBC Hgb Hct MCV MCH MCHC RDW Plt Count MPV Sodium Potassium Chloride Carbon Dioxide Anion Gap BUN Creatinine Estim Creat Clear Calc Estimated GFR Glucose POC Capillary Glucose 133 H 151 H Calcium Magnesium Total Bilirubin AST ALT Alkaline Phosphatase Troponin I Total Protein Albumin TSH (Reflex) Free T4 Total T3 Vancomycin Trough 6.8 L 04/21/24 04/21/24 04/21/24 02:58 02:59 08:04 WBC 13.9 H RBC 4.21 L Hgb 11.7 L Hct 34.9 L MCV 82.9 MCH 27.8 MCHC 33.5 RDW 15.0 H Plt Count 251 MPV 10.3 Sodium 130 L Potassium 3.6 Chloride 98 Carbon Dioxide 26 Anion Gap 6 BUN 17 Creatinine 0.87 Estim Creat Clear Calc 72 Estimated GFR > 60 Glucose 185 H POC Capillary Glucose 161 H Calcium 7.9 L Magnesium 1.8 Total Bilirubin 0.5 AST 32 ALT 18 Alkaline Phosphatase 248 H Troponin I < 0.012 Total Protein 6.0 L Albumin 2.3 L TSH (Reflex) Free T4 Total T3 Vancomycin Trough Quality VTE Prophylaxis VTE prophylaxis: pharmacologic ordered
[2024-04-21 09:30] LABS: Partial Thromboplastin Time 33.5 Seconds (22.3-36.8); Prothrombin Time 13.9 Seconds (11.1-14.7)
[2024-04-21] MEDS: MAGNESIUM SULF 2 GM/WATER 50ML 2 GM/50 ML BAG IVPB (09:45)
[2024-04-21] MEDS: VANCOMYCIN 1,250 MG/NS 250 ML 1,250 MG/250 ML BAG 166.67 MG IVPB ×2 (09:46→20:48)
[2024-04-21] MEDS: CALCIUM GLUC 2,000 MG/NS 100ML 2,000 MG/100 ML BAG 100 MG IVPB (09:47)
[2024-04-21] MEDS: PANTOPRAZOLE SODIUM IV 40 MG VIAL IV PUSH (09:47)
[2024-04-21] MEDS: ACETAMINOPHEN 325 MG TABLET 650 MG PO (09:47)
[2024-04-21] MEDS: guaiFENesin 12 HR 600 MG TABCR PO ×2 (09:48→20:50)
[2024-04-21] MEDS: BENZONATATE 100 MG CAPSULE PO ×2 (09:48→20:50)
[2024-04-21] MEDS: POTASSIUM CHLORIDE 20 MEQ PACKET (FOR LIQUID) 40 MEQ PO (09:48)
[2024-04-21] MEDS: MUPIROCIN 2% OINT 22 GM TUBE 1 APPLIC EACH NARE ×2 (09:49→20:52)
[2024-04-21 10:17] LABS: Lactate Dehydrogenase 168 U/L (120-246)
[2024-04-21 11:34] LABS: Glucose Point of Care 155 mg/dl (65-105)
[2024-04-21] MEDS: OSELTAMIVIR PHOSPHATE 30 MG CAPSULE PO (12:55)
--- NOTE | 2024-04-21 14:40 | PCPTNOTE ---
Attempted PT evaluation this date however pt was getting a thoracentesis. Will continue to attempt.
[2024-04-21 15:06] LABS: pH Pleural Fluid 7.487 (7.210-7.500)
[2024-04-21] MEDS: cefTRIAXone 2 GM/NS 100 ML 2 GM/100 ML BAG IVPB (15:45)
[2024-04-21] MEDS: AZITHROMYCIN 500 MG/NS 250 ML 500 MG/250 ML BAG 250 MG IVPB (16:30)
[2024-04-21 16:39] LABS: Appearance Pleural Fluid Cloudy (Clear); Color Pleural Fluid Yellow (Colorless); Lymphocytes Pleural Fluid 6 %; Macrophages Pleural Fluid 14 %; Mesothelial Cells Pleural Flui 3 %; Neutrophils Pleural Fluid 77 % (0-25); Nucleated Cell Pleural Fluid 7218 /uL (0-1000); Pleural fluid source Pleural fluid; RBC Pleural Fluid 2000 /uL (0-10000)
[2024-04-21 17:09] LABS: Glucose Point of Care 192 mg/dl (65-105)
[2024-04-21 20:10] LABS: Glucose Point of Care 301 mg/dl (65-105)
[2024-04-21] MEDS: INSULIN GLARGINE (*BKC) 100 UNITS/ML 30 UNITS SUB-Q (20:50)
[2024-04-21] MEDS: INSULIN ASPART (*BKC) 100 UNITS/ML SUB-Q (20:51)
[2024-04-22] VITALS (12 sets, daily range): BP systolic 132–161; BP diastolic 66–81; PULSE 87–118; RESP 20–26; TEMP 36.8–38.8; O2SAT 92–98
[2024-04-22] MEDS: ACETAMINOPHEN 325 MG TABLET 650 MG PO ×2 (05:49→15:30)
[2024-04-22 07:59] LABS: Glucose Point of Care 236 mg/dl (65-105)
[2024-04-22 08:05] LABS: Hematocrit 31.2 % (42.0-52.0); Hemoglobin 10.3 g/dL (14.0-18.0); Mean Corpuscular Hemoglobin 27.8 pg (26-34); Mean Corpuscular Volume 84.3 fl (80-100); Mean Platelet Volume 10.5 fl (7.4-10.4); Platelet Count Result 279 k/mm3 (150-375); Red Cell Distribution Width 15.2 % (11.5-14.5); White Blood Count 11.1 K/mm3 (4.5-10.0)
[2024-04-22] MEDS: guaiFENesin 12 HR 600 MG TABCR PO ×2 (08:05→21:19)
[2024-04-22] MEDS: PANTOPRAZOLE SODIUM IV 40 MG VIAL IV PUSH (08:06)
[2024-04-22] MEDS: CEFEPIME 2 GM/NS 50 ML 2 GM/50 ML BAG IVPB ×2 (08:06→16:35)
[2024-04-22] MEDS: INSULIN ASPART (*BKC) 100 UNITS/ML SUB-Q ×3 (08:07→21:19)
[2024-04-22] MEDS: MUPIROCIN 2% OINT 22 GM TUBE 1 APPLIC EACH NARE (08:08)
[2024-04-22 08:22] LABS: Alanine Aminotransferase 15 U/L (6-50); Albumin Level 2.1 g/dL (3.5-5.1); Alkaline Phosphatase 196 U/L (38-126); Anion Gap 5 mmol/L (4-12); Aspartate Amino Transferase 24 U/L (17-59); Bilirubin,Total 0.4 mg/dL (0.2-1.3); Blood Urea Nitrogen 20 mg/dL (9-20); Calcium 7.7 mg/dL (8.4-10.2); Carbon Dioxide 26 mmol/L (22-30); Chloride 95 mmol/L (98-107); Estimated CRCL calculation 76 ml/min; Estimated Glomerular Filt Rate > 60; Glucose 225 mg/dL (65-110); Magnesium 1.8 mg/dL (1.6-2.3); Potassium 3.7 mmol/L (3.4-5.0); Sodium 126 mmol/L (137-145)
[2024-04-22 08:52] LABS: Vancomycin Trough 16.6 ug/mL (10.0-20.0)
--- NOTE | 2024-04-22 09:01 | P.PNIM_ITS ---
Progress Note: A&P Assessment and Plan (1) Sepsis: Qualifiers: Sepsis type: sepsis due to unspecified organism Sepsis acute organ dysfunction status: with acute organ dysfunction Severe sepsis acute organ dysfunction type: acute respiratory failure Acute respiratory failure type: with hypoxia Severe sepsis shock status: without septic shock Qualified Code(s): A41.9 - Sepsis, unspecified organism; R65.20 - Severe sepsis without septic shock; J96.01 - Acute respiratory failure with hypoxia Code(s): A41.9 - Sepsis, unspecified organism Status: Acute Assessment and Plan: Patient has been on broad-spectrum antibiotics with vancomycin Rocephin and azithromycin Blood cultures done on 04/17 have been negative He has had persistent fevers and repeat cultures were sent on 04/[address] chest reviewed 04/22 Rocephin changed to cefepime Diagnostic thoracentesis was done on the right side Will pH 7.48, g stain negative high WBC count His WBC level has improved although he still having some fevers. Check repeat procalcitonin level Check Dopplers (2) DKA (diabetic ketoacidosis): Qualifiers: Diabetes mellitus complication detail: without coma Diabetes mellitus type: type 2 Qualified Code(s): E11.10 - Type 2 diabetes mellitus with ketoacidosis without coma Code(s): E11.10 - Type 2 diabetes mellitus with ketoacidosis without coma Status: Acute Assessment and Plan: Resolved He presented with DKA and was treated with IV insulin and IV fluids. 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 (3) Renal failure: Qualifiers: Acute renal failure type: unspecified Renal failure chronicity: acute Qualified Code(s): N17.9 - Acute kidney failure, unspecified Code(s): N19 - Unspecified kidney failure Status: Acute Assessment and Plan: He presented with creatinine 2.46 and GFR 27, baseline creatinine unknown Improved with IV fluids creatinine is normal at continue to monitor renal function, electrolytes and urine output (4) Pneumonia: Qualifiers: Pneumonia type: due to influenza A virus Qualified Code(s): J10.00 - Influenza due to other identified influenza virus with unspecified type of pneumonia Code(s): J18.9 - Pneumonia, unspecified organism Status: Acute Assessment and Plan: Right lower lobe pneumonia on chest x-ray Pt has been on ceftriaxone, azithromycin and vancomycin (02/14) On 6 L NC Cultures negative till now Continue incentive spirometry MRSA screen positive 04/21 He continues to be febrile. CT shows R pleural effusion. Will request IR for diagnostic thoracentesis Chnage Rocephin to Cefepime (5) Influenza A: Code(s): J10.1 - Influenza due to other identified influenza virus with other respiratory manifestations Status: Acute Assessment and Plan: Patient complained of sore throat, congestion, cough with generalized weakness, denies any fevers, chest pain on admission -04/17: influenza A positive Continue Tamiflu (6) Electrolyte abnormality: Code(s): E87.8 - Other disorders of electrolyte and fluid balance, not elsewhere classified Status: Acute Assessment and Plan: Replace low potassium and Calcium (7) Hypoglycemia: Code(s): E16.2 - Hypoglycemia, unspecified Status: Acute Assessment and Plan: Resolved. Off D5 (8) Sinus tachycardia: Code(s): R00.0 - Tachycardia, unspecified Status: Acute Assessment and Plan: Likely secondary to combination of sepsis and scheduled bronchodilators Change bronchodilators to p.r.n. as patient does not have any significant wheezing on exam Treatment of fever and PNA CTA negative for PE Plan DVT prophylaxis: Lovenox Stress ulcer prophylaxis: Protonix Nutrition: Diabetic diet Code Status: Full code Subjective Date/time seen: 04/22/24 He feels better overall. He continues to have cough which is productive. He denies any sense of fever. He states he has some chest pain with deep breathing and coughing He is tolerating p.o. diet. He is wondering when he can be discharged he does not feel short of breath. Per nursing staff patient has not been motivated to do much of any activity. All other systems were reviewed and were negative. He is on 5 L nasal cannula. He has good urine output. He was restarted on Lantus Interval history: Reason for consult: Diabetic ketoacidosis, influenza A nausea, vomiting, right lower lobe pneumonia Review of Systems Review of Systems: All systems reviewed & are unremarkable except as noted in HPI and below Exam Narrative: GENERAL: Ill-appearing, in no acute distress at this time HEENT: Pupils equally reactive, sclerae is clear, dry oral mucosa CHEST: Coarse breath sounds right lower lobe, no wheezing, adequate air entry HEART: S1-S2 is normal, tachycardia. ABDOMEN: Soft, nontender, nondistended. Normoactive bowel sounds EXTREMITIES: No edema, palpable pedal pulses, moves all extremities spontaneously. SKIN: Warm, dry, no rash. NEURO: Patient is awake, alert, answers questions appropriately and follows simple commands in all extremities PSYCH: Normal mentation, depressed affect. Objective Data Vital Signs Vital Signs: Vital Signs - 24 hr 04/21/24 09:47 04/21/24 10:00 04/21/24 12:00 Temperature 38.8 C H Pulse Rate 118 H 110 H Respiratory Rate Blood Pressure Pulse Oximetry Oxygen Delivery Oxygen Flow Rate 04/21/24 12:00 04/21/24 12:34 04/21/24 14:00 Temperature 38.4 C H Pulse Rate 106 H 117 H 117 H Respiratory Rate 24 H 24 H Blood Pressure 128/71 Pulse Oximetry 94 95 Oxygen Delivery High Flow Nasal Cannula Oxygen Flow Rate 6 04/21/24 15:01 04/21/24 16:00 04/21/24 16:00 Temperature 37.7 C H Pulse Rate 115 H 112 H Respiratory Rate 28 H Blood Pressure Pulse Oximetry 98 Oxygen Delivery High Flow Nasal Cannula Oxygen Flow Rate 6 04/21/24 17:25 04/21/24 18:00 04/21/24 20:00 Temperature 37.6 C Pulse Rate 108 H 116 H 116 H Respiratory Rate 25 H Blood Pressure 123/71 Pulse Oximetry 96 Oxygen Delivery Oxygen Flow Rate 04/21/24 20:30 04/21/24 20:31 04/21/24 22:00 Temperature 37.9 C H Pulse Rate 110 H 113 H 115 H Respiratory Rate 27 H 24 H Blood Pressure 139/79 Pulse Oximetry 98 97 Oxygen Delivery High Flow Nasal Cannula Oxygen Flow Rate 6 04/22/24 00:00 04/22/24 00:00 04/22/24 04:00 Temperature 38.3 C H Pulse Rate 112 H 116 H 118 H Respiratory Rate 24 H Blood Pressure 143/79 H Pulse Oximetry 96 Oxygen Delivery Oxygen Flow Rate 04/22/24 05:49 04/22/24 06:49 04/22/24 08:00 Temperature 38.8 C H 38.2 C H 37.4 C Pulse Rate 114 H Respiratory Rate 26 H Blood Pressure 146/81 H Pulse Oximetry 92 Oxygen Delivery Oxygen Flow Rate 04/22/24 08:00 04/22/24 08:26 Temperature Pulse Rate 87 Respiratory Rate 20 Blood Pressure Pulse Oximetry 95 95 Oxygen Delivery High Flow Nasal Cannula High Flow Nasal Cannula Oxygen Flow Rate 5 5 Intake/Output Intake/Output: Intake & Output 04/19/24 04/20/24 04/21/24 04/22/24 23:59 23:59 23:59 23:59 Intake Total 1989 2189.9333 1170 800 Output Total 1700 2690 2600 1250 Balance 290 -500.0667 -1430 -450 Meds/Results Medications: Active Medications Generic Name Dose Route Start Last Admin Trade Name Freq PRN Reason Stop Dose Admin Acetaminophen 650 mg 04/17/24 13:32 04/22/24 05:49 Acetaminophen 325 Mg Tablet PO 650 mg Q4H PRN Administration Mild Pain (1-3) or Fever Benzocaine 1 lozenge 04/17/24 13:32 Benzocaine/Menthol (*Bkc) 18 Ea Lozenge PO PRN PRN Sore Throat Benzonatate 100 mg 04/17/24 13:32 04/21/24 20:50 Benzonatate 100 Mg Capsule PO 100 mg TID PRN Administration Cough Dextrose 12.5 gm 04/17/24 17:17 Dextrose 50% 25 Gm/50 Ml Syringe IV PUSH PRN PRN Hypoglycemia Protocol Enoxaparin Sodium 40 mg 04/18/24 09:00 04/20/24 09:17 Enoxaparin 40 Mg/0.4 Ml Syringe SUB-Q 40 mg DAILY MARYCHUY Administration Glucagon 1 mg 04/17/24 17:17 Glucagon For Inj 1 Mg Vial IM PRN PRN Hypoglycemia Protocol Glucose 15 gm 04/17/24 17:17 Glucose Oral Gel 15 Gm Of Glucse In 37.5 Gm Tube PO PRN PRN Hypoglycemia Protocol Guaifenesin 600 mg 04/17/24 21:00 04/22/24 08:05 Guaifenesin 12 Hr 600 Mg Tabcr PO 600 mg Q12HR MARYCHUY Administration Azithromycin 500 mg in 250 mls @ 250 mls/hr 04/17/24 16:00 04/21/24 16:30 Zithromax IVPB 04/22/24 15:59 250 mls/hr Q24H MARYCHUY Administration Dextrose 1,000 mls @ 100 mls/hr 04/17/24 17:17 Dextrose 5% 1,000 Ml IVPB PRN PRN Hypoglycemia Protocol Vancomycin HCl 1,250 mg in 250 mls @ 166.667 mls/hr 04/20/24 21:00 04/21/24 22:21 Vancomycin 1,250 Mg/Ns 250 Ml IVPB Infused Q12H MARYCHUY Infusion Cefepime HCl 2 gm in 50 mls @ 100 mls/hr 04/22/24 08:00 04/22/24 08:06 Maxipime 2 Gm/Ns 50 Ml IVPB 100 mls/hr Q8H MARYCHUY Administration Insulin Aspart 4 - 8 units 04/18/24 08:00 04/22/24 08:07 Insulin Aspart (*Bkc) 100 Units/Ml SUB-Q 4 units TIDWM MARYCHUY Administration Protocol Insulin Aspart 2 - 4 units 04/18/24 21:00 04/21/24 20:51 Insulin Aspart (*Bkc) 100 Units/Ml SUB-Q 3 units HS MARYCHUY Administration Protocol Insulin Glargine 30 units 04/21/24 21:00 04/21/24 20:50 Insulin Glargine (*Bkc) 100 Units/Ml SUB-Q 30 units HS MARYCHUY Administration Ipratropium Colp 0.5 mg 04/20/24 08:46 Ipratropium Br 0.02% Inh Soln 0.5 Mg/2.5 Ml Vial INHALATION Q6HRT PRN Wheezing Levalbuterol HCl 1.25 mg 04/20/24 08:46 Levalbuterol Neb 1.25 Mg/3 Ml INHALATION Q6HRT PRN Wheezing Mupirocin 1 applic 04/17/24 21:00 04/22/24 08:08 Mupirocin 2% Oint 22 Gm Tube EACH NARE 04/22/24 09:01 1 applic Q12HR MARYCHUY Administration Ondansetron HCl 4 mg 04/17/24 12:03 04/20/24 17:16 Ondansetron Inj 4 Mg/2 Ml Vial IV PUSH 4 mg Q4H PRN Administration Nausea Oseltamivir Phosphate 30 mg 04/17/24 12:00 04/21/24 12:55 Oseltamivir Phosphate 30 Mg Capsule PO 04/22/24 11:59 30 mg Q24H MARYCHUY Administration Pantoprazole Sodium 40 mg 04/18/24 09:00 04/22/24 08:06 Pantoprazole Sodium Iv 40 Mg Vial IV PUSH 40 mg QAM MARYCHUY Administration Perflutren Lipid Microsphere 0 ml 04/20/24 08:42 Perflutren Lipid Microspheres 1.5 Ml Vial Diluted To 10 Ml Total Volume IV PUSH 04/23/24 08:42 ONCE PRN adequate visualization Protocol Radiology Results: ITS Impressions Chest CTA 04/20/24 13:44 Impression: No evidence of pulmonary embolus, aortic dissection, or aortic aneurysm. Right lower lobar pneumonia. [id number] pleural effusion and small left pleural effusion. Thoracentesis Ultrasound 04/21/24 15:14 IMPRESSION: 1. Successful ultrasound-guided thoracentesis yielding 200 mL of cloudy straw- colored fluid. Chest X-Ray 04/21/24 15:19 IMPRESSION: 1. Stable airspace opacities in right mid and lower lung zones and left lower lung zone, consistent with pneumonia. 2. Small right pleural effusion. Labs Labs: Laboratory Results - last 24 hr 04/21/24 04/21/24 04/21/24 09:06 11:20 14:31 WBC RBC Hgb Hct MCV MCH MCHC RDW Plt Count MPV PT 13.9 INR 1.0 APTT 33.5 Sodium Potassium Chloride Carbon Dioxide Anion Gap BUN Creatinine Estim Creat Clear Calc Estimated GFR Glucose POC Capillary Glucose 155 H Calcium Magnesium Total Bilirubin AST ALT Alkaline Phosphatase Lactate Dehydrogenase 168 Total Protein Albumin Pleural Fluid Source Pleural Color Pleural Appearance Pleural pH 7.487 Pleural RBC Pleural Nuc Cells Pleural Neutrophils Pleural Lymphocytes Pleural Macrophages Pleural Mesothelial Vancomycin Trough 04/21/24 04/21/24 04/21/24 14:42 17:00 20:02 WBC RBC Hgb Hct MCV MCH MCHC RDW Plt Count MPV PT INR APTT Sodium Potassium Chloride Carbon Dioxide Anion Gap BUN Creatinine Estim Creat Clear Calc Estimated GFR Glucose POC Capillary Glucose 192 H 301 H Calcium Magnesium Total Bilirubin AST ALT Alkaline Phosphatase Lactate Dehydrogenase Total Protein Albumin Pleural Fluid Source Pleural fluid Pleural Color Yellow Pleural Appearance Cloudy Pleural pH Pleural RBC 2000 Pleural Nuc Cells 7218 H Pleural Neutrophils 77 H Pleural Lymphocytes 6 Pleural Macrophages 14 Pleural Mesothelial 3 Vancomycin Trough 04/22/24 04/22/24 07:56 07:57 WBC 11.1 H RBC 3.70 L Hgb 10.3 L Hct 31.2 L MCV 84.3 MCH 27.8 MCHC 33.0 RDW 15.2 H Plt Count 279 MPV 10.5 H PT INR APTT Sodium 126 L Potassium 3.7 Chloride 95 L Carbon Dioxide 26 Anion Gap 5 BUN 20 Creatinine 0.85 Estim Creat Clear Calc 76 Estimated GFR > 60 Glucose 225 H POC Capillary Glucose 236 H Calcium 7.7 L Magnesium 1.8 Total Bilirubin 0.4 AST 24 ALT 15 Alkaline Phosphatase 196 H Lactate Dehydrogenase Total Protein 5.0 L Albumin 2.1 L Pleural Fluid Source Pleural Color Pleural Appearance Pleural pH Pleural RBC Pleural Nuc Cells Pleural Neutrophils Pleural Lymphocytes Pleural Macrophages Pleural Mesothelial Vancomycin Trough 16.6 Quality VTE Prophylaxis VTE prophylaxis: pharmacologic ordered
[2024-04-22 09:30] LABS: Procalcitonin 8.8 ng/mL
[2024-04-22] MEDS: VANCOMYCIN 1,250 MG/NS 250 ML 1,250 MG/250 ML BAG 166.67 MG IVPB ×2 (09:50→21:20)
[2024-04-22 11:41] LABS: Glucose Point of Care 194 mg/dl (65-105)
[2024-04-22 16:43] LABS: Glucose Point of Care 381 mg/dl (65-105)
[2024-04-22 21:01] LABS: Glucose Point of Care 298 mg/dl (65-105)
[2024-04-22] MEDS: BENZONATATE 100 MG CAPSULE PO (21:19)
[2024-04-22] MEDS: INSULIN GLARGINE (*BKC) 100 UNITS/ML 30 UNITS SUB-Q (21:20)
[2024-04-23] VITALS (9 sets, daily range): BP systolic 125–170; BP diastolic 67–83; PULSE 82–96; RESP 17–23; TEMP 36.6–37.2; O2SAT 91–100
[2024-04-23] MEDS: CEFEPIME 2 GM/NS 50 ML 2 GM/50 ML BAG IVPB ×3 (00:25→15:49)
[2024-04-23 04:00] LABS: Hematocrit 30.3 % (42.0-52.0); Mean Corpuscular Volume 84.9 fl (80-100); Mean Platelet Volume 10.2 fl (7.4-10.4); Platelet Count Result 290 k/mm3 (150-375); Red Blood Count 3.57 M/mm3 (4.6-6.20); Red Cell Distribution Width 14.8 % (11.5-14.5); White Blood Count 10.2 K/mm3 (4.5-10.0)
[2024-04-23 04:16] LABS: Alanine Aminotransferase 16 U/L (6-50); Albumin Level 2.1 g/dL (3.5-5.1); Alkaline Phosphatase 187 U/L (38-126); Anion Gap 5 mmol/L (4-12); Aspartate Amino Transferase 36 U/L (17-59); Bilirubin,Total 0.3 mg/dL (0.2-1.3); Blood Urea Nitrogen 20 mg/dL (9-20); Calcium 7.4 mg/dL (8.4-10.2); Carbon Dioxide 28 mmol/L (22-30); Chloride 95 mmol/L (98-107); Estimated CRCL calculation 79 ml/min; Estimated Glomerular Filt Rate > 60; Glucose 214 mg/dL (65-110); Magnesium 1.8 mg/dL (1.6-2.3); Potassium 3.4 mmol/L (3.4-5.0); Sodium 128 mmol/L (137-145)
[2024-04-23 07:50] LABS: Glucose Point of Care 131 mg/dl (65-105)
--- NOTE | 2024-04-23 08:15 | PM.IMPN ---
Progress Note: A&P Assessment and Plan (1) Sepsis: Qualifiers: Sepsis type: sepsis due to unspecified organism Sepsis acute organ dysfunction status: with acute organ dysfunction Severe sepsis acute organ dysfunction type: acute respiratory failure Acute respiratory failure type: with hypoxia Severe sepsis shock status: without septic shock Qualified Code(s): A41.9 - Sepsis, unspecified organism; R65.20 - Severe sepsis without septic shock; J96.01 - Acute respiratory failure with hypoxia Code(s): A41.9 - Sepsis, unspecified organism Status: Acute Assessment and Plan: Patient has been on broad-spectrum antibiotics with vancomycin Rocephin and azithromycin Blood cultures done on 04/17 have been negative He has had persistent fevers and repeat cultures were sent on 04/[address] chest reviewed 04/22 Rocephin changed to cefepime Diagnostic thoracentesis was done on the right side Will pH 7.48, g stain negative high WBC count His WBC level has normally although he still having some fevers. Check repeat procalcitonin levelHis significantly improved and down to 8.8 Dopplers negative for DVT Remove Manning catheter (2) DKA (diabetic ketoacidosis): Qualifiers: Diabetes mellitus complication detail: without coma Diabetes mellitus type: type 2 Qualified Code(s): E11.10 - Type 2 diabetes mellitus with ketoacidosis without coma Code(s): E11.10 - Type 2 diabetes mellitus with ketoacidosis without coma Status: Acute Assessment and Plan: Resolved He presented with DKA and was treated with IV insulin and IV fluids. 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 Increase with meal insulin dose (3) Renal failure: Qualifiers: Acute renal failure type: unspecified Renal failure chronicity: acute Qualified Code(s): N17.9 - Acute kidney failure, unspecified Code(s): N19 - Unspecified kidney failure Status: Acute Assessment and Plan: He presented with creatinine 2.46 and GFR 27, baseline creatinine unknown Improved with IV fluids creatinine is now normalized continue to monitor renal function, electrolytes and urine output (4) Pneumonia: Qualifiers: Pneumonia type: due to influenza A virus Qualified Code(s): J10.00 - Influenza due to other identified influenza virus with unspecified type of pneumonia Code(s): J18.9 - Pneumonia, unspecified organism Status: Acute Assessment and Plan: Right lower lobe pneumonia on chest x-ray Pt has been on ceftriaxone, azithromycin and vancomycin (02/14) Cultures negative till now Continue incentive spirometry Supplemental oxygen discontinued this morning. Min monitor MRSA screen positive 04/21 He continues to be febrile. CT shows R pleural effusion. Will request IR for diagnostic thoracentesis Chnaged Rocephin to Cefepime (5) Influenza A: Code(s): J10.1 - Influenza due to other identified influenza virus with other respiratory manifestations Status: Acute Assessment and Plan: Patient complained of sore throat, congestion, cough with generalized weakness, denies any fevers, chest pain on admission -04/17: influenza A positive Completed course of Tamiflu (6) Electrolyte abnormality: Code(s): E87.8 - Other disorders of electrolyte and fluid balance, not elsewhere classified Status: Acute Assessment and Plan: Replace low potassium (7) Hypoglycemia: Code(s): E16.2 - Hypoglycemia, unspecified Status: Acute Assessment and Plan: Resolved. Off D5 (8) Sinus tachycardia: Code(s): R00.0 - Tachycardia, unspecified Status: Acute Assessment and Plan: Likely secondary to combination of sepsis and scheduled bronchodilators Change bronchodilators to p.r.n. as patient does not have any significant wheezing on exam Treatment of fever and PNA CTA negative for PE Improved (9) Urinary retention: Code(s): R33.9 - Retention of urine, unspecified Status: Acute Assessment and Plan: Earlier in the hospital course patient urinary retention and a Manning catheter was placed. Patient is now clinically improved and much stronger. Will remove Manning catheter and do a voiding trial. Plan DVT prophylaxis: Lovenox Stress ulcer prophylaxis: Protonix Nutrition: Diabetic diet Code Status: Full code Subjective Date/time seen: 04/23/24 During my evaluation patient was off his oxygen and satting 90-93%. He was eating his food while laying in bed. He states he feels better and his appetite is improved. He continues to have cough which he states is productive he denies any fever or shortness of breath. All other systems reviewed and were negative He continues to have fever off and on Urine output is good Tolerating p.o. diet Review of Systems Review of Systems: All systems reviewed & are unremarkable except as noted in HPI and below Exam Narrative: GENERAL: Ill-appearing, in no acute distress at this time HEENT: Pupils equally reactive, sclerae is clear, dry oral mucosa CHEST: Coarse breath sounds right lower lobe, no wheezing, adequate air entry HEART: S1-S2 is normal, tachycardia. ABDOMEN: Soft, nontender, nondistended. Normoactive bowel sounds EXTREMITIES: No edema, palpable pedal pulses, moves all extremities spontaneously. SKIN: Warm, dry, no rash. NEURO: Patient is awake, alert, answers questions appropriately and follows simple commands in all extremities AO x3 PSYCH: Normal mentation, : Manning in place Objective Data Vital Signs Vital Signs: Vital Signs - 24 hr 04/22/24 08:26 04/22/24 12:00 04/22/24 14:07 Temperature Pulse Rate 87 106 H Respiratory Rate 20 Blood Pressure Pulse Oximetry 95 Oxygen Delivery High Flow Nasal Cannula Nasal Cannula Oxygen Flow Rate 5 5 04/22/24 14:15 04/22/24 15:30 04/22/24 16:00 Temperature 37.8 C H 38.0 C H Pulse Rate 96 Respiratory Rate 24 H Blood Pressure 161/70 H Pulse Oximetry 96 Oxygen Delivery Nasal Cannula Oxygen Flow Rate 5 04/22/24 16:00 04/22/24 16:30 04/22/24 16:30 Temperature 38.0 C H Pulse Rate 106 H Respiratory Rate Blood Pressure Pulse Oximetry 98 Oxygen Delivery High Flow Nasal Cannula Oxygen Flow Rate 4 04/22/24 20:00 04/22/24 20:00 04/22/24 23:08 Temperature 36.8 C Pulse Rate 96 93 87 Respiratory Rate 20 24 H Blood Pressure 132/66 Pulse Oximetry 94 98 Oxygen Delivery High Flow Nasal Cannula Oxygen Flow Rate 4 04/23/24 00:00 04/23/24 04:00 04/23/24 08:00 Temperature 36.9 C Pulse Rate 85 83 82 Respiratory Rate 23 H Blood Pressure 125/67 Pulse Oximetry 99 Oxygen Delivery Oxygen Flow Rate Intake/Output Intake/Output: Intake & Output 04/20/24 04/21/24 04/22/24 04/23/24 23:59 23:59 23:59 23:59 Intake Total 2189.9333 1170 3020 550 Output Total 2690 2600 2600 1700 Balance -500.0667 -1430 420 -1150 Meds/Results Medications: Active Medications Generic Name Dose Route Start Last Admin Trade Name Freq PRN Reason Stop Dose Admin Acetaminophen 650 mg 04/17/24 13:32 04/22/24 15:30 Acetaminophen 325 Mg Tablet PO 650 mg Q4H PRN Administration Mild Pain (1-3) or Fever Benzocaine 1 lozenge 04/17/24 13:32 Benzocaine/Menthol (*Bkc) 18 Ea Lozenge PO PRN PRN Sore Throat Benzonatate 100 mg 04/17/24 13:32 04/22/24 21:19 Benzonatate 100 Mg Capsule PO 100 mg TID PRN Administration Cough Dextrose 12.5 gm 04/17/24 17:17 Dextrose 50% 25 Gm/50 Ml Syringe IV PUSH PRN PRN Hypoglycemia Protocol Enoxaparin Sodium 40 mg 04/18/24 09:00 04/20/24 09:17 Enoxaparin 40 Mg/0.4 Ml Syringe SUB-Q 40 mg DAILY MARYCHUY Administration Glucagon 1 mg 04/17/24 17:17 Glucagon For Inj 1 Mg Vial IM PRN PRN Hypoglycemia Protocol Glucose 15 gm 04/17/24 17:17 Glucose Oral Gel 15 Gm Of Glucse In 37.5 Gm Tube PO PRN PRN Hypoglycemia Protocol Guaifenesin 600 mg 04/17/24 21:00 04/22/24 21:19 Guaifenesin 12 Hr 600 Mg Tabcr PO 600 mg Q12HR MARYCHUY Administration Dextrose 1,000 mls @ 100 mls/hr 04/17/24 17:17 Dextrose 5% 1,000 Ml IVPB PRN PRN Hypoglycemia Protocol Vancomycin HCl 1,250 mg in 250 mls @ 166.667 mls/hr 04/20/24 21:00 04/22/24 22:50 Vancomycin 1,250 Mg/Ns 250 Ml IVPB Infused Q12H MARYCHUY Infusion Cefepime HCl 2 gm in 50 mls @ 100 mls/hr 04/22/24 08:00 04/23/24 00:55 Maxipime 2 Gm/Ns 50 Ml IVPB Infused Q8H MARYCHUY Infusion Insulin Aspart 4 - 8 units 04/18/24 08:00 04/22/24 16:44 Insulin Aspart (*Bkc) 100 Units/Ml SUB-Q 8 units TIDWM MARYCHUY Administration Protocol Insulin Aspart 2 - 4 units 04/18/24 21:00 04/22/24 21:19 Insulin Aspart (*Bkc) 100 Units/Ml SUB-Q 2 units HS MARYCHUY Administration Protocol Insulin Glargine 30 units 04/21/24 21:00 04/22/24 21:20 Insulin Glargine (*Bkc) 100 Units/Ml SUB-Q 30 units HS MARYCHUY Administration Ipratropium [place] 0.5 mg 04/20/24 08:46 Ipratropium Br 0.02% Inh Soln 0.5 Mg/2.5 Ml Vial INHALATION Q6HRT PRN Wheezing Levalbuterol HCl 1.25 mg 04/20/24 08:46 Levalbuterol Neb 1.25 Mg/3 Ml INHALATION Q6HRT PRN Wheezing Ondansetron HCl 4 mg 04/17/24 12:03 04/20/24 17:16 Ondansetron Inj 4 Mg/2 Ml Vial IV PUSH 4 mg Q4H PRN Administration Nausea Pantoprazole Sodium 40 mg 04/18/24 09:00 04/22/24 08:06 Pantoprazole Sodium Iv 40 Mg Vial IV PUSH 40 mg QAM MARYCHUY Administration Perflutren Lipid Microsphere 0 ml 04/20/24 08:42 Perflutren Lipid Microspheres 1.5 Ml Vial Diluted To 10 Ml Total Volume IV PUSH 04/23/24 08:42 ONCE PRN adequate visualization Protocol Radiology Results: ITS Impressions Chest CTA 04/20/24 13:44 Impression: No evidence of pulmonary embolus, aortic dissection, or aortic aneurysm. Right lower lobar pneumonia. [id number] pleural effusion and small left pleural effusion. Thoracentesis Ultrasound 04/21/24 15:14 IMPRESSION: 1. Successful ultrasound-guided thoracentesis yielding 200 mL of cloudy straw-colored fluid. Chest X-Ray 04/21/24 15:19 IMPRESSION: 1. Stable airspace opacities in right mid and lower lung zones and left lower lung zone, consistent with pneumonia. 2. Small right pleural effusion. Venous Doppler Study 04/22/24 10:41 IMPRESSION: 1: No lower extremity deep venous thrombosis. Labs Labs: Laboratory Results - last 24 hr 04/22/24 04/22/24 04/22/24 07:52 07:56 11:36 WBC RBC Hgb Hct MCV MCH MCHC RDW Plt Count MPV Sodium 126 L Potassium 3.7 Chloride 95 L Carbon Dioxide 26 Anion Gap 5 BUN 20 Creatinine 0.85 Estim Creat Clear Calc 76 Estimated GFR > 60 Glucose 225 H POC Capillary Glucose 194 H Calcium 7.7 L Magnesium 1.8 Total Bilirubin 0.4 AST 24 ALT 15 Alkaline Phosphatase 196 H Total Protein 5.0 L Albumin 2.1 L Procalcitonin 8.8 Vancomycin Trough 16.6 04/22/24 04/22/24 04/23/24 16:41 20:59 03:45 WBC 10.2 H RBC 3.57 L Hgb 10.0 L Hct 30.3 L MCV 84.9 MCH 28.0 MCHC 33.0 RDW 14.8 H Plt Count 290 MPV 10.2 Sodium 128 L Potassium 3.4 Chloride 95 L Carbon Dioxide 28 Anion Gap 5 BUN 20 Creatinine 0.81 Estim Creat Clear Calc 79 Estimated GFR > 60 Glucose 214 H POC Capillary Glucose 381 H 298 H Calcium 7.4 L Magnesium 1.8 Total Bilirubin 0.3 AST 36 ALT 16 Alkaline Phosphatase 187 H Total Protein 5.0 L Albumin 2.1 L Procalcitonin Vancomycin Trough 04/23/24 07:41 WBC RBC Hgb Hct MCV MCH MCHC RDW Plt Count MPV Sodium Potassium Chloride Carbon Dioxide Anion Gap BUN Creatinine Estim Creat Clear Calc Estimated GFR Glucose POC Capillary Glucose 131 H Calcium Magnesium Total Bilirubin AST ALT Alkaline Phosphatase Total Protein Albumin Procalcitonin Vancomycin Trough Quality VTE Prophylaxis VTE prophylaxis: pharmacologic ordered
[2024-04-23] MEDS: VANCOMYCIN 1,250 MG/NS 250 ML 1,250 MG/250 ML BAG 166.6 MG IVPB (09:53)
[2024-04-23] MEDS: PANTOPRAZOLE SODIUM IV 40 MG VIAL IV PUSH (09:54)
[2024-04-23] MEDS: POTASSIUM CHLORIDE 20 MEQ PACKET (FOR LIQUID) 40 MEQ PO (09:55)
[2024-04-23] MEDS: ACETAMINOPHEN 325 MG TABLET 650 MG PO ×2 (09:56→20:39)
[2024-04-23] MEDS: guaiFENesin 12 HR 600 MG TABCR PO ×2 (09:56→20:39)
[2024-04-23 11:43] LABS: Glucose Point of Care 106 mg/dl (65-105)
[2024-04-23 16:09] LABS: Glucose Point of Care 149 mg/dl (65-105)
--- NOTE | 2024-04-23 17:34 | ADMGEN ---
This patient, Adrián Navarrete, was transferred to Medical Room 260-01 at 1645. Patient/family oriented to hospital policies and general routines including ID bracelet, bed and alarms, visiting hours, pain management, procedures, bathroom and other care routines, personal items, smoking policy, room service/diet, and visiting hours. Pt is on telemetry monitoring. Information on how to activate the Rapid Response Team has been discussed. Patient/Family are encouraged to report perceived risks to care and to ask questions if they do not understand what they are told or what they should do.
[2024-04-23 18:51] LABS: Glucose Point of Care 103 mg/dl (65-105)
[2024-04-23] MEDS: VANCOMYCIN 1,250 MG/NS 250 ML 1,250 MG/250 ML BAG 167 MG IVPB (20:39)
[2024-04-23 21:35] LABS: Glucose Point of Care 111 mg/dl (65-105)
[2024-04-24] VITALS (9 sets, daily range): BP systolic 148–161; BP diastolic 62–74; PULSE 82–105; RESP 18–20; TEMP 36.3–36.9; O2SAT 93–96
[2024-04-24] MEDS: CEFEPIME 2 GM/NS 50 ML 2 GM/50 ML BAG IVPB ×4 (00:55→23:04)
[2024-04-24 08:15] LABS: Hematocrit 34.8 % (42.0-52.0); Hemoglobin 11.5 g/dL (14.0-18.0); Mean Corpuscular Volume 84.7 fl (80-100); Mean Platelet Volume 10.1 fl (7.4-10.4); Platelet Count Result 369 k/mm3 (150-375); Red Blood Count 4.11 M/mm3 (4.6-6.20); Red Cell Distribution Width 15.3 % (11.5-14.5); White Blood Count 14.5 K/mm3 (4.5-10.0)
[2024-04-24 08:18] LABS: Glucose Point of Care 60 mg/dl (65-105)
[2024-04-24] MEDS: DEXTROSE 50% 25 GM/50 ML SYRINGE IV PUSH (08:25)
[2024-04-24 08:32] LABS: Alanine Aminotransferase 22 U/L (6-50); Albumin Level 2.3 g/dL (3.5-5.1); Alkaline Phosphatase 170 U/L (38-126); Anion Gap 5 mmol/L (4-12); Aspartate Amino Transferase 47 U/L (17-59); Bilirubin,Total 0.4 mg/dL (0.2-1.3); Blood Urea Nitrogen 17 mg/dL (9-20); Calcium 7.6 mg/dL (8.4-10.2); Carbon Dioxide 27 mmol/L (22-30); Chloride 101 mmol/L (98-107); Estimated CRCL calculation 85 ml/min; Estimated Glomerular Filt Rate > 60; Glucose 64 mg/dL (65-110); Magnesium 1.7 mg/dL (1.6-2.3); Potassium 3.4 mmol/L (3.4-5.0); Sodium 133 mmol/L (137-145)
[2024-04-24] MEDS: guaiFENesin 12 HR 600 MG TABCR PO ×2 (08:42→20:56)
[2024-04-24] MEDS: PANTOPRAZOLE SODIUM IV 40 MG VIAL IV PUSH (08:42)
[2024-04-24 08:44] LABS: Vancomycin Trough 22.4 ug/mL (10.0-20.0)
[2024-04-24 10:37] LABS: Glucose Point of Care 113 mg/dl (65-105)
[2024-04-24 11:46] LABS: Glucose Point of Care 155 mg/dl (65-105)
--- NOTE | 2024-04-24 12:39 | PM.IMPN ---
Progress Note: A&P Assessment and Plan (1) Sepsis: Qualifiers: Sepsis type: sepsis due to unspecified organism Sepsis acute organ dysfunction status: with acute organ dysfunction Severe sepsis acute organ dysfunction type: acute respiratory failure Acute respiratory failure type: with hypoxia Severe sepsis shock status: without septic shock Qualified Code(s): A41.9 - Sepsis, unspecified organism; R65.20 - Severe sepsis without septic shock; J96.01 - Acute respiratory failure with hypoxia Code(s): A41.9 - Sepsis, unspecified organism Status: Acute Assessment and Plan: Patient has been on broad-spectrum antibiotics with vancomycin Rocephin and azithromycin Blood cultures done on 04/17 have been negative He has had persistent fevers and repeat cultures were sent on 04/[address] chest reviewed 04/22 Rocephin changed to cefepime Diagnostic thoracentesis was done on the right side Will pH 7.48, g stain negative high WBC count His WBC level has normally although he still having some fevers. Check repeat procalcitonin levelHis significantly improved and down to 8.8 Dopplers negative for DVT Remove Wu catheter (2) DKA (diabetic ketoacidosis): Qualifiers: Diabetes mellitus complication detail: without coma Diabetes mellitus type: type 2 Qualified Code(s): E11.10 - Type 2 diabetes mellitus with ketoacidosis without coma Code(s): E11.10 - Type 2 diabetes mellitus with ketoacidosis without coma Status: Acute Assessment and Plan: Resolved He presented with DKA and was treated with IV insulin and IV fluids. 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 Increase with meal insulin dose (3) Renal failure: Qualifiers: Acute renal failure type: unspecified Renal failure chronicity: acute Qualified Code(s): N17.9 - Acute kidney failure, unspecified Code(s): N19 - Unspecified kidney failure Status: Acute Assessment and Plan: PILY, resolved Cr 0.75 (4) Pneumonia: Qualifiers: Pneumonia type: due to influenza A virus Qualified Code(s): J10.00 - Influenza due to other identified influenza virus with unspecified type of pneumonia Code(s): J18.9 - Pneumonia, unspecified organism Status: Acute Assessment and Plan: Right lower lobe pneumonia on chest x-ray Pt has been on ceftriaxone, azithromycin and vancomycin (02/14) Day 3 Cefepime and Vanc MRSA screen positive 04/21 He continues to be febrile. CT shows R pleural effusion. s/p Thoracentesis Pleural fluid culture Monitor (5) Influenza A: Code(s): J10.1 - Influenza due to other identified influenza virus with other respiratory manifestations Status: Acute Assessment and Plan: Patient complained of sore throat, congestion, cough with generalized weakness, denies any fevers, chest pain on admission -04/17: influenza A positive Completed course of Tamiflu (6) Electrolyte abnormality: Code(s): E87.8 - Other disorders of electrolyte and fluid balance, not elsewhere classified Status: Acute Assessment and Plan: Replace low potassium (7) Hypoglycemia: Code(s): E16.2 - Hypoglycemia, unspecified Status: Acute Assessment and Plan: Resolved. Off D5 (8) Sinus tachycardia: Code(s): R00.0 - Tachycardia, unspecified Status: Acute Assessment and Plan: Likely secondary to combination of sepsis and scheduled bronchodilators Change bronchodilators to p.r.n. as patient does not have any significant wheezing on exam Treatment of fever and PNA CTA negative for PE Improved (9) Urinary retention: Code(s): R33.9 - Retention of urine, unspecified Status: Acute Assessment and Plan: Earlier in the hospital course patient urinary retention and a Wu catheter was placed. Patient is now clinically improved and much stronger. Remove wu Plan Hypertension BP consistently elevated Started on Lisinopril and HCTZ monitor DVT prophylaxis: Lovenox Stress ulcer prophylaxis: Protonix Nutrition: Diabetic diet Code Status: Full code Subjective Date/time seen: 04/24/24 12:39 Interval history: Patient comfortable at bedside Awaiting PT/OT eval No fever since 04/22 Review of Systems Review of Systems: All systems reviewed & are unremarkable except as noted in HPI and below Exam Narrative: GENERAL: Ill-appearing, in no acute distress at this time HEENT: Pupils equally reactive, sclerae is clear, dry oral mucosa CHEST: Coarse breath sounds right lower lobe, no wheezing, adequate air entry HEART: S1-S2 is normal, tachycardia. ABDOMEN: Soft, nontender, nondistended. Normoactive bowel sounds EXTREMITIES: No edema, palpable pedal pulses, moves all extremities spontaneously. SKIN: Warm, dry, no rash. NEURO: Patient is awake, alert, answers questions appropriately and follows simple commands in all extremities AO x3 PSYCH: Normal mentation, : Wu in place Const: General: comfortable and no acute distress Other: , male, ill appearing. HENMT: Face/Nose/Sinus: Normal nares present Mouth: Yes dry mucous membranes Eyes: General: appearance normal, both eyes and all related structures Sclera: sclerae normal Pupils: Equal, round and reactive pupils present EOM: EOMs intact bilaterally Resp: Other: Mild work of breathing, + tachypnea. Bibasilar crackles, right worse than left. No wheezing. Cardio: Rate: regular rate Rhythm: regular rhythm Other: S1-S2 present without murmur, rub, ectopy GI: Other: Abdomen soft, nondistended, nontender. Skin: General skin exam: normal color, no rashes or lesions noted and wounds noted (Small healing wound to right hand, no signs of infection) Wounds: wounds noted (Small healing wound to right hand, no signs of infection) Neuro: Cranial nerves: Yes Equal, round and reactive pupils present Other: patient minimally interactive, somnolent. A&O x3. Moving all extremities Extrem: General: normal to inspection Psych: Other: Unable to assess due to somnolence. No overt issues. Objective Data Vital Signs Vital Signs: Vital Signs - 24 hr 04/23/24 16:00 04/23/24 16:00 04/23/24 16:47 Temperature 97.9 F Pulse Rate 91 89 Respiratory Rate 17 Blood Pressure 161/70 H Pulse Oximetry 98 92 Oxygen Delivery Nasal Cannula Oxygen Flow Rate 3 Fraction of Inspired Oxygen 04/23/24 16:47 04/23/24 19:19 04/23/24 20:00 Temperature 97.9 F Pulse Rate 86 95 87 Respiratory Rate 18 Blood Pressure 153/68 H Pulse Oximetry 99 Oxygen Delivery Oxygen Flow Rate Fraction of Inspired Oxygen 04/23/24 20:00 04/23/24 21:25 04/24/24 00:00 Temperature 98.9 F Pulse Rate 87 91 82 Respiratory Rate 18 20 Blood Pressure 170/83 H Pulse Oximetry 99 100 Oxygen Delivery Nasal Cannula Oxygen Flow Rate 3 Fraction of Inspired Oxygen 39 04/24/24 04:00 04/24/24 05:51 Temperature 97.9 F Pulse Rate 96 83 Respiratory Rate 18 Blood Pressure 160/74 H Pulse Oximetry 93 Oxygen Delivery Oxygen Flow Rate Fraction of Inspired Oxygen Intake/Output Intake/Output: Intake & Output 04/21/24 04/22/24 04/23/24 04/24/24 23:59 23:59 23:59 23:59 Intake Total 1170 3020 1500 490 Output Total 2600 2600 3275 250 Balance -1430 420 -1775 240 Meds/Results Medications: Active Medications Generic Name Dose Route Start Last Admin Trade Name Freq PRN Reason Stop Dose Admin Acetaminophen 650 mg 04/17/24 13:32 04/23/24 20:39 Acetaminophen 325 Mg Tablet PO 650 mg Q4H PRN Administration Mild Pain (1-3) or Fever Benzocaine 1 lozenge 04/17/24 13:32 Benzocaine/Menthol (*Bkc) 18 Ea Lozenge PO PRN PRN Sore Throat Benzonatate 100 mg 04/17/24 13:32 04/22/24 21:19 Benzonatate 100 Mg Capsule PO 100 mg TID PRN Administration Cough Dextrose 12.5 gm 04/17/24 17:17 04/24/24 08:25 Dextrose 50% 25 Gm/50 Ml Syringe IV PUSH 12.5 gm PRN PRN Administration Hypoglycemia Protocol Enoxaparin Sodium 40 mg 04/18/24 09:00 04/24/24 08:43 Enoxaparin 40 Mg/0.4 Ml Syringe SUB-Q Not Given DAILY MARYCHUY Glucagon 1 mg 04/17/24 17:17 Glucagon For Inj 1 Mg Vial IM PRN PRN Hypoglycemia Protocol Glucose 15 gm 04/17/24 17:17 Glucose Oral Gel 15 Gm Of Glucse In 37.5 Gm Tube PO PRN PRN Hypoglycemia Protocol Guaifenesin 600 mg 04/17/24 21:00 04/24/24 08:42 Guaifenesin 12 Hr 600 Mg Tabcr PO 600 mg Q12HR MARYCHUY Administration Dextrose 1,000 mls @ 100 mls/hr 04/17/24 17:17 Dextrose 5% 1,000 Ml IVPB PRN PRN Hypoglycemia Protocol Cefepime HCl 2 gm in 50 mls @ 100 mls/hr 04/22/24 08:00 04/24/24 08:26 Maxipime 2 Gm/Ns 50 Ml IVPB 100 mls/hr Q8H MARYCHUY Administration Vancomycin HCl 1,000 mg in 250 mls @ 166.667 mls/hr 04/24/24 16:00 Vancomycin 1,000 Mg/Ns 250 Ml IVPB Q12H [facility] Insulin Aspart 4 - 8 units 04/18/24 08:00 04/24/24 08:27 Insulin Aspart (*Bkc) 100 Units/Ml SUB-Q Not Given TIDWM [facility] Protocol Insulin Aspart 2 - 4 units 04/18/24 21:00 04/23/24 22:00 Insulin Aspart (*Bkc) 100 Units/Ml SUB-Q Not Given HS [facility] Protocol Insulin Aspart 3 units 04/23/24 12:00 04/24/24 08:26 Insulin Aspart (*Bkc) 100 Units/Ml SUB-Q Not Given TIDWM [facility] Insulin Glargine 30 units 04/21/24 21:00 04/23/24 22:01 Insulin Glargine (*Bkc) 100 Units/Ml SUB-Q Not Given HS [facility] Ipratropium [place] 0.5 mg 04/20/24 08:46 Ipratropium Br 0.02% Inh Soln 0.5 Mg/2.5 Ml Vial INHALATION Q6HRT PRN Wheezing Levalbuterol HCl 1.25 mg 04/20/24 08:46 Levalbuterol Neb 1.25 Mg/3 Ml INHALATION Q6HRT PRN Wheezing Ondansetron HCl 4 mg 04/17/24 12:03 04/20/24 17:16 Ondansetron Inj 4 Mg/2 Ml Vial IV PUSH 4 mg Q4H PRN Administration Nausea Pantoprazole Sodium 40 mg 04/18/24 09:00 04/24/24 08:42 Pantoprazole Sodium Iv 40 Mg Vial IV PUSH 40 mg QAM MARYCHUY Administration Radiology Results: ITS Impressions Chest CTA 04/20/24 13:44 Impression: No evidence of pulmonary embolus, aortic dissection, or aortic aneurysm. Right lower lobar pneumonia. [id number] pleural effusion and small left pleural effusion. Thoracentesis Ultrasound 04/21/24 15:14 IMPRESSION: 1. Successful ultrasound-guided thoracentesis yielding 200 mL of cloudy straw-colored fluid. Chest X-Ray 04/21/24 15:19 IMPRESSION: 1. Stable airspace opacities in right mid and lower lung zones and left lower lung zone, consistent with pneumonia. 2. Small right pleural effusion. Venous Doppler Study 04/22/24 10:41 IMPRESSION: 1: No lower extremity deep venous thrombosis. Labs Labs: Laboratory Results - last 24 hr 04/23/24 04/23/24 04/23/24 16:07 17:51 21:29 WBC RBC Hgb Hct MCV MCH MCHC RDW Plt Count MPV Sodium Potassium Chloride Carbon Dioxide Anion Gap BUN Creatinine Estim Creat Clear Calc Estimated GFR Glucose POC Capillary Glucose 149 H 103 111 H Calcium Magnesium Total Bilirubin AST ALT Alkaline Phosphatase Total Protein Albumin Vancomycin Trough 04/24/24 04/24/24 04/24/24 07:58 08:15 08:56 WBC 14.5 H RBC 4.11 L Hgb 11.5 L Hct 34.8 L MCV 84.7 MCH 28.0 MCHC 33.0 RDW 15.3 H Plt Count 369 MPV 10.1 Sodium 133 L Potassium 3.4 Chloride 101 Carbon Dioxide 27 Anion Gap 5 BUN 17 Creatinine 0.75 Estim Creat Clear Calc 85 Estimated GFR > 60 Glucose 64 L POC Capillary Glucose 60 L 113 H Calcium 7.6 L Magnesium 1.7 Total Bilirubin 0.4 AST 47 ALT 22 Alkaline Phosphatase 170 H Total Protein 6.0 L Albumin 2.3 L Vancomycin Trough 22.4 H 04/24/24 11:42 WBC RBC Hgb Hct MCV MCH MCHC RDW Plt Count MPV Sodium Potassium Chloride Carbon Dioxide Anion Gap BUN Creatinine Estim Creat Clear Calc Estimated GFR Glucose POC Capillary Glucose 155 H Calcium Magnesium Total Bilirubin AST ALT Alkaline Phosphatase Total Protein Albumin Vancomycin Trough Quality VTE Prophylaxis VTE prophylaxis: pharmacologic ordered
[2024-04-24] MEDS: hydroCHLOROthiazide 12.5 MG CAPSULE PO (14:08)
[2024-04-24] MEDS: lisinopriL 5 MG TABLET PO (14:08)
[2024-04-24] MEDS: ALBUMIN HUMAN 25% 25 GM/100 ML 100 ML IVPB (14:28)
[2024-04-24] MEDS: VANCOMYCIN 1,000 MG/NS 250 ML 1,000 MG/250 ML BAG 166.67 MG IVPB (15:54)
[2024-04-24 16:17] LABS: Glucose Point of Care 253 mg/dl (65-105)
[2024-04-24] MEDS: INSULIN ASPART (*BKC) 100 UNITS/ML SUB-Q ×2 (17:05→20:56)
[2024-04-24] MEDS: INSULIN GLARGINE (*BKC) 100 UNITS/ML 30 UNITS SUB-Q (20:56)
[2024-04-25 02:50] LABS: Glucose Point of Care 385 mg/dl (65-105)
[2024-04-25] MEDS: VANCOMYCIN 1,000 MG/NS 250 ML 1,000 MG/250 ML BAG 166.67 MG IVPB (04:50)
[2024-04-25 05:01] VITALS: BP 140/60; PULSE 88; RESP 20; TEMP 37.2; O2SAT 94
[2024-04-25] MEDS: ONDANSETRON INJ 4 MG/2 ML VIAL IV PUSH ×2 (05:04→23:00)
[2024-04-25 06:35] LABS: Hematocrit 30.2 % (42.0-52.0); Hemoglobin 9.9 g/dL (14.0-18.0); Mean Corpuscular HGB Conc 32.8 g/dl (32-36); Mean Corpuscular Hemoglobin 27.5 pg (26-34); Mean Corpuscular Volume 83.9 fl (80-100); Mean Platelet Volume 10.2 fl (7.4-10.4); Platelet Count Result 442 k/mm3 (150-375); Red Cell Distribution Width 14.7 % (11.5-14.5); White Blood Count 11.5 K/mm3 (4.5-10.0)
[2024-04-25 06:45] LABS: Alanine Aminotransferase 18 U/L (6-50); Albumin Level 2.4 g/dL (3.5-5.1); Alkaline Phosphatase 144 U/L (38-126); Anion Gap 3 mmol/L (4-12); Aspartate Amino Transferase 31 U/L (17-59); Bilirubin,Total 0.4 mg/dL (0.2-1.3); Blood Urea Nitrogen 17 mg/dL (9-20); Calcium 7.8 mg/dL (8.4-10.2); Carbon Dioxide 32 mmol/L (22-30); Chloride 97 mmol/L (98-107); Estimated CRCL calculation 90 ml/min; Estimated Glomerular Filt Rate > 60; Glucose 66 mg/dL (65-110); Magnesium 1.7 mg/dL (1.6-2.3); Potassium 3.3 mmol/L (3.4-5.0); Sodium 132 mmol/L (137-145)
[2024-04-25 07:12] LABS: Band Neutrophils Percent 7 % (0-6); Lymphocytes Absolute Manual 1.72 K/mm3 (1.1-4.5); Monocytes Absolute Manual 0.23 K/mm3 (0.1-0.90); Monocytes Percent Manual 2 % (3-9); Neutrophils Absolute Manual 9.54 K/mm3 (1.3-6.7); Neutrophils Percent Manual 76 % (46-73); Total Cells Counted 100
[2024-04-25 07:13] LABS: Platelet Estimate Increased (Adequate); Schistocytes None Seen
[2024-04-25 07:14] LABS: Anisocytosis 1+; Large Platelets Present
[2024-04-25 08:17] LABS: Glucose Point of Care 44 mg/dl (65-105)
[2024-04-25 08:45] LABS: Glucose Point of Care 69 mg/dl (65-105)
[2024-04-25] MEDS: hydroCHLOROthiazide 12.5 MG CAPSULE PO (09:27)
[2024-04-25] MEDS: guaiFENesin 12 HR 600 MG TABCR PO ×2 (09:27→21:19)
[2024-04-25] MEDS: lisinopriL 5 MG TABLET PO (09:27)
[2024-04-25] MEDS: ENOXAPARIN 40 MG/0.4 ML SYRINGE SUB-Q (09:28)
[2024-04-25] MEDS: CEFEPIME 2 GM/NS 50 ML 2 GM/50 ML BAG IVPB ×3 (09:29→23:00)
[2024-04-25 09:30] VITALS: O2SAT 94
--- NOTE | 2024-04-25 09:32 | PCNFU ---
Nutrition Follow-Up Complete: Inadequate Oral Intake as related to DKA/Influenza A as evidenced by poor po intake reported. goal: Adequate Intake of at least 75% of meals/supplements Patient is progress towards goal. We will continue current goal. Pt current nutrition is DBCC with Glucerna shakes TID. Last recorded weight is 67.2 kg, up from 64.6 kg on admit. Bowel Motility: Last reported BM 04/23 Labs Reviewed: K 3.3, NA 132, Alb 2.4 Meds Noted:Lantus, NovoLog, Protonix Skin: WNL Additional Notes: Patient remains on DBCC diet with Glucerna shakes TID. Oral Intake has been improving 40-80% of meals. Spoke with nursing today patient did have low blood sugar this morning. Agree with diet orders. PO intake continues to be encouraged. Will monitor weight , labs, skin, diet orders, meds every 5 days.
[2024-04-25] MEDS: PANTOPRAZOLE SODIUM IV 40 MG VIAL IV PUSH (09:36)
--- NOTE | 2024-04-25 11:18 | PM.IMPN ---
Progress Note: A&P Assessment and Plan (1) Sepsis: Qualifiers: Sepsis type: sepsis due to unspecified organism Sepsis acute organ dysfunction status: with acute organ dysfunction Severe sepsis acute organ dysfunction type: acute respiratory failure Acute respiratory failure type: with hypoxia Severe sepsis shock status: without septic shock Qualified Code(s): A41.9 - Sepsis, unspecified organism; R65.20 - Severe sepsis without septic shock; J96.01 - Acute respiratory failure with hypoxia Code(s): A41.9 - Sepsis, unspecified organism Status: Acute Assessment and Plan: Patient has been on broad-spectrum antibiotics with vancomycin Rocephin and azithromycin Blood cultures done on 04/17 have been negative He has had persistent fevers and repeat cultures were sent on 04/[address] chest reviewed 04/22 Rocephin changed to cefepime, last fever was 04/22 Diagnostic thoracentesis was done on the right side Pleural fluid culture negative To complete Cefepime tomorrow (2) DKA (diabetic ketoacidosis): Qualifiers: Diabetes mellitus complication detail: without coma Diabetes mellitus type: type 2 Qualified Code(s): E11.10 - Type 2 diabetes mellitus with ketoacidosis without coma Code(s): E11.10 - Type 2 diabetes mellitus with ketoacidosis without coma Status: Acute Assessment and Plan: Resolved He presented with DKA and was treated with IV insulin and IV fluids. 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 Increase with meal insulin dose (3) Renal failure: Qualifiers: Acute renal failure type: unspecified Renal failure chronicity: acute Qualified Code(s): N17.9 - Acute kidney failure, unspecified Code(s): N19 - Unspecified kidney failure Status: Acute Assessment and Plan: PILY, resolved Cr 0.75 (4) Pneumonia: Qualifiers: Pneumonia type: due to influenza A virus Qualified Code(s): J10.00 - Influenza due to other identified influenza virus with unspecified type of pneumonia Code(s): J18.9 - Pneumonia, unspecified organism Status: Acute Assessment and Plan: Right lower lobe pneumonia on chest x-ray Pt has been on ceftriaxone, azithromycin and vancomycin (02/14) Day 4 Cefepime MRSA screen positive, completed 9 days of Vanc 04/21 He continues to be febrile. CT shows R pleural effusion. s/p Thoracentesis Pleural fluid culture negative will complete 5 days of Cefepime tomorrow (5) Influenza A: Code(s): J10.1 - Influenza due to other identified influenza virus with other respiratory manifestations Status: Acute Assessment and Plan: Patient complained of sore throat, congestion, cough with generalized weakness, denies any fevers, chest pain on admission -04/17: influenza A positive Completed course of Tamiflu (6) Electrolyte abnormality: Code(s): E87.8 - Other disorders of electrolyte and fluid balance, not elsewhere classified Status: Acute Assessment and Plan: Replace low potassium (7) Hypoglycemia: Code(s): E16.2 - Hypoglycemia, unspecified Status: Acute Assessment and Plan: Decreased lantus from 30 units to 10 units today Monitor (8) Sinus tachycardia: Code(s): R00.0 - Tachycardia, unspecified Status: Acute Assessment and Plan: resolved (9) Urinary retention: Code(s): R33.9 - Retention of urine, unspecified Status: Acute Assessment and Plan: Earlier in the hospital course patient urinary retention and a Wu catheter was placed. Patient is now clinically improved and much stronger. Remove wu Plan Hypertension, improving BP consistently elevated on Lisinopril and HCTZ Can discharge on current regimen monitor DVT prophylaxis: Lovenox Stress ulcer prophylaxis: Protonix Nutrition: Diabetic diet Code Status: Full code Subjective Date/time seen: 04/25/24 11:18 Interval history: Patient comfortable at bedside patient had hypoglycemia this morning Lantus decreased to 10 units from 30 units possible discharge tomorrow if blood sugar remains stable Review of Systems Review of Systems: All systems reviewed & are unremarkable except as noted in HPI and below Exam Narrative: GENERAL: Ill-appearing, in no acute distress at this time HEENT: Pupils equally reactive, sclerae is clear, dry oral mucosa CHEST: Coarse breath sounds right lower lobe, no wheezing, adequate air entry HEART: S1-S2 is normal, tachycardia. ABDOMEN: Soft, nontender, nondistended. Normoactive bowel sounds EXTREMITIES: No edema, palpable pedal pulses, moves all extremities spontaneously. SKIN: Warm, dry, no rash. NEURO: Patient is awake, alert, answers questions appropriately and follows simple commands in all extremities AO x3 PSYCH: Normal mentation, : Wu in place Const: General: comfortable and no acute distress Other: , male, ill appearing. HENMT: Face/Nose/Sinus: Normal nares present Mouth: Yes dry mucous membranes Eyes: General: appearance normal, both eyes and all related structures Sclera: sclerae normal Pupils: Equal, round and reactive pupils present EOM: EOMs intact bilaterally Resp: Other: Mild work of breathing, + tachypnea. Bibasilar crackles, right worse than left. No wheezing. Cardio: Rate: regular rate Rhythm: regular rhythm Other: S1-S2 present without murmur, rub, ectopy GI: Other: Abdomen soft, nondistended, nontender. Skin: General skin exam: normal color, no rashes or lesions noted and wounds noted (Small healing wound to right hand, no signs of infection) Wounds: wounds noted (Small healing wound to right hand, no signs of infection) Neuro: Cranial nerves: Yes Equal, round and reactive pupils present Other: patient minimally interactive, somnolent. A&O x3. Moving all extremities Extrem: General: normal to inspection Psych: Other: Unable to assess due to somnolence. No overt issues. Objective Data Vital Signs Vital Signs: Vital Signs - 24 hr 04/24/24 12:00 04/24/24 13:37 04/24/24 16:00 Temperature 97.3 F L Pulse Rate 89 102 H 98 Respiratory Rate 18 Blood Pressure 148/63 H Pulse Oximetry 95 Oxygen Delivery Oxygen Flow Rate Fraction of Inspired Oxygen 04/24/24 20:48 04/24/24 20:50 04/25/24 05:01 Temperature 98.5 F 99 F Pulse Rate 93 93 88 Respiratory Rate 20 20 20 Blood Pressure 161/62 H 140/60 Pulse Oximetry 96 96 94 Oxygen Delivery Nasal Cannula Oxygen Flow Rate 2 Fraction of Inspired Oxygen 39 Intake/Output Intake/Output: Intake & Output 04/22/24 04/23/24 04/24/24 04/25/24 23:59 23:59 23:59 23:59 Intake Total 3020 1500 2604 400 Output Total 2600 3275 1050 800 Balance 420 -7255 1554 -400 Meds/Results Medications: Active Medications Generic Name Dose Route Start Last Admin Trade Name Freq PRN Reason Stop Dose Admin Acetaminophen 650 mg 04/17/24 13:32 04/23/24 20:39 Acetaminophen 325 Mg Tablet PO 650 mg Q4H PRN Administration Mild Pain (1-3) or Fever Benzocaine 1 lozenge 04/17/24 13:32 Benzocaine/Menthol (*Bkc) 18 Ea Lozenge PO PRN PRN Sore Throat Benzonatate 100 mg 04/17/24 13:32 04/22/24 21:19 Benzonatate 100 Mg Capsule PO 100 mg TID PRN Administration Cough Dextrose 12.5 gm 04/17/24 17:17 04/24/24 08:25 Dextrose 50% 25 Gm/50 Ml Syringe IV PUSH 12.5 gm PRN PRN Administration Hypoglycemia Protocol Enoxaparin Sodium 40 mg 04/18/24 09:00 04/25/24 09:28 Enoxaparin 40 Mg/0.4 Ml Syringe SUB-Q 40 mg DAILY MARYCHUY Administration Glucagon 1 mg 04/17/24 17:17 Glucagon For Inj 1 Mg Vial IM PRN PRN Hypoglycemia Protocol Glucose 15 gm 04/17/24 17:17 Glucose Oral Gel 15 Gm Of Glucse In 37.5 Gm Tube PO PRN PRN Hypoglycemia Protocol Guaifenesin 600 mg 04/17/24 21:00 04/25/24 09:27 Guaifenesin 12 Hr 600 Mg Tabcr PO 600 mg Q12HR MARYCHUY Administration Hydrochlorothiazide 12.5 mg 04/24/24 12:50 04/25/24 09:27 Hydrochlorothiazide 12.5 Mg Capsule PO 12.5 mg QAM MARYCHUY Administration Dextrose 1,000 mls @ 100 mls/hr 04/17/24 17:17 Dextrose 5% 1,000 Ml IVPB PRN PRN Hypoglycemia Protocol Cefepime HCl 2 gm in 50 mls @ 100 mls/hr 04/22/24 08:00 04/25/24 09:29 Maxipime 2 Gm/Ns 50 Ml IVPB 04/26/24 23:59 100 mls/hr Q8H MARYCHUY Administration Insulin Aspart 4 - 8 units 04/18/24 08:00 04/25/24 09:24 Insulin Aspart (*Bkc) 100 Units/Ml SUB-Q Not Given TIDWM MARYCHUY Protocol Insulin Aspart 2 - 4 units 04/18/24 21:00 04/24/24 20:56 Insulin Aspart (*Bkc) 100 Units/Ml SUB-Q 4 units HS MARYCHUY Administration Protocol Insulin Aspart 3 units 04/23/24 12:00 04/25/24 09:24 Insulin Aspart (*Bkc) 100 Units/Ml SUB-Q Not Given TIDWM MARYCHUY Insulin Glargine 10 units 04/25/24 21:00 Insulin Glargine (*Bkc) 100 Units/Ml SUB-Q HS MARYCHUY Ipratropium [place] 0.5 mg 04/20/24 08:46 Ipratropium Br 0.02% Inh Soln 0.5 Mg/2.5 Ml Vial INHALATION Q6HRT PRN Wheezing Levalbuterol HCl 1.25 mg 04/20/24 08:46 Levalbuterol Neb 1.25 Mg/3 Ml INHALATION Q6HRT PRN Wheezing Lisinopril 5 mg 04/24/24 12:50 04/25/24 09:27 Lisinopril 5 Mg Tablet PO 5 mg QAM MARYCHUY Administration Ondansetron HCl 4 mg 04/17/24 12:03 04/25/24 05:04 Ondansetron Inj 4 Mg/2 Ml Vial IV PUSH 4 mg Q4H PRN Administration Nausea Pantoprazole Sodium 40 mg 04/18/24 09:00 04/25/24 09:36 Pantoprazole Sodium Iv 40 Mg Vial IV PUSH 40 mg QAM MARYCHUY Administration Radiology Results: ITS Impressions Chest CTA 04/20/24 13:44 Impression: No evidence of pulmonary embolus, aortic dissection, or aortic aneurysm. Right lower lobar pneumonia. [id number] pleural effusion and small left pleural effusion. Thoracentesis Ultrasound 04/21/24 15:14 IMPRESSION: 1. Successful ultrasound-guided thoracentesis yielding 200 mL of cloudy straw-colored fluid. Chest X-Ray 04/21/24 15:19 IMPRESSION: 1. Stable airspace opacities in right mid and lower lung zones and left lower lung zone, consistent with pneumonia. 2. Small right pleural effusion. Venous Doppler Study 04/22/24 10:41 IMPRESSION: 1: No lower extremity deep venous thrombosis. Labs Labs: Laboratory Results - last 24 hr 04/24/24 04/24/24 04/24/24 11:42 16:13 20:55 WBC RBC Hgb Hct MCV MCH MCHC RDW Plt Count MPV Immature Gran % (Auto) Neut % (Auto) Lymph % (Auto) Nobles % (Auto) Eos % (Auto) Baso % (Auto) Lymph # (Auto) [place] # (Auto) Eos # (Auto) Baso # (Auto) Abs Immat Gran (auto) Absolute Neuts (auto) Absolute Nucleated RBC Total Counted Neutrophils % (Manual) Band Neutrophils % Lymphocytes % (Manual) Monocytes % (Manual) Nucleated RBC % Abs Neuts (Manual) Abs Lymphs (Manual) Abs Monocytes (Manual) Platelet Estimate Large Platelets Anisocytosis Schistocytes Sodium Potassium Chloride Carbon Dioxide Anion Gap BUN Creatinine Estim Creat Clear Calc Estimated GFR Glucose POC Capillary Glucose 155 H 253 H 385 H Calcium Magnesium Total Bilirubin AST ALT Alkaline Phosphatase Total Protein Albumin 04/25/24 04/25/24 04/25/24 05:41 08:05 08:41 WBC 11.5 H RBC 3.60 L Hgb 9.9 L Hct 30.2 L MCV 83.9 MCH 27.5 MCHC 32.8 RDW 14.7 H Plt Count 442 H MPV 10.2 Immature Gran % (Auto) Not Reportable Neut % (Auto) Not Reportable Lymph % (Auto) Not Reportable Nobles % (Auto) Not Reportable Eos % (Auto) Not Reportable Baso % (Auto) Not Reportable Lymph # (Auto) Not Reportable [place]les # (Auto) Not Reportable Eos # (Auto) Not Reportable Baso # (Auto) Not Reportable Abs Immat Gran (auto) Not Reportable Absolute Neuts (auto) Not Reportable Absolute Nucleated RBC Not Reportable Total Counted 100 Neutrophils % (Manual) 76 H Band Neutrophils % 7 H Lymphocytes % (Manual) 15.0 L Monocytes % (Manual) 2 L Nucleated RBC % Not Reportable Abs Neuts (Manual) 9.54 H Abs Lymphs (Manual) 1.72 Abs Monocytes (Manual) 0.23 Platelet Estimate Increased Large Platelets Present Anisocytosis 1+ Schistocytes None seen Sodium 132 L Potassium 3.3 L Chloride 97 L Carbon Dioxide 32 H Anion Gap 3 L BUN 17 Creatinine 0.72 Estim Creat Clear Calc 90 Estimated GFR > 60 Glucose 66 POC Capillary Glucose 44 L* 69 Calcium 7.8 L Magnesium 1.7 Total Bilirubin 0.4 AST 31 ALT 18 Alkaline Phosphatase 144 H Total Protein 6.0 L Albumin 2.4 L Quality VTE Prophylaxis VTE prophylaxis: pharmacologic ordered
[2024-04-25] MEDS: ALBUMIN HUMAN 25% 25 GM/100 ML 100 ML IVPB (11:22)
[2024-04-25 12:27] LABS: Glucose Point of Care 184 mg/dl (65-105)
[2024-04-25 14:00] VITALS: BP 137/82; PULSE 86; RESP 18; TEMP 37.1; O2SAT 96
[2024-04-25 17:03] LABS: Glucose Point of Care 289 mg/dl (65-105)
[2024-04-25] MEDS: INSULIN ASPART (*BKC) 100 UNITS/ML SUB-Q ×2 (17:28→17:29)
[2024-04-25 21:09] VITALS: BP 141/69; PULSE 87; RESP 20; TEMP 36.5; O2SAT 96
[2024-04-25 21:12] VITALS: O2SAT 96
[2024-04-25 21:18] LABS: Glucose Point of Care 111 mg/dl (65-105)
[2024-04-25] MEDS: INSULIN GLARGINE (*BKC) 100 UNITS/ML 10 UNITS SUB-Q (21:26)
[2024-04-25 23:24] LABS: Glucose Point of Care 84 mg/dl (65-105)
[2024-04-26] VITALS (10 sets, daily range): BP systolic 108–151; BP diastolic 56–84; PULSE 95–120; RESP 14–18; TEMP 36.5–36.8; O2SAT 93–96
[2024-04-26 02:48] LABS: Glucose Point of Care 127 mg/dl (65-105)
[2024-04-26] MEDS: ONDANSETRON INJ 4 MG/2 ML VIAL IV PUSH ×3 (02:50→21:16)
--- NOTE | 2024-04-26 08:01 | P.PNIM_ITS ---
Progress Note: A&P Assessment and Plan (1) Sepsis: Qualifiers: Acute respiratory failure type: with hypoxia Sepsis acute organ dysfunction status: with acute organ dysfunction Sepsis type: sepsis due to unspecified organism Severe sepsis acute organ dysfunction type: acute respiratory failure Severe sepsis shock status: without septic shock Qualified Code(s): A41.9 - Sepsis, unspecified organism; R65.20 - Severe sepsis without septic shock; J96.01 - Acute respiratory failure with hypoxia Code(s): A41.9 - Sepsis, unspecified organism Status: Acute Assessment and Plan: Patient has been on broad-spectrum antibiotics with vancomycin Rocephin and azithromycin Blood cultures done on 04/17 have been negative He has had persistent fevers and repeat cultures were sent on 04/[address] chest reviewed 04/22 Rocephin changed to cefepime, last fever was 04/22 Diagnostic thoracentesis was done on the right side Pleural fluid culture negative To complete Cefepime (2) DKA (diabetic ketoacidosis): Qualifiers: Diabetes mellitus complication detail: without coma Diabetes mellitus type: type 2 Qualified Code(s): E11.10 - Type 2 diabetes mellitus with ketoacidosis without coma Code(s): E11.10 - Type 2 diabetes mellitus with ketoacidosis without coma Status: Acute Assessment and Plan: Resolved He presented with DKA and was treated with IV insulin and IV fluids. 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 Increase with meal insulin dose DKA resolved (3) Renal failure: Qualifiers: Acute renal failure type: unspecified Renal failure chronicity: acute Qualified Code(s): N17.9 - Acute kidney failure, unspecified Code(s): N19 - Unspecified kidney failure Status: Acute Assessment and Plan: PILY, resolved Cr 0.75 (4) Pneumonia: Qualifiers: Pneumonia type: due to influenza A virus Qualified Code(s): J10.00 - Influenza due to other identified influenza virus with unspecified type of pneumonia Code(s): J18.9 - Pneumonia, unspecified organism Status: Acute Assessment and Plan: Right lower lobe pneumonia on chest x-ray Pt has been on ceftriaxone, azithromycin and vancomycin (02/14) Day 4 Cefepime MRSA screen positive, completed 9 days of Vanc 04/21 He continues to be febrile. CT shows R pleural effusion. s/p Thoracentesis Pleural fluid culture negative complete 5 days of Cefepime (5) Influenza A: Code(s): J10.1 - Influenza due to other identified influenza virus with other respiratory manifestations Status: Acute Assessment and Plan: Patient complained of sore throat, congestion, cough with generalized weakness, denies any fevers, chest pain on admission -04/17: influenza A positive Completed course of Tamiflu (6) Electrolyte abnormality: Code(s): E87.8 - Other disorders of electrolyte and fluid balance, not elsewhere classified Status: Acute Assessment and Plan: Replace low potassium (7) Hypoglycemia: Code(s): E16.2 - Hypoglycemia, unspecified Status: Acute Assessment and Plan: Decreased lantus from 30 units to 10 units /24 Monitor Glucose 84 yesterday evening, 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 and sliding scale today. We need to optimize insulin before discharge patient (8) Sinus tachycardia: Code(s): R00.0 - Tachycardia, unspecified Status: Acute Assessment and Plan: resolved (9) Urinary retention: Code(s): R33.9 - Retention of urine, unspecified Status: Acute Assessment and Plan: Earlier in the hospital course patient urinary retention and a Wu catheter was placed. Patient is now clinically improved and much stronger. Remove wu Plan Hypertension, improving BP consistently elevated on Lisinopril and HCTZ Can discharge on current regimen monitor DVT prophylaxis: Lovenox Stress ulcer prophylaxis: Protonix Nutrition: Diabetic diet Code Status: Full code Subjective Date/time seen: 04/26/24 08:01 Interval history: I saw exam patient today, patient is pierced hypoglycemia yesterday, glucose still low yesterday evening. Insulin was on hold today Exam Narrative: GENERAL: Ill-appearing in no acute distress. Well-nourished. - EYES: EOMI. Anicteric. - HENT: Moist mucous membranes. - LUNGS: Clear to auscultation bilateral ly, no wheezing, rhonchi, or rales. - CARDIOVASCULAR: Regular rate and rhyth m. No murmur. No JVD. - ABDOMEN: Soft, non-tender and non-dist ended. No palpable masses. Wu catheter in-situ - EXTREMITIES: No edema. Peripheral puls es 2+. Non-tender. - NEUROLOGIC: No focal neurological defi cits. CN II-XII grossly intact. - PSYCHIATRIC: Awake, Alert and oriented x 3. Appropriate mood and affect. - SKIN: No rashes or lesions. Warm. - LYMPH: No cervical lymphadenopathy. Objective Data Vital Signs Vital Signs: Vital Signs - 24 hr 04/25/24 09:30 04/25/24 14:00 04/25/24 21:09 Temperature 98.8 F 97.7 F Pulse Rate 86 87 Respiratory Rate 18 20 Blood Pressure 137/82 141/69 H Pulse Oximetry 94 96 96 Oxygen Delivery Nasal Cannula Oxygen Flow Rate 1 04/25/24 21:12 04/26/24 05:47 Temperature 97.7 F Pulse Rate 95 Respiratory Rate 18 Blood Pressure 140/74 Pulse Oximetry 96 93 Oxygen Delivery Nasal Cannula Oxygen Flow Rate 1 Intake/Output Intake/Output: Intake & Output 04/23/24 04/24/24 04/25/24 04/26/24 23:59 23:59 23:59 23:59 Intake Total 1500 2604 2150 300 Output Total 3275 1050 2000 825 Balance -1775 1554 150 -525 Meds/Results Medications: Active Medications Generic Name Dose Route Start Last Admin Trade Name Freq PRN Reason Stop Dose Admin Acetaminophen 650 mg 04/17/24 13:32 04/23/24 20:39 Acetaminophen 325 Mg Tablet PO 650 mg Q4H PRN Administration Mild Pain (1-3) or Fever Benzocaine 1 lozenge 04/17/24 13:32 Benzocaine/Menthol (*Bkc) 18 Ea Lozenge PO PRN PRN Sore Throat Benzonatate 100 mg 04/17/24 13:32 04/22/24 21:19 Benzonatate 100 Mg Capsule PO 100 mg TID PRN Administration Cough Dextrose 12.5 gm 04/17/24 17:17 04/24/24 08:25 Dextrose 50% 25 Gm/50 Ml Syringe IV PUSH 12.5 gm PRN PRN Administration Hypoglycemia Protocol Enoxaparin Sodium 40 mg 04/18/24 09:00 04/25/24 09:28 Enoxaparin 40 Mg/0.4 Ml Syringe SUB-Q 40 mg DAILY MARYCHUY Administration Glucagon 1 mg 04/17/24 17:17 Glucagon For Inj 1 Mg Vial IM PRN PRN Hypoglycemia Protocol Glucose 15 gm 04/17/24 17:17 Glucose Oral Gel 15 Gm Of Glucse In 37.5 Gm Tube PO PRN PRN Hypoglycemia Protocol Guaifenesin 600 mg 04/17/24 21:00 04/25/24 21:19 Guaifenesin 12 Hr 600 Mg Tabcr PO 600 mg Q12HR MARYCHUY Administration Hydrochlorothiazide 12.5 mg 04/24/24 12:50 04/25/24 09:27 Hydrochlorothiazide 12.5 Mg Capsule PO 12.5 mg QAM MARYCHUY Administration Dextrose 1,000 mls @ 100 mls/hr 04/17/24 17:17 Dextrose 5% 1,000 Ml IVPB PRN PRN Hypoglycemia Protocol Cefepime HCl 2 gm in 50 mls @ 100 mls/hr 04/22/24 08:00 04/25/24 23:30 Maxipime 2 Gm/Ns 50 Ml IVPB 04/26/24 23:59 Infused Q8H MARYCHUY Infusion Insulin Aspart 4 - 8 units 04/18/24 08:00 04/25/24 17:29 Insulin Aspart (*Bkc) 100 Units/Ml SUB-Q 5 units TIDWM MARYCHUY Administration Protocol Insulin Aspart 2 - 4 units 04/18/24 21:00 04/25/24 21:14 Insulin Aspart (*Bkc) 100 Units/Ml SUB-Q Not Given HS MARYCHUY Protocol Insulin Aspart 3 units 04/23/24 12:00 04/25/24 17:28 Insulin Aspart (*Bkc) 100 Units/Ml SUB-Q 3 units TIDWM MARYCHUY Administration Insulin Glargine 10 units 04/25/24 21:00 04/25/24 21:26 Insulin Glargine (*Bkc) 100 Units/Ml SUB-Q 10 units HS MARYCHUY Administration Ipratropium [place] 0.5 mg 04/20/24 08:46 Ipratropium Br 0.02% Inh Soln 0.5 Mg/2.5 Ml Vial INHALATION Q6HRT PRN Wheezing Levalbuterol HCl 1.25 mg 04/20/24 08:46 Levalbuterol Neb 1.25 Mg/3 Ml INHALATION Q6HRT PRN Wheezing Lisinopril 5 mg 04/24/24 12:50 04/25/24 09:27 Lisinopril 5 Mg Tablet PO 5 mg QAM MARYCHUY Administration Ondansetron HCl 4 mg 04/17/24 12:03 04/26/24 02:50 Ondansetron Inj 4 Mg/2 Ml Vial IV PUSH 4 mg Q4H PRN Administration Nausea Pantoprazole Sodium 40 mg 04/18/24 09:00 04/25/24 09:36 Pantoprazole Sodium Iv 40 Mg Vial IV PUSH 40 mg QAM MARYCHUY Administration Radiology Results: ITS Impressions Chest CTA 04/20/24 13:44 Impression: No evidence of pulmonary embolus, aortic dissection, or aortic aneurysm. Right lower lobar pneumonia. [id number] pleural effusion and small left pleural effusion. Thoracentesis Ultrasound 04/21/24 15:14 IMPRESSION: 1. Successful ultrasound-guided thoracentesis yielding 200 mL of cloudy straw- colored fluid. Chest X-Ray 04/21/24 15:19 IMPRESSION: 1. Stable airspace opacities in right mid and lower lung zones and left lower lung zone, consistent with pneumonia. 2. Small right pleural effusion. Venous Doppler Study 04/22/24 10:41 IMPRESSION: 1: No lower extremity deep venous thrombosis. Labs Labs: Laboratory Results - last 24 hr 04/25/24 04/25/24 04/25/24 08:05 08:41 12:08 POC Capillary Glucose 44 L* 69 184 H 04/25/24 04/25/24 04/25/24 17:00 21:13 23:05 POC Capillary Glucose 289 H 111 H 84 04/26/24 02:45 POC Capillary Glucose 127 H
[2024-04-26 08:15] LABS: Glucose Point of Care 82 mg/dl (65-105)
[2024-04-26 08:27] LABS: Hematocrit 31.3 % (42.0-52.0); Hemoglobin 10.2 g/dL (14.0-18.0); Mean Corpuscular HGB Conc 32.6 g/dl (32-36); Mean Corpuscular Hemoglobin 27.7 pg (26-34); Mean Corpuscular Volume 85.1 fl (80-100); Mean Platelet Volume 9.6 fl (7.4-10.4); Platelet Count Result 468 k/mm3 (150-375); Red Blood Count 3.68 M/mm3 (4.6-6.20); White Blood Count 11.9 K/mm3 (4.5-10.0)
[2024-04-26 08:37] LABS: Anion Gap 5 mmol/L (4-12); Blood Urea Nitrogen 18 mg/dL (9-20); Carbon Dioxide 34 mmol/L (22-30); Chloride 94 mmol/L (98-107); Estimated CRCL calculation 81 ml/min; Estimated Glomerular Filt Rate > 60; Glucose 74 mg/dL (65-110); Potassium 3.7 mmol/L (3.4-5.0); Sodium 133 mmol/L (137-145)
[2024-04-26] MEDS: CEFEPIME 2 GM/NS 50 ML 2 GM/50 ML BAG IVPB ×2 (08:52→17:28)
[2024-04-26] MEDS: hydroCHLOROthiazide 12.5 MG CAPSULE PO (08:53)
[2024-04-26] MEDS: guaiFENesin 12 HR 600 MG TABCR PO ×2 (08:53→21:17)
[2024-04-26] MEDS: lisinopriL 5 MG TABLET PO (08:53)
[2024-04-26] MEDS: PANTOPRAZOLE SODIUM IV 40 MG VIAL IV PUSH (08:53)
[2024-04-26] MEDS: ENOXAPARIN 40 MG/0.4 ML SYRINGE SUB-Q (08:54)
[2024-04-26 11:52] LABS: Glucose Point of Care 170 mg/dl (65-105)
--- NOTE | 2024-04-26 13:51 | PCPTNOTE ---
Attempted to see patient for PT, however patient declined due to not feeling well. Per RN patient was orthostatic with blood pressures.
[2024-04-26 17:19] LABS: Glucose Point of Care 241 mg/dl (65-105)
[2024-04-26] MEDS: INSULIN ASPART (*BKC) 100 UNITS/ML SUB-Q ×2 (17:29)
[2024-04-26 20:54] LABS: Glucose Pleural Fluid 170 mg/dL; LDH Pleural Fluid 1331 U/L; Total Protein Pleural Fluid <3.0 g/dL
[2024-04-26 21:07] LABS: Glucose Point of Care 194 mg/dl (65-105)
[2024-04-26] MEDS: INSULIN GLARGINE (*BKC) 100 UNITS/ML 10 UNITS SUB-Q (21:17)
[2024-04-27] VITALS (12 sets, daily range): BP systolic 105–152; BP diastolic 67–96; PULSE 87–118; RESP 16–20; TEMP 36.8–37.2; O2SAT 94–98
[2024-04-27 00:29] LABS: Glucose Point of Care 132 mg/dl (65-105)
[2024-04-27 03:04] LABS: Glucose Point of Care 192 mg/dl (65-105)
[2024-04-27 08:23] LABS: Glucose Point of Care 100 mg/dl (65-105)
[2024-04-27] MEDS: hydroCHLOROthiazide 12.5 MG CAPSULE PO (09:08)
[2024-04-27] MEDS: lisinopriL 5 MG TABLET PO (09:08)
[2024-04-27] MEDS: guaiFENesin 12 HR 600 MG TABCR PO ×2 (09:08→20:30)
[2024-04-27] MEDS: ENOXAPARIN 40 MG/0.4 ML SYRINGE SUB-Q (09:09)
[2024-04-27] MEDS: PANTOPRAZOLE SODIUM IV 40 MG VIAL IV PUSH (09:09)
[2024-04-27] MEDS: METOPROLOL SUCCINATE EXT REL 25 MG TABCR PO (10:47)
[2024-04-27 11:51] LABS: Glucose Point of Care 126 mg/dl (65-105)
--- NOTE | 2024-04-27 15:52 | P.PNIM_ITS ---
Progress Note: A&P Assessment and Plan (1) Sepsis: Qualifiers: Acute respiratory failure type: with hypoxia Sepsis acute organ dysfunction status: with acute organ dysfunction Sepsis type: sepsis due to unspecified organism Severe sepsis acute organ dysfunction type: acute respiratory failure Severe sepsis shock status: without septic shock Qualified Code(s): A41.9 - Sepsis, unspecified organism; R65.20 - Severe sepsis without septic shock; J96.01 - Acute respiratory failure with hypoxia Code(s): A41.9 - Sepsis, unspecified organism Status: Acute Assessment and Plan: Patient has been on broad-spectrum antibiotics with vancomycin Rocephin and azithromycin Blood cultures 04/17 are negative. MRSA nasal swab was positive. He was having persistent fevers and repeat cultures were sent on 04/20 and are also negative. UA was unremarkable. CT chest on 04/20 showed no PE but did show right lower lobe pneumonia and small to moderate right pleural effusion and small left pleural effusion. 04/22 Rocephin changed to cefepime, last fever was 04/22 Diagnostic thoracentesis was done on the right side 04/21 with 7200 WBC (77% PMNs). LDH 1331 but TP<3. Glucose 170 Pleural fluid culture negative. He has completed all abx. Last dose of Cefepime was 04/26 at 1728. Monitor closely off antibiotics (2) DKA (diabetic ketoacidosis): Qualifiers: Diabetes mellitus complication detail: without coma Diabetes mellitus type: type 2 Qualified Code(s): E11.10 - Type 2 diabetes mellitus with ketoacidosis without coma Code(s): E11.10 - Type 2 diabetes mellitus with ketoacidosis without coma Status: Acute Assessment and Plan: He presented with DKA and was treated with IV insulin and IV fluids. DKA has resolved and he has been transition to subcutaneous insulin Currently on diabetic diet Hemoglobin A1c > 14.0 this admission airplane pilot commercial and dietitian consult Kidney mealtime insulin and Lantus at night. Monitor for hypoglycemia. (3) Renal failure: Qualifiers: Acute renal failure type: unspecified Renal failure chronicity: acute Qualified Code(s): N17.9 - Acute kidney failure, unspecified Code(s): N19 - Unspecified kidney failure Status: Acute Assessment and Plan: PILY, resolved Cr normal now (4) Pneumonia: Qualifiers: Pneumonia type: due to influenza A virus Qualified Code(s): J10.00 - Influenza due to other identified influenza virus with unspecified type of pneumonia Code(s): J18.9 - Pneumonia, unspecified organism Status: Acute Assessment and Plan: Right lower lobe pneumonia on chest x-ray Pt was on ceftriaxone, azithromycin and vancomycin (02/14) He was switched to cefepime given persistent fevers. MRSA screen positive, completed 9 days of vancomycin Thoracentesis on 04/21 as mentioned above. Pleural fluid culture negative Complete 5 days of Cefepime on 04/26 (5) Influenza A: Code(s): J10.1 - Influenza due to other identified influenza virus with other respiratory manifestations Status: Acute Assessment and Plan: Patient complained of sore throat, congestion, cough with generalized weakness, denies any fevers, chest pain on admission -04/17: influenza A positive Completed course of Tamiflu (6) Electrolyte abnormality: Code(s): E87.8 - Other disorders of electrolyte and fluid balance, not elsewhere classified Status: Acute Assessment and Plan: Labs not drawn today. Repeat labs in the morning. (7) Hypoglycemia: Code(s): E16.2 - Hypoglycemia, unspecified Status: Acute Assessment and Plan: Decreased lantus from 30 units to 10 units on 04/25 Monitor Glucose better controlled. Continue Lantus 10 units q.h.s., aspart 3 unit q.h.s. and sliding scale today. Patient's oral intake is up and down which is contributing to the fluctuating b lood glucose (8) Sinus tachycardia: Code(s): R00.0 - Tachycardia, unspecified Status: Acute Assessment and Plan: Patient with intermittent sinus tachycardia. Could be related to dehydration. CT was negative for PE on 04/21. TSH was low but free T4 is normal. Will start IV fluids. Metoprolol added given his low EF. Follow (9) Urinary retention: Code(s): R33.9 - Retention of urine, unspecified Status: Acute Assessment and Plan: Earlier in the hospital course patient urinary retention and a Manning catheter was placed. Patient is now clinically improved and much stronger. Manning was removed. Patient denies symptoms of urine retention. (10) LV dysfunction: Code(s): I51.9 - Heart disease, unspecified Status: Acute Assessment and Plan: Echocardiogram shows LV systolic function is moderately reduced with EF of 35- 40%, grade 1 diastolic dysfunction and mild tricuspid regurgitation. Patient is on lisinopril. Will hold HCTZ given that he appears dehydrated. Small amount of IV fluids. Add metoprolol XL. Monitor blood pressure and heart rate. 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 Assuming care. Chart reviewed. Patient feels dizzy and lightheaded with sitting up. He is eating better. No chest pain. No shortness of breath. No pleuritic pain. When he coughs, he does have some central chest discomfort. The cough is nonproductive. Exam Narrative: AF 98.6 132/69 102 16 98% ra Gen - NARD Chest -bibasilar crackles. Normal respiratory rate. CV - RRR S1/S2 Abd - Soft, NT/ND, Positive BS Ext - No pedal edema Psych - Nml mood and affect Skin - Warm and dry Objective Data Vital Signs Vital Signs: Vital Signs - 24 hr 04/26/24 19:55 04/26/24 19:55 04/26/24 19:58 Temperature 98.3 F Pulse Rate 97 97 110 H Respiratory Rate 14 Blood Pressure 151/77 H 151/77 H 142/84 H Pulse Oximetry 96 Oxygen Delivery Oxygen Flow Rate 04/26/24 20:02 04/26/24 21:12 04/27/24 06:52 Temperature 98.9 F Pulse Rate 120 H 97 Respiratory Rate 16 Blood Pressure 124/77 152/82 H Pulse Oximetry 96 94 Oxygen Delivery Nasal Cannula Oxygen Flow Rate 1 04/27/24 08:00 04/27/24 08:46 04/27/24 08:46 Temperature Pulse Rate 99 101 H 103 H Respiratory Rate Blood Pressure 140/68 136/82 129/78 Pulse Oximetry 96 96 94 Oxygen Delivery Oxygen Flow Rate 04/27/24 09:00 04/27/24 09:55 04/27/24 09:56 Temperature Pulse Rate 102 H 113 H Respiratory Rate Blood Pressure 147/71 H 134/96 H Pulse Oximetry 94 Oxygen Delivery Nasal Cannula Oxygen Flow Rate 1 04/27/24 09:59 04/27/24 10:07 04/27/24 10:47 Temperature Pulse Rate 118 H 118 H Respiratory Rate Blood Pressure 120/67 Pulse Oximetry 96 Oxygen Delivery Room Air Oxygen Flow Rate 04/27/24 14:00 Temperature 98.6 F Pulse Rate 102 H Respiratory Rate 16 Blood Pressure 132/69 Pulse Oximetry 98 Oxygen Delivery Oxygen Flow Rate Intake/Output Intake/Output: Intake & Output 04/24/24 04/25/24 04/26/24 04/27/24 23:59 23:59 23:59 23:59 Intake Total 2604 2150 730 656 Output Total 1050 1999 1075 1500 Balance [phone] -080 -448 Meds/Results Medications: Active Medications Generic Name Dose Route Start Last Admin Trade Name Freq PRN Reason Stop Dose Admin Acetaminophen 650 mg 04/17/24 13:32 04/23/24 20:39 Acetaminophen 325 Mg Tablet PO 650 mg Q4H PRN Administration Mild Pain (1-3) or Fever Benzocaine 1 lozenge 04/17/24 13:32 Benzocaine/Menthol (*Bkc) 18 Ea Lozenge PO PRN PRN Sore Throat Benzonatate 100 mg 04/17/24 13:32 04/22/24 21:19 Benzonatate 100 Mg Capsule PO 100 mg TID PRN Administration Cough Dextrose 12.5 gm 04/17/24 17:17 04/24/24 08:25 Dextrose 50% 25 Gm/50 Ml Syringe IV PUSH 12.5 gm PRN PRN Administration Hypoglycemia Protocol Enoxaparin Sodium 40 mg 04/18/24 09:00 04/27/24 09:09 Enoxaparin 40 Mg/0.4 Ml Syringe SUB-Q 40 mg DAILY MARYCHUY Administration Glucagon 1 mg 04/17/24 17:17 Glucagon For Inj 1 Mg Vial IM PRN PRN Hypoglycemia Protocol Glucose 15 gm 04/17/24 17:17 Glucose Oral Gel 15 Gm Of Glucse In 37.5 Gm Tube PO PRN PRN Hypoglycemia Protocol Guaifenesin 600 mg 04/17/24 21:00 04/27/24 09:08 Guaifenesin 12 Hr 600 Mg Tabcr PO 600 mg Q12HR MARYCHUY Administration Hydrochlorothiazide 12.5 mg 04/24/24 12:50 04/27/24 09:08 Hydrochlorothiazide 12.5 Mg Capsule PO 12.5 mg QAM MARYCHUY Administration Dextrose 1,000 mls @ 100 mls/hr 04/17/24 17:17 Dextrose 5% 1,000 Ml IVPB PRN PRN Hypoglycemia Protocol Insulin Aspart 4 - 8 units 04/18/24 08:00 04/27/24 13:41 Insulin Aspart (*Bkc) 100 Units/Ml SUB-Q Not Given TIDWM [facility] Protocol Insulin Aspart 2 - 4 units 04/18/24 21:00 04/26/24 21:11 Insulin Aspart (*Bkc) 100 Units/Ml SUB-Q Not Given HS [facility] Protocol Insulin Aspart 3 units 04/23/24 12:00 04/27/24 13:41 Insulin Aspart (*Bkc) 100 Units/Ml SUB-Q Not Given TIDWM [facility] Insulin Glargine 10 units 04/25/24 21:00 04/26/24 21:17 Insulin Glargine (*Bkc) 100 Units/Ml SUB-Q 10 units HS MARYCHUY Administration Ipratropium [place] 0.5 mg 04/20/24 08:46 Ipratropium Br 0.02% Inh Soln 0.5 Mg/2.5 Ml Vial INHALATION Q6HRT PRN Wheezing Levalbuterol HCl 1.25 mg 04/20/24 08:46 Levalbuterol Neb 1.25 Mg/3 Ml INHALATION Q6HRT PRN Wheezing Lisinopril 5 mg 04/24/24 12:50 04/27/24 09:08 Lisinopril 5 Mg Tablet PO 5 mg QAM [facility] Administration Metoprolol Succinate 25 mg 04/27/24 10:25 04/27/24 10:47 Metoprolol Succinate Ext Rel 25 Mg Tabcr PO 25 mg QAM MARYCHUY Administration Ondansetron HCl 4 mg 04/17/24 12:03 04/26/24 21:16 Ondansetron Inj 4 Mg/2 Ml Vial IV PUSH 4 mg Q4H PRN Administration Nausea Pantoprazole Sodium 40 mg 04/18/24 09:00 04/27/24 09:09 Pantoprazole Sodium Iv 40 Mg Vial IV PUSH 40 mg QAM MARYCHUY Administration Radiology Results: ITS Impressions Chest CTA 04/20/24 13:44 Impression: No evidence of pulmonary embolus, aortic dissection, or aortic aneurysm. Right lower lobar pneumonia. [id number] pleural effusion and small left pleural effusion. Thoracentesis Ultrasound 04/21/24 15:14 IMPRESSION: 1. Successful ultrasound-guided thoracentesis yielding 200 mL of cloudy straw- colored fluid. Chest X-Ray 04/21/24 15:19 IMPRESSION: 1. Stable airspace opacities in right mid and lower lung zones and left lower lung zone, consistent with pneumonia. 2. Small right pleural effusion. Venous Doppler Study 04/22/24 10:41 IMPRESSION: 1: No lower extremity deep venous thrombosis. Labs Labs: Laboratory Results - last 24 hr 04/21/24 04/26/24 04/26/24 14:42 17:16 20:02 POC Capillary Glucose 241 H 194 H Pleural Total Protein <3.0 Pleural LDH 1331 Pleural Glucose 170 04/27/24 04/27/24 04/27/24 00:22 02:59 07:44 POC Capillary Glucose 132 H 192 H 100 Pleural Total Protein Pleural LDH Pleural Glucose 04/27/24 11:47 POC Capillary Glucose 126 H Pleural Total Protein Pleural LDH Pleural Glucose
[2024-04-27 16:42] LABS: Glucose Point of Care 244 mg/dl (65-105)
[2024-04-27] MEDS: INSULIN ASPART (*BKC) 100 UNITS/ML SUB-Q ×3 (17:46→20:37)
[2024-04-27] MEDS: SODIUM CHLORIDE 0.9% IV 1,000 ML 100 ML IV CONT (17:47)
[2024-04-27 20:28] LABS: Glucose Point of Care 240 mg/dl (65-105)
[2024-04-27] MEDS: INSULIN GLARGINE (*BKC) 100 UNITS/ML 10 UNITS SUB-Q (20:30)
[2024-04-27] MEDS: ONDANSETRON INJ 4 MG/2 ML VIAL IV PUSH (20:31)
[2024-04-28 05:46] VITALS: BP 145/76; PULSE 93; RESP 20; TEMP 36.4; O2SAT 97
[2024-04-28 06:00] LABS: Basophils Absolute Auto 0.1 K/mm3 (0.0-0.1); Basophils Percent Auto 0.5 % (0.2-1.2); Eosinophils Absolute Auto 0.1 K/mm3 (0-0.3); Eosinophils Percent Auto 0.4 % (0-4.4); Hematocrit 31.6 % (42.0-52.0); Hemoglobin 10.3 g/dL (14.0-18.0); Immature Granulocyte Absolute 0.41 K/mm3 (0.00-0.031); Immature Granulocyte Percent A 3.4 % (0-0.5); Lymphocytes Absolute Auto 1.34 K/mm3 (0.9-3.2); Lymphocytes Percent Auto 11.1 % (18.3-44.2); Mean Corpuscular HGB Conc 32.6 g/dl (32-36); Mean Corpuscular Volume 85.9 fl (80-100); Mean Platelet Volume 9.7 fl (7.4-10.4); Monocytes Absolute Auto 0.5 K/mm3 (0.1-0.6); Monocytes Percent Auto 4.5 % (2.6-8.5); Neutrophils Absolute Auto 9.7 K/mm3 (1.3-6.7); Neutrophils Percent Auto 80.1 % (45.5-73.1); Platelet Count Result 617 k/mm3 (150-375); Red Blood Count 3.68 M/mm3 (4.6-6.20); Red Cell Distribution Width 14.7 % (11.5-14.5); White Blood Count 12.1 K/mm3 (4.5-10.0)
[2024-04-28 06:32] LABS: Albumin Level 2.8 g/dL (3.5-5.1); Anion Gap 6 mmol/L (4-12); Blood Urea Nitrogen 21 mg/dL (9-20); Calcium 8.3 mg/dL (8.4-10.2); Carbon Dioxide 32 mmol/L (22-30); Chloride 96 mmol/L (98-107); Estimated CRCL calculation 78 ml/min; Estimated Glomerular Filt Rate > 60; Glucose 98 mg/dL (65-110); Magnesium 1.7 mg/dL (1.6-2.3); Sodium 134 mmol/L (137-145)
[2024-04-28 08:00] VITALS: BP 141/68; PULSE 97
[2024-04-28 08:32] LABS: Glucose Point of Care 152 mg/dl (65-105)
[2024-04-28 09:01] VITALS: BP 137/80; PULSE 96
[2024-04-28 09:02] VITALS: BP 115/72
[2024-04-28 09:18] VITALS: PULSE 96
[2024-04-28] MEDS: METOPROLOL SUCCINATE EXT REL 25 MG TABCR PO (09:18)
[2024-04-28] MEDS: PANTOPRAZOLE 40 MG TABLET PO (09:18)
[2024-04-28] MEDS: lisinopriL 5 MG TABLET PO (09:19)
[2024-04-28] MEDS: ENOXAPARIN 40 MG/0.4 ML SYRINGE SUB-Q (09:19)
[2024-04-28] MEDS: INSULIN ASPART (*BKC) 100 UNITS/ML SUB-Q ×4 (09:19→17:54)
[2024-04-28] MEDS: guaiFENesin 12 HR 600 MG TABCR PO (09:19)
--- NOTE | 2024-04-28 10:56 | PCNFU ---
Nutrition Follow-Up Complete: Inadequate Oral Intake as related to DKA/Influenza A as evidenced by poor po intake reported. Goal: Adequate Intake of at least 75% of meals/supplements Patient is progressing towards goal. We will continue current goal. Pt current nutrition is DBCC with Glucerna shakes TID. Last recorded weight is 62.9 kg, down from 64.6 kg on admit. Labs Reviewed:BUN 21, Na 134, Hct 31.6, Hgb 10.3 Meds Noted:NovoLog, Lantus,Protonix. Skin: WNL Additional Notes: Patient is tolerating DBCC diet. Oral Intake averaging around 75% of meals. Diet supplements TID of Glucerna shakes are providing an additional 220 kcal and 10 gm protein. Agree with diet orders. Will monitor weight , labs, skin, diet orders, meds every 7 days.
[2024-04-28 11:40] LABS: Glucose Point of Care 221 mg/dl (65-105)
--- NOTE | 2024-04-28 15:04 | PM.DS ---
DS: Admitting Diagnosis Discharge Date 04/28/24 Admitting Diagnosis Nausea, vomiting and hyperglycemia DS: Discharge Diagnosis Discharge Diagnosis (1) Sepsis: Qualifiers: Acute respiratory failure type: with hypoxia Sepsis acute organ dysfunction status: with acute organ dysfunction Sepsis type: sepsis due to unspecified organism Severe sepsis acute organ dysfunction type: acute respiratory failure Severe sepsis shock status: without septic shock Qualified Code(s): A41.9 - Sepsis, unspecified organism; R65.20 - Severe sepsis without septic shock; J96.01 - Acute respiratory failure with hypoxia Code(s): A41.9 - Sepsis, unspecified organism Status: Acute (2) DKA (diabetic ketoacidosis): Qualifiers: Diabetes mellitus complication detail: without coma Diabetes mellitus type: type 2 Qualified Code(s): E11.10 - Type 2 diabetes mellitus with ketoacidosis without coma Code(s): E11.10 - Type 2 diabetes mellitus with ketoacidosis without coma Status: Acute (3) Renal failure: Qualifiers: Acute renal failure type: unspecified Renal failure chronicity: acute Qualified Code(s): N17.9 - Acute kidney failure, unspecified Code(s): N19 - Unspecified kidney failure Status: Acute (4) Pneumonia: Qualifiers: Pneumonia type: due to influenza A virus Qualified Code(s): J10.00 - Influenza due to other identified influenza virus with unspecified type of pneumonia Code(s): J18.9 - Pneumonia, unspecified organism Status: Acute (5) Influenza A: Code(s): J10.1 - Influenza due to other identified influenza virus with other respiratory manifestations Status: Acute (6) Electrolyte abnormality: Code(s): E87.8 - Other disorders of electrolyte and fluid balance, not elsewhere classified Status: Acute (7) Hypoglycemia: Code(s): E16.2 - Hypoglycemia, unspecified Status: Acute (8) Sinus tachycardia: Code(s): R00.0 - Tachycardia, unspecified Status: Acute (9) Urinary retention: Code(s): R33.9 - Retention of urine, unspecified Status: Acute (10) LV dysfunction: Code(s): I51.9 - Heart disease, unspecified Status: Acute (11) Tobacco abuse: Code(s): Z72.0 - Tobacco use Status: Acute DS: Summary Hospital Course Reason for hospitalization: 58yo male with DM, CKD and 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 Please see H&P for details. Hospital Course: Patient found to have a right lower lobe pneumonia on chest x-ray. Pt was on ceftriaxone, azithromycin and vancomycin but was switched to cefepime given persistent fevers. MRSA screen positive and he completed 9 days of vancomycin. Blood cultures 04/17 are negative. UA was unremarkable. CT chest on 04/20 showed no PE but did show right lower lobe pneumonia and small to moderate right pleural effusion and small left pleural effusion. Right thoracentesis on 04/21 with 7200 WBC (77% PMNs). LDH 1331 but TP<3. Glucose 170. Pleural fluid culture negative. He completed antibiotics on 04/26. He presented with DKA and was treated with IV insulin and IV fluids. DKA has resolved and he was transition to subcutaneous insulin. Hemoglobin A1c > 14.0 this admission. informatics educator and dietitian consulted. Patient had PILY but improved with IV fluids. Cr normal now. Patient complained of sore throat, congestion, cough with generalized weakness but denies any fevers or chest pain. Influenza A positive and he completed a course of Tamiflu. Earlier in the hospital course, patient with urinary retention and a Manning catheter was placed. Patient clinically improved and was much stronger so Manning was removed. Patient voiding normally and denies symptoms of urine retention. Echo shows LV systolic function is moderately reduced with EF of 35-40%, grade 1 diastolic dysfunction and mild tricuspid regurgitation. Probably related to the sepsis. Patient is on lisinopril. We stopped the HCTZ and added metoprolol XL. Will need to follow up with Cardiology for further evaluation and repeat imaging. He is up ambulating in the room. Repeat CXR showing slow clearing of the RLL pneumonia. He was advised to stop smoking. He overall did well and was able to be discharged home on 04/28/24. Status at Discharge Cognitive/behavioral status at discharge: stable Time Spent with Patient Time attestation: Total time spent providing and/or coordinating discharge services: 35 minutes Time spent: Greater than 30 minutes Exam Narrative: AF 97.6 115/72 96 20 97% ra Gen - NARD Chest -distant BS, scattered inspiratory rhonchi CV - RRR S1/S2 Abd - Soft, NT/ND, Positive BS Ext - No pedal edema Psych - Nml mood and affect Skin - Warm and dry DS: Data Data Completed and Pending Completed studies during hospitalization: Pending at discharge 04/21/24 14:42 Cytology [PTH] Routine Labs on day of discharge: Labs from last 24 hours 04/28/24 04/28/24 04/28/24 11:37 08:18 05:29 WBC 12.1 H RBC 3.68 L Hgb 10.3 L Hct 31.6 L MCV 85.9 MCH 28.0 MCHC 32.6 RDW 14.7 H Plt Count 617 H MPV 9.7 Immature Gran % (Auto) 3.4 H Neut % (Auto) 80.1 H Lymph % (Auto) 11.1 L Dillon % (Auto) 4.5 Eos % (Auto) 0.4 Baso % (Auto) 0.5 Lymph # (Auto) 1.34 Dillon # (Auto) 0.5 Eos # (Auto) 0.1 Baso # (Auto) 0.1 Abs Immat Gran (auto) 0.41 H Absolute Neuts (auto) 9.7 H Absolute Nucleated RBC 0.000 Nucleated RBC % 0.0 Sodium 134 L Potassium 4.0 Chloride 96 L Carbon Dioxide 32 H Anion Gap 6 BUN 21 H Creatinine 0.78 Estim Creat Clear Calc 78 Estimated GFR > 60 Glucose 98 POC Capillary Glucose 221 H 152 H Calcium 8.3 L Phosphorus 3.0 Magnesium 1.7 Albumin 2.8 L 04/27/24 04/27/24 19:21 16:39 WBC RBC Hgb Hct MCV MCH MCHC RDW Plt Count MPV Immature Gran % (Auto) Neut % (Auto) Lymph % (Auto) Dillon % (Auto) Eos % (Auto) Baso % (Auto) Lymph # (Auto) Dillon # (Auto) Eos # (Auto) Baso # (Auto) Abs Immat Gran (auto) Absolute Neuts (auto) Absolute Nucleated RBC Nucleated RBC % Sodium Potassium Chloride Carbon Dioxide Anion Gap BUN Creatinine Estim Creat Clear Calc Estimated GFR Glucose POC Capillary Glucose 240 H 244 H Calcium Phosphorus Magnesium Albumin Discharge Plan Discharge Attending physician on discharge: Pool Osorio Consulting providers: Karyn Randall Discharging Clinician: Pool Osorio Anticipated Discharge Date/Time: 04/28/24 15:16 Patient Disposition: Home, Self-Care Activity: as tolerated Diet: diabetic Discharge Instructions: Per Care Coordination: [facility] [phone] has been arranged for physical and occupational therapy. They will call you regarding your first visit. RN please fax discharge orders to [phone] Stop using all products that contain nicotine or tobacco. Please check glucose before meals and before bed. Record and bring into your doctor for review. Call if glucose >250. -- Okay to advance your insulin glargine by 2Units at night if your morning glucose is >200. Take precautions to avoid falls. Rise slowly from a lying or sitting position. Pause before standing or walking. Check daily morning weights after voiding. Call your doctor if you gain more than 3 lb in 2 days or 5 lb in 1 week. Contact your doctor or call 911 and come to the Emergency Room if you have fevers lightheadedness with standing or other worrisome symptoms. Avoid NSAIDs (ibuprofen, naproxen, Aleve). Tylenol is safe to take. Follow-up with your primary care provider in 1-2 weeks. Please call for appointment. Thank you for using [facility] for your health care needs. Patient Instructions: Antibiotic Form, Basic Carbohydrate Counting (DC) Patient Language: Nauruan Stand Alone Forms: General Discharge Information Follow-up/Referrals: PHYSICIAN NOT ON STAFF,NONSTAFF [Primary Care Provider] - Discharge Medications: New guaifenesin [Mucus Relief ER] 600 mg Tablet Extended Release 12hr 600 mg PO Q12HR Qty: 60 0RF lisinopril 5 mg Tablet 5 mg PO QAM Qty: 30 0RF metoprolol succinate [Toprol XL] 25 mg Tablet Extended Release 24 Hr 25 mg PO QAM Qty: 30 0RF Changed insulin glargine [Basaglar KwikPen U-100 Insulin] 100 unit/mL (3 mL) Insulin Pen 10 unit SUBCUT HS Qty: 3 0RF insulin lispro [Admelog SoloStar U-100 Insulin] 100 unit/mL Insulin Pen 3 unit SUBCUT .with meals Qty: 3 0RF Discontinued mupirocin 2 % ointment 1 applic topical BID Qty: 22 0RF Rx Instructions: Twice daily to right index finger cephalexin 500 mg capsule 500 mg PO Q8H Qty: 30 0RF triamcinolone acetonide 0.1 % ointment 1 applic topical BID Qty: 80 0RF Rx Instructions: to rash twice daily never apply on face Other Ambulatory Orders: XR chest 2V (Routine) Timeframe: 1 Month Location: Determined by Patient Ordered By: Pool Osorio Date of admission: 04/18/24 10:29 Primary Care Provider: PHYSICIAN NOT ON STAFF,NONSTAFF Admitting Provider: Eliecer Roberts Attending physician on admission: Eliecer Roberts Condition: Stable Hospitalist MIPS Heart Failure (Exclusion) Patient has history of Heart Transplant or Left Ventricular Assistive Device?: No IF YES, STOP HERE Heart Failure (Qualifier) Patient has current or prior documentation of LVEF less than or equal to 40%, or mod/servere depressed LVSF?: Yes IF NO, STOP HERE If Yes, Heart Failure (Qualifier) Patient was prescribed or already taking an Angiotensin-Converting Enzyme (JARED) Inhibitor, or Antiotensin Receptor Anna (ARB): Yes Patient was prescribed or already taking bisoprolol, carvedilol, or sustained release metoprolol succinate: Yes
[2024-04-28 16:40] LABS: Glucose Point of Care 111 mg/dl (65-105)
--- NOTE | 2024-04-29 15:12 | PCCDE ---
04/29/[address] DM courtesy call ([phone]) Outgoing message indicating call cannot be completed FJ
== END 2024-04-28 18:30 | disposition home or self-care (01) | DRG 871 ==
LOC: ANHED 09:43 → ANHICU 12:30 → ANH2MED 04-23 16:47
PROVIDERS: Hospitalist; Internal Medicine; Nurse Practitioner; Physician Assistant; Student in an Organized Health Care Education/Training Program; Admitting Provider General Practice; Emergency Provider Emergency Medicine; Visit Provider Internal Medicine
DX: A41.9 Sepsis, unspecified organism (principal); E11.10 Type 2 diabetes mellitus with ketoacidosis without coma; J96.01 Acute respiratory failure with hypoxia; J10.01 Influenza due to other identified influenza virus with the same other identified influenza virus pneumonia; N17.9 Acute kidney failure, unspecified; G61.0 Guillain-Barre syndrome; J91.8 Pleural effusion in other conditions classified elsewhere; I50.20 Unspecified systolic (congestive) heart failure; R65.20 Severe sepsis without septic shock; E11.22 Type 2 diabetes mellitus with diabetic chronic kidney disease; N18.1 Chronic kidney disease, stage 1; E87.6 Hypokalemia; R33.9 Retention of urine, unspecified; F17.210 Nicotine dependence, cigarettes, uncomplicated; Z20.822 Contact with and (suspected) exposure to COVID-19; Z22.322 Carrier or suspected carrier of Methicillin resistant Staphylococcus aureus; Z91.148 Patient's other noncompliance with medication regimen for other reason; Z79.4 Long term (current) use of insulin
CPT/HCPCS: 32555; 36415; 36600; 71045; 71046; 71275; 80048; 80053; 80069; 80202; 81001; 82010; 82375; 82805; 82945; 82948; 83036; 83050; 83615; 83735; 83880; 83986; 84100; 84145; 84157; 84439; 84443; 84480; 84484; 85018; 85025; 85027; 85610; 85730; 87040; 87070; 87075; 87205; 87637; 87641; 88108; 88305; 89051; 93005; 93306; 93970; 94640; 96361; 96366; 96367; 96368; 96372; 96374; 96375; 97110; 97161; 97166; 97530; 99212; 99285; A9270; G0378; G0463; J0456; J0613; J0692; J0696; J1650; J1815; J2270; J2405; J2470; J3370; J3475; J3480; J7030; J7040; J7050; J7070; J7120; P9047; Q9967